=== PATIENT | male | born 1950 | race Caucasian/White ===

== ENCOUNTER 2017-10-05 09:00 | Outpatient (RCR) | payer MEDICARE, OTHER, SELFPAY | END 2017-10-05 23:59 | LOC: DC 09:00 | PROVIDERS: Family Provider Internal Medicine; PCP Internal Medicine; Visit Provider Internal Medicine | DX: E11.21 Type 2 diabetes mellitus with diabetic nephropathy (principal); N18.4 Chronic kidney disease, stage 4 (severe); Z71.3 Dietary counseling and surveillance | CPT/HCPCS: 97802; G0108 ==

== ENCOUNTER → 2017-10-17 08:00 | Outpatient (CLI) | payer MEDICARE, OTHER, SELFPAY ==
[2017-10-17 10:56] LABS: Absolute Lymphocyte Count 0.62 X10^3/ul (0.83-4.51); Absolute Neutrophil Count 4.3 X10^3/uL (2.0-7.7); Basophil# 0.04 X10^3/uL; Basophil% 0.7 % (0-1); Eosinophils% 5.2 % (0-5); Hematocrit 35.6 % (40-54); Hemoglobin 11.5 g/dl (13.0-16.5); Lymphocyte # 0.62 X10^3/ul (4.0); Lymphocyte % 10.7 % (19-41); Mean Corp Hgb Conc 32.3 g/gl (32-36); Mean Corpuscular Hgb 27.9 pg (27.0-32.0); Mean Corpuscular Volume 86.4 fL (80-94); Mean Platelet Vol. 10.4 fl (6.2-12.0); Monocyte# 0.53 X10^3/uL; Monocyte% 9.1 % (0-10); Neutrophil # 4.32 X10^3/uL (2.7-7.7); Neutrophil % 74.1 % (47-70); Platelet Count 247 K/mm3 (150-450); RBC Distribution Width CV 14.1 % (11.6-14.6); RBC Distribution Width SD 43.1 fl (35.1-43.9); Red Blood Count 4.12 M/mm3 (4.6-6.2); White Blood Count 5.8 K/mm3 (4.4-11.0)
[2017-10-17 11:02] LABS: POSITIVE COUNT NO; POSITIVE DIFFERENTIAL NO; POSITIVE MORPHOLOGY NO
[2017-10-17 11:19] LABS: AST(SGOT) 41 U/L (15-37); Alanine Aminotransfer ALT/SGPT 48 U/L (16-61); Albumin, Serum 3.1 g/dL (3.2-5.0); Alkaline Phosphatase 58 U/L (45-117); Anion Gap 7 (5-15); BUN 81 mg/dL (7-18); BUN/Creat Ratio 15.4 RATIO (10-20); Calcium,Total 8.1 mg/dL (8.5-10.1); Chloride 107 mmol/L (98-107); Creatinine, Serum 5.27 mg/dL (0.70-1.30); EST Glomerular Filtration Rate 12 mL/min (>60); Est Glom Filt Rate - Afr Amer 14 mL/min (>60); Globulin 3.1 g/dL (2.2-4.2); Glucose 88 mg/dL (74-106); Potassium 5.1 mmol/L (3.5-5.1); Protein, Total 6.2 g/dL (6.4-8.2); Sodium Level 138 mmol/L (136-145)
== END ==
PROVIDERS: Family Provider Internal Medicine; PCP Internal Medicine; Visit Provider Internal Medicine
DX: I10 Essential (primary) hypertension (principal)
CPT/HCPCS: 36415; 80053; 85025

== ENCOUNTER → 2017-10-18 10:54 | Outpatient (CLI) | payer MEDICARE, OTHER, SELFPAY ==
--- NOTE | 2017-10-18 11:00 | ECHOD_ITS ---
Reason For Study: cad/ashd Procedure This was a 2D Doppler, Color Flow transthoracic echocardiogram. Exam performed in department. Left Ventricle Moderate concentric left ventricular hypertrophy. The estimated ejection fraction is 65 %. Stage 2 diastolic dysfunction. No regional wall motion abnormalities noted. Right Ventricle Normal size and thickness. Normal systolic function. Atria The left atrium is severely enlarged. The right atrium is mildly enlarged. Normal atrial septum. Mitral Valve Mild diffuse mitral valve thickening. Severe mitral annular calcification extending into the posterior leaflet. Trivial mitral valve insufficiency. Tricuspid Valve Normal tricuspid valve. Trivial tricuspid valve insufficiency. Right ventricular systolic pressure estimated to be 39 mmHg. Mild pulmonary hypertension. Aortic Valve Trisinus/trileaflet aortic valve. Mild diffuse aortic valve thickening. Trivial aortic valve insufficiency. Pulmonic Valve Normal pulmonic valve. Trivial pulmonic valve insufficiency. Great Vessels Normal aortic root. Mild atherosclerosis of the aortic arch. Normal inferior vena cava. Inferior vena cava collapse with sniff. Pericardium/Pleural No pericardial effusion. MMode/2D Measurements & Calculations LVIDd: 4.9 cm IVSd: 1.6 cm Ao root diam: 3.7 cm LVIDs: 3.7 cm LVPWd: 1.4 cm LA dimension: 5.4 cm RVDd: 3.5 cm FS: 24.7 % LAV(MOD-bp): 135.1 ml LA A4 area: 32.9 cm2 RA A4 area: 23.6 cm2 LAV(MOD-bp) Indexed: 58.5 ml/m2 LAV(MOD-sp2): 133.0 ml LAV(MOD-sp4): 133.0 ml Time Measurements MV dec time: 0.21 sec Doppler Measurements & Calculations MV E max luis angel: 122.7 cm/sec Lat Peak E' Luis Angel: 9.6 cm/sec Med Peak E' Luis Angel: 3.5 cm/sec MV A max luis angel: 92.2 cm/sec E/E' lat: 12.8 E/E' med: 34.8 MV E/A: 1.3 Ao V2 max: 166.1 cm/sec AI max luis angel: 332.8 cm/sec LV V1 max: 124.1 cm/sec Ao max P.0 mmHg AI max P.3 mmHg LV V1 max P.2 mmHg Ao V2 mean: 98.6 cm/sec AI dec slope: 103.4 cm/sec2 LV V1 mean P.8 mmHg Ao mean P.6 mmHg AI P1/2t: 943.1 msec LV V1 mean: 78.6 cm/sec Ao V2 VTI: 34.1 cm LV V1 VTI: 27.6 cm PA V2 max: 151.5 cm/sec PI end-d luis angel: 147.5 cm/sec TR max luis angel: 285.8 cm/sec TR max P.7 mmHg Interpretation Summary Moderate concentric left ventricular hypertrophy. The estimated ejection fraction is 65 %. Stage 2 diastolic dysfunction. The left atrium is severely enlarged. The right atrium is mildly enlarged. Trivial mitral valve insufficiency. Trivial tricuspid valve insufficiency. Right ventricular systolic pressure estimated to be 39 mmHg. Mild pulmonary hypertension. Trivial aortic valve insufficiency. There is no comparison study available. Ordering Physician: Tulio Garza Referring Physician: Becky Romo Performed By: Nica Miller, ESTRELLA, RVT
== END ==
PROVIDERS: Family Provider Internal Medicine; PCP Internal Medicine; Visit Provider Internal Medicine Cardiovascular Disease
DX: Z01.810 Encounter for preprocedural cardiovascular examination (principal)
CPT/HCPCS: 93306

== ENCOUNTER → 2017-10-24 10:32 | Outpatient (CLI) | payer MEDICARE, OTHER, SELFPAY ==
--- NOTE | 2017-10-24 11:00 | STE_ITS ---
Reason For Study: CAD/ASHD, PRE-OP Stress Results Protocol: Stress Echocardiogram Maximum Predicted HR: 151 bpm Target HR: 128 bpm% Maximum Pr edicted HR: 89 % DurationHeart Rate Stage (mm:ss) (bpm) BPDos e Comment BASELINE 60 146/76 DSE- 10 MCG 3:04 75 140/7610.00 DSE- 20 MCG 3:05 10 0 178/7020.00 DSE- 30 MCG 3:25 11 8 161/7030.00ATROPINE .25 MG GIVEN IVP @ 1125 DSE- 40 MCG 2:04 13 4 161/7640.00ATROPINE .25 MG IVP GIVEN @ 1129 RECOVERY 85 156/79 Stress Duration: 11:38 mm:ss Maximum Stress HR: 134 bpm Baseline Echocardiogram Findings The estimated ejection fraction is 65 %. Stress Echo Wall motion Data Resting WMIntermediate WMStress WM Resting Wall Motion Wall Motion Stress No regional wall motion No regional wall motion abnormalities noted. abnormalities noted. EKG Data Normal intervals are noted. The patient was titrated from 10 mcg to a maximum of 40 mcg of dobutamine during the stress. The maximum heart rate attained was 134 beats per minute. This was 88% of maximum predicted heart rate. At peak infusion, upsloping ST changes only were noted, which did not meet the criteria for ischemia. No clinical angina was noted. Interpretation Summary The estimated ejection fraction is 65 %. Normal adequate dobutamine echocardiogram. Negative for ischemia by EKG and echocardiographic criteria. No anginal symptoms noted. Rare PVC noted. Appropriate blood pressure response to dobutamine. Nonspecific ST T-wave changes during infusion which did not reach criteria for ischemia. Final LVEF is 75%. Test terminated due to attainment of target heart rate. No complications. Ordering Physician: Tulio Garza Referring Physician: Tulio Garza Performed By: Lauren Olivares, CHUYCS, RVT
== END ==
PROVIDERS: Family Provider Internal Medicine; PCP Internal Medicine; Visit Provider Internal Medicine Cardiovascular Disease
DX: Z01.810 Encounter for preprocedural cardiovascular examination (principal); I25.810 Atherosclerosis of coronary artery bypass graft(s) without angina pectoris; E78.5 Hyperlipidemia, unspecified; Z95.1 Presence of aortocoronary bypass graft
CPT/HCPCS: 93017; 93350; J7030; A4216

== ENCOUNTER → 2017-11-15 08:57 | Outpatient (CLI) | payer MEDICARE, OTHER, SELFPAY ==
--- NOTE | 2017-11-15 09:01 | US_ITS ---
STUDY: THYROID ULTRASOUND REASON FOR EXAM: Male, 67 years old. Follow-up nodules TECHNIQUE: Transverse and longitudinal ultrasound evaluation of the thyroid was performed with real-time and static ramírez-scale imaging. COMPARISON: November 24, 2016 and January 10, 2015 FINDINGS: RIGHT LOBE: The right lobe of the thyroid gland measures 5.2 x 2.5 x 2.5 cm. There is a heterogeneous echotexture. There is a hypoechoic nodule in the upper pole measuring 8.0 x 7.3 x 5.2 mm. This previously measured 8.9 x 7.5 x 7.8 mm. There is a hypoechoic mass with ill-defined margins in the lower pole measuring about 28 x 24 x 22 mm. This previously measured up to 29 x 20 x 19 mm. LEFT LOBE: The left lobe of the thyroid gland measures 3.4 x 1.3 x 1.7 cm. There is a heterogeneous echotexture. There are small cystic nodules in the left lobe measuring up to 4.4 mm in size. ISTHMUS: The isthmus measures 3.0 mm. The regional lymph nodes are unremarkable. US/Thyroid IMPRESSION: Stable appearance of the thyroid with heterogeneity and bilateral nodules. The largest in the lower pole of the right lobe is solid but appears stable in size and appearance. Electronically Signed: Margaret Ching MD at 8:36 EDT Tel Direct: [phone], Service support ,
--- NOTE | 2017-11-15 09:48 | CDU_ITS ---
Reason For Study: carotid stenosis Rt. Velocities/BP Lt. Velocities/BP Prox CCA 73.9/14.7 cm/sec. Prox CCA 81.5/19.3 cm/sec. Mid CCA 79.7/14.7 cm/sec. Mid CCA 69.8/15.2 cm/sec. Dist CCA 62.7/12.9 cm/sec. Dist CCA 85.6/17.6 cm/sec. Prox ICA 53.9/14.1 cm/sec. Prox ICA 76.2/15.2 cm/sec. Mid ICA 66.3/18.8 cm/sec. Mid ICA 51.0/14.1 cm/sec. Dist ICA 72.1/27.6 cm/sec. Dist ICA 64.4/20.5 cm/sec. Rt. ICA/CCA = .9. Lt. ICA/CCA = 1.1. Prox ECA 65.7/11.1 cm/sec. Prox ECA 102/9.97 cm/sec. Rt. Vert. 20.2/6.9 cm/sec. Lt. Vert. 54.5/20.5 cm/sec. Right Extracranial There is heterogeneous, smooth atherosclerotic plaque noted in the right common carotid artery. There is heterogeneous, irregular atherosclerotic plaque noted in the right internal carotid artery. There is homogeneous, smooth atherosclerotic plaque noted in the right external carotid artery. Antegrade flow is noted in the right vertebral artery. Left Extracranial There is heterogeneous, irregular atherosclerotic plaque noted in the left common carotid artery. There is heterogeneous, irregular atherosclerotic plaque noted in the left internal carotid artery. There is intimal thickening but no significant atherosclerotic plaque noted in the left external carotid artery. Antegrade flow is noted in the left vertebral artery. Procedure Carotid Duplex [id number]. The exam was diagnostic. Exam performed in department. Interpretation Summary Mild (<50%) stenosis right extracranial internal carotid. Mild (<50%) stenosis left extracranial internal carotid. Flow within the vertebral arteries is antegrade bilaterally. Ordering Physician: Becky Romo Performed By: Gabriel Rothman RVT
== END ==
PROVIDERS: Family Provider Internal Medicine; PCP Internal Medicine; Visit Provider Internal Medicine
DX: I65.23 Occlusion and stenosis of bilateral carotid arteries (principal); E04.1 Nontoxic single thyroid nodule
CPT/HCPCS: 76536; 93880

== ENCOUNTER → 2017-12-08 08:53 | Outpatient (CLI) | payer MEDICARE, OTHER, SELFPAY ==
[2017-12-08 09:58] LABS: Anion Gap 9 (5-15); BUN 95 mg/dL (7-18); BUN/Creat Ratio 16.1 RATIO (10-20); Calcium,Total 7.7 mg/dL (8.5-10.1); Chloride 107 mmol/L (98-107); EST Glomerular Filtration Rate 10 mL/min (>60); Est Glom Filt Rate - Afr Amer 12 mL/min (>60); Glucose 129 mg/dL (74-106); Sodium Level 140 mmol/L (136-145)
[2017-12-09 09:08] LABS: HEPATITIS B SURFACE AG Negative (Negative)
== END ==
PROVIDERS: Family Provider Internal Medicine; PCP Internal Medicine; Visit Provider Internal Medicine Nephrology
DX: N18.5 Chronic kidney disease, stage 5 (principal)
CPT/HCPCS: 36415; 80048; 87340

== ENCOUNTER → 2017-12-27 10:53 | Outpatient (CLI) | payer MEDICARE, OTHER, SELFPAY ==
[2017-12-28 11:14] LABS: HEPATITIS B SURFACE AG Negative (Negative)
== END ==
PROVIDERS: Family Provider Internal Medicine; PCP Internal Medicine; Visit Provider Internal Medicine Nephrology
DX: N18.5 Chronic kidney disease, stage 5 (principal)
CPT/HCPCS: 36415; 87340

== ENCOUNTER 2017-12-29 11:09 | Day surgery (SDC) | payer MEDICARE, OTHER, SELFPAY ==
--- NOTE | 2017-12-29 11:23 | EKG12_ITS ---
Test Reason : PREOP Blood Pressure : / mmHG Vent. Rate : 051 BPM Atrial Rate : 051 BPM P-R Int : 164 ms QRS Dur : 110 ms QT Int : 436 ms P-R-T Axes : 006 -02 104 degrees QTc Int : 401 ms Sinus bradycardia Left ventricular hypertrophy with repolarization abnormality Abnormal ECG When compared with ECG of 27-MAR-2008 05:47, Vent. rate has decreased BY 27 BPM Confirmed by DARA OCHOA ([id number]), make up editor CHADWICK TABARES ([id number]) on 01/03/2018 4:08:38 PM Referred By: Norm Bernard Confirmed By:DARA OCHOA
[2017-12-29 11:47] VITALS: BP 152/74; PULSE 48; RESP 18; TEMP 36.8; O2SAT 99; BMI 35.6
[2017-12-29 12:05] LABS: Bedside Glucose 94 mg/dL (70-110)
--- NOTE | 2017-12-29 12:43 | DCINST_ITS ---
Discharge Diet: Renal Diet Discharge Activity: May not drive while taking narcotic pain medications., May Not Shower Lifting Restrictions: 10 pounds Call your doctor if your incision/area has: Continuous Slow Oozing, Sudden Increased Bleeding, Increased Pain/ Swelling, Increased Redness, Foul Smelling Discharge Call your doctor if you observe: Fever of 101 or Higher Suture Line Care: Avoid Pulling/Pushing, Avoid Pinching/Bending Additional Dressing/Incision Instructions:: Please keep the peritoneal dialysis catheter site clean and dry. Dressing changes will be facilitated by the dialysis center. Allergies/Adverse Reactions: Allergies ibuprofen Allergy (Verified 12/13/17 12:55) swellin and itching vancomycin Allergy (Verified 12/13/17 12:55) rash/ throat swelling adhesive tape Adverse Reaction (Verified 12/13/17 12:55) Rash Medications to take at Discharge amlodipine 10 mg tablet 10 mg PO QDAY 30 Days #30 tab 10/04/17 aspirin 325 mg tablet 325 mg PO QDAY 10/04/17 atorvastatin 40 mg tablet 40 mg PO QHS tab 10/04/17 cholecalciferol (vitamin D3) 50,000 unit capsule 50,000 unit PO QWEEK 84 Days # 12 cap 10/04/17 clonidine HCl 0.3 mg tablet 0.3 mg PO BID 90 Days #180 tab 10/04/17 clopidogrel 75 mg tablet 75 mg PO QDAY 90 Days #90 tab 10/04/17 diphenhydramine 25 mg-acetaminophen 500 mg tablet 1 tab PO QHS PRN 10/04/17 doxazosin 4 mg tablet 4 mg PO QDAY tab 10/04/17 fenofibrate 160 mg tablet 160 mg PO QDAY 90 Days #90 tab 10/04/17 furosemide 40 mg tablet 40 mg PO QDAY 90 Days #90 tab 10/04/17 insulin aspart U-100 100 unit/mL subcutaneous pen 10 unit SC TID ml 10/04/17 insulin glargine (U-100) 100 unit/mL (3 mL) subcutaneous pen 30 unit SC QHS ml 10/04/17 isosorbide mononitrate ER 30 mg tablet,extended release 24 hr 30 mg PO QDAY 90 Days #90 tab 10/04/17 levothyroxine 50 mcg tablet 50 mcg PO QDAY tab 10/04/17 lisinopril 20 mg tablet 20 mg PO BID 90 Days #180 tab 10/04/17 metoprolol succinate ER 200 mg tablet,extended release 24 hr 200 mg PO .QD 90 Days tab 10/04/17 Hydrocodone Bitart/Apap 5-325 [[place] 5MG-325MG] 1 tablet PO Q6H PRN PRN 3 Days # 8 tablet 12/29/17 The following prescriptions were given: Hydrocodone Bitart/Apap 5-325 [[place] 5MG-325MG] 1 tablet PO Q6H PRN PRN 3 Days # 8 tablet PRN Reason: Pain Primary Care Physician: Becky Romo DO [Primary Care Provider] - Please Follow Up With: Norm Bernard MD - [phone] When: Call to make an appointment to be seen in about 10 days.
[2017-12-29] MEDS: Cefazolin 2 GM in 0.9% Normal Saline 100 ML IV (12:57)
--- NOTE | 2017-12-29 13:00 | MISC_PTH ---
PATIENT: BJ RUIZ LOC: [facility] – [place] U#:[id number] AGE/SX: 67/M ROOM: RE12/29/[address]: Dr. Norm Bernard MD : [id number] BED: DIS: 12/29/2017 SPEC #: [id number] RECD: 12/29/17 15:26 STATUS: LEXII REAdriana #: [id number] SID: 12/29/17 13:[address]: Norm Bernard DEPT: SURGICAL PATHOLOGY RECD BY: Panchito Albrecht ENTERED: 12/30/17 08:42 SP TYPE: MIS OT DR: Dr. Becky Romo, DO Tissues: Adipose tissue Procedures: Surgery Specimen Level III HEADER OPERATION: Laparoscopic insertion peritoneal dialysis catheter PRE-OP DIAGNOSIS: Chronic kidney disease stage 4 TISSUE SUBMITTED: Preperitoneal fat MICROSCOPIC DIAGNOSIS Preperitoneal fat: A piece of mature adipose tissue, no pathologic diagnosis. SJ:ailyn 01/02/18 MICROSCOPIC DESCRIPTION Slides are reviewed. GROSS DESCRIPTION Received in fixative is one container labeled with the patient's name and designated preperitoneal fat. The specimen consists of an irregular fragment of boyer-yellow fatty tissue measuring 8 x 6 x 1.8 cm. Serial sections reveal homogenous yellow cut surfaces without areas of cyst formation, necrosis or myxoid change. Medical Reimbursement Specialist sections are submitted in two cassettes. / AM:ailyn 12/30/17 TC:4 CPT: 58707
[2017-12-29] MEDS: Heparin Injection (Vial) 5,000 UNIT/ML VIAL 5000 UNIT (13:45)
[2017-12-29] MEDS: Bupivacaine Mpf 0.5% 30 ML VIAL (14:14)
--- NOTE | 2017-12-29 14:16 | OP.PCM_ITS ---
Problem List (1) Chronic kidney disease, stage IV (severe) Status: Chronic Report of Operation Date of Procedure: 12/29/17 Pre-Operative Diagnosis: Stage IV chronic renal failure Post-Operative Diagnosis: Same Surgery/Procedure Performed:: Laparoscopic peritoneal dialysis catheter placement with laparoscopic omentopexy and a laparoscopic resection of excessive preperitoneal suprapubic fat Description of Surgical Findings:: Timeout and informed consent was obtained. 67-year-old gentleman was taken to the operating room. He was placed supine on the table. He underwent general endotracheal intubation anesthesia. Ancef 2 g are given intravenous preoperatively. The abdomen was sterilely prepped and draped. Ioban draping was utilized as well. A 5 mm Visiport technology was used to gain access to the abdomen to the right mid abdomen. The abdomen was then insufflated CO2 to a pressure of 10 mmHg pressure. An additional 5 mm port was placed under visualization the right lower quadrant. It became apparent that the patient had exuberant fat that drooped down from the infraumbilical suprapubic area. This was so exuberant I thought that it could potentially obstruct the catheters. I then used electrified scissors to dissect this free. Because of the size of that specimen I had to make a small incision at the umbilicus place a 10 mm trocar placed in retrieval bag. I then made measurements inferior and slightly to the left of the umbilicus based upon the length of the double cuff peritoneal dialysis catheter. Made a transverse incision in the abdomen that point about 2 cm dissected down to the fascia made a small incision the anterior rectus sheath I then placed the dilating sheath with varies needle extended that in the retroperitoneal direction for 6 cm then exited into the abdomen pointing toward the midline pelvis. I inserted the dilators after removing the Veress needle. I then advanced the peritoneal dialysis catheter through the sheath and nicely placed that in the peritoneum with up the cuff just immediately in the posterior rectus position. The superficial cuff then was in the subcutaneous area immediately at the incision that I made the patient is obese and has a high waistline and so then I tunneled the catheter superiorly into the left with a high exit site approximately parallel with the umbilicus but had a 30? downward angle. That consume the vast majority the length of the catheter. We then placed the attachment device and then placed a liters saline within the abdomen. The catheters were inspected and noted to be absolutely perfectly position behind the urinary bladder. The patient has significant fat from appendices epiploicae from the colon. Also had a partially filled urinary bladder. We were able to get 300 cc of return. At this point I felt because of the very large peritoneal cavity that it may require more fluid for him to flush and return. I carefully inspected the position of the catheters and to my believe they are absolutely in perfect position lying anterior to the rectum behind the urinary bladder. That wound was closed with interrupted 4-0 Monocryl subdermal stitches. The mastopexy was then performed with the deepest portion of the omentum being midline I made a small 11 blade stab incision used a grainy needle to place a 2- 0 Prolene through the omentum and that site and secured that up to the anterior abdominal wall. Finally I removed the piece of preperitoneal fat that was in the collection bag. I closed the umbilical site using a grainy needle and a 0 Vicryl figure 8 suture. All sites now appear to be hemostatic dry and intact airtight. The remaining Trochars removed under visualization the abdomen was allowed to deflate of the CO2 the attachment extension was placed on the tubing. Then approximately 200 cc of heparinized saline was injected through the tube. The valve was locked. Betadine Was inserted. A silver type dressing was placed at the exit site followed by OpSite dressings. All other incisions were treated with Steri-Strips Telfa OpSite dressings. A generous overlying OpSite was placed protecting the catheter with gauze. Sponge instrument and needle counts were reported the surgeon for correct blood loss was minimal. I believe that this catheter technically is in absolutely perfect position. If there are difficulties with the catheter function it will be secondary to a atonic urinary bladder or bladder outlet obstruction in combination with the patient's obesity. Norm Bernard M.D., F.A.C.S. Type of Anesthesia:: General Anesthesiologist: Blas Perez
[2017-12-29 14:34] VITALS: BP 152/74; BP 161/75; PULSE 53; RESP 16; TEMP 36.3; O2SAT 92
[2017-12-29 14:45] VITALS: BP 152/74; BP 164/72; PULSE 49; RESP 16; O2SAT 95
[2017-12-29 14:45] LABS: Bedside Glucose 80 mg/dL (70-110)
[2017-12-29 15:00] VITALS: BP 152/74; BP 165/70; PULSE 46; RESP 16; O2SAT 96
[2017-12-29 15:15] VITALS: BP 152/74; BP 172/68; PULSE 16; RESP 16; TEMP 36.1; O2SAT 98
[2017-12-29] MEDS: HYDROcodone Bitartrate/Apap 5/325 Tablet PO (15:40)
[2017-12-29 16:35] VITALS: BP 152/74
== END 2017-12-29 16:38 | disposition home or self-care (01) ==
LOC: SDC 11:10 → AC 11:10
PROVIDERS: Family Provider Internal Medicine; PCP Internal Medicine; Visit Provider Surgery
PROC: 0WHG43Z Insertion of Infusion Device into Peritoneal Cavity, Percutaneous Endoscopic Approach (ICD-10-PCS; CPT 49324; principal; 2017-12-29 12:45)
DX: I12.9 Hypertensive chronic kidney disease with stage 1 through stage 4 chronic kidney disease, or unspecified chronic kidney disease (principal); E11.22 Type 2 diabetes mellitus with diabetic chronic kidney disease; N18.4 Chronic kidney disease, stage 4 (severe); Z99.2 Dependence on renal dialysis; E78.5 Hyperlipidemia, unspecified; E03.9 Hypothyroidism, unspecified; E66.9 Obesity, unspecified; Z68.35 Body mass index [BMI] 35.0-35.9, adult; Z79.02 Long term (current) use of antithrombotics/antiplatelets; Z79.82 Long term (current) use of aspirin; Z79.4 Long term (current) use of insulin; Z79.899 Other long term (current) drug therapy; Z86.73 Personal history of transient ischemic attack (TIA), and cerebral infarction without residual deficits; Z95.1 Presence of aortocoronary bypass graft; Z95.5 Presence of coronary angioplasty implant and graft
CPT/HCPCS: 49324; 49326; 82962; 88304; 93005; J7040

== ENCOUNTER → 2018-01-03 10:08 | Outpatient (CLI) | payer MEDICARE, OTHER, SELFPAY ==
[2018-01-03 10:16] LABS: Bacteria 0 SEEN /hpf (None Seen); Mucous, Urine 0 SEEN /hpf (<or=2+); White Blood Cells 0 SEEN /hpf (0-5)
[2018-01-03 11:23] LABS: Anion Gap 12 (5-15); BUN 117 mg/dL (7-18); BUN/Creat Ratio 13.7 RATIO (10-20); Calcium,Total 7.7 mg/dL (8.5-10.1); Chloride 103 mmol/L (98-107); Creatinine, Serum 8.56 mg/dL (0.70-1.30); EST Glomerular Filtration Rate 7 mL/min (>60); Est Glom Filt Rate - Afr Amer 8 mL/min (>60); Glucose 156 mg/dL (74-106); Potassium 4.8 mmol/L (3.5-5.1); Sodium Level 134 mmol/L (136-145)
[2018-01-03 12:48] LABS: Color, Urine Yellow (Yellow); Glucose, Dipstick 100 mg/dl (Normal); Ketone-Dipstick Negative (Negative); Leukocyte Esterase-Dipstick Negative /ul (Negative); Nitrite-Dipstick Negative (Negative); Occult Blood-Urine 10 /ul (Negative); Protein-Dipstick 100 mg/dl (Negative); Specific Gravity, Urine 1.015 (1.002-1.030); Urine Bilirubin Dipstick Negative (Negative); Urine Clarity Clear (Clear); Urine Urobilinogen Normal (Normal)
[2018-01-03 12:58] LABS: Red Blood Cells-Urine 0-5 SEEN /hpf (0-5); Squamous Epithelial Cells - UA 0-5 SEEN /hpf (0-5)
== END ==
PROVIDERS: Surgery; Family Provider Internal Medicine; PCP Internal Medicine; Visit Provider Internal Medicine Nephrology
DX: N18.5 Chronic kidney disease, stage 5 (principal); R39.15 Urgency of urination
CPT/HCPCS: 36415; 80048; 81001

== ENCOUNTER → 2018-01-18 14:18 | Outpatient (CLI) | payer MEDICARE, OTHER, SELFPAY ==
[2018-01-18 14:32] LABS: Absolute Lymphocyte Count 1.21 X10^3/ul (0.83-4.51); Absolute Neutrophil Count 8.4 X10^3/uL (2.0-7.7); Basophil# 0.02 X10^3/uL; Basophil% 0.2 % (0-1); Eosinophil# 0.29 X10^3/uL; Eosinophils% 2.8 % (0-5); Hematocrit 24.9 % (40-54); Lymphocyte # 1.21 X10^3/ul (4.0); Lymphocyte % 11.8 % (19-41); Mean Corp Hgb Conc 32.1 g/gl (32-36); Mean Corpuscular Hgb 27.9 pg (27.0-32.0); Mean Corpuscular Volume 86.8 fL (80-94); Mean Platelet Vol. 9.2 fl (6.2-12.0); Monocyte# 0.21 X10^3/uL; Neutrophil % 81.7 % (47-70); Platelet Count 347 K/mm3 (150-450); RBC Distribution Width CV 14.6 % (11.6-14.6); RBC Distribution Width SD 46.1 fl (35.1-43.9); Red Blood Count 2.87 M/mm3 (4.6-6.2); White Blood Count 10.3 K/mm3 (4.4-11.0)
[2018-01-18 14:35] LABS: POSITIVE COUNT NO; POSITIVE DIFFERENTIAL NO; POSITIVE MORPHOLOGY NO
[2018-01-18 14:39] LABS: International Normalized Ratio 1.7; Partial Thromboplast Time 36.4 Seconds (24.1-36.2)
== END ==
PROVIDERS: Family Provider Internal Medicine; PCP Internal Medicine; Visit Provider Internal Medicine
DX: T14.8XXA Other injury of unspecified body region, initial encounter (principal); X58.XXXA Exposure to other specified factors, initial encounter; Y93.9 Activity, unspecified; Y92.9 Unspecified place or not applicable; Y99.9 Unspecified external cause status
CPT/HCPCS: 85025; 85610; 85730

== ENCOUNTER → 2018-01-27 08:27 | Outpatient (CLI) | payer MEDICARE, OTHER, SELFPAY ==
[2018-01-27] VITALS (7 sets, daily range): BP systolic 107–145; BP diastolic 47–71; PULSE 51–59; RESP 16–18; TEMP 36.2–37.1; O2SAT 96–98; BMI 33.9
== END ==
PROVIDERS: Family Provider Internal Medicine; PCP Internal Medicine; Visit Provider Internal Medicine Nephrology
DX: D64.9 Anemia, unspecified (principal)
CPT/HCPCS: 36430; 86850; 86900; 86920; 86922; J7040; P9016; A4216

== ENCOUNTER → 2018-03-28 16:11 | Outpatient (CLI) | payer MEDICARE, OTHER, SELFPAY ==
--- NOTE | 2018-03-28 16:16 | RAD_ITS ---
STUDY: X-RAY - ABDOMEN/PELVIS REASON FOR EXAM: Male, 67 years old. Dialysis catheter. Constipation. TECHNIQUE: 3 supine views of the abdomen. COMPARISON: None. FINDINGS: There is no bowel obstruction. There is a large amount of stool in the colon, consistent with constipation. There is a peritoneal dialysis catheter noted with its tip in the mid pelvis. The visualized osseous structures are within normal limits. RAD/Abdomen Single View IMPRESSION: No bowel obstruction. Constipation. Peritoneal dialysis catheter tip in the mid pelvis. Electronically Signed: Jeffrey Moise, at 21:00 EDT Tel , Service support ,
== END ==
PROVIDERS: Family Provider Internal Medicine; PCP Internal Medicine; Visit Provider Internal Medicine Nephrology
DX: T85.691A Other mechanical complication of intraperitoneal dialysis catheter, initial encounter (principal)
CPT/HCPCS: 74018

== ENCOUNTER 2018-04-06 14:39 | Emergency (ER) | payer MEDICARE, OTHER, SELFPAY ==
[2018-04-06 14:41] VITALS: BP 172/80; PULSE 104; RESP 18; TEMP 37.2; O2SAT 95; BMI 31.1
[2018-04-06 15:05] VITALS: O2SAT 96
--- NOTE | 2018-04-06 15:09 | ED.VISSUMM ---
- ER Visit Summary Date of Service: 04/06/18 Chief Complaint: Fever History of Present Illness: The patient is a 67 M presents to the emergency department fever. Patient was at dialysis today. He has end-stage renal disease and gets dialysis Tuesday, , and Tuesday. During his treatment, he spiked a fever. States that it only last about 30 minutes. He states he did have some chills. He denies any symptoms. He has had a scant cough, but states is chronic for him. The patient does have a tunneled hemodialysis catheter in his right chest. He has a chronic indwelling Bang but denies any change in urination. He also has a peritoneal dialysis catheter, but states that he gets intermittently obstructed and he cannot use it. States up until today has been in his normal state of health. He has been compliant with his dialysis and all his medications. Physical Examination: Vital signs reviewed General: Well-nourished, well-developed Head: Normocephalic, atraumatic Eyes: Pupils equal and reactive, extraocular muscles intact Neck, supple, no lymphadenopathy Heart: Regular rate and rhythm Respiratory: No distress, clear bilaterally Abdomen: Soft, nontender, nondistended, no peritoneal signs Back: Nontender Extremities: Nontender, no edema, no cords Skin: Normal color no rash Neuro: Alert and oriented, no focal or lateralizing deficits Test Results: [] Emergency Department Course and Treatment:] [The patient was initially afebrile here. His vitals were unremarkable. His lungs were clear. Metabolic workup was pursued. Screening labs are unremarkable and do demonstrate end-stage renal disease. His lactate was minimally elevated at 2.1. The patient did spike a fever here of 102. He was given Tylenol and it resolved. Blood cultures were obtained. His x-ray shows no infiltrates. The patient is requesting discharge. I did discuss plan of care with his investigator fraud, Dr. chase. The patient is covered with IV Ancef and this will be arranged to be continued at dialysis. He is also placed on oral Bactrim to be taken after dialysis. Patient is comfortable this plan of care. I did spend time counseling him on concerning symptoms and reasons to return. He will be discharged home with family. Treatment Plan: [] Disposition: Discharge Impression: 1. Fever This note was generated with [employer] software. It may contain incorrect words, spelling, and punctuation that were not noted in review of the chart prior to signing ED Disposition - Plan for ED Patient: Disposition: Home or Assisted Living Chief Complaint: Fever Instructions: ED Fever Unconf Cause Prescriptions: Smz/Tmp Ds [Bactrim Ds] 1 tab PO QODAY #10 tab Referrals: Joey Naranjo MD [STAFF PHYSICIAN] -
[2018-04-06] MEDS: Acetaminophen 500 MG Tablet 1000 MG PO (15:24)
[2018-04-06 15:38] LABS: Absolute Lymphocyte Count 0.55 X10^3/ul (0.83-4.51); Absolute Neutrophil Count 7.9 X10^3/uL (2.0-7.7); Basophil# 0.01 X10^3/uL; Basophil% 0.1 % (0-1); Eosinophil# 0.08 X10^3/uL; Eosinophils% 0.9 % (0-5); Hemoglobin 10.4 g/dl (13.0-16.5); Lymphocyte # 0.55 X10^3/ul (4.0); Lymphocyte % 5.9 % (19-41); Mean Corp Hgb Conc 31.5 g/gl (32-36); Mean Corpuscular Hgb 29.1 pg (27.0-32.0); Mean Corpuscular Volume 92.2 fL (80-94); Mean Platelet Vol. 9.2 fl (6.2-12.0); Monocyte# 0.74 X10^3/uL; Neutrophil # 7.86 X10^3/uL (2.7-7.7); Neutrophil % 84.8 % (47-70); Platelet Count 301 K/mm3 (150-450); RBC Distribution Width CV 16.1 % (11.6-14.6); Red Blood Count 3.58 M/mm3 (4.6-6.2); White Blood Count 9.3 K/mm3 (4.4-11.0)
[2018-04-06 15:48] LABS: POSITIVE COUNT NO; POSITIVE DIFFERENTIAL YES; POSITIVE MORPHOLOGY NO
[2018-04-06 15:49] LABS: Differential Indicated SCAN CRITERIA MET
[2018-04-06 16:04] LABS: ALB/GLOB Ratio 0.7 RATIO (0.9-2.4); AST(SGOT) 19 U/L (15-37); Alanine Aminotransfer ALT/SGPT 18 U/L (16-61); Albumin, Serum 2.8 g/dL (3.2-5.0); Alkaline Phosphatase 69 U/L (45-117); Anion Gap 11 (5-15); BUN 28 mg/dL (7-18); BUN/Creat Ratio 6.7 RATIO (10-20); Calcium,Total 8.4 mg/dL (8.5-10.1); Chloride 94 mmol/L (98-107); EST Glomerular Filtration Rate 15 mL/min (>60); Est Glom Filt Rate - Afr Amer 18 mL/min (>60); Estimated Creatinine Clearance 17.68 ml/min; Globulin 4.3 g/dL (2.2-4.2); Glucose 134 mg/dL (74-106); Protein, Total 7.1 g/dL (6.4-8.2); Sodium Level 136 mmol/L (136-145)
[2018-04-06 16:12] LABS: Anisocytosis RARE; Macrocytosis RARE; Platelet Estimate ADEQUATE (ADEQ)
[2018-04-06 16:13] LABS: Lactic Acid 2.1 mmol/L (0.4-2.0)
--- NOTE | 2018-04-06 16:30 | RAD_ITS ---
STUDY: X-RAY CHEST REASON FOR EXAM: Male, 67 years old. Cough. TECHNIQUE: PA and lateral views of the chest. COMPARISON: None. FINDINGS: There is a right jugular hemodialysis catheter with its tip at the atriocaval junction. The lungs are clear and expanded. There is no demonstrated pleural abnormality. The heart appears borderline enlarged. Normal mediastinum and guerda. Normal visualized pulmonary arteries. Normal visualized aortic arch and descending thoracic aorta. There are diffuse degenerative changes of the visualized thoracic spine. Normal visualized ribs, clavicles, and shoulders. There is no demonstrated abnormality of the visualized soft tissue structures of the upper abdomen. RAD/Chest PA and Lateral IMPRESSION: 1. Right jugular hemodialysis catheter. 2. No acute cardiopulmonary disease. 3. Borderline cardiomegaly. Electronically Signed: Juan Cormier DO at 17:38 EDT Tel [phone], Service support ,
[2018-04-06 16:44] VITALS: BP 150/78; PULSE 97; RESP 20; TEMP 39; O2SAT 95
[2018-04-06 18:24] VITALS: BP 126/83; PULSE 87; RESP 16; TEMP 37.5; O2SAT 98
[2018-04-06] MEDS: Smz/Tmp Ds Tablet 1 TABLET PO (19:06)
[2018-04-06] MEDS: Cefazolin 2 GM in 0.9% Normal Saline 100 ML IV (19:18)
[2018-04-06 19:29] LABS: Reflex Lactate? Y
--- NOTE | 2018-04-06 19:42 | ED.RN ---
ASKED DR BROWN IF HE WANTED A REPEAT LACTIC ACID AND HE STATES NO.
[2018-04-06 20:13] VITALS: BP 134/68; PULSE 80; RESP 13; O2SAT 95
[2018-04-06 20:20] VITALS: BP 134/68; PULSE 81; RESP 17; O2SAT 95
== END 2018-04-06 20:20 | disposition home or self-care (01) ==
LOC: ED 15:44
PROVIDERS: Emergency Provider Emergency Medicine; PCP Internal Medicine
DX: R50.9 Fever, unspecified (principal); R05 Cough; I12.0 Hypertensive chronic kidney disease with stage 5 chronic kidney disease or end stage renal disease; E11.22 Type 2 diabetes mellitus with diabetic chronic kidney disease; N18.6 End stage renal disease; Z99.2 Dependence on renal dialysis; Z79.02 Long term (current) use of antithrombotics/antiplatelets; Z79.82 Long term (current) use of aspirin; Z79.4 Long term (current) use of insulin; Z79.899 Other long term (current) drug therapy
CPT/HCPCS: 71046; 80053; 83605; 85025; 87040; 96365; 99285; J7040; A4216

== ENCOUNTER → 2018-04-26 08:21 | Outpatient (CLI) | payer MEDICARE, OTHER, SELFPAY | PROVIDERS: Family Provider Internal Medicine; PCP Internal Medicine; Visit Provider Internal Medicine Nephrology | DX: Z01.818 Encounter for other preprocedural examination (principal); N18.6 End stage renal disease | CPT/HCPCS: 93970; 93971; G0365 ==

== ENCOUNTER 2018-06-30 17:48 | Inpatient (IN) | payer MEDICARE, OTHER, SELFPAY ==
[2018-06-30] VITALS (8 sets, daily range): BP systolic 140–186; BP diastolic 71–95; PULSE 82–123; RESP 16–18; TEMP 37.1–37.8; O2SAT 91–98; BMI 31.2; BMI 31.1
--- NOTE | 2018-06-30 18:08 | RAD_ITS ---
STUDY: X-RAY CHEST REASON FOR EXAM: Male, 67 years old. Fever and chills. TECHNIQUE: Frontal and lateral views of the chest. COMPARISON: None. FINDINGS: The lungs are clear and expanded. There is no demonstrated pleural abnormality. There is a dialysis catheter in place terminating within the expected region of the superior vena cava. Normal size heart. Normal mediastinum and guerda. Normal visualized pulmonary arteries. Normal visualized aortic arch and descending thoracic aorta. There are diffuse degenerative changes of the visualized thoracic spine. Normal visualized ribs, clavicles, and shoulders. There is no demonstrated abnormality of the visualized soft tissue structures of the upper abdomen. RAD/Chest PA and Lateral IMPRESSION: No acute cardiopulmonary process. Electronically Signed: Mindy Watkins MD at 18:58 EDT Tel , Service support ,
--- NOTE | 2018-06-30 18:08 | EKG12_ITS ---
Test Reason : FEVER Blood Pressure : / mmHG Vent. Rate : 116 BPM Atrial Rate : 116 BPM P-R Int : 126 ms QRS Dur : 110 ms QT Int : 316 ms P-R-T Axes : -04 000 172 degrees QTc Int : 439 ms Sinus tachycardia Left ventricular hypertrophy with repolarization abnormality Abnormal ECG Confirmed by DARA OCHOA ([id number]), book or script editor CHADWICK TABARES ([id number]) on 07/04/2018 8:36:15 AM Referred By: Pop Hernandez Confirmed By:DARA OCHOA
--- NOTE | 2018-06-30 18:37 | ED.RN ---
PER DR HAYES HOLD ATB FOR ABOUT 30 MINUTES TO SEE IF WE CAN OBTAIN A URINE CX.
[2018-06-30 18:44] LABS: Absolute Lymphocyte Count 0.46 X10^3/ul (0.83-4.51); Absolute Neutrophil Count 8.8 X10^3/uL (2.0-7.7); Eosinophil# 0.06 X10^3/uL; Eosinophils% 0.6 % (0-5); Hematocrit 31.4 % (40-54); Lymphocyte # 0.46 X10^3/ul (4.0); Lymphocyte % 4.6 % (19-41); Mean Corp Hgb Conc 31.8 g/gl (32-36); Mean Corpuscular Hgb 28.7 pg (27.0-32.0); Mean Corpuscular Volume 90.2 fL (80-94); Mean Platelet Vol. 9.5 fl (6.2-12.0); Monocyte# 0.61 X10^3/uL; Monocyte% 6.1 % (0-10); Neutrophil # 8.79 X10^3/uL (2.7-7.7); Neutrophil % 88.5 % (47-70); Platelet Count 171 K/mm3 (150-450); RBC Distribution Width CV 15.2 % (11.6-14.6); RBC Distribution Width SD 49.6 fl (35.1-43.9); Red Blood Count 3.48 M/mm3 (4.6-6.2); White Blood Count 9.9 K/mm3 (4.4-11.0)
[2018-06-30 18:45] LABS: Differential Indicated SCAN CRITERIA MET; POSITIVE COUNT NO; POSITIVE DIFFERENTIAL YES; POSITIVE MORPHOLOGY NO
[2018-06-30 18:50] LABS: International Normalized Ratio 1.2; Prothrombin Time (Protime)PT. 15.5 SECONDS (11.7-14.9)
[2018-06-30 18:51] LABS: Partial Thromboplast Time 35.4 Seconds (24.1-36.2)
[2018-06-30 18:54] LABS: ALB/GLOB Ratio 0.8 RATIO (0.9-2.4); AST(SGOT) 20 U/L (15-37); Alanine Aminotransfer ALT/SGPT 15 U/L (16-61); Albumin, Serum 3.1 g/dL (3.2-5.0); Alkaline Phosphatase 49 U/L (45-117); Anion Gap 12 (5-15); BUN 24 mg/dL (7-18); BUN/Creat Ratio 5.7 RATIO (10-20); Calcium,Total 8.6 mg/dL (8.5-10.1); Chloride 94 mmol/L (98-107); Creatinine, Serum 4.19 mg/dL (0.70-1.30); EST Glomerular Filtration Rate 15 mL/min (>60); Est Glom Filt Rate - Afr Amer 18 mL/min (>60); Estimated Creatinine Clearance 17.72 ml/min; Globulin 3.7 g/dL (2.2-4.2); Glucose 166 mg/dL (74-106); Potassium 3.5 mmol/L (3.5-5.1); Protein, Total 6.8 g/dL (6.4-8.2); Sodium Level 134 mmol/L (136-145)
[2018-06-30 19:02] LABS: Lactic Acid 2.2 mmol/L (0.4-2.0)
[2018-06-30 19:04] LABS: Platelet Estimate ADEQUATE (ADEQ); Red Cell Morphology NORM C+C NORMAL (NORM C&C)
--- NOTE | 2018-06-30 19:04 | ED.RN ---
LAB CALLS WITH CRITICAL RESULT, LACTIC ACID 2.2, DR. HAYES MADE AWARE.
[2018-06-30 19:37] LABS: Mucous, Urine 0 SEEN /hpf (<or=2+); Squamous Epithelial Cells - UA 0 SEEN /hpf (0-5)
[2018-06-30 19:39] LABS: Color, Urine Yellow (Yellow); Glucose, Dipstick 250 mg/dl (Normal); Ketone-Dipstick 50 mg/dl (Negative); Leukocyte Esterase-Dipstick 500 /ul (Negative); Nitrite-Dipstick Negative (Negative); Occult Blood-Urine 250 /ul (Negative); Protein-Dipstick 500 mg/dl (Negative); Urine Bilirubin Dipstick Negative (Negative); Urine Clarity Cloudy (Clear); Urine Urobilinogen Normal (Normal)
[2018-06-30] MEDS: Ceftriaxone 1 GM/50 ML BAG IV (19:39)
[2018-06-30 19:52] LABS: Bacteria 1+ /hpf (None Seen); Red Blood Cells-Urine > 100 SEEN /hpf (0-5); White Blood Cells 50-100 SEEN /hpf (0-5)
[2018-06-30] MEDS: Smz/Tmp Ds Tablet 1 TABLET PO (20:02)
--- NOTE | 2018-06-30 20:38 | ED.DCSUM_ITS ---
- ER Visit Summary Date of Service: 06/30/18 Chief Complaint: Fever 102.1 ?F with shaking chills during dialysis History of Present Illness: The patient is a 67 M who presents from dialysis because of documented temperature 102.1?F with shaking chills. He has a fistula left proximal/distal arm. He reports stitches were removed yesterday and had difficulty. He had a suprapubic catheter placed yesterday as well for neurogenic bladder. He states he was prescribed antibiotics. He was placed on cephalexin 500 mg 4 urologic prophylaxis. He does report cough and runny nose, which is chronic. He is not a smoker. He denies headache. He denies visual, ocular auditory symptoms. He denies abdominal pain, nausea, vomiting or diarrhea. He does complain of aches. He denies rash. He denies headache, weakness, anesthesia, paresthesia or motor weakness. He is on no anticoagulant. He denies hives or angioedema. Physical Examination: Vital signs noted and blood pressure is elevated at 145/95 with a temperature of 100.1. This is after taking Tylenol at dialysis. Heart rate was 123 on the monitor without ectopy. He is not tachypnic nor is he hypoxic. He appears ill but not toxic. Head is atraumatic normocephalic. Pupils are equal round reactive. Extraocular muscles are intact. TMs are pearly white with landmarks noted. Nares patent with no drainage. Posterior pharynx without erythema or exudate. Uvula is midline. There is no dysphonia or dysphasia. Trachea is midline. There is no stridor with auscultation of the neck. Heart is rapid and regular without murmur, gallop or rub. Lungs are clear to auscultation with good air bilaterally. Abdomen is prominent nontender bowel sounds present but diminished. There is no CVA tenderness noted. Suprapubic catheter site without evidence of infection. Lower extremity exam reveals pallor. There is stigmata of peripheral arterial disease. Neuro exam is nonfocal. Test Results: EKG is sinus mechanism with a rate of 116. There is evidence of LVH with repolarization. OH interval, QT interval and axis normal. QRS duration 110 ms. White count is normal with an H&H 10.0 31.4. Basic medical panel reveals an elevated BUN and creatinine 24 and 4.19. INR and PTT are normal. Urine is consistent with infection. Lactate elevated 2.2. Chest x-ray revealed Vas-Cath with normal cardiac silhouette mediastinum and osseous structures. Chronic changes noted lung parenchyma. Emergency Department Course and Treatment: Sepsis workup was undertaken. Concern source may be urologic versus skin doubt respiratory. Because of patient's allergies he received 1 g of Rocephin for urologic coverage as well as skin coverage. Since he has a remote history of MRSA Bactrim was added since he is allergic to vancomycin. Treatment Plan: IV antibiotics and admission Disposition: PCU Impression: 1. Severe sepsis 2. Urinary tract infection 3. Cellulitis left antecubital fossa 4. Sinus tachycardia documented on monitor and EKG 5. End-stage renal disease on hemodialysis 5. Anemia of chronic illness secondary to renal disease This note was generated with [employer] dictation software. It may contain incorrect words, spelling, and punctuation that were not noted in review of the chart prior to signing ED Disposition - Plan for ED Patient: Chief Complaint: Fever Referrals: Becky Romo DO [Primary Care Provider] -
--- NOTE | 2018-06-30 20:41 | PCM.HP.STD ---
Problem List (1) Severe sepsis Status: Acute (2) Cellulitis Status: Acute Qualifiers: Site of cellulitis: extremity Site of cellulitis of extremity: upper extremity Laterality: left Qualified Code(s): L03.114 - Cellulitis of left upper limb (3) UTI (urinary tract infection) due to urinary indwelling catheter Status: Acute Qualifiers: Encounter type: initial encounter (4) ESRD (end stage renal disease) Status: Chronic (5) Type 2 diabetes mellitus with diabetic nephropathy Status: Chronic Qualifiers: Diabetes mellitus residential insulin use: with extermination inspector use Qualified Code(s): E11.21 - Type 2 diabetes mellitus with diabetic nephropathy; Z79.4 - FDC (current) use of insulin (6) Bilateral carotid artery stenosis Status: Chronic (7) Hyperlipidemia Status: Chronic Qualifiers: Hyperlipidemia type: pure hypercholesterolemia Qualified Code(s): E78.00 - Pure hypercholesterolemia, unspecified; E78.0 - Pure hypercholesterolemia (8) CVA (cerebral vascular accident) Status: Chronic Qualifiers: CVA mechanism: unspecified Qualified Code(s): I63.9 - Cerebral infarction, unspecified (9) H/O coronary artery bypass surgery Status: Chronic Comment: CABG x 5 Sequential Radial Artery- PVB and PDA, STOVER-LAD, Free BERNY -Lat Cx and SVG-Diag. At [facility] (10) Atherosclerosis of coronary artery bypass graft without angina pectoris Status: Chronic Qualifiers: [place] vs. transplanted heart: [place] & [place] heart Qualified Code(s): I25.810 - Atherosclerosis of coronary artery bypass graft(s) without angina pectoris (11) Hypertension Status: Chronic Qualifiers: Hypertension type: essential hypertension Qualified Code(s): I10 - Essential (primary) hypertension History of Present Illness Date of Admission: 06/30/18 Chief Complaint: Fever, chills The patient is a 67 y/o M w/ PMHx: ESRD on HD (MWF), History of CVA, HTN, HLD, Obesity, Hypothyroidism, Diabetes mellitus type II w/ neuropathy, Carotid disease, CAD s/p CABG x 5 and PCI distal RCA who presents to the [facility] ED on 06/30/18 with 102 T at HD w/ rigors, recently decreased appetite, nausea, worsened fatigue and weakness over the last 24-48 hours with recent suprapubic catheter placement the day prior at [facility] in addition to onset LUE recent fistula per Dr. Tirado ~ 1 month prior w/ suture removals on the day same w/ then onset redness and edema to the suture line. He notes having taken tylenol at home prior to current presentation. Family notes that he has seemed more fatigued, weak and less well over the last 1-2 weeks but no focal findings or specific complaints otherwise. He notes he does have some suprapubic/lower abdominal cramping. 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 Work up in the ED included T 99.5, heart rate 112, BP 143/72, 94% on room air, CBC with WC 9.9, hemoglobin 10 (baseline Hgb 10-11), platelet 171 with left shift, coags with PT 15.5, INR 1.2, PTT 35.4, CMP w/ sodium 134, chloride 95, BUN/creatinine 24/4.19 (most recent creatinine 04/06/18 4.20), glucose 166, lactic acid 2.2, urinalysis with 500 leukocyte esterase, greater than 100 RBC, 50-100 WBC, 1+ bacteria status post recent suprapubic catheter placement, chest x-ray with no acute cardiopulmonary process. In the ED patient administered Bactrim orally and Rocephin IV. Past Medical History Past Medical History (Chronic Problems): Chronic Problems (Last Reviewed 05/05/18 @ 10:19 by Urmila Leonard) ESRD (end stage renal disease) (Chronic) Chronic kidney disease, stage IV (severe) (Chronic) 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 At [facility] Atherosclerosis of coronary artery bypass graft without angina pectoris (Chronic) Hypertension (Chronic) Medical History: Medical History (Last Reviewed 05/05/18 @ 10:19 by Urmila Leonard) Chronic kidney disease, stage IV (severe) (Chronic) N18.4 Type 2 diabetes mellitus with diabetic nephropathy (Chronic) E11.21 Bilateral carotid artery stenosis (Chronic) I65.23 Hyperlipidemia (Chronic) E78.5 CVA (cerebral vascular accident) (Chronic) I63.9 Atherosclerosis of coronary artery bypass graft without angina pectoris (Chronic) I25.810 Hypertension (Chronic) I10 Hypothyroidism E03.9 Obesity E66.9 Thyroid nodule E04.1 Allergies ibuprofen Allergy (Verified 06/30/18 17:49) swellin and itching povidone-iodine [From Betadine] Allergy (Verified 06/30/18 17:50) Itching soap [From Betadine] Allergy (Verified 06/30/18 17:50) Itching vancomycin Allergy (Verified 06/30/18 17:49) rash/ throat swelling adhesive tape Adverse Reaction (Verified 06/30/18 17:49) Rash Home Medications: Ambulatory Orders Medication Instructions Recorded Aspirin 325 mg PO DAILY@0800 04/06/18 Cholecalciferol (Vitamin D3) 50,000 unit PO QWEEK 04/06/18 [Vitamin D] Clopidogrel Bisulfate [Plavix] 75 mg PO DAILY 04/06/18 Doxazosin Mesylate [Cardura] 4 mg PO DAILY 04/06/18 Fenofibrate Nanocrystallized 160 mg PO DAILY 04/06/18 [Triglide] Furosemide [Lasix] 40 mg PO DAILY 04/06/18 Insulin Aspart [Novolog Flexpen units SC TIDCM 04/06/18 ([facility])] Isosorbide Mononitrate [Imdur] 30 mg PO DAILY 04/06/18 Levothyroxine [Synthroid] 50 mcg PO DAILY 04/06/18 Lisinopril [Zestril] 20 mg PO BID 04/06/18 Metoprolol Succinate 50 mg PO DAILY 04/06/18 atorvastatin 40 mg tablet 40 mg PO .COMPLEX 05/05/18 calcium acetate 667 mg capsule 667 mg PO .COMPLEX 05/05/18 clonidine HCl 0.3 mg tablet 0.3 mg PO .COMPLEX 05/05/18 diphenhydramine 25 2 tab PO QHS PRN tab 05/05/18 mg-acetaminophen 500 mg tablet vitamin B complex-vitamin C-folic 1 tab PO DAILY 05/05/18 acid 0.8 mg tablet Surgical History: Surgical History (Last Reviewed 05/05/18 @ 10:19 by Urmila Leonard) H/O coronary artery bypass surgery (Chronic) Onset Date: 06/11/96 Z95.1 CABG x 5 Sequential Radial Artery- PVB and PDA, STOVER-LAD, Free BERNY -Lat Cx and SVG-Diag. At [facility] history Laparoscopic Peritoneal Dialysis Catheter Onset Date: ~12/29/17 H/O right coronary artery stent placement Onset Date: ~03/30/02 Z95.5 Dista RCA History of appendectomy Z98.890, Z90.49 History of nasal septoplasty Z98.890 History of sternectomy Onset Date: ~07/10/96 Z98.890 sternectomy and midsternal wound debridement with left pectoralis muscle flap for sternal wound coverage on 07/12/96 Surgical History: - - CABG x5 w/ follow-up sternectomy and midsternal wound debridement with left pectoralis muscle flap for sternal wound coverage, PCI x1, left upper extremity fistula, PD catheter placement, PD catheter change, PD catheter removal, suprapubic catheter, bladder surgery, tonsillectomy, appendectomy, septoplasty. Psychiatric History: No pertinent psych hx Lives: Spouse/ Significant Other Smoking Status: Never smoker Tobacco Use: Non-smoker Alcohol: None Drugs: None - *Family History Maternal Family History: Family History (Last Reviewed 05/05/18 @ 10:19 by Urmila Leonard) Father CAD (coronary artery disease) Mother CAD (coronary artery disease) Diabetes History Items: - - Patient notes a maternal and paternal family history of diabetes heart disease and cancer and additionally a history of end-stage renal disease with dialysis usage in his mother. Paternal Family History: Family History (Last Reviewed 05/05/18 @ 10:19 by Urmila Leonard) Father CAD (coronary artery disease) Mother CAD (coronary artery disease) Diabetes History Items: - - Patient notes a maternal and paternal family history of diabetes heart disease and cancer and additionally a history of end-stage renal disease with dialysis usage in his mother. Review of Systems Constitutional: Reports: Anorexia, Chills, Fever, Malaise, Weakness, Fatigue. Denies: Weight Change HEENT: Denies: Head Aches, Sinus Congestion, Sinus Drainage Cardiovascular: Denies: Chest Pain, Palpitations Respiratory: Denies: Cough, Shortness of breath at rest, Sputum production Gastrointestinal: Reports: Abdominal Pain. Denies: Nausea, Vomiting Genitourinary: Denies: Dysuria Musculoskeletal: Denies: Joint Pain, Joint Tenderness Skin: Reports: Skin Changes, Wounds. Denies: Rash Neurological: Denies: Numbness, Tingling, Focal weakness Psychiatric: Denies: Anxiety, Depression, Homicidal Ideations, Suicidal Ideations Hematologic/ Lymphatic: Reports: Anemia, Easy Bruising, Easy Bleeding VTE Information - Inpt Only VTE Present on Admission: No VTE Mechan Device Prophylaxis: SCD's VTE Pharm Prophylaxis ordered?: Yes Patient Problems: Active and Suspected Problems (Last Reviewed 05/05/18 @ 10:19 by Urmila Leonard) Cellulitis (Acute) Severe sepsis (Acute) UTI (urinary tract infection) due to urinary indwelling catheter (Acute) - Physical Exam Vital Signs Temp Pulse Resp BP Pulse Ox 99.5 F H 112 H 18 143/72 H 94 06/30/18 18:55 06/30/18 20:05 06/30/18 20:05 06/30/18 20:05 06/30/18 20:05 Oxygen Flow Rate (L/min) 2 Oxygen Delivery Method Room Air Weight: 224 lb Body Mass Index (BMI) 31.2 Laboratory Tests Past 24 Hrs 06/30/18 06/30/18 06/30/18 18:15 18:15 18:15 WBC 9.9 RBC 3.48 L Hgb 10.0 L Hct 31.4 L MCV 90.2 MCH 28.7 MCHC 31.8 L RDW 15.2 H RDW Differential 49.6 H Plt Count 171 MPV 9.5 Immature Gran % (Auto) 0.200 Neut % (Auto) 88.5 H Lymph % (Auto) 4.6 L [place] % (Auto) 6.1 Eos % (Auto) 0.6 Baso % (Auto) 0.0 Absolute Neuts (auto) 8.8 H Absolute Lymphs (auto) 0.46 L Total Counted Not Reportable Differential Comment Platelet Estimate ADEQUATE RBC Morphology NORM C+C PT 15.5 H INR 1.2 APTT 35.4 Sodium 134 L Potassium 3.5 Chloride 94 L Carbon Dioxide 28.0 Anion Gap 12 BUN 24 H Creatinine 4.19 H Estim Creat Clear Calc 17.72 Est GFR (MDRD) Af Amer 18 L Est GFR (MDRD) Non-Af 15 L BUN/Creatinine Ratio 5.7 L Glucose 166 H Lactic Acid Calcium 8.6 Total Bilirubin 0.70 AST 20 ALT 15 L Alkaline Phosphatase 49 Total Protein 6.8 Albumin 3.1 L Globulin 3.7 Albumin/Globulin Ratio 0.8 L Urine Color Urine Clarity Urine pH Ur Specific [place] Urine Protein Urine Glucose (UA) Urine Ketones Urine Occult Blood Urine Nitrite Urine Bilirubin Urine Urobilinogen Ur Leukocyte Esterase Urine RBC Urine WBC Ur Squamous Epith Cells Urine Bacteria Urine Mucus 06/30/18 06/30/18 18:15 19:25 WBC RBC Hgb Hct MCV MCH MCHC RDW RDW Differential Plt Count MPV Immature Gran % (Auto) Neut % (Auto) Lymph % (Auto) [place] % (Auto) Eos % (Auto) Baso % (Auto) Absolute Neuts (auto) Absolute Lymphs (auto) Total Counted Differential Comment Platelet Estimate RBC Morphology PT INR APTT Sodium Potassium Chloride Carbon Dioxide Anion Gap BUN Creatinine Estim Creat Clear Calc Est GFR (MDRD) Af Amer Est GFR (MDRD) Non-Af BUN/Creatinine Ratio Glucose Lactic Acid 2.2 H Calcium Total Bilirubin AST ALT Alkaline Phosphatase Total Protein Albumin Globulin Albumin/Globulin Ratio Urine Color Yellow Urine Clarity Cloudy Urine pH 8.0 Ur Specific [place] 1.010 Urine Protein 500 H Urine Glucose (UA) 250 H Urine Ketones 50 H Urine Occult Blood 250 H Urine Nitrite Negative Urine Bilirubin Negative Urine Urobilinogen Normal Ur Leukocyte Esterase 500 H Urine RBC > 100 SEEN Urine WBC 50-100 SEEN Ur Squamous Epith Cells 0 SEEN Urine Bacteria 1+ Urine Mucus 0 SEEN Assessment/Plan All Active Problems (Last Reviewed 05/05/18 @ 10:19 by Urmila Leonard) Cellulitis (Acute) Severe sepsis (Acute) UTI (urinary tract infection) due to urinary indwelling catheter (Acute) Encounter for pre-operative cardiovascular clearance (Acute) The patient is a 67 y/o M w/ PMHx: ESRD on HD, History of CVA, HTN, HLD, Obesity, Hypothyroidism, Diabetes mellitus type II w/ neuropathy, Carotid disease, CAD s/p CABG x 5 and PCI distal RCA who presents to the [facility] ED on 06/30/18 with 102 T at HD w/ rigors, recently decreased appetite, nausea, worsened fatigue and weakness over the last 24-48 hours with recent suprapubic catheter placement the day prior at [facility] in addition to onset LUE recent fistula per Dr. Tirado ~ 1 month prior w/ suture removals on the day same w/ then onset redness and edema to the suture line. (1) Acute Severe Sepsis secondary to Acute Complicated UTI s/p Recent Suprapubic catheter placement and LUE Cellulitis, Incision s/p AVF s/p suture removal: Febrile, tachycardic, L shift w/ CBC, LA 2.2. Will admit to PCU per facility protocol given severe sepsis, maintain on IV abx regimen IV linezolid and rocephin given history pending response and UCx, Bld Cx per ED, gently hydrate given ESRD status, elevated LUE, monitor erythema with VS, maintain suprapubic catheter w/ routine care, consider ID consultation if needed. PT, OT, CM for discharge planning. Fall precautions. Will ask AM courtesy update to Dr. Tirado. (2) ESRD on HD: Admission BUN/Cr 24/4.19, most recent creatinine 04/06/18 4.20, HD WMF, following w/ Dr. Naranjo. (3) CAD: s/p CABG x 5 and PCI distal RCA, maintain on asa, holding plavix with recent surgery, statin, BB therapies. (4) Diabetes mellitus type II: Hold oral home regimen, continue home insulin regimen, ADA diet, accu checks w/ ISS. (5) Hypertension: Continue home regimen including clonidine, isosorbide, doxazosin, Lasix, lisinopril, metoprolol, PRN hydralazine. (6) Hyperlipidemia: Continue home statin regimen. (7) Hypothyroidism: Continue home synthroid regimen. (8) Obesity: Weight loss and lifestyle changes encouraged. (9) Hx CVA, Carotid disease: Maintain on asa, holding plavix w/ recent surgery, statin, BP regimen, DM regimen, followed for his carotid disease with no surgical intervention he notes. (10) AOCD: Admission Hgb 10, baseline 10-12, repeat CBC. (11) DVT Prophylaxis: SCDs, heparin. Code Visit Inpatient E&M: 60437 Init Hosp L3
[2018-06-30 21:38] LABS: Magnesium 1.6 mg/dL (1.6-2.6); Phosphorus 2.9 mg/dL (2.5-4.9)
[2018-06-30] MEDS: 0.9% Normal Saline 1,000 ML 75 ML IV (22:17)
[2018-06-30] MEDS: Linezolid 600 MG 600 MG/300 ML BAG 200 MG IV (22:17)
[2018-06-30 22:24] LABS: Reflex Lactate? Y
[2018-06-30] MEDS: Heparin Injection (Vial) 5,000 UNIT/ML VIAL 5000 UNIT SC (22:59)
[2018-06-30] MEDS: cloNIDine HCl 0.1 MG Tablet 0.15 MG PO (23:00)
[2018-06-30] MEDS: Lisinopril 20 MG Tablet PO (23:00)
[2018-06-30] MEDS: Atorvastatin Calcium 20 MG Tablet PO (23:01)
[2018-06-30] MEDS: Acetaminophen 325 MG Tablet 650 MG PO (23:05)
[2018-06-30] MEDS: Insulin Lispro 100 UNIT/ML INSULN.PEN SQ (23:06)
[2018-06-30 23:15] LABS: Bedside Glucose 189 mg/dL (70-110)
[2018-06-30 23:29] LABS: Lactic Acid 1.2 mmol/L (0.4-2.0)
[2018-07-01] VITALS (13 sets, daily range): BP systolic 105–157; BP diastolic 46–68; PULSE 82–110; RESP 16–18; TEMP 37.2–38.2; O2SAT 90–99
[2018-07-01] MEDS: Ondansetron 4 MG/2 ML Vial IV (02:41)
[2018-07-01] MEDS: Levothyroxine 50 MCG Tablet PO (06:20)
[2018-07-01] MEDS: proMETHazine 25 MG/ML Syringe 12.5 MG IV ×2 (06:20→19:51)
[2018-07-01 06:49] LABS: Absolute Lymphocyte Count 0.91 X10^3/ul (0.83-4.51); Absolute Neutrophil Count 10.5 X10^3/uL (2.0-7.7); Basophil# 0.02 X10^3/uL; Basophil% 0.2 % (0-1); Eosinophil# 0.02 X10^3/uL; Eosinophils% 0.2 % (0-5); Hematocrit 29.3 % (40-54); Hemoglobin 9.5 g/dl (13.0-16.5); Lymphocyte # 0.91 X10^3/ul (4.0); Lymphocyte % 7.4 % (19-41); Mean Corp Hgb Conc 32.4 g/gl (32-36); Mean Corpuscular Hgb 29.8 pg (27.0-32.0); Mean Corpuscular Volume 91.8 fL (80-94); Mean Platelet Vol. 10.2 fl (6.2-12.0); Monocyte# 0.84 X10^3/uL; Monocyte% 6.8 % (0-10); Neutrophil # 10.51 X10^3/uL (2.7-7.7); Neutrophil % 85.1 % (47-70); Platelet Count 180 K/mm3 (150-450); RBC Distribution Width CV 14.9 % (11.6-14.6); RBC Distribution Width SD 48.9 fl (35.1-43.9); Red Blood Count 3.19 M/mm3 (4.6-6.2); White Blood Count 12.3 K/mm3 (4.4-11.0)
[2018-07-01 06:50] LABS: POSITIVE COUNT NO; POSITIVE DIFFERENTIAL NO; POSITIVE MORPHOLOGY NO
[2018-07-01 07:06] LABS: Bedside Glucose 169 mg/dL (70-110)
[2018-07-01 07:13] LABS: Anion Gap 12 (5-15); BUN 34 mg/dL (7-18); BUN/Creat Ratio 5.9 RATIO (10-20); Calcium,Total 8.2 mg/dL (8.5-10.1); Chloride 94 mmol/L (98-107); Creatinine, Serum 5.75 mg/dL (0.70-1.30); EST Glomerular Filtration Rate 10 mL/min (>60); Est Glom Filt Rate - Afr Amer 13 mL/min (>60); Estimated Creatinine Clearance 12.91 ml/min; Glucose 162 mg/dL (74-106); Potassium 3.8 mmol/L (3.5-5.1); Sodium Level 135 mmol/L (136-145)
[2018-07-01] MEDS: cloNIDine HCl 0.1 MG Tablet 0.15 MG PO ×2 (10:42→21:14)
[2018-07-01] MEDS: Isosorbide Mononitrate 30 MG Tablet PO (10:42)
[2018-07-01] MEDS: Doxazosin 4 MG Tablet PO (10:42)
[2018-07-01] MEDS: Lisinopril 20 MG Tablet PO ×2 (10:43→21:15)
[2018-07-01] MEDS: Metoprolol(XL)Succ 50 MG Tablet PO (10:43)
[2018-07-01] MEDS: Furosemide 40 MG Tablet PO (10:43)
[2018-07-01] MEDS: Ceftriaxone 1 GM/50 ML BAG IV (10:54)
[2018-07-01] MEDS: Glucerna Shake 120 ML LIQUID PO ×2 (10:54→15:01)
[2018-07-01] MEDS: Linezolid 600 MG 600 MG/300 ML BAG 200 MG IV ×2 (11:38→21:13)
[2018-07-01] MEDS: Calcium Acetate 667 MG Capsule PO ×2 (11:43→16:15)
[2018-07-01] MEDS: Aspirin 325 MG Tablet PO (11:45)
[2018-07-01] MEDS: Insulin Lispro 100 UNIT/ML INSULN.PEN SQ ×3 (11:49→21:23)
[2018-07-01 12:00] LABS: Bedside Glucose 212 mg/dL (70-110)
--- NOTE | 2018-07-01 13:50 | PN_ITS ---
<Kim Little - Last Filed: 07/01/18 14:10> Patient Problems: Active and Suspected Problems (Last Reviewed 05/05/18 @ 10:19 by Urmila Leonard) Cellulitis (Acute) Severe sepsis (Acute) UTI (urinary tract infection) due to urinary indwelling catheter (Acute) Subjective: Patient seen and examined. Denies fever, chills. No acute events overnight. Denies current complaints. - Physical Exam General: Alert, Oriented x3, Cooperative, No apparent distress HEENT: Atraumatic, PERRLA, EOMI, Normocephalic Neck: Supple, No JVD, Negative Carotid Bruits Lungs: Clear to auscultation, Diminished Cardiovascular: Regular rate, Regular Rhythm, Normal S1, Normal S2, No murmurs Abdomen: Bowel Sounds Present, Soft, Non Tender, Non-Distended, Obese Extremities: No clubbing, No cyanosis, No edema, Capillary Refill Less than 3 Seconds Skin: No rashes, No breakdown, - - Redness and warmth surrounding left upper ext remity AV fistula incision area. Musculoskeletal: No Tenderness to Palpation of Joints or Extremities Neurological: Cranial nerves II-XII grossly intact, Neuro grossly intact Psych/Mental Status: Normal Affect, Appropriate Vital Signs Temp Pulse Resp BP Pulse Ox 99.8 F H 110 H 17 145/62 H 94 07/01/18 08:56 07/01/18 11:01 07/01/18 08:56 07/01/18 10:43 07/01/18 08:56 Oxygen Flow Rate (L/min) 2 Oxygen Delivery Method Room Air Weight: 223 lb 5.252 oz Body Mass Index (BMI) 31.1 Intake and Output for Last 24 Hours 06/29/18 06/30/18 07/01/18 23:59 23:59 23:59 Intake Total 1789 / 1789 Output Total 540 / 540 Balance 1249 / 1249 Microbiology Past 72 Hours 06/30/18 19:25 Urine Culture - Preliminary Urine Catheter - Catheter Gram negative rafia Laboratory Tests Past 24 Hrs 06/30/18 06/30/18 06/30/18 18:15 18:15 18:15 WBC 9.9 RBC 3.48 L Hgb 10.0 L Hct 31.4 L MCV 90.2 MCH 28.7 MCHC 31.8 L RDW 15.2 H RDW Differential 49.6 H Plt Count 171 MPV 9.5 Immature Gran % (Auto) 0.200 Neut % (Auto) 88.5 H Lymph % (Auto) 4.6 L [place] % (Auto) 6.1 Eos % (Auto) 0.6 Baso % (Auto) 0.0 Absolute Neuts (auto) 8.8 H Absolute Lymphs (auto) 0.46 L Total Counted Not Reportable Differential Comment Platelet Estimate ADEQUATE RBC Morphology NORM C+C PT 15.5 H INR 1.2 APTT 35.4 Sodium 134 L Potassium 3.5 Chloride 94 L Carbon Dioxide 28.0 Anion Gap 12 BUN 24 H Creatinine 4.19 H Estim Creat Clear Calc 17.72 Est GFR (MDRD) Af Amer 18 L Est GFR (MDRD) Non-Af 15 L BUN/Creatinine Ratio 5.7 L Glucose 166 H Lactic Acid Calcium 8.6 Phosphorus Magnesium Total Bilirubin 0.70 AST 20 ALT 15 L Alkaline Phosphatase 49 Total Protein 6.8 Albumin 3.1 L Globulin 3.7 Albumin/Globulin Ratio 0.8 L Urine Color Urine Clarity Urine pH Ur Specific [place] Urine Protein Urine Glucose (UA) Urine Ketones Urine Occult Blood Urine Nitrite Urine Bilirubin Urine Urobilinogen Ur Leukocyte Esterase Urine RBC Urine WBC Ur Squamous Epith Cells Urine Bacteria Urine Mucus 06/30/18 06/30/18 06/30/18 18:15 18:15 19:25 WBC RBC Hgb Hct MCV MCH MCHC RDW RDW Differential Plt Count MPV Immature Gran % (Auto) Neut % (Auto) Lymph % (Auto) [place] % (Auto) Eos % (Auto) Baso % (Auto) Absolute Neuts (auto) Absolute Lymphs (auto) Total Counted Differential Comment Platelet Estimate RBC Morphology PT INR APTT Sodium Potassium Chloride Carbon Dioxide Anion Gap BUN Creatinine Estim Creat Clear Calc Est GFR (MDRD) Af Amer Est GFR (MDRD) Non-Af BUN/Creatinine Ratio Glucose Lactic Acid 2.2 H Calcium Phosphorus 2.9 Magnesium 1.6 Total Bilirubin AST ALT Alkaline Phosphatase Total Protein Albumin Globulin Albumin/Globulin Ratio Urine Color Yellow Urine Clarity Cloudy Urine pH 8.0 Ur Specific [place] 1.010 Urine Protein 500 H Urine Glucose (UA) 250 H Urine Ketones 50 H Urine Occult Blood 250 H Urine Nitrite Negative Urine Bilirubin Negative Urine Urobilinogen Normal Ur Leukocyte Esterase 500 H Urine RBC > 100 SEEN Urine WBC 50-100 SEEN Ur Squamous Epith Cells 0 SEEN Urine Bacteria 1+ Urine Mucus 0 SEEN 06/30/18 07/01/18 07/01/18 22:46 05:25 05:25 WBC 12.3 H RBC 3.19 L Hgb 9.5 L Hct 29.3 L MCV 91.8 MCH 29.8 MCHC 32.4 RDW 14.9 H RDW Differential 48.9 H Plt Count 180 MPV 10.2 Immature Gran % (Auto) 0.300 Neut % (Auto) 85.1 H Lymph % (Auto) 7.4 L [place] % (Auto) 6.8 Eos % (Auto) 0.2 Baso % (Auto) 0.2 Absolute Neuts (auto) 10.5 H Absolute Lymphs (auto) 0.91 Total Counted Not Reportable Differential Comment Platelet Estimate RBC Morphology PT INR APTT Sodium 135 L Potassium 3.8 Chloride 94 L Carbon Dioxide 29.0 Anion Gap 12 BUN 34 H Creatinine 5.75 H Estim Creat Clear Calc 12.91 Est GFR (MDRD) Af Amer 13 L Est GFR (MDRD) Non-Af 10 L BUN/Creatinine Ratio 5.9 L Glucose 162 H Lactic Acid 1.2 Calcium 8.2 L Phosphorus Magnesium Total Bilirubin AST ALT Alkaline Phosphatase Total Protein Albumin Globulin Albumin/Globulin Ratio Urine Color Urine Clarity Urine pH Ur Specific [place] Urine Protein Urine Glucose (UA) Urine Ketones Urine Occult Blood Urine Nitrite Urine Bilirubin Urine Urobilinogen Ur Leukocyte Esterase Urine RBC Urine WBC Ur Squamous Epith Cells Urine Bacteria Urine Mucus POC Glucose 07/01/18 07/01/18 06/30/18 11:48 06:53 22:59 POC Glucose 212 H 169 H 189 H Medical Necessity - Tobacco Use Smoking Status: Never smoker Tobacco Use: Non-smoker Assessment/Plan All Active Problems (Last Reviewed 05/05/18 @ 10:19 by Urmila Leonard) Cellulitis (Acute) Severe sepsis (Acute) UTI (urinary tract infection) due to urinary indwelling catheter (Acute) Encounter for pre-operative cardiovascular clearance (Acute) 1. Acute Severe Sepsis secondary to acute complicated UTI status post recent suprapubic catheter placement and left upper extremity cellulitis/incision area status post AV fistula placement-blood culture pending. Urine culture showing gram-negative rafia, 1000-10,000 count. Left upper extremity AV fistula incision area with redness and warmth. Feel infection is more likely to be coming from this. Consult ID for further recommendations. Continue IV Rocephin and Zyvox. Follow blood cultures. Nephrology consulted to further assess fistula. 2. End-stage renal disease on hemodialysis-recent AV fistula placement. Follows with Dr. Naranjo. Consult nephrology. Right chest temporary dialysis catheter. Hemodialysis Tuesday, Tuesday, Tuesday. 3. CAD status post CABG x5 and PCI to distal RCA-denies chest pain. Continue aspirin, statin, beta-alexis. Plavix on hold given recent suprapubic catheter placement and hematuria. 4. Type 2 diabetes mellitus-hold home oral regimen. Accu-Cheks before meals at bedtime with sliding scale insulin. 5. Hypertension-stable, continue home clonidine, isosorbide, doxazosin, Lasix, lisinopril, metoprolol regimen. 6. Hyperlipidemia-continue statin. 7. Hypothyroidism-continue home Synthroid regimen. 8. History of CVA/carotid artery disease-maintain on aspirin, statin. Plavix on hold as noted above. 9. Anemia of chronic disease-stable, trend CBC. 10. Obesity-encourage diet lifestyle modifications. Nutrition consult. DVT prophylaxis-heparin subcu This patient was seen by AIDA Zamora under the supervision of Dr. Hernandez. <Pop Hernandez F - Last Filed: 07/01/18 15:47> - Physical Exam Vital Signs Temp Pulse Resp BP Pulse Ox 98.9 F 84 16 105/46 L 99 07/01/18 14:55 07/01/18 14:55 07/01/18 14:55 07/01/18 14:55 07/01/18 14:55 Oxygen Flow Rate (L/min) 2 Oxygen Delivery Method Room Air Weight: 223 lb 5.252 oz Body Mass Index (BMI) 31.1 Intake and Output for Last 24 Hours 06/29/18 06/30/18 07/01/18 23:59 23:59 23:59 Intake Total 1789 / 1789 Output Total 540 / 540 Balance 1249 / 1249 Microbiology Past 72 Hours 06/30/18 19:25 Urine Culture - Preliminary Urine Catheter - Catheter Gram negative rafia Laboratory Tests Past 24 Hrs 06/30/18 06/30/18 06/30/18 18:15 18:15 18:15 WBC 9.9 RBC 3.48 L Hgb 10.0 L Hct 31.4 L MCV 90.2 MCH 28.7 MCHC 31.8 L RDW 15.2 H RDW Differential 49.6 H Plt Count 171 MPV 9.5 Immature Gran % (Auto) 0.200 Neut % (Auto) 88.5 H Lymph % (Auto) 4.6 L [place] % (Auto) 6.1 Eos % (Auto) 0.6 Baso % (Auto) 0.0 Absolute Neuts (auto) 8.8 H Absolute Lymphs (auto) 0.46 L Total Counted Not Reportable Differential Comment Platelet Estimate ADEQUATE RBC Morphology NORM C+C PT 15.5 H INR 1.2 APTT 35.4 Sodium 134 L Potassium 3.5 Chloride 94 L Carbon Dioxide 28.0 Anion Gap 12 BUN 24 H Creatinine 4.19 H Estim Creat Clear Calc 17.72 Est GFR (MDRD) Af Amer 18 L Est GFR (MDRD) Non-Af 15 L BUN/Creatinine Ratio 5.7 L Glucose 166 H Lactic Acid Calcium 8.6 Phosphorus Magnesium Total Bilirubin 0.70 AST 20 ALT 15 L Alkaline Phosphatase 49 Total Protein 6.8 Albumin 3.1 L Globulin 3.7 Albumin/Globulin Ratio 0.8 L Urine Color Urine Clarity Urine pH Ur Specific [place] Urine Protein Urine Glucose (UA) Urine Ketones Urine Occult Blood Urine Nitrite Urine Bilirubin Urine Urobilinogen Ur Leukocyte Esterase Urine RBC Urine WBC Ur Squamous Epith Cells Urine Bacteria Urine Mucus 06/30/18 06/30/18 06/30/18 18:15 18:15 19:25 WBC RBC Hgb Hct MCV MCH MCHC RDW RDW Differential Plt Count MPV Immature Gran % (Auto) Neut % (Auto) Lymph % (Auto) [place] % (Auto) Eos % (Auto) Baso % (Auto) Absolute Neuts (auto) Absolute Lymphs (auto) Total Counted Differential Comment Platelet Estimate RBC Morphology PT INR APTT Sodium Potassium Chloride Carbon Dioxide Anion Gap BUN Creatinine Estim Creat Clear Calc Est GFR (MDRD) Af Amer Est GFR (MDRD) Non-Af BUN/Creatinine Ratio Glucose Lactic Acid 2.2 H Calcium Phosphorus 2.9 Magnesium 1.6 Total Bilirubin AST ALT Alkaline Phosphatase Total Protein Albumin Globulin Albumin/Globulin Ratio Urine Color Yellow Urine Clarity Cloudy Urine pH 8.0 Ur Specific [place] 1.010 Urine Protein 500 H Urine Glucose (UA) 250 H Urine Ketones 50 H Urine Occult Blood 250 H Urine Nitrite Negative Urine Bilirubin Negative Urine Urobilinogen Normal Ur Leukocyte Esterase 500 H Urine RBC > 100 SEEN Urine WBC 50-100 SEEN Ur Squamous Epith Cells 0 SEEN Urine Bacteria 1+ Urine Mucus 0 SEEN 06/30/18 07/01/18 07/01/18 22:46 05:25 05:25 WBC 12.3 H RBC 3.19 L Hgb 9.5 L Hct 29.3 L MCV 91.8 MCH 29.8 MCHC 32.4 RDW 14.9 H RDW Differential 48.9 H Plt Count 180 MPV 10.2 Immature Gran % (Auto) 0.300 Neut % (Auto) 85.1 H Lymph % (Auto) 7.4 L [place] % (Auto) 6.8 Eos % (Auto) 0.2 Baso % (Auto) 0.2 Absolute Neuts (auto) 10.5 H Absolute Lymphs (auto) 0.91 Total Counted Not Reportable Differential Comment Platelet Estimate RBC Morphology PT INR APTT Sodium 135 L Potassium 3.8 Chloride 94 L Carbon Dioxide 29.0 Anion Gap 12 BUN 34 H Creatinine 5.75 H Estim Creat Clear Calc 12.91 Est GFR (MDRD) Af Amer 13 L Est GFR (MDRD) Non-Af 10 L BUN/Creatinine Ratio 5.9 L Glucose 162 H Lactic Acid 1.2 Calcium 8.2 L Phosphorus Magnesium Total Bilirubin AST ALT Alkaline Phosphatase Total Protein Albumin Globulin Albumin/Globulin Ratio Urine Color Urine Clarity Urine pH Ur Specific [place] Urine Protein Urine Glucose (UA) Urine Ketones Urine Occult Blood Urine Nitrite Urine Bilirubin Urine Urobilinogen Ur Leukocyte Esterase Urine RBC Urine WBC Ur Squamous Epith Cells Urine Bacteria Urine Mucus POC Glucose 07/01/18 07/01/18 06/30/18 11:48 06:53 22:59 POC Glucose 212 H 169 H 189 H Code Visit Addendum: Dr. Hernandez I personally examined the patient and reviewed the chart. I agree with the above. 67-year-old male with an extensive past cardiac history with coronary artery disease status post CABG x5 and PCI to the distal RCA as well and has end-stage renal disease on hemodialysis Tuesday who presents to the ER with 102 temperature at hemodialysis with chills and shaking. He recently had a suprapubic catheter because his bladder was not emptying. Urine culture is growing 1-10,000 CFU's of gram-negative rafia. He also has cellulitis at the recent surgical site over his fistula in his left upper extremity. He was started on Zyvox and Rocephin. We will continue these antibiotics and consult ID for further clarification of antibiotic therapy given the recent fistula placement. Also it sounds like he has a new murmur that is fairly significant so will obtain an echo during his stay. Inpatient E&M: [id number] Subs Hosp L2
--- NOTE | 2018-07-01 14:28 | CASEMGMT ---
RN CM Note. Attempted to see pt for RN CM Assessment. unavailable @ this time. Call to [facility]. Pt has outpt dialysis MWF @ 12:55. Will continue to follow and assist with dc planning needs. Mark PROCTORN RN ACM
[2018-07-01] MEDS: 0.9% Normal Saline 1,000 ML 75 ML IV (14:59)
[2018-07-01 16:36] LABS: Bedside Glucose 183 mg/dL (70-110)
--- NOTE | 2018-07-01 18:02 | PCM.CONS.R ---
Problem List (1) ESRD (end stage renal disease) Status: Chronic Consultation - Renal PCP/ Referring MD: Requesting physician: [] Primary care physician: Becky Romo DO - History of Present Illness History of Present Illness: The patient is a 67 year old M past medical history of end-stage renal disease . On Tuesday . Presented with a fever of 102 during hemodialysis session yesterday with rigors . Patient has been complaining of nausea and decreased appetite for the last 24-48 hours . Left arm AV fistula was placed a month ago . The AV fistula stitches were removed last week on Tuesday after that the incision site started to be red and painful . UA is positive for occult blood 250 leukocyte esterase more than 500 RBCs more than 100 and white cell count between 50-100 . Patient was admitted for sepsis . Renal team was consulted for hemodialysis management . Review of systems : 12 systems review is negative this evening for generalized weakness [] - Allergies Allergies: Allergies ibuprofen Allergy (Verified 06/30/18 17:49) swellin and itching povidone-iodine [From Betadine] Allergy (Verified 06/30/18 17:50) Itching soap [From Betadine] Allergy (Verified 06/30/18 17:50) Itching vancomycin Allergy (Verified 06/30/18 17:49) rash/ throat swelling adhesive tape Adverse Reaction (Verified 06/30/18 17:49) Rash - Current Medications Current Medications: Current Medications Acetaminophen (Tylenol) 650 mg PO Q6H PRN PRN PRN Reason: Mild Pain (scale 0-3)/T>100.7 Last Admin: 06/30/18 23:05 Dose: 650 mg Al Hydroxide/Mg Hydroxide (Mylanta Ii) 30 ml PO Q6H PRN PRN PRN Reason: Gastric burning Aspirin (Aspirin) 325 mg PO DAILY@0800 [facility] Last Admin: 07/01/18 11:45 Dose: 325 mg Atorvastatin Calcium (Lipitor) 20 mg PO Q48H [facility] Last Admin: 06/30/18 23:01 Dose: 20 mg Calcium Acetate (Phoslo Gel Cap) 667 mg PO TIDCM [facility] Last Admin: 07/01/18 16:15 Dose: 667 mg Clonidine (Catapres) 0.15 mg PO BID [facility] Last Admin: 07/01/18 10:42 Dose: 0.15 mg Dextrose (D50w Syringe) 0 gm IV X1 PRN; Protocol PRN Reason: Hypoglycemia Doxazosin Mesylate (Cardura) 4 mg PO DAILY [facility] Last Admin: 07/01/18 10:42 Dose: 4 mg Ergocalciferol (Vitamin D) 50,000 unit PO QWEEK [facility] Furosemide (Lasix) 40 mg PO DAILY [facility] Last Admin: 07/01/18 10:43 Dose: 40 mg Glucagon () 1 mg IM .X1 PRN PRN Reason: Hypoglycemia Sodium Chloride () 1,000 mls @ 75 mls/hr IV .[id number] [facility] Last Admin: 07/01/18 14:59 Dose: 75 mls/hr Ceftriaxone Sodium (Rocephin) 1 gm in 50 mls @ 100 mls/hr IV Q24 [facility] Last Admin: 07/01/18 10:54 Dose: 100 mls/hr Linezolid (Zyvox 600mg) 600 mg in 300 mls @ 200 mls/hr IV Q12 [facility] Last Admin: 07/01/18 11:38 Dose: 200 mls/hr Insulin Human Lispro (Humalog Kwikpen (Bkc)) 0 unit SQ ACHS [facility]; Protocol Last Admin: 07/01/18 16:15 Dose: 1 units Isosorbide Mononitrate (Imdur) 30 mg PO DAILY [facility] Last Admin: 07/01/18 10:42 Dose: 30 mg Levothyroxine Sodium (Synthroid) 50 mcg PO DAILY@0600 [facility] Last Admin: 07/01/18 06:20 Dose: 50 mcg Lisinopril (Zestril) 20 mg PO BID [facility] Last Admin: 07/01/18 10:43 Dose: 20 mg Magnesium Hydroxide (Milk Of Magnesia) 30 ml PO DAILY PRN PRN Reason: Constipation Metoprolol Succinate (Toprol Xl (Beta Lucila)) 50 mg PO DAILY [facility] Last Admin: 07/01/18 10:43 Dose: 50 mg Morphine Sulfate () 2 - 4 mg IV Q3H PRN PRN PRN Reason: Severe Pain (pain scale 6-10) Morphine Sulfate () 1 - 2 mg IV Q4H PRN PRN PRN Reason: Moderate Pain (pain scale 4-5) Nutritional Formula (Lactose Free) (Glucerna Shake) 120 ml PO 4X/DAY STEFANY Last Admin: 07/01/18 15:01 Dose: 120 ml Ondansetron HCl (Zofran) 4 mg IV Q8H PRN PRN PRN Reason: NAUSEA Last Admin: 07/01/18 02:41 Dose: 4 mg Oxycodone HCl (Oxyir) 5 mg PO Q4H PRN PRN PRN Reason: Moderate Pain (pain scale 4-5) Promethazine HCl (Phenergan) 12.5 mg IV Q6H PRN PRN PRN Reason: NAUSEA/VOMITING Last Admin: 07/01/18 06:20 Dose: 12.5 mg - Past Medical History Past Medical History (Chronic Problems): Chronic Problems (Last Reviewed 05/05/18 @ 10:19 by Urmila Leonard) ESRD (end stage renal disease) (Chronic) Chronic kidney disease, stage IV (severe) (Chronic) 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 At [facility] Atherosclerosis of coronary artery bypass graft without angina pectoris (Chronic) Hypertension (Chronic) - Past Surgical History Surgical History: - - CABG x5 w/ follow-up sternectomy and midsternal wound debridement with left pectoralis muscle flap for sternal wound coverage, PCI x1, left upper extremity fistula, PD catheter placement, PD catheter change, PD catheter removal, suprapubic catheter, bladder surgery, tonsillectomy, appendectomy, septoplasty. - Social History Smoking Status: Never smoker Alcohol: None Drugs: None - Family History Maternal Family History: Family History (Last Reviewed 05/05/18 @ 10:19 by Urmila Leonard) Father CAD (coronary artery disease) Mother CAD (coronary artery disease) Diabetes History Items: - - Patient notes a maternal and paternal family history of diabetes heart disease and cancer and additionally a history of end-stage renal disease with dialysis usage in his mother. Paternal Family History: Family History (Last Reviewed 05/05/18 @ 10:19 by Urmila Leonard) Father CAD (coronary artery disease) Mother CAD (coronary artery disease) Diabetes History Items: - - Patient notes a maternal and paternal family history of diabetes heart disease and cancer and additionally a history of end-stage renal disease with dialysis usage in his mother. Patient Problems: Active and Suspected Problems (Last Reviewed 05/05/18 @ 10:19 by Urmila Leonard) Cellulitis (Acute) Severe sepsis (Acute) UTI (urinary tract infection) due to urinary indwelling catheter (Acute) - Physical Exam General: Alert, Oriented x3 HEENT: Atraumatic Oral: Moist Mucosa Neck: Supple, No JVD Lungs: Clear to auscultation Cardiovascular: Regular rate Abdomen: Bowel Sounds Present, Soft, Non Tender Extremities: No clubbing, No cyanosis, No edema Skin: No rashes Musculoskeletal: No Tenderness to Palpation of Joints or Extremities Lymphatic: No Cervical, Supraclavicular, or Inguinal Adenopathy Neurological: Cranial nerves II-XII grossly intact, Neuro grossly intact Psych/Mental Status: Normal Affect Vital Signs Temp Pulse Resp BP Pulse Ox 98.9 F 86 16 105/46 L 99 07/01/18 14:55 07/01/18 17:37 07/01/18 14:55 07/01/18 14:55 07/01/18 14:55 Oxygen Flow Rate (L/min) 2 Oxygen Delivery Method Room Air Weight: 101.3 kg Body Mass Index (BMI) 31.1 Intake and Output for Last 24 Hours 06/29/18 06/30/18 07/01/18 23:59 23:59 23:59 Intake Total 1789 / 1789 Output Total 540 / 540 Balance 1249 / 1249 Microbiology Past 72 Hours 06/30/18 19:25 Urine Culture - Preliminary Urine Catheter - Catheter Gram negative rafia Laboratory Tests Past 24 Hrs 06/30/18 06/30/18 06/30/18 18:15 18:15 18:15 WBC 9.9 RBC 3.48 L Hgb 10.0 L Hct 31.4 L MCV 90.2 MCH 28.7 MCHC 31.8 L RDW 15.2 H RDW Differential 49.6 H Plt Count 171 MPV 9.5 Immature Gran % (Auto) 0.200 Neut % (Auto) 88.5 H Lymph % (Auto) 4.6 L Cooper % (Auto) 6.1 Eos % (Auto) 0.6 Baso % (Auto) 0.0 Absolute Neuts (auto) 8.8 H Absolute Lymphs (auto) 0.46 L Total Counted Not Reportable Differential Comment Platelet Estimate ADEQUATE RBC Morphology NORM C+C PT 15.5 H INR 1.2 APTT 35.4 Sodium 134 L Potassium 3.5 Chloride 94 L Carbon Dioxide 28.0 Anion Gap 12 BUN 24 H Creatinine 4.19 H Estim Creat Clear Calc 17.72 Est GFR (MDRD) Af Amer 18 L Est GFR (MDRD) Non-Af 15 L BUN/Creatinine Ratio 5.7 L Glucose 166 H Lactic Acid Calcium 8.6 Phosphorus Magnesium Total Bilirubin 0.70 AST 20 ALT 15 L Alkaline Phosphatase 49 Total Protein 6.8 Albumin 3.1 L Globulin 3.7 Albumin/Globulin Ratio 0.8 L Urine Color Urine Clarity Urine pH Ur Specific [place] Urine Protein Urine Glucose (UA) Urine Ketones Urine Occult Blood Urine Nitrite Urine Bilirubin Urine Urobilinogen Ur Leukocyte Esterase Urine RBC Urine WBC Ur Squamous Epith Cells Urine Bacteria Urine Mucus 06/30/18 06/30/18 06/30/18 18:15 18:15 19:25 WBC RBC Hgb Hct MCV MCH MCHC RDW RDW Differential Plt Count MPV Immature Gran % (Auto) Neut % (Auto) Lymph % (Auto) Cooper % (Auto) Eos % (Auto) Baso % (Auto) Absolute Neuts (auto) Absolute Lymphs (auto) Total Counted Differential Comment Platelet Estimate RBC Morphology PT INR APTT Sodium Potassium Chloride Carbon Dioxide Anion Gap BUN Creatinine Estim Creat Clear Calc Est GFR (MDRD) Af Amer Est GFR (MDRD) Non-Af BUN/Creatinine Ratio Glucose Lactic Acid 2.2 H Calcium Phosphorus 2.9 Magnesium 1.6 Total Bilirubin AST ALT Alkaline Phosphatase Total Protein Albumin Globulin Albumin/Globulin Ratio Urine Color Yellow Urine Clarity Cloudy Urine pH 8.0 Ur Specific [place] 1.010 Urine Protein 500 H Urine Glucose (UA) 250 H Urine Ketones 50 H Urine Occult Blood 250 H Urine Nitrite Negative Urine Bilirubin Negative Urine Urobilinogen Normal Ur Leukocyte Esterase 500 H Urine RBC > 100 SEEN Urine WBC 50-100 SEEN Ur Squamous Epith Cells 0 SEEN Urine Bacteria 1+ Urine Mucus 0 SEEN 06/30/18 07/01/18 07/01/18 22:46 05:25 05:25 WBC 12.3 H RBC 3.19 L Hgb 9.5 L Hct 29.3 L MCV 91.8 MCH 29.8 MCHC 32.4 RDW 14.9 H RDW Differential 48.9 H Plt Count 180 MPV 10.2 Immature Gran % (Auto) 0.300 Neut % (Auto) 85.1 H Lymph % (Auto) 7.4 L Cooper % (Auto) 6.8 Eos % (Auto) 0.2 Baso % (Auto) 0.2 Absolute Neuts (auto) 10.5 H Absolute Lymphs (auto) 0.91 Total Counted Not Reportable Differential Comment Platelet Estimate RBC Morphology PT INR APTT Sodium 135 L Potassium 3.8 Chloride 94 L Carbon Dioxide 29.0 Anion Gap 12 BUN 34 H Creatinine 5.75 H Estim Creat Clear Calc 12.91 Est GFR (MDRD) Af Amer 13 L Est GFR (MDRD) Non-Af 10 L BUN/Creatinine Ratio 5.9 L Glucose 162 H Lactic Acid 1.2 Calcium 8.2 L Phosphorus Magnesium Total Bilirubin AST ALT Alkaline Phosphatase Total Protein Albumin Globulin Albumin/Globulin Ratio Urine Color Urine Clarity Urine pH Ur Specific [place] Urine Protein Urine Glucose (UA) Urine Ketones Urine Occult Blood Urine Nitrite Urine Bilirubin Urine Urobilinogen Ur Leukocyte Esterase Urine RBC Urine WBC Ur Squamous Epith Cells Urine Bacteria Urine Mucus POC Glucose 07/01/18 07/01/18 07/01/18 16:13 11:48 06:53 POC Glucose 183 H 212 H 169 H 06/30/18 22:59 POC Glucose 189 H Assessment/Plan All Active Problems (Last Reviewed 05/05/18 @ 10:19 by Urmila Leonard) Cellulitis (Acute) Severe sepsis (Acute) UTI (urinary tract infection) due to urinary indwelling catheter (Acute) Encounter for pre-operative cardiovascular clearance (Acute) 1-end-stage renal disease patient on Tuesday hemodialysis schedule, patient goes to [facility]. Last hemodialysis session was yesterday. No need to do hemodialysis session today. I will arrange for hemodialysis session on July 03. Will avoid using the infected AV fistula. We will continue using right IJ tunnel catheter. 2-sepsis due to left upper arm AV fistula infection/UTI. Urine culture blood culture are pending. Antibiotics as per the ID. 3-BMD. Continue calcium acetate. 4-hypertension. Blood pressure is well controlled. Continue the same dose of lisinopril, isosorbide mononitrate and metoprolol. Continue ultrafiltration with hemodialysis. Thank you for the consult. Renal team will continue to follow
--- NOTE | 2018-07-01 18:08 | CON.PCM_ITS ---
Problem List (1) ESRD (end stage renal disease) Status: Chronic Consultation - Renal PCP/ Referring MD: Requesting physician: [] Primary care physician: Becky Romo DO - History of Present Illness History of Present Illness: The patient is a 67 year old M past medical history of end-stage renal disease . On Tuesday . Presented with a fever of 102 during hemodialysis session yesterday with rigors . Patient has been complaining of nausea and decreased appetite for the last 24-48 hours . Left arm AV fistula was placed a month ago . The AV fistula stitches were removed last week on Tuesday after that the incision site started to be red and painful . UA is positive for occult blood 250 leukocyte esterase more than 500 RBCs more than 100 and white cell count between 50-100 . Patient was admitted for sepsis . Renal team was consulted for hemodialysis management . Review of systems : 12 systems review is negative this evening for generalized weakness [] - Allergies Allergies: Allergies ibuprofen Allergy (Verified 06/30/18 17:49) swellin and itching povidone-iodine [From Betadine] Allergy (Verified 06/30/18 17:50) Itching soap [From Betadine] Allergy (Verified 06/30/18 17:50) Itching vancomycin Allergy (Verified 06/30/18 17:49) rash/ throat swelling adhesive tape Adverse Reaction (Verified 06/30/18 17:49) Rash - Current Medications Current Medications: Current Medications Acetaminophen (Tylenol) 650 mg PO Q6H PRN PRN PRN Reason: Mild Pain (scale 0-3)/T>100.7 Last Admin: 06/30/18 23:05 Dose: 650 mg Al Hydroxide/Mg Hydroxide (Mylanta Ii) 30 ml PO Q6H PRN PRN PRN Reason: Gastric burning Aspirin (Aspirin) 325 mg PO DAILY@0800 [facility] Last Admin: 07/01/18 11:45 Dose: 325 mg Atorvastatin Calcium (Lipitor) 20 mg PO Q48H [facility] Last Admin: 06/30/18 23:01 Dose: 20 mg Calcium Acetate (Phoslo Gel Cap) 667 mg PO TIDCM [facility] Last Admin: 07/01/18 16:15 Dose: 667 mg Clonidine (Catapres) 0.15 mg PO BID [facility] Last Admin: 07/01/18 10:42 Dose: 0.15 mg Dextrose (D50w Syringe) 0 gm IV X1 PRN; Protocol PRN Reason: Hypoglycemia Doxazosin Mesylate (Cardura) 4 mg PO DAILY [facility] Last Admin: 07/01/18 10:42 Dose: 4 mg Ergocalciferol (Vitamin D) 50,000 unit PO QWEEK [facility] Furosemide (Lasix) 40 mg PO DAILY [facility] Last Admin: 07/01/18 10:43 Dose: 40 mg Glucagon () 1 mg IM .X1 PRN PRN Reason: Hypoglycemia Sodium Chloride () 1,000 mls @ 75 mls/hr IV .[id number] [facility] Last Admin: 07/01/18 14:59 Dose: 75 mls/hr Ceftriaxone Sodium (Rocephin) 1 gm in 50 mls @ 100 mls/hr IV Q24 [facility] Last Admin: 07/01/18 10:54 Dose: 100 mls/hr Linezolid (Zyvox 600mg) 600 mg in 300 mls @ 200 mls/hr IV Q12 [facility] Last Admin: 07/01/18 11:38 Dose: 200 mls/hr Insulin Human Lispro (Humalog Kwikpen (Bkc)) 0 unit SQ ACHS [facility]; Protocol Last Admin: 07/01/18 16:15 Dose: 1 units Isosorbide Mononitrate (Imdur) 30 mg PO DAILY [facility] Last Admin: 07/01/18 10:42 Dose: 30 mg Levothyroxine Sodium (Synthroid) 50 mcg PO DAILY@0600 [facility] Last Admin: 07/01/18 06:20 Dose: 50 mcg Lisinopril (Zestril) 20 mg PO BID [facility] Last Admin: 07/01/18 10:43 Dose: 20 mg Magnesium Hydroxide (Milk Of Magnesia) 30 ml PO DAILY PRN PRN Reason: Constipation Metoprolol Succinate (Toprol Xl (Beta Lucila)) 50 mg PO DAILY [facility] Last Admin: 07/01/18 10:43 Dose: 50 mg Morphine Sulfate () 2 - 4 mg IV Q3H PRN PRN PRN Reason: Severe Pain (pain scale 6-10) Morphine Sulfate () 1 - 2 mg IV Q4H PRN PRN PRN Reason: Moderate Pain (pain scale 4-5) Nutritional Formula (Lactose Free) (Glucerna Shake) 120 ml PO 4X/DAY [facility] Last Admin: 07/01/18 15:01 Dose: 120 ml Ondansetron HCl (Zofran) 4 mg IV Q8H PRN PRN PRN Reason: NAUSEA Last Admin: 07/01/18 02:41 Dose: 4 mg Oxycodone HCl (Oxyir) 5 mg PO Q4H PRN PRN PRN Reason: Moderate Pain (pain scale 4-5) Promethazine HCl (Phenergan) 12.5 mg IV Q6H PRN PRN PRN Reason: NAUSEA/VOMITING Last Admin: 07/01/18 06:20 Dose: 12.5 mg - Past Medical History Past Medical History (Chronic Problems): Chronic Problems (Last Reviewed 05/05/18 @ 10:19 by Urmila Leonard) ESRD (end stage renal disease) (Chronic) Chronic kidney disease, stage IV (severe) (Chronic) 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 - Social History Smoking Status: Never smoker Alcohol: None Drugs: None - Family History Maternal Family History: Family History (Last Reviewed 05/05/18 @ 10:19 by Urmila Leonard) Father CAD (coronary artery disease) Mother CAD (coronary artery disease) Diabetes History Items: - - Patient notes a maternal and paternal family history of diabetes heart disease and cancer and additionally a history of end-stage renal disease with dialysis usage in his mother. Paternal Family History: Family History (Last Reviewed 05/05/18 @ 10:19 by Urmila Leonard) Father CAD (coronary artery disease) Mother CAD (coronary artery disease) Diabetes History Items: - - Patient notes a maternal and paternal family history of diabetes heart disease and cancer and additionally a history of end-stage renal disease with dialysis usage in his mother. Patient Problems: Active and Suspected Problems (Last Reviewed 05/05/18 @ 10:19 by Urmila Leonard) Cellulitis (Acute) Severe sepsis (Acute) UTI (urinary tract infection) due to urinary indwelling catheter (Acute) - Physical Exam General: Alert, Oriented x3 HEENT: Atraumatic Oral: Moist Mucosa Neck: Supple, No JVD Lungs: Clear to auscultation Cardiovascular: Regular rate Abdomen: Bowel Sounds Present, Soft, Non Tender Extremities: No clubbing, No cyanosis, No edema Skin: No rashes Musculoskeletal: No Tenderness to Palpation of Joints or Extremities Lymphatic: No Cervical, Supraclavicular, or Inguinal Adenopathy Neurological: Cranial nerves II-XII grossly intact, Neuro grossly intact Psych/Mental Status: Normal Affect Vital Signs Temp Pulse Resp BP Pulse Ox 98.9 F 86 16 105/46 L 99 07/01/18 14:55 07/01/18 17:37 07/01/18 14:55 07/01/18 14:55 07/01/18 14:55 Oxygen Flow Rate (L/min) 2 Oxygen Delivery Method Room Air Weight: 101.3 kg Body Mass Index (BMI) 31.1 Intake and Output for Last 24 Hours 06/29/18 06/30/18 07/01/18 23:59 23:59 23:59 Intake Total 1789 / 1789 Output Total 540 / 540 Balance 1249 / 1249 Microbiology Past 72 Hours 06/30/18 19:25 Urine Culture - Preliminary Urine Catheter - Catheter Gram negative rafia Laboratory Tests Past 24 Hrs 06/30/18 06/30/18 06/30/18 18:15 18:15 18:15 WBC 9.9 RBC 3.48 L Hgb 10.0 L Hct 31.4 L MCV 90.2 MCH 28.7 MCHC 31.8 L RDW 15.2 H RDW Differential 49.6 H Plt Count 171 MPV 9.5 Immature Gran % (Auto) 0.200 Neut % (Auto) 88.5 H Lymph % (Auto) 4.6 L [place] % (Auto) 6.1 Eos % (Auto) 0.6 Baso % (Auto) 0.0 Absolute Neuts (auto) 8.8 H Absolute Lymphs (auto) 0.46 L Total Counted Not Reportable Differential Comment Platelet Estimate ADEQUATE RBC Morphology NORM C+C PT 15.5 H INR 1.2 APTT 35.4 Sodium 134 L Potassium 3.5 Chloride 94 L Carbon Dioxide 28.0 Anion Gap 12 BUN 24 H Creatinine 4.19 H Estim Creat Clear Calc 17.72 Est GFR (MDRD) Af Amer 18 L Est GFR (MDRD) Non-Af 15 L BUN/Creatinine Ratio 5.7 L Glucose 166 H Lactic Acid Calcium 8.6 Phosphorus Magnesium Total Bilirubin 0.70 AST 20 ALT 15 L Alkaline Phosphatase 49 Total Protein 6.8 Albumin 3.1 L Globulin 3.7 Albumin/Globulin Ratio 0.8 L Urine Color Urine Clarity Urine pH Ur Specific [place] Urine Protein Urine Glucose (UA) Urine Ketones Urine Occult Blood Urine Nitrite Urine Bilirubin Urine Urobilinogen Ur Leukocyte Esterase Urine RBC Urine WBC Ur Squamous Epith Cells Urine Bacteria Urine Mucus 06/30/18 06/30/18 06/30/18 18:15 18:15 19:25 WBC RBC Hgb Hct MCV MCH MCHC RDW RDW Differential Plt Count MPV Immature Gran % (Auto) Neut % (Auto) Lymph % (Auto) [place] % (Auto) Eos % (Auto) Baso % (Auto) Absolute Neuts (auto) Absolute Lymphs (auto) Total Counted Differential Comment Platelet Estimate RBC Morphology PT INR APTT Sodium Potassium Chloride Carbon Dioxide Anion Gap BUN Creatinine Estim Creat Clear Calc Est GFR (MDRD) Af Amer Est GFR (MDRD) Non-Af BUN/Creatinine Ratio Glucose Lactic Acid 2.2 H Calcium Phosphorus 2.9 Magnesium 1.6 Total Bilirubin AST ALT Alkaline Phosphatase Total Protein Albumin Globulin Albumin/Globulin Ratio Urine Color Yellow Urine Clarity Cloudy Urine pH 8.0 Ur Specific [place] 1.010 Urine Protein 500 H Urine Glucose (UA) 250 H Urine Ketones 50 H Urine Occult Blood 250 H Urine Nitrite Negative Urine Bilirubin Negative Urine Urobilinogen Normal Ur Leukocyte Esterase 500 H Urine RBC > 100 SEEN Urine WBC 50-100 SEEN Ur Squamous Epith Cells 0 SEEN Urine Bacteria 1+ Urine Mucus 0 SEEN 06/30/18 07/01/18 07/01/18 22:46 05:25 05:25 WBC 12.3 H RBC 3.19 L Hgb 9.5 L Hct 29.3 L MCV 91.8 MCH 29.8 MCHC 32.4 RDW 14.9 H RDW Differential 48.9 H Plt Count 180 MPV 10.2 Immature Gran % (Auto) 0.300 Neut % (Auto) 85.1 H Lymph % (Auto) 7.4 L [place] % (Auto) 6.8 Eos % (Auto) 0.2 Baso % (Auto) 0.2 Absolute Neuts (auto) 10.5 H Absolute Lymphs (auto) 0.91 Total Counted Not Reportable Differential Comment Platelet Estimate RBC Morphology PT INR APTT Sodium 135 L Potassium 3.8 Chloride 94 L Carbon Dioxide 29.0 Anion Gap 12 BUN 34 H Creatinine 5.75 H Estim Creat Clear Calc 12.91 Est GFR (MDRD) Af Amer 13 L Est GFR (MDRD) Non-Af 10 L BUN/Creatinine Ratio 5.9 L Glucose 162 H Lactic Acid 1.2 Calcium 8.2 L Phosphorus Magnesium Total Bilirubin AST ALT Alkaline Phosphatase Total Protein Albumin Globulin Albumin/Globulin Ratio Urine Color Urine Clarity Urine pH Ur Specific [place] Urine Protein Urine Glucose (UA) Urine Ketones Urine Occult Blood Urine Nitrite Urine Bilirubin Urine Urobilinogen Ur Leukocyte Esterase Urine RBC Urine WBC Ur Squamous Epith Cells Urine Bacteria Urine Mucus POC Glucose 07/01/18 07/01/18 07/01/18 16:13 11:48 06:53 POC Glucose 183 H 212 H 169 H 06/30/18 22:59 POC Glucose 189 H Assessment/Plan All Active Problems (Last Reviewed 05/05/18 @ 10:19 by Urmila Leonard) Cellulitis (Acute) Severe sepsis (Acute) UTI (urinary tract infection) due to urinary indwelling catheter (Acute) Encounter for pre-operative cardiovascular clearance (Acute) 1-end-stage renal disease patient on Tuesday hemodialysis schedule, patient goes to [facility]. Last hemodialysis session was yesterday. No need to do hemodialysis session today. I will arrange for hemodialysis session on July 03. Will avoid using the infected AV fistula. We will continue using right IJ tunnel catheter. 2-sepsis due to left upper arm AV fistula infection/UTI. Urine culture blood culture are pending. Antibiotics as per the ID. 3-BMD. Continue calcium acetate. 4-hypertension. Blood pressure is well controlled. Continue the same dose of lisinopril, isosorbide mononitrate and metoprolol. Continue ultrafiltration with hemodialysis. Thank you for the consult. Renal team will continue to follow
[2018-07-01] MEDS: Acetaminophen 325 MG Tablet 650 MG PO (21:19)
[2018-07-01 23:10] LABS: Bedside Glucose 176 mg/dL (70-110)
[2018-07-01 23:18] LABS: M R Staph aureus DNA By PCR Negative (Negative); Probe Check PASS; Specimen Processing Control PASS
[2018-07-02] VITALS (13 sets, daily range): BP systolic 116–148; BP diastolic 45–68; PULSE 74–93; RESP 16–18; TEMP 36.8–37.1; O2SAT 92–97
[2018-07-02] MEDS: 0.9% Normal Saline 1,000 ML 75 ML IV ×2 (04:30→20:30)
[2018-07-02 06:04] LABS: Hematocrit 25.7 % (40-54); Hemoglobin 8.4 g/dl (13.0-16.5); Mean Corp Hgb Conc 32.7 g/gl (32-36); Mean Corpuscular Volume 91.8 fL (80-94); Mean Platelet Vol. 10.1 fl (6.2-12.0); Platelet Count 169 K/mm3 (150-450); RBC Distribution Width CV 14.8 % (11.6-14.6); RBC Distribution Width SD 48.4 fl (35.1-43.9); White Blood Count 13.2 K/mm3 (4.4-11.0)
[2018-07-02 06:11] LABS: Scan Indicated on CBC? Y/N NO
[2018-07-02] MEDS: Levothyroxine 50 MCG Tablet PO (06:15)
[2018-07-02 06:22] LABS: Anion Gap 15 (5-15); BUN 48 mg/dL (7-18); BUN/Creat Ratio 6.2 RATIO (10-20); Calcium,Total 7.6 mg/dL (8.5-10.1); Chloride 93 mmol/L (98-107); EST Glomerular Filtration Rate 8 mL/min (>60); Est Glom Filt Rate - Afr Amer 9 mL/min (>60); Estimated Creatinine Clearance 9.64 ml/min; Glucose 143 mg/dL (74-106); Potassium 4.1 mmol/L (3.5-5.1); Sodium Level 133 mmol/L (136-145)
[2018-07-02 07:10] LABS: Bedside Glucose 133 mg/dL (70-110)
[2018-07-02] MEDS: Doxazosin 4 MG Tablet PO (08:38)
[2018-07-02] MEDS: Aspirin 325 MG Tablet PO (08:38)
[2018-07-02] MEDS: Calcium Acetate 667 MG Capsule PO ×3 (08:38→17:17)
[2018-07-02] MEDS: cloNIDine HCl 0.1 MG Tablet 0.15 MG PO ×2 (08:38→22:43)
[2018-07-02] MEDS: Lisinopril 20 MG Tablet PO ×2 (08:39→22:44)
[2018-07-02] MEDS: Isosorbide Mononitrate 30 MG Tablet PO (08:39)
[2018-07-02] MEDS: Metoprolol(XL)Succ 50 MG Tablet PO (08:39)
[2018-07-02] MEDS: Ceftriaxone 1 GM/50 ML BAG IV (11:38)
[2018-07-02] MEDS: Furosemide 40 MG Tablet PO (11:41)
[2018-07-02 11:56] LABS: Bedside Glucose 176 mg/dL (70-110)
--- NOTE | 2018-07-02 12:31 | PN_ITS ---
<Kim Little - Last Filed: 07/02/18 12:37> Patient Problems: Active and Suspected Problems (Last Reviewed 05/05/18 @ 10:19 by Urmila Leonard) Cellulitis (Acute) Severe sepsis (Acute) UTI (urinary tract infection) due to urinary indwelling catheter (Acute) Subjective: Patient seen and examined. No acute events overnight. Denies fever, chills. - Physical Exam General: Alert, Oriented x3, Cooperative, No apparent distress HEENT: Atraumatic, PERRLA, EOMI, Normocephalic Neck: Supple, No JVD, Negative Carotid Bruits Lungs: Clear to auscultation, Normal air movement Cardiovascular: Regular rate, Regular Rhythm, Normal S1, Normal S2, Murmur Abdomen: Bowel Sounds Present, Soft, Non Tender, Non-Distended, Obese Extremities: No clubbing, No cyanosis, No edema, Capillary Refill Less than 3 Seconds Skin: No rashes, No breakdown, - - Redness and warmth surrounding left upper extremity AV fistula incision area. No drainage noted. Musculoskeletal: No Tenderness to Palpation of Joints or Extremities Neurological: Cranial nerves II-XII grossly intact, Neuro grossly intact Psych/Mental Status: Normal Affect, Appropriate Vital Signs Temp Pulse Resp BP Pulse Ox 98.8 F 93 17 124/45 H 94 07/02/18 08:22 07/02/18 08:39 07/02/18 08:22 07/02/18 08:39 07/02/18 08:22 Oxygen Flow Rate (L/min) 2 Oxygen Delivery Method Room Air Weight: 223 lb 5.252 oz Body Mass Index (BMI) 31.1 Intake and Output for Last 24 Hours 06/30/18 07/01/18 07/02/18 23:59 23:59 23:59 Intake Total 2686 / 2686 2104 / 2104 Output Total 790 / 790 550 / 550 Balance 1896 / 1896 1554 / 1554 Microbiology Past 72 Hours 06/30/18 19:25 Urine Culture - Final Urine Catheter - Catheter Serratia marcescens Laboratory Tests Past 24 Hrs 07/01/18 07/02/18 07/02/18 21:34 05:30 05:30 WBC 13.2 H RBC 2.80 L Hgb 8.4 L Hct 25.7 L MCV 91.8 MCH 30.0 MCHC 32.7 RDW 14.8 H RDW Differential 48.4 H Plt Count 169 MPV 10.1 Sodium 133 L Potassium 4.1 Chloride 93 L Carbon Dioxide 25.0 Anion Gap 15 BUN 48 H Creatinine 7.70 H* Estim Creat Clear Calc 9.64 Est GFR (MDRD) Af Amer 9 L Est GFR (MDRD) Non-Af 8 L BUN/Creatinine Ratio 6.2 L Glucose 143 H Calcium 7.6 L MRSA (PCR) Negative POC Glucose 07/02/18 07/02/18 07/01/18 11:34 06:51 21:22 POC Glucose 176 H 133 H 176 H 07/01/18 16:13 POC Glucose 183 H Medical Necessity - Tobacco Use Smoking Status: Never smoker Tobacco Use: Non-smoker Assessment/Plan All Active Problems (Last Reviewed 05/05/18 @ 10:19 by Urmila Leonard) Cellulitis (Acute) Severe sepsis (Acute) UTI (urinary tract infection) due to urinary indwelling catheter (Acute) Encounter for pre-operative cardiovascular clearance (Acute) 1. Acute Severe Sepsis secondary to acute complicated Serratia marcescens UTI status post recent suprapubic catheter placement and left upper extremity cellulitis/incision area status post AV fistula placement-blood culture show no growth thus far. Left upper extremity AV fistula incision area with redness and warmth. Feel infection is more likely to be coming from AVF given low colony count in urine. Consult ID for further recommendations. Continue IV Rocephin and Zyvox. Follow blood cultures. Nephrology consulted to further assess fistula. 2. End-stage renal disease on hemodialysis-recent AV fistula placement. Follows with Dr. Naranjo. Consult nephrology. Right chest temporary dialysis catheter. Hemodialysis Tuesday, Tuesday, Tuesday. 3. CAD status post CABG x5 and PCI to distal RCA-denies chest pain. Continue aspirin, statin, beta-alexis. Plavix on hold given recent suprapubic catheter placement and hematuria. 4. Type 2 diabetes mellitus-hold home oral regimen. Accu-Cheks before meals at bedtime with sliding scale insulin. 5. Hypertension-stable, continue home clonidine, isosorbide, doxazosin, Lasix, lisinopril, metoprolol regimen. 6. Hyperlipidemia-continue statin. 7. Hypothyroidism-continue home Synthroid regimen. 8. History of CVA/carotid artery disease-maintain on aspirin, statin. Plavix on hold as noted above. 9. Anemia of chronic disease-stable, trend CBC. 10. Obesity-encourage diet lifestyle modifications. Nutrition consult. DVT prophylaxis-heparin subcu This patient was seen by Kim Little NP-C under the supervision of Dr. Hernandez. <Pop Hernandez F - Last Filed: 07/02/18 15:56> - Physical Exam Vital Signs Temp Pulse Resp BP Pulse Ox 98.4 F 77 16 116/55 L 97 07/02/18 14:22 07/02/18 14:22 07/02/18 14:22 07/02/18 14:22 07/02/18 14:22 Oxygen Flow Rate (L/min) 2 Oxygen Delivery Method Room Air Weight: 223 lb 5.252 oz Body Mass Index (BMI) 31.1 Intake and Output for Last 24 Hours 06/30/18 07/01/18 07/02/18 23:59 23:59 23:59 Intake Total 2686 / 2686 2104 / 2104 Output Total 790 / 790 550 / 550 Balance 1896 / 1896 1554 / 1554 Microbiology Past 72 Hours 06/30/18 19:25 Urine Culture - Final Urine Catheter - Catheter Serratia marcescens Laboratory Tests Past 24 Hrs 07/01/18 07/02/18 07/02/18 21:34 05:30 05:30 WBC 13.2 H RBC 2.80 L Hgb 8.4 L Hct 25.7 L MCV 91.8 MCH 30.0 MCHC 32.7 RDW 14.8 H RDW Differential 48.4 H Plt Count 169 MPV 10.1 Sodium 133 L Potassium 4.1 Chloride 93 L Carbon Dioxide 25.0 Anion Gap 15 BUN 48 H Creatinine 7.70 H* Estim Creat Clear Calc 9.64 Est GFR (MDRD) Af Amer 9 L Est GFR (MDRD) Non-Af 8 L BUN/Creatinine Ratio 6.2 L Glucose 143 H Calcium 7.6 L MRSA (PCR) Negative POC Glucose 07/02/18 07/02/18 07/01/18 11:34 06:51 21:22 POC Glucose 176 H 133 H 176 H 07/01/18 16:13 POC Glucose 183 H Code Visit Addendum: Dr. Hernandez I personally examined the patient and reviewed the chart. I agree with the above. 67-year-old male with an extensive past cardiac history with coronary artery disease status post CABG x5 and a PCI to the distal RCA as well as end- stage renal disease on hemodialysis Tuesday, Tuesday, Tuesday, who presented to the ER with 102 temperature at hemodialysis with chills and Reiger's. He recently had a suprapubic catheter inserted because his bladder was not emptying. Urine cultures demonstrating Serratia marcescens, that is resistant t o Augmentin and Ancef and Macrobid. He also has a left upper extremity cellulitis over his recently constructed fistula. We will continue with Rocephin, Zyvox pending ID consult. Also has an echo pending for what appears to be a new murmur. 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 Inpatient E&M: 10750 Subs Hosp L2
[2018-07-02] MEDS: Linezolid 600 MG 600 MG/300 ML BAG 200 MG IV ×2 (12:46→22:41)
[2018-07-02] MEDS: Acetaminophen 325 MG Tablet 650 MG PO ×2 (17:17→23:20)
[2018-07-02 17:36] LABS: Bedside Glucose 142 mg/dL (70-110)
[2018-07-02] MEDS: Atorvastatin Calcium 20 MG Tablet PO (22:44)
[2018-07-02 23:11] LABS: Bedside Glucose 132 mg/dL (70-110)
[2018-07-03] VITALS (15 sets, daily range): BP systolic 107–156; BP diastolic 52–73; PULSE 76–142; RESP 16–20; TEMP 36.8–37.7; O2SAT 94–98
[2018-07-03] MEDS: BENZOCAINE/MENTHOL 1 LOZENGE 2 LOZENGE MUCOUS MEM (00:33)
[2018-07-03] MEDS: Levothyroxine 50 MCG Tablet PO (05:00)
[2018-07-03 05:57] LABS: Hematocrit 23.3 % (40-54); Hemoglobin 7.5 g/dl (13.0-16.5); Mean Corp Hgb Conc 32.2 g/gl (32-36); Mean Corpuscular Hgb 29.4 pg (27.0-32.0); Mean Corpuscular Volume 91.4 fL (80-94); Mean Platelet Vol. 9.8 fl (6.2-12.0); Platelet Count 180 K/mm3 (150-450); RBC Distribution Width CV 14.7 % (11.6-14.6); RBC Distribution Width SD 47.5 fl (35.1-43.9); Red Blood Count 2.55 M/mm3 (4.6-6.2); White Blood Count 11.3 K/mm3 (4.4-11.0)
[2018-07-03 06:18] LABS: Anion Gap 16 (5-15); BUN 62 mg/dL (7-18); BUN/Creat Ratio 6.9 RATIO (10-20); Calcium,Total 7.6 mg/dL (8.5-10.1); Chloride 94 mmol/L (98-107); EST Glomerular Filtration Rate 6 mL/min (>60); Est Glom Filt Rate - Afr Amer 8 mL/min (>60); Estimated Creatinine Clearance 8.25 ml/min; Glucose 139 mg/dL (74-106); Potassium 3.9 mmol/L (3.5-5.1); Sodium Level 132 mmol/L (136-145)
[2018-07-03 06:35] LABS: Scan Indicated on CBC? Y/N NO
[2018-07-03 07:10] LABS: Bedside Glucose 136 mg/dL (70-110)
--- NOTE | 2018-07-03 08:53 | ECHOD_ITS ---
[id number] ECHO^ECHOD^Echo Complete [id number] TAG_START Cardiovascular Services Echocardiogram [address] [place], [place] [id number] Ordering Physician: AIDA Zamora TAG_ENDED TAG_START Name: BJ RUIZ Study Date: 07/04/2018 10:07 AM BP: 143/72 mmHg Patient Location: [place] [address]^1 BSA: 2.2 m2 : 1950 Gender: Male Height: 71 in Age: 67 yrs Weight: 224 lb History: ESRD, DMII, HLD, HTN, HX CVA, CAD, CABG X 5, PCI, Sternectomy TAG_ENDED Reason For Study: MURMUR Procedure This was a 2D Doppler, Color Flow transthoracic echocardiogram. The exam was of adequate technical quality. Exam performed portable in patient room. Left Ventricle Normal LV size. Moderate concentric left ventricular hypertrophy. Left ventricular systolic function is normal. The estimated ejection fraction is 65 %. The global longitudinal strain = -18 % (normal). No regional wall motion abnormalities noted. TAG_START LAX SAX 4C 2C I X - Cannot 2 - Interpret 1 - Normal Hypokinetic 3 - Akinetic 4 - Dyskinetic 5 - Aneurysmal TAG_ENDED Right Ventricle Normal RV size. Normal systolic function. Atria The left atrium is mildly enlarged. Normal right atrium. No doppler evidence for ASD. Mitral Valve There is moderate mitral annular calcification. Extension of the mitral annular calcification onto the posterior mitral valve leaflet. Mild (1+) mitral valve insufficiency. Tricuspid Valve Normal tricuspid valve. Mild tricuspid valve insufficiency. Right ventricular systolic pressure estimated to be 47 mmHg. Aortic Valve Trisinus/trileaflet aortic valve. Mild focal aortic valve thickening. Trivial aortic valve insufficiency. Pulmonic Valve Normal pulmonic valve. Trivial pulmonic valve insufficiency. Great Vessels Calcified aortic root. The ascending aorta is mildly dilated. Pericardium/Pleural No pericardial effusion. MMode/2D Measurements & Calculations LVIDd: 4.5 cm IVSd: 1.5 cm Ao root diam: 4.2 cm LVIDs: 3.2 cm LVPWd: 1.5 cm RVDd: 4.3 cm FS: 28.8 % LAV(MOD-bp): 119.7 ml LVAd ap4: 43.5 cm2 SV(MOD-sp4): 88.8 ml LAV(MOD-bp) Indexed: 54.1 ml/m2 EDV(MOD-sp4): 161.6 ml LAV(MOD-sp2): 90.1 ml EDV(sp4-el): 169.6 ml LAV(MOD-sp4): 128.2 ml LVAs ap4: 26.5 cm2 ESV(MOD-sp4): 72.7 ml ESV(sp4-el): 74.8 ml EF(MOD-sp4): 55.0 % EF(sp4-el): 55.9 % SV(sp4-el): 94.7 ml LA A4 area: 33.6 cm2 LA dimension(2D): 5.3 cm RA A4 area: 25.1 cm2 Time Measurements MV dec time: 0.22 sec Doppler Measurements & Calculations MV E max luis angel: 137.7 cm/sec Lat Peak E' Luis Angel: 11.8 cm/sec Med Peak E' Luis Angel: 5.4 cm/sec MV A max luis angel: 83.1 cm/sec E/E' lat: 11.7 E/E' med: 25.7 MV E/A: 1.7 Ao V2 max: 168.5 cm/sec AI max luis angel: 341.9 cm/sec LV V1 max: 146.9 cm/sec Ao max P.4 mmHg AI max P.8 mmHg LV V1 max P.6 mmHg AI dec slope: 302.0 cm/sec2 AI P1/2t: 331.6 msec PA V2 max: 168.0 cm/sec TR max luis angel: 329.8 cm/sec TR max P.5 mmHg Interpretation Summary Left ventricular systolic function is normal. The estimated ejection fraction is 65 %. The global longitudinal strain = -18 % (normal). Moderate concentric left ventricular hypertrophy. The left atrium is mildly enlarged. There is moderate mitral annular calcification. Extension of the mitral annular calcification onto the posterior mitral valve leaflet. Mild (1+) mitral valve insufficiency. Mild tricuspid valve insufficiency. Mild focal aortic valve thickening. Trivial aortic valve insufficiency. Trivial pulmonic valve insufficiency. The ascending aorta is mildly dilated. Calcified aortic root. Right ventricular systolic pressure estimated to be 47 mmHg. Transmitral diastolic flow velocities suggest diastolic dysfunction (pseudonormal pattern). TAG_START TAG_ENDED Ordering Physician: LUCY ZamoraC Referring Physician: ROMELIA HEBERT Performed By: Liliya Kaur, ESTRELLA, RVT
--- NOTE | 2018-07-03 10:29 | CASEMGMT ---
RN CM Assessment. Intro role of CM to patient in room. Pt presented to ER with fatigue, weakness, nausea over past 24-48 hours with recent suprapubic cath placement @ [facility] and recent fistula placement per Dr. Tirado 1 month ago- now with redness and edema to sutu-re line. Presents with sepsis. PCP: Dr. Becky Romo [facility]: [facility] Prescription coverage: yes DME: Has cane, walker but states does not use. Independent in ADL's. Living arrangements: lives with who is able to assist. Split level home. [facility]NOK: [employer] Transportation: pt drives, but assists with transportation if he is unable. Dialysis: [facility]- MWF @ 12:55 Home Health: none DC PLAN: Return home with who is able to assist. Resume dialysis @ [facility].
[2018-07-03 11:20] LABS: Bedside Glucose 118 mg/dL (70-110)
--- NOTE | 2018-07-03 13:18 | DIALYSIS ---
dialysis completed x 4 hrs. Access via right chest HD cath. UF 2000ml. Dr. Valente here. blood cultures will be obtained from Hd cath. See HD flowsheet on chart.
--- NOTE | 2018-07-03 13:27 | PCM.PN.REN ---
Patient Problems: Active and Suspected Problems (Last Reviewed 05/05/18 @ 10:19 by Urmila Leonard) Cellulitis (Acute) Severe sepsis (Acute) UTI (urinary tract infection) due to urinary indwelling catheter (Acute) Subjective: Follow-up on end-stage renal disease -Patient seen on hemodialysis today -Denies fevers but still feel weak -Appetite is okay - Physical Exam Vital Signs Temp Pulse Resp BP Pulse Ox 98.2 F 101 H 20 H 143/73 H 96 07/03/18 13:14 07/03/18 13:14 07/03/18 13:14 07/03/18 13:14 07/03/18 09:19 Oxygen Flow Rate (L/min) 2 Oxygen Delivery Method Room Air Weight: 101.3 kg Body Mass Index (BMI) 31.1 Intake and Output for Last 24 Hours 07/01/18 07/02/18 07/03/18 23:59 23:59 23:59 Intake Total 2686 / 2686 2804 / 2804 1022 / 1022 Output Total 790 / 790 625 / 625 2525 / 2525 Balance 1896 / 1896 2179 / 2179 -1503 / -1503 Microbiology Past 72 Hours 06/30/18 19:25 Urine Culture - Final Urine Catheter - Catheter Serratia marcescens Laboratory Tests Past 24 Hrs 07/03/18 07/03/18 07/03/18 05:24 05:24 05:24 WBC 11.3 H RBC 2.55 L Hgb 7.5 L Hct 23.3 L MCV 91.4 MCH 29.4 MCHC 32.2 RDW 14.7 H RDW Differential 47.5 H Plt Count 180 MPV 9.8 Sodium 132 L Potassium 3.9 Chloride 94 L Carbon Dioxide 22.0 Anion Gap 16 H BUN 62 H Creatinine 9.00 H* Estim Creat Clear Calc 8.25 Est GFR (MDRD) Af Amer 8 L Est GFR (MDRD) Non-Af 6 L BUN/Creatinine Ratio 6.9 L Glucose 139 H Calcium 7.6 L Hep Bs Antigen Pending POC Glucose 07/03/18 07/03/18 07/02/18 11:17 07:05 22:38 POC Glucose 118 H 136 H 132 H 07/02/18 17:11 POC Glucose 142 H Physical examination Pleasant elderly gentleman alert responsive no acute distress Positive for right tunneled dialysis catheter nontender no drainage Positive for left AV fistula positive for thrill and bruit mild erythema superficially Irregular Breath sounds equal bilaterally Suprapubic catheter present No peripheral edema Medical Necessity - Tobacco Use Smoking Status: Never smoker Tobacco Use: Non-smoker Assessment/Plan All Active Problems (Last Reviewed 05/05/18 @ 10:19 by Urmila Leonard) Cellulitis (Acute) Severe sepsis (Acute) UTI (urinary tract infection) due to urinary indwelling catheter (Acute) Encounter for pre-operative cardiovascular clearance (Acute) Assessment and plan #1. end-stage renal disease on hemodialysis Tuesday -Seen on hemodialysis today, UF 2 L, blood flow 400 via right tunneled dialysis catheter #2. anemia of chronic disease -hgb is below goal -MANISH, iron with HD #3. Severe sepsis -abx per ID and primary team -check cultures from [facility] Discussed with primary team. Please call [phone] with any concerns.
[2018-07-03] MEDS: Ceftriaxone 1 GM/50 ML BAG IV (13:39)
[2018-07-03] MEDS: Acetaminophen 325 MG Tablet 650 MG PO (13:45)
[2018-07-03] MEDS: Ondansetron 4 MG/2 ML Vial IV (13:55)
--- NOTE | 2018-07-03 14:01 | PCM.PROGNOTE ---
<Kim Little - Last Filed: 07/03/18 14:13> Patient Problems: Active and Suspected Problems (Last Reviewed 05/05/18 @ 10:19 by Urmila Leonard) Cellulitis (Acute) Severe sepsis (Acute) UTI (urinary tract infection) due to urinary indwelling catheter (Acute) Subjective: Patient seen and examined. Undergoing dialysis. Denies fever, chills. Feeling well. - Physical Exam General: Alert, Oriented x3, Cooperative, No apparent distress HEENT: Atraumatic, PERRLA, EOMI, Normocephalic Neck: Supple, No JVD, Negative Carotid Bruits Lungs: Clear to auscultation, Normal air movement Cardiovascular: Regular rate, Regular Rhythm, Normal S1, Normal S2, Murmur Abdomen: Bowel Sounds Present, Soft, Non Tender, Non-Distended, Obese Extremities: No clubbing, No cyanosis, No edema, Capillary Refill Less than 3 Seconds Skin: No rashes, No breakdown Musculoskeletal: No Tenderness to Palpation of Joints or Extremities Neurological: Cranial nerves II-XII grossly intact, Neuro grossly intact Psych/Mental Status: Normal Affect, Appropriate Vital Signs Temp Pulse Resp BP Pulse Ox 98.2 F 101 H 20 H 143/73 H 96 07/03/18 13:14 07/03/18 13:14 07/03/18 13:14 07/03/18 13:14 07/03/18 09:19 Oxygen Flow Rate (L/min) 2 Oxygen Delivery Method Room Air Weight: 223 lb 5.252 oz Body Mass Index (BMI) 31.1 Intake and Output for Last 24 Hours 07/01/18 07/02/18 07/03/18 23:59 23:59 23:59 Intake Total 2686 / 2686 2804 / 2804 1022 / 1022 Output Total 790 / 790 625 / 625 2525 / 2525 Balance 1896 / 1896 2179 / 2179 -1503 / -1503 Microbiology Past 72 Hours 06/30/18 19:25 Urine Culture - Final Urine Catheter - Catheter Serratia marcescens Laboratory Tests Past 24 Hrs 07/03/18 07/03/18 07/03/18 05:24 05:24 05:24 WBC 11.3 H RBC 2.55 L Hgb 7.5 L Hct 23.3 L MCV 91.4 MCH 29.4 MCHC 32.2 RDW 14.7 H RDW Differential 47.5 H Plt Count 180 MPV 9.8 Sodium 132 L Potassium 3.9 Chloride 94 L Carbon Dioxide 22.0 Anion Gap 16 H BUN 62 H Creatinine 9.00 H* Estim Creat Clear Calc 8.25 Est GFR (MDRD) Af Amer 8 L Est GFR (MDRD) Non-Af 6 L BUN/Creatinine Ratio 6.9 L Glucose 139 H Calcium 7.6 L Hep Bs Antigen Pending POC Glucose 07/03/18 07/03/18 07/02/18 11:17 07:05 22:38 POC Glucose 118 H 136 H 132 H 07/02/18 17:11 POC Glucose 142 H Medical Necessity - Tobacco Use Smoking Status: Never smoker Tobacco Use: Non-smoker Assessment/Plan All Active Problems (Last Reviewed 05/05/18 @ 10:19 by Urmila Leonard) Cellulitis (Acute) Severe sepsis (Acute) UTI (urinary tract infection) due to urinary indwelling catheter (Acute) Encounter for pre-operative cardiovascular clearance (Acute) 1. Acute Severe Sepsis secondary to acute complicated Serratia marcescens UTI status post recent suprapubic catheter placement and left upper extremity cellulitis/incision area status post AV fistula placement-blood culture show no growth thus far. Left upper extremity AV fistula incision area with redness and warmth. Feel infection is more likely to be coming from AVF given low colony count in urine. Consult ID for further recommendations. Continue IV Rocephin and Zyvox. Follow blood cultures. Nephrology consulted to further assess fistula. LUE ultrasound ordered, pending. 2. End-stage renal disease on hemodialysis-recent AV fistula placement. Follows with Dr. Naranjo. Consult nephrology. Right chest temporary dialysis catheter. Hemodialysis Tuesday, Tuesday, Tuesday. 3. CAD status post CABG x5 and PCI to distal RCA-denies chest pain. Continue aspirin, statin, beta-alexis. Plavix on hold given recent suprapubic catheter placement and hematuria. 4. Type 2 diabetes mellitus-hold home oral regimen. Accu-Cheks before meals at bedtime with sliding scale insulin. 5. Hypertension-stable, continue home clonidine, isosorbide, doxazosin, Lasix, lisinopril, metoprolol regimen. 6. Hyperlipidemia-continue statin. 7. Hypothyroidism-continue home Synthroid regimen. 8. History of CVA/carotid artery disease-maintain on aspirin, statin. Plavix on hold as noted above. 9. Anemia of chronic disease-stable, trend CBC. 10. Obesity-encourage diet lifestyle modifications. Nutrition consult. DVT prophylaxis-heparin subcu This patient was seen by AIDA Zamora under the supervision of Dr. Mclain. <Jonathan Mclain E - Last Filed: 07/03/18 14:31> - Physical Exam Vital Signs Temp Pulse Resp BP Pulse Ox 99.9 F H 104 H 18 156/60 H 98 07/03/18 14:18 07/03/18 14:18 07/03/18 14:18 07/03/18 14:18 07/03/18 14:18 Oxygen Flow Rate (L/min) 2 Oxygen Delivery Method Room Air Weight: 223 lb 5.252 oz Body Mass Index (BMI) 31.1 Intake and Output for Last 24 Hours 07/01/18 07/02/18 07/03/18 23:59 23:59 23:59 Intake Total 2686 / 2686 2804 / 2804 1963 / 1963 Output Total 790 / 790 625 / 625 4725 / 4725 Balance 1896 / 1896 2179 / 2179 -2761 / -2761 Microbiology Past 72 Hours 06/30/18 19:25 Urine Culture - Final Urine Catheter - Catheter Serratia marcescens Laboratory Tests Past 24 Hrs 07/03/18 07/03/18 07/03/18 05:24 05:24 05:24 WBC 11.3 H RBC 2.55 L Hgb 7.5 L Hct 23.3 L MCV 91.4 MCH 29.4 MCHC 32.2 RDW 14.7 H RDW Differential 47.5 H Plt Count 180 MPV 9.8 Sodium 132 L Potassium 3.9 Chloride 94 L Carbon Dioxide 22.0 Anion Gap 16 H BUN 62 H Creatinine 9.00 H* Estim Creat Clear Calc 8.25 Est GFR (MDRD) Af Amer 8 L Est GFR (MDRD) Non-Af 6 L BUN/Creatinine Ratio 6.9 L Glucose 139 H Calcium 7.6 L Hep Bs Antigen Pending POC Glucose 07/03/18 07/03/18 07/02/18 11:17 07:05 22:38 POC Glucose 118 H 136 H 132 H 07/02/18 17:11 POC Glucose 142 H Assessment/Plan Hospitalist note: I am seeing this patient in conjunction with Kim Little. I independently seen and examined the patient. Progress note above and laboratory data and I agree with the above treatment plan. Today, patient has no significant complaints. He denies fever chills. Swelling and erythema of the left upper extremity fistula much better. His vital signs are stable. - Physical Exam General: Alert, Oriented x3, Cooperative, No apparent distress. HEENT: Atraumatic, PERRLA, EOMI. Neck: Supple, No JVD, Negative Carotid Bruits, Trachea Midline, Thyroid Normal. Lungs: Clear to auscultation, Normal air movement, No rhonchi, No wheeze, No rales. Cardiovascular: Regular rate, Regular Rhythm, Normal S1, Normal S2, PMI Normal. Abdomen: Bowel Sounds Present, Soft, Non Tender, Non-Distended, No Hepato-splenomegaly. Extremities: No clubbing, No cyanosis, No edema Skin: No rashes, No breakdown Neurological: Neuro grossly intact Vital Signs are stable. Assessment and plan: #1 acute severe sepsis: Multifactorial secondary to left lower extremity cellulitis around the AV fistula as well as acute complicated Serratia marcescens acute cystitis status post recent suprapubic catheter placement. He is on IV Rocephin as well as Zyvox. Blood cultures pending. Urine culture reviewed. Vital signs are stable, afebrile. Infectious disease consulted, awaiting their recommendations. Left upper extremity ultrasound ordered, pending. #2 end-stage renal disease: On hemodialysis. At this time, he is getting hemodialysis through the temporary dialysis catheter. He had an AV fistula performed 1 month ago, not used yet. Nephrology on the case. #3 other chronic medical problems: Stable, continue current medications as above. This note was generated with [employer] dictation software. It may contain incorrect words, spelling, and punctuation that were not noted in checking the note before signing. Code Visit Inpatient E&M: 35965 Subs Hosp L2
[2018-07-03] MEDS: Doxazosin 4 MG Tablet PO (14:05)
[2018-07-03] MEDS: Lisinopril 20 MG Tablet PO ×2 (14:05→22:24)
[2018-07-03] MEDS: Calcium Acetate 667 MG Capsule PO ×2 (14:05→17:37)
[2018-07-03] MEDS: cloNIDine HCl 0.1 MG Tablet 0.15 MG PO ×2 (14:06→22:24)
[2018-07-03] MEDS: Aspirin 325 MG Tablet PO (14:06)
[2018-07-03] MEDS: Metoprolol(XL)Succ 50 MG Tablet PO (14:07)
[2018-07-03] MEDS: Isosorbide Mononitrate 30 MG Tablet PO (14:07)
--- NOTE | 2018-07-03 14:09 | VDUE_ITS ---
[id number] VL^VDUL^Venous Duplex US- Unilateral [id number] TAG_START [facility] Venous Doppler [address] [place] [address] Ordering Physician: AIDA Zamora TAG_ENDED TAG_START Name: BJ RUIZ Study Date: 07/03/2018 03:37 PM Patient Location: [facility] : 1950 Gender: Male Age: 67 yrs TAG_ENDED Reason For Study: Infected AVF LUE - R/O abscess/mycotic aneurysm Left Arm Cephalic v compressible in forearm Basilic v compressible Mass noted at level of prox graft measuring 1.2 x 2.3 x 2.9 cm. Non-vascular Brachial veins compressible. Interpretation Summary Patent and compressible left cephalic and basilic veins Patent left upper extremity AV fistula 1.2 2.3 2.9cm structure noted adjacent to the proximal graft suspicous for a hematoma/extravasation- -clinical correlation would be appropriate. TAG_START TAG_ENDED Ordering Physician: AIDA Zamora Referring Physician: Pop Hernandez Performed By: Radha Mccabe RVT ???
[2018-07-03] MEDS: Furosemide 40 MG Tablet PO (14:13)
[2018-07-03] MEDS: Linezolid 600 MG 600 MG/300 ML BAG 200 MG IV ×2 (14:41→22:24)
[2018-07-03] MEDS: 0.9% Normal Saline 1,000 ML 15 ML IV (14:41)
--- NOTE | 2018-07-03 14:56 | CON.PCM_ITS ---
Problem List (1) Cellulitis Status: Acute Qualifiers: Site of cellulitis: extremity Site of cellulitis of extremity: upper extremity Laterality: left Qualified Code(s): L03.114 - Cellulitis of left upper limb Reason for Consult: sepsis Consulted by: Dr. Mclain History of Present Illness: The patient is a 67 year old M with ESRD, had LUE fistula placed about a month ago. Sutures removed on 06/28, on 06/30 was at HD, developed fever, shakes, and redness/pain/swelling at surg site. No drainage. No other focal symptoms. Cam e to ED, given bactrim x1, admitted on linezolid and ceftriaxone, feeling better. Redness improved. No issues with R chest permacath. Full ROS performed and neg except as noted above. Reports remote h/o mrsa infection. 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 At [facility] Atherosclerosis of coronary artery bypass graft without angina pectoris (Chronic) Hypertension (Chronic) Allergies/Adverse Reactions: Allergies ibuprofen Allergy (Verified 06/30/18 17:49) swellin and itching povidone-iodine [From Betadine] Allergy (Verified 06/30/18 17:50) Itching soap [From Betadine] Allergy (Verified 06/30/18 17:50) Itching vancomycin Allergy (Verified 06/30/18 17:49) rash/ throat swelling adhesive tape Adverse Reaction (Verified 06/30/18 17:49) Rash Home Medications: Ambulatory Orders Medication Instructions Recorded Aspirin 325 mg PO DAILY@0800 04/06/18 Cholecalciferol (Vitamin D3) 50,000 unit PO QWEEK 04/06/18 [Vitamin D] Clopidogrel Bisulfate [Plavix] 75 mg PO DAILY 04/06/18 Doxazosin Mesylate [Cardura] 4 mg PO DAILY 04/06/18 Fenofibrate Nanocrystallized 160 mg PO DAILY 04/06/18 [Triglide] Furosemide [Lasix] 40 mg PO DAILY 04/06/18 Insulin Aspart [Novolog Flexpen 0 units SC TIDCM 04/06/18 ([facility])] Isosorbide Mononitrate [Imdur] 30 mg PO DAILY 04/06/18 Levothyroxine [Synthroid] 50 mcg PO DAILY 04/06/18 Lisinopril [Zestril] 20 mg PO BID 04/06/18 Metoprolol Succinate 50 mg PO DAILY 04/06/18 atorvastatin 40 mg tablet 20 mg PO .COMPLEX 05/05/18 calcium acetate 667 mg capsule 667 mg PO .COMPLEX 05/05/18 clonidine HCl 0.3 mg tablet 0.3 mg PO .COMPLEX 05/05/18 diphenhydramine 25 2 tab PO QHS PRN tab 05/05/18 mg-acetaminophen 500 mg tablet vitamin B complex-vitamin C-folic 1 tab PO DAILY 05/05/18 acid 0.8 mg tablet - Social History SMOKING STATUS:: Never smoker Vital Signs Temp Pulse Resp BP Pulse Ox 99.9 F H 100 18 156/60 H 98 07/03/18 14:18 07/03/18 14:24 07/03/18 14:18 07/03/18 14:18 07/03/18 14:18 Oxygen Flow Rate (L/min) 2 Oxygen Delivery Method Room Air Weight: 101.3 kg Body Mass Index (BMI) 31.1 Microbiology Past 72 Hours 06/30/18 19:25 Urine Culture - Final Urine Catheter - Catheter Serratia marcescens Laboratory Tests Past 24 Hrs 07/03/18 07/03/18 07/03/18 05:24 05:24 05:24 WBC 11.3 H RBC 2.55 L Hgb 7.5 L Hct 23.3 L MCV 91.4 MCH 29.4 MCHC 32.2 RDW 14.7 H RDW Differential 47.5 H Plt Count 180 MPV 9.8 Sodium 132 L Potassium 3.9 Chloride 94 L Carbon Dioxide 22.0 Anion Gap 16 H BUN 62 H Creatinine 9.00 H* Estim Creat Clear Calc 8.25 Est GFR (MDRD) Af Amer 8 L Est GFR (MDRD) Non-Af 6 L BUN/Creatinine Ratio 6.9 L Glucose 139 H Calcium 7.6 L Hep Bs Antigen Pending - Other Studies Radiology: [] reviewed Other Studies: [] Route of nutrition/ use of supplements: [] Nutritional Intake: [] IV Site: [] Bang Catheter: [] - Physical Exam General: Alert, Oriented x3, Cooperative, No apparent distress HEENT: Atraumatic, PERRLA, EOMI Neck: Supple, No Nodes Lungs: Clear to auscultation, Normal air movement Cardiovascular: Regular rate, Regular Rhythm Abdomen: Soft, Non Tender, Non-Distended Extremities: Edema Skin: Rash Present - over L antecub fistula site, (+) thrill IV Site: Central Line, without redness Musculoskeletal: No Tenderness to Palpation of Joints or Extremities Neurological: Cranial nerves II-XII grossly intact - Assessment/Plan Antibiotics: [] Assessment/Plan: [] Active and Suspected Problems (Last Reviewed 05/05/18 @ 10:19 by Urmila Leonard) Cellulitis (Acute) Severe sepsis (Acute) UTI (urinary tract infection) due to urinary indwelling catheter (Acute) Severe sepsis (fever, leukocytosis, tachycardia, lactic acidosis) due to infection at LUE fistula site - ucx with only 1-10k serratia. Arm improving on linezolid/ceftriaxone. Check doppler of fistula to look for abscess or mycotic aneurysm. Will follow, thank you, d/w primary team.
[2018-07-03] MEDS: Insulin Lispro 100 UNIT/ML INSULN.PEN SQ (16:29)
[2018-07-03 16:31] LABS: Bedside Glucose 190 mg/dL (70-110)
--- NOTE | 2018-07-03 21:00 | EKG12_ITS ---
Test Reason : CHANGE IN RHYTHM Blood Pressure : / mmHG Vent. Rate : 111 BPM Atrial Rate : 150 BPM P-R Int : 000 ms QRS Dur : 120 ms QT Int : 338 ms P-R-T Axes : 000 011 188 degrees QTc Int : 459 ms Atrial fibrillation with rapid ventricular response with premature ventricular or aberrantly conducte d complexes Left ventricular hypertrophy with QRS widening ST & T wave abnormality, consider inferolateral ischemia Abnormal ECG Confirmed by CHUY ARREAGA, FAHAD ([id number]), deputy editor in chief CHADWICK TABARES ([id number]) on 07/06/2018 3:57:38 PM Referred By: Pop Hernandez Confirmed By:FAHAD VERA MD
[2018-07-03 22:46] LABS: Bedside Glucose 146 mg/dL (70-110)
[2018-07-04] VITALS (18 sets, daily range): BP systolic 94–135; BP diastolic 53–67; PULSE 78–119; RESP 15–23; TEMP 36.7–37.4; O2SAT 92–95
[2018-07-04] MEDS: dilTIAZem 25 MG/5 ML Vial 5 MG IV BOLUS (01:25)
--- NOTE | 2018-07-04 04:08 | EKG12_ITS ---
Test Reason : NSR CONVERT F/M AFIB Blood Pressure : / mmHG Vent. Rate : 096 BPM Atrial Rate : 096 BPM P-R Int : 138 ms QRS Dur : 116 ms QT Int : 338 ms P-R-T Axes : 005 013 140 degrees QTc Int : 427 ms Normal sinus rhythm Left ventricular hypertrophy with QRS widening and repolarization abnormality Abnormal ECG Confirmed by CHUY ARREAGA, FAHAD ([id number]), city editor CHADWICK TABARES ([id number]) on 07/06/2018 3:57:01 PM Referred By: Pop Hernandez Confirmed By:FAHAD VERA MD
[2018-07-04] MEDS: Levothyroxine 50 MCG Tablet PO (06:30)
[2018-07-04 06:46] LABS: Hematocrit 24.1 % (40-54); Hemoglobin 7.6 g/dl (13.0-16.5); Mean Corp Hgb Conc 31.5 g/gl (32-36); Mean Corpuscular Hgb 29.1 pg (27.0-32.0); Mean Corpuscular Volume 92.3 fL (80-94); Mean Platelet Vol. 9.6 fl (6.2-12.0); Platelet Count 208 K/mm3 (150-450); RBC Distribution Width CV 14.6 % (11.6-14.6); RBC Distribution Width SD 47.1 fl (35.1-43.9); Red Blood Count 2.61 M/mm3 (4.6-6.2); White Blood Count 8.5 K/mm3 (4.4-11.0)
[2018-07-04 06:49] LABS: Scan Indicated on CBC? Y/N NO
[2018-07-04 07:09] LABS: Anion Gap 12 (5-15); BUN 37 mg/dL (7-18); BUN/Creat Ratio 6.5 RATIO (10-20); Calcium,Total 7.6 mg/dL (8.5-10.1); Chloride 93 mmol/L (98-107); Creatinine, Serum 5.72 mg/dL (0.70-1.30); EST Glomerular Filtration Rate 11 mL/min (>60); Est Glom Filt Rate - Afr Amer 13 mL/min (>60); Estimated Creatinine Clearance 12.98 ml/min; Glucose 150 mg/dL (74-106); Potassium 3.9 mmol/L (3.5-5.1); Sodium Level 133 mmol/L (136-145)
[2018-07-04 07:41] LABS: Bedside Glucose 149 mg/dL (70-110)
[2018-07-04] MEDS: cloNIDine HCl 0.1 MG Tablet 0.15 MG PO ×2 (09:44→22:41)
[2018-07-04] MEDS: Calcium Acetate 667 MG Capsule PO ×3 (09:44→17:04)
[2018-07-04] MEDS: Aspirin 325 MG Tablet PO (09:44)
[2018-07-04] MEDS: Lisinopril 20 MG Tablet PO ×2 (09:45→22:43)
[2018-07-04] MEDS: Doxazosin 4 MG Tablet PO (09:45)
[2018-07-04] MEDS: Furosemide 40 MG Tablet PO (09:46)
[2018-07-04] MEDS: Metoprolol(XL)Succ 50 MG Tablet PO (09:46)
[2018-07-04] MEDS: Isosorbide Mononitrate 30 MG Tablet PO (09:47)
--- NOTE | 2018-07-04 09:54 | PCM.PN.REN ---
Patient Problems: Active and Suspected Problems (Last Reviewed 05/05/18 @ 10:19 by Urmila Leonard) Cellulitis (Acute) Severe sepsis (Acute) UTI (urinary tract infection) due to urinary indwelling catheter (Acute) Subjective: Pt denied any nausea/vomiting. No SOB. No CP - Physical Exam General: Oriented x3 HEENT: Atraumatic Oral: Moist Mucosa Neck: Supple, No JVD Lungs: Clear to auscultation, Normal air movement, No rhonchi, No wheeze Cardiovascular: Regular rate, Regular Rhythm, Normal S1, Normal S2 Abdomen: Bowel Sounds Present, Non Tender, Non-Distended Extremities: No clubbing, No cyanosis, No edema Skin: No rashes Musculoskeletal: No Tenderness to Palpation of Joints or Extremities Lymphatic: No Cervical, Supraclavicular, or Inguinal Adenopathy Neurological: Cranial nerves II-XII grossly intact, Neuro grossly intact Vital Signs Temp Pulse Resp BP Pulse Ox 98.1 F 91 16 121/60 H 92 07/04/18 09:41 07/04/18 09:46 07/04/18 09:41 07/04/18 09:46 07/04/18 09:41 Oxygen Flow Rate (L/min) 2 Oxygen Delivery Method Room Air Weight: 105.7 kg Body Mass Index (BMI) 31.1 Intake and Output for Last 24 Hours 07/02/18 07/03/18 07/04/18 23:59 23:59 23:59 Intake Total 2804 / 2804 2917 / 2917 246.2 / 246.2 Output Total 625 / 625 4825 / 4825 Balance 2179 / 2179 -1908 / -1908 246.2 / 246.2 Microbiology Past 72 Hours 06/30/18 19:25 Urine Culture - Final Urine Catheter - Catheter Serratia marcescens Laboratory Tests Past 24 Hrs 07/03/18 07/04/18 07/04/18 05:24 05:44 05:44 WBC 8.5 RBC 2.61 L Hgb 7.6 L Hct 24.1 L MCV 92.3 MCH 29.1 MCHC 31.5 L RDW 14.6 RDW Differential 47.1 H Plt Count 208 MPV 9.6 Sodium 133 L Potassium 3.9 Chloride 93 L Carbon Dioxide 28.0 Anion Gap 12 BUN 37 H Creatinine 5.72 H Estim Creat Clear Calc 12.98 Est GFR (MDRD) Af Amer 13 L Est GFR (MDRD) Non-Af 11 L BUN/Creatinine Ratio 6.5 L Glucose 150 H Calcium 7.6 L Hep Bs Antigen Pending POC Glucose 07/04/18 07/03/18 07/03/18 06:56 22:22 16:25 POC Glucose 149 H 146 H 190 H 07/03/18 11:17 POC Glucose 118 H Medical Necessity - Tobacco Use Smoking Status: Never smoker Tobacco Use: Non-smoker Assessment/Plan All Active Problems (Last Reviewed 05/05/18 @ 10:19 by Urmila Leonard) Cellulitis (Acute) Severe sepsis (Acute) UTI (urinary tract infection) due to urinary indwelling catheter (Acute) Encounter for pre-operative cardiovascular clearance (Acute) 1-End-Stage Renal Disease patient on Tuesday hemodialysis schedule, patient goes to [facility]. Last hemodialysis session was yesterday 102/9. No need to do hemodialysis session today. I will arrange for hemodialysis session on July 05 Will avoid using the infected AV fistula. We will continue using right IJ tunnel catheter. 2-sepsis due to left upper arm AV fistula infection/UTI. Antibiotics as per the ID. 3-BMD. Continue calcium acetate. 4-hypertension. Blood pressure is well controlled. Continue the same dose of lisinopril, isosorbide mononitrate and metoprolol. Continue ultrafiltration with hemodialysis. Renal team will continue to follow. Please call with questions TAIWO MENDIETA MD [phone]
[2018-07-04] MEDS: Ceftriaxone 1 GM/50 ML BAG IV (09:57)
--- NOTE | 2018-07-04 09:58 | PCM.PN.ID ---
Patient Problems: Active and Suspected Problems (Last Reviewed 05/05/18 @ 10:19 by Urmila Leonard) Cellulitis (Acute) Severe sepsis (Acute) UTI (urinary tract infection) due to urinary indwelling catheter (Acute) Subjective: Feeling better, no fever, arm less sore. - Physical Exam General: Alert, Cooperative, No apparent distress Lungs: Clear to auscultation, Normal air movement Cardiovascular: Regular rate, Regular Rhythm Abdomen: Soft, Non Tender, Non-Distended Skin: Incision - L antecub redness improved, no drainage Vital Signs Temp Pulse Resp BP Pulse Ox 98.1 F 91 16 121/60 H 92 07/04/18 09:41 07/04/18 09:46 07/04/18 09:41 07/04/18 09:46 07/04/18 09:41 Oxygen Flow Rate (L/min) 2 Oxygen Delivery Method Room Air Weight: 105.7 kg Body Mass Index (BMI) 31.1 Intake and Output for Last 24 Hours 07/02/18 07/03/18 07/04/18 23:59 23:59 23:59 Intake Total 2804 / 2804 2917 / 2917 246.2 / 246.2 Output Total 625 / 625 4825 / 4825 Balance 2179 / 2179 -1908 / -1908 246.2 / 246.2 Microbiology Past 72 Hours 06/30/18 19:25 Urine Culture - Final Urine Catheter - Catheter Serratia marcescens Laboratory Tests Past 24 Hrs 07/03/18 07/04/18 07/04/18 05:24 05:44 05:44 WBC 8.5 RBC 2.61 L Hgb 7.6 L Hct 24.1 L MCV 92.3 MCH 29.1 MCHC 31.5 L RDW 14.6 RDW Differential 47.1 H Plt Count 208 MPV 9.6 Sodium 133 L Potassium 3.9 Chloride 93 L Carbon Dioxide 28.0 Anion Gap 12 BUN 37 H Creatinine 5.72 H Estim Creat Clear Calc 12.98 Est GFR (MDRD) Af Amer 13 L Est GFR (MDRD) Non-Af 11 L BUN/Creatinine Ratio 6.5 L Glucose 150 H Calcium 7.6 L Hep Bs Antigen Pending POC Glucose 07/04/18 07/03/18 07/03/18 06:56 22:22 16:25 POC Glucose 149 H 146 H 190 H 07/03/18 11:17 POC Glucose 118 H Medical Necessity - Tobacco Use Smoking Status: Never smoker Tobacco Use: Non-smoker Route of nutrition/ use of supplements: [] Nutritional Intake: [] IV Site: [] Bang Catheter: [] - Assessment/Plan Antibiotics: [] Assessment/Plan: [] Active and Suspected Problems (Last Reviewed 05/05/18 @ 10:19 by Urmila Leonard) Cellulitis (Acute) Severe sepsis (Acute) UTI (urinary tract infection) due to urinary indwelling catheter (Acute) Severe sepsis (fever, leukocytosis, tachycardia, lactic acidosis) due to infection at LUE fistula site - Arm improving on linezolid/ceftriaxone. U/s showed [id number] collection, recommend Dr. Tirado evaluate for possible I&D. Tentative plan would be for discharge on 10 more days of linezolid 600mg bid if no surgery planned. bacteruria - minimal growth doubt true infection. Will follow, d/w primary team.
[2018-07-04 10:58] LABS: HEPATITIS B SURFACE AG Negative (Negative)
[2018-07-04] MEDS: Linezolid 600 MG 600 MG/300 ML BAG 200 MG IV ×2 (11:24→22:46)
[2018-07-04] MEDS: Insulin Lispro 100 UNIT/ML INSULN.PEN SQ (11:38)
[2018-07-04 12:00] LABS: Bedside Glucose 178 mg/dL (70-110)
--- NOTE | 2018-07-04 13:47 | PN_ITS ---
<Kim Little - Last Filed: 07/04/18 13:49> Patient Problems: Active and Suspected Problems (Last Reviewed 05/05/18 @ 10:19 by Urmila Leonard) Cellulitis (Acute) Severe sepsis (Acute) UTI (urinary tract infection) due to urinary indwelling catheter (Acute) Subjective: Patient seen and examined. Feeling well. Reports nausea following dialysis yesterday. Denies fever, chills. - Physical Exam General: Alert, Oriented x3, Cooperative, No apparent distress HEENT: Atraumatic, PERRLA, EOMI, Normocephalic Neck: Supple, No JVD, Negative Carotid Bruits Lungs: Clear to auscultation, Normal air movement Cardiovascular: Regular rate, Regular Rhythm, Normal S1, Normal S2, Murmur Abdomen: Bowel Sounds Present, Non Tender, Non-Distended, Obese Extremities: No clubbing, No cyanosis, No edema Skin: No rashes, No breakdown, - - Left upper extremity redness, warmth near fistula sutures improving. Musculoskeletal: No Tenderness to Palpation of Joints or Extremities Neurological: Cranial nerves II-XII grossly intact, Neuro grossly intact Psych/Mental Status: Normal Affect, Appropriate Vital Signs Temp Pulse Resp BP Pulse Ox 98.1 F 84 16 121/60 H 92 07/04/18 09:41 07/04/18 11:27 07/04/18 09:41 07/04/18 09:46 07/04/18 09:41 Oxygen Flow Rate (L/min) 2 Oxygen Delivery Method Room Air Weight: 233 lb 0.458 oz Body Mass Index (BMI) 31.1 Intake and Output for Last 24 Hours 07/02/18 07/03/18 07/04/18 23:59 23:59 23:59 Intake Total 2804 / 2804 2917 / 2917 366.2 / 366.2 Output Total 625 / 625 4825 / 4825 / Balance 2179 / 2179 -1908 / -1908 346.2 / 346.2 Microbiology Past 72 Hours 06/30/18 19:25 Urine Culture - Final Urine Catheter - Catheter Serratia marcescens Laboratory Tests Past 24 Hrs 07/03/18 07/04/18 07/04/18 05:24 05:44 05:44 WBC 8.5 RBC 2.61 L Hgb 7.6 L Hct 24.1 L MCV 92.3 MCH 29.1 MCHC 31.5 L RDW 14.6 RDW Differential 47.1 H Plt Count 208 MPV 9.6 Sodium 133 L Potassium 3.9 Chloride 93 L Carbon Dioxide 28.0 Anion Gap 12 BUN 37 H Creatinine 5.72 H Estim Creat Clear Calc 12.98 Est GFR (MDRD) Af Amer 13 L Est GFR (MDRD) Non-Af 11 L BUN/Creatinine Ratio 6.5 L Glucose 150 H Calcium 7.6 L Hep Bs Antigen Negative POC Glucose 07/04/18 07/04/18 07/03/18 11:34 06:56 22:22 POC Glucose 178 H 149 H 146 H 07/03/18 16:25 POC Glucose 190 H Medical Necessity - Tobacco Use Smoking Status: Never smoker Tobacco Use: Non-smoker Assessment/Plan All Active Problems (Last Reviewed 05/05/18 @ 10:19 by Urmila Leonard) Cellulitis (Acute) Severe sepsis (Acute) UTI (urinary tract infection) due to urinary indwelling catheter (Acute) Encounter for pre-operative cardiovascular clearance (Acute) 1. Acute Severe Sepsis secondary to left upper extremity cellulitis/incision area status post AV fistula placement-blood culture show no growth thus far. Left upper extremity AV fistula incision area with redness and warmth. Acute Serratia marcescens UTI initially suspected. Patient is status post recent suprapubic catheter placement. However, ruled out given low colony count in culture. Infectious disease following. Continue IV Rocephin and Zyvox. Venous Doppler left upper extremity showed patent left upper extremity AV fistula. 1.2 x 2.3 x 2.9 cm structure adjacent to the proximal graft suspicious for hematoma or abscess. Dr. Tirado consulted for possible I&D. ID recommending linezolid 600 mg twice daily for 10 days at discharge. 2. End-stage renal disease on hemodialysis-recent AV fistula placement. Follows with Dr. Naranjo. Consult nephrology. Right chest temporary dialysis catheter. Hemodialysis Tuesday, Tuesday, Tuesday. 3. CAD status post CABG x5 and PCI to distal RCA-denies chest pain. Continue aspirin, statin, beta-alexis. Plavix on hold given recent suprapubic catheter placement and hematuria. 4. New onset atrial fibrillation-occurred overnight. Quickly resolved with IV Cardizem. Has remained sinus rhythm. Patient denies history of atrial fibrillation. Monitor telemetry. Echocardiogram pending. 5. Type 2 diabetes mellitus-hold home oral regimen. Accu-Cheks before meals at bedtime with sliding scale insulin. 6. Hypertension-stable, continue home clonidine, isosorbide, doxazosin, Lasix, lisinopril, metoprolol regimen. 7. Hyperlipidemia-continue statin. 8. Hypothyroidism-continue home Synthroid regimen. 9. History of CVA/carotid artery disease-maintain on aspirin, statin. Plavix on hold as noted above. 10. Anemia of chronic disease-stable, trend CBC. 11. Obesity-encourage diet lifestyle modifications. Nutrition consult. DVT prophylaxis-heparin subcu This patient was seen by AIDA Zamora under the supervision of Dr. Mclain. <Jonathan Mclain E - Last Filed: 07/04/18 14:26> - Physical Exam Vital Signs Temp Pulse Resp BP Pulse Ox 98.1 F 84 16 121/60 H 92 07/04/18 09:41 07/04/18 11:27 07/04/18 09:41 07/04/18 09:46 07/04/18 09:41 Oxygen Flow Rate (L/min) 2 Oxygen Delivery Method Room Air Weight: 233 lb 0.458 oz Body Mass Index (BMI) 31.1 Intake and Output for Last 24 Hours 07/02/18 07/03/18 07/04/18 23:59 23:59 23:59 Intake Total 2804 / 2804 2917 / 2917 366.2 / 366.2 Output Total 625 / 625 4825 / 4825 20 / 20 Balance 2179 / 2179 -1908 / -1908 346.2 / 346.2 Microbiology Past 72 Hours 06/30/18 19:25 Urine Culture - Final Urine Catheter - Catheter Serratia marcescens Laboratory Tests Past 24 Hrs 07/03/18 07/04/18 07/04/18 05:24 05:44 05:44 WBC 8.5 RBC 2.61 L Hgb 7.6 L Hct 24.1 L MCV 92.3 MCH 29.1 MCHC 31.5 L RDW 14.6 RDW Differential 47.1 H Plt Count 208 MPV 9.6 Sodium 133 L Potassium 3.9 Chloride 93 L Carbon Dioxide 28.0 Anion Gap 12 BUN 37 H Creatinine 5.72 H Estim Creat Clear Calc 12.98 Est GFR (MDRD) Af Amer 13 L Est GFR (MDRD) Non-Af 11 L BUN/Creatinine Ratio 6.5 L Glucose 150 H Calcium 7.6 L Hep Bs Antigen Negative POC Glucose 07/04/18 07/04/18 07/03/18 11:34 06:56 22:22 POC Glucose 178 H 149 H 146 H 07/03/18 16:25 POC Glucose 190 H Assessment/Plan Hospitalist note: I am seeing this patient in conjunction with Kim Little. I independently seen and examined the patient. Progress note above and laboratory data and I agree with the above treatment plan. Today, patient has no significant complaints. He denies fever chills. His vital signs are stable. - Physical Exam General: Alert, Oriented x3, Cooperative, No apparent distress. HEENT: Atraumatic, PERRLA, EOMI. Neck: Supple, No JVD, Negative Carotid Bruits, Trachea Midline, Thyroid Normal. Lungs: Clear to auscultation, Normal air movement, No rhonchi, No wheeze, No rales. Cardiovascular: Regular rate, Regular Rhythm, Normal S1, Normal S2, PMI Normal. Abdomen: Bowel Sounds Present, Soft, Non Tender, Non-Distended, No Hepato- splenomegaly. Extremities: No clubbing, No cyanosis, No edema Skin: No rashes, No breakdown Neurological: Neuro grossly intact Vital Signs are stable. Assessment and plan: #1 acute severe sepsis: Multifactorial secondary to left lower extremity cellulitis around the AV fistula as well as acute complicated Serratia marcescens acute cystitis status post recent suprapubic catheter placement. Remained on IV Rocephin as well as Zyvox. Blood cultures pending. Urine culture reviewed. Vital signs are stable, afebrile. Infectious disease recommended venous Doppler of the left upper extremity which revealed 1.2 x 2.3 x 2.9 structure adjacent to the proximal graft suspicious for hematoma versus abscess. Vascular surgeon consulted and Dr. Tirado will see the patient tomorrow in consultation. Plan to continue same treatment. #2 end-stage renal disease: On hemodialysis. At this time, he is getting hemodialysis through the temporary dialysis catheter. He had an AV fistula performed 1 month ago, not used yet. Nephrology on the case. #3 other chronic medical problems: Stable, continue current medications as above. This note was generated with [employer] software. It may contain incorrect words, spelling, and punctuation that were not noted in checking the note before signing. Code Visit Inpatient E&M: 38848 Subs Hosp L2
[2018-07-04 15:39] LABS: Magnesium 1.9 mg/dL (1.6-2.6)
[2018-07-04 16:31] LABS: Bedside Glucose 141 mg/dL (70-110)
[2018-07-04] MEDS: Atorvastatin Calcium 20 MG Tablet PO (22:43)
[2018-07-04 23:51] LABS: Bedside Glucose 127 mg/dL (70-110)
[2018-07-05] VITALS (9 sets, daily range): BP systolic 116–159; BP diastolic 62–72; PULSE 79–95; RESP 18; TEMP 36.6–37.3; O2SAT 92–96
[2018-07-05 05:52] LABS: Anion Gap 13 (5-15); BUN 55 mg/dL (7-18); BUN/Creat Ratio 7.7 RATIO (10-20); Calcium,Total 7.7 mg/dL (8.5-10.1); Chloride 93 mmol/L (98-107); Creatinine, Serum 7.18 mg/dL (0.70-1.30); EST Glomerular Filtration Rate 8 mL/min (>60); Est Glom Filt Rate - Afr Amer 10 mL/min (>60); Estimated Creatinine Clearance 10.34 ml/min; Glucose 122 mg/dL (74-106); Sodium Level 134 mmol/L (136-145)
[2018-07-05 05:53] LABS: Hematocrit 23.4 % (40-54); Hemoglobin 7.4 g/dl (13.0-16.5); Mean Corp Hgb Conc 31.6 g/gl (32-36); Mean Corpuscular Volume 91.8 fL (80-94); Mean Platelet Vol. 9.1 fl (6.2-12.0); Platelet Count 198 K/mm3 (150-450); RBC Distribution Width CV 15.3 % (11.6-14.6); RBC Distribution Width SD 51.9 fl (35.1-43.9); Red Blood Count 2.55 M/mm3 (4.6-6.2); White Blood Count 9.5 K/mm3 (4.4-11.0)
[2018-07-05] MEDS: Levothyroxine 50 MCG Tablet PO (05:55)
[2018-07-05 06:09] LABS: Scan Indicated on CBC? Y/N NO
[2018-07-05 07:00] LABS: Bedside Glucose 121 mg/dL (70-110)
[2018-07-05] MEDS: Aspirin 325 MG Tablet PO (07:53)
[2018-07-05] MEDS: Calcium Acetate 667 MG Capsule PO ×2 (07:53→14:45)
--- NOTE | 2018-07-05 10:10 | PCM.PN.REN ---
Patient Problems: Active and Suspected Problems (Last Reviewed 05/05/18 @ 10:19 by Urmila Leonard) Cellulitis (Acute) Severe sepsis (Acute) UTI (urinary tract infection) due to urinary indwelling catheter (Acute) Subjective: Pt was seen during HD session today Pt is tolerating the session well No nausea No vomiting. no SOB - Physical Exam General: Alert, Oriented x3 HEENT: Atraumatic Oral: Moist Mucosa Neck: Supple, No JVD Lungs: Clear to auscultation, Normal air movement, No rhonchi Cardiovascular: Regular rate, Regular Rhythm, Normal S1, Normal S2 Abdomen: Bowel Sounds Present, Soft, Non Tender, Non-Distended Extremities: No clubbing, No cyanosis, No edema Skin: No rashes Musculoskeletal: No Tenderness to Palpation of Joints or Extremities Lymphatic: No Cervical, Supraclavicular, or Inguinal Adenopathy Neurological: Cranial nerves II-XII grossly intact, Neuro grossly intact Psych/Mental Status: Normal Affect Vital Signs Temp Pulse Resp BP Pulse Ox 99.1 F 92 18 134/66 H 96 07/05/18 09:05 07/05/18 09:05 07/05/18 09:05 07/05/18 09:05 07/05/18 09:05 Oxygen Flow Rate (L/min) 2 Oxygen Delivery Method Room Air Weight: 103.6 kg Body Mass Index (BMI) 31.1 Intake and Output for Last 24 Hours 07/03/18 07/04/18 07/05/18 23:59 23:59 23:59 Intake Total 2917 / 2917 1305.2 / 1305.2 73.3 / 73.3 Output Total 4825 / 4825 525 / 525 200 / 200 Balance -1908 / -1908 780.2 / 780.2 -126.7 / -126.7 Microbiology Past 72 Hours 06/30/18 19:25 Urine Culture - Final Urine Catheter - Catheter Serratia marcescens Laboratory Tests Past 24 Hrs 07/03/18 07/04/18 07/05/18 05:24 15:21 05:14 WBC 9.5 RBC 2.55 L Hgb 7.4 L Hct 23.4 L MCV 91.8 MCH 29.0 MCHC 31.6 L RDW 15.3 H RDW Differential 51.9 H Plt Count 198 MPV 9.1 Sodium Potassium Chloride Carbon Dioxide Anion Gap BUN Creatinine Estim Creat Clear Calc Est GFR (MDRD) Af Amer Est GFR (MDRD) Non-Af BUN/Creatinine Ratio Glucose Calcium Magnesium 1.9 Hep Bs Antigen Negative 07/05/18 05:14 WBC RBC Hgb Hct MCV MCH MCHC RDW RDW Differential Plt Count MPV Sodium 134 L Potassium 4.0 Chloride 93 L Carbon Dioxide 28.0 Anion Gap 13 BUN 55 H Creatinine 7.18 H Estim Creat Clear Calc 10.34 Est GFR (MDRD) Af Amer 10 L Est GFR (MDRD) Non-Af 8 L BUN/Creatinine Ratio 7.7 L Glucose 122 H Calcium 7.7 L Magnesium Hep Bs Antigen POC Glucose 07/05/18 07/04/18 07/04/18 06:53 22:40 16:25 POC Glucose 121 H 127 H 141 H 07/04/18 11:34 POC Glucose 178 H Medical Necessity - Tobacco Use Smoking Status: Never smoker Tobacco Use: Non-smoker Assessment/Plan All Active Problems (Last Reviewed 05/05/18 @ 10:19 by Urmila Leonard) Cellulitis (Acute) Severe sepsis (Acute) UTI (urinary tract infection) due to urinary indwelling catheter (Acute) Encounter for pre-operative cardiovascular clearance (Acute) 1-End-Stage Renal Disease patient on Tuesday hemodialysis schedule, patient goes to [facility]. HD session today: BQ 400 DQ 600 UF 2 L Will avoid using the infected AV fistula. We will continue using right IJ tunnel catheter. 2-sepsis due to left upper arm AV fistula infection. Better Antibiotics as per the ID. pt is to follow Dr. Tirado for further recommendation 3-BMD. Continue calcium acetate.Continue active VD with HD session 4-hypertension. Blood pressure is well controlled. Continue the same dose of lisinopril, isosorbide mononitrate and metoprolol. Continue ultrafiltration with hemodialysis. 5- Anemia: Will give the patient one dose of Epogen 10,000 U today Renal team will continue to follow. Please call with questions TAIWO MENDIETA MD [phone]
--- NOTE | 2018-07-05 11:25 | CON.PCM_ITS ---
Reason for Consult Date of Consultation: 07/05/18 Reason for Consultation: New suprapubic catheter recent infection History of Present Illness: The patient is a 67 year old male who had a suprapubic catheter placed by an outside urologist last week comes into the hospital for possible sepsis and infection he had some blood in the urine the nurses have been flushing the suprapubic catheter the urine is now more clear and draining better, currently is on dialysis. 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) E11.21 Bilateral carotid artery stenosis (Chronic) I65.23 Hyperlipidemia (Chronic) E78.5 CVA (cerebral vascular accident) (Chronic) I63.9 Atherosclerosis of coronary artery bypass graft without angina pectoris (Chronic) I25.810 Hypertension (Chronic) I10 Hypothyroidism E03.9 Obesity E66.9 Thyroid nodule E04.1 Allergies ibuprofen Allergy (Verified 06/30/18 17:49) swellin and itching povidone-iodine [From Betadine] Allergy (Verified 06/30/18 17:50) Itching soap [From Betadine] Allergy (Verified 06/30/18 17:50) Itching vancomycin Allergy (Verified 06/30/18 17:49) rash/ throat swelling adhesive tape Adverse Reaction (Verified 06/30/18 17:49) Rash Home Medications: Ambulatory Orders Medication Instructions Recorded Aspirin 325 mg PO DAILY@0800 04/06/18 Cholecalciferol (Vitamin D3) 50,000 unit PO QWEEK 04/06/18 [Vitamin D] Clopidogrel Bisulfate [Plavix] 75 mg PO DAILY 04/06/18 Doxazosin Mesylate [Cardura] 4 mg PO DAILY 04/06/18 Fenofibrate Nanocrystallized 160 mg PO DAILY 04/06/18 [Triglide] Furosemide [Lasix] 40 mg PO DAILY 04/06/18 Insulin Aspart [Novolog Flexpen 0 units SC TIDCM 04/06/18 ([facility])] Isosorbide Mononitrate [Imdur] 30 mg PO DAILY 04/06/18 Levothyroxine [Synthroid] 50 mcg PO DAILY 04/06/18 Lisinopril [Zestril] 20 mg PO BID 04/06/18 Metoprolol Succinate 50 mg PO DAILY 04/06/18 atorvastatin 40 mg tablet 20 mg PO .COMPLEX 05/05/18 calcium acetate 667 mg capsule 667 mg PO .COMPLEX 05/05/18 clonidine HCl 0.3 mg tablet 0.3 mg PO .COMPLEX 05/05/18 diphenhydramine 25 2 tab PO QHS PRN tab 05/05/18 mg-acetaminophen 500 mg tablet vitamin B complex-vitamin C-folic 1 tab PO DAILY 05/05/18 acid 0.8 mg tablet Surgical History: Surgical History (Last Reviewed 05/05/18 @ 10:19 by Urmila Leonard) H/O coronary artery bypass surgery (Chronic) Onset Date: 06/11/96 Z95.1 CABG x 5 Sequential Radial Artery- PVB and PDA, STOVER-LAD, Free BERNY -Lat Cx and SVG-Diag. At [facility] history Laparoscopic Peritoneal Dialysis Catheter Onset Date: ~12/29/17 H/O right coronary artery stent placement Onset Date: ~03/30/02 Z95.5 Dista RCA History of appendectomy Z98.890, Z90.49 History of nasal septoplasty Z98.890 History of sternectomy Onset Date: ~07/10/96 Z98.890 sternectomy and midsternal wound debridement with left pectoralis muscle flap for sternal wound coverage on 07/12/96 Surgical History: - - CABG x5 w/ follow-up sternectomy and midsternal wound debridement with left pectoralis muscle flap for sternal wound coverage, PCI x1, left upper extremity fistula, PD catheter placement, PD catheter change, PD catheter removal, suprapubic catheter, bladder surgery, tonsillectomy, appendectomy, septoplasty. Lives: Spouse/ Significant Other Smoking Status: Never smoker Tobacco Use: Non-smoker Alcohol: None Drugs: None - *Family History Maternal Family History: Family History (Last Reviewed 05/05/18 @ 10:19 by Urmila Leonard) Father CAD (coronary artery disease) Mother CAD (coronary artery disease) Diabetes History Items: - - Patient notes a maternal and paternal family history of diabetes heart disease and cancer and additionally a history of end-stage renal disease with dialysis usage in his mother. Paternal Family History: Family History (Last Reviewed 05/05/18 @ 10:19 by Urmila Leonard) Father CAD (coronary artery disease) Mother CAD (coronary artery disease) Diabetes History Items: - - Patient notes a maternal and paternal family history of diabetes heart disease and cancer and additionally a history of end-stage renal disease with dialysis usage in his mother. Review of Systems Constitutional: Denies: Chills, Fever, Weight Change HEENT: Denies: Head Aches, Sinus Congestion, Sinus Drainage Cardiovascular: Denies: Chest Pain, Palpitations Respiratory: Denies: Cough, Shortness of breath at rest, Sputum production Gastrointestinal: Denies: Abdominal Pain, Nausea, Vomiting Genitourinary: Denies: Dysuria Musculoskeletal: Denies: Joint Pain, Joint Tenderness Skin: Denies: Rash, Wounds Neurological: Denies: Numbness, Tingling, Focal weakness Psychiatric: Denies: Anxiety, Depression, Homicidal Ideations, Suicidal Ideations Hematologic/ Lymphatic: Denies: Easy Bruising, Easy Bleeding Physical Exam - Physical Exam Vital Signs Temp 99.1 F 07/05/18 09:05 Pulse 92 07/05/18 09:05 Resp 18 07/05/18 09:05 BP 134/66 H 07/05/18 09:05 Pulse Ox 96 07/05/18 09:05 Intake & Output 07/03/18 07/04/18 07/05/18 23:59 23:59 23:59 Intake Total 2917 / 2917 1305.2 / 1305.2 73.3 / 73.3 Output Total 4825 / 4825 525 / 525 200 / 200 Balance -1908 / -1908 780.2 / 780.2 -126.7 / -126.7 Weight: 105.7 kg 103.6 kg Intake: Oral 800 / 800 120 / 120 IV fluid/meds 2116 / 2116 1125.2 / 1125.2 73.3 / 73.3 Other 60 / 60 Output: Urine 825 / 825 525 / 525 200 / 200 Dialysate 4000 / 4000 General: Alert, Oriented x3 HEENT: Atraumatic Oral: Moist Mucosa Neck: Supple Cardiovascular: Regular rate Abdomen: Soft, Obese, - - SP tube in place and stitched in place Skin: No rashes Neurological: Cranial nerves II-XII grossly intact Psych/Mental Status: Normal Affect, Appropriate Microbiology Past 72 Hours 06/30/18 19:25 Urine Culture - Final Urine Catheter - Catheter Serratia marcescens Laboratory Tests Past 24 Hrs 07/04/18 07/05/18 07/05/18 15:21 05:14 05:14 WBC 9.5 RBC 2.55 L Hgb 7.4 L Hct 23.4 L MCV 91.8 MCH 29.0 MCHC 31.6 L RDW 15.3 H RDW Differential 51.9 H Plt Count 198 MPV 9.1 Sodium 134 L Potassium 4.0 Chloride 93 L Carbon Dioxide 28.0 Anion Gap 13 BUN 55 H Creatinine 7.18 H Estim Creat Clear Calc 10.34 Est GFR (MDRD) Af Amer 10 L Est GFR (MDRD) Non-Af 8 L BUN/Creatinine Ratio 7.7 L Glucose 122 H Calcium 7.7 L Magnesium 1.9 Assessment/Plan All Active Problems (Last Reviewed 05/05/18 @ 10:19 by Urmila Leonard) Cellulitis (Acute) Severe sepsis (Acute) UTI (urinary tract infection) due to urinary indwelling catheter (Acute) Encounter for pre-operative cardiovascular clearance (Acute) 65-year-old male presents to the hospital with an infection, is a new suprapubic catheter in place. Recommend that we flushed the catheter with sterile saline that should be fine but do not change a catheter or manipulated. Call with questions.
--- NOTE | 2018-07-05 11:42 | DCINST_ITS ---
- Discharge Diagnoses Current Active Problems: Current Active and Chronic Problems (Last Reviewed 05/05/18 @ 10:19 by Urmila Leonard) Cellulitis (Acute) Severe sepsis (Acute) UTI (urinary tract infection) due to urinary indwelling catheter (Acute) ESRD (end stage renal disease) (Chronic) You will use the following diet at home:: Calorie/Carbohydrate Controlled (specify 1200, 1400, etc), Cardiac, Renal (restricted protein/sodium) Discharge Activity: Return to Normal Activity Call your doctor if you observe: Fever of 101 or Higher, Shortness of breath, Dizziness, Fainting spells, Chest pain, Increased palpitations (irregular heartbeat) Additional Instructions: Resume plavix at discharge. Allergies/Adverse Reactions: Allergies ibuprofen Allergy (Verified 06/30/18 17:49) swellin and itching povidone-iodine [From Betadine] Allergy (Verified 06/30/18 17:50) Itching soap [From Betadine] Allergy (Verified 06/30/18 17:50) Itching vancomycin Allergy (Verified 06/30/18 17:49) rash/ throat swelling adhesive tape Adverse Reaction (Verified 06/30/18 17:49) Rash Medications to take at Discharge Aspirin 325 mg PO DAILY@0800 04/06/18 Cholecalciferol (Vitamin D3) [Vitamin D3] 50,000 unit PO QWEEK 04/06/18 Clopidogrel Bisulfate [Plavix] 75 mg PO DAILY 04/06/18 Doxazosin Mesylate [Cardura] 4 mg PO DAILY 04/06/18 Fenofibrate Nanocrystallized [Triglide] 160 mg PO DAILY 04/06/18 Furosemide [Lasix] 40 mg PO DAILY 04/06/18 Insulin Aspart [Novolog Flexpen] 0 units SC TIDCM 04/06/18 Isosorbide Mononitrate [Imdur] 30 mg PO DAILY 04/06/18 Levothyroxine [Synthroid] 50 mcg PO DAILY 04/06/18 Lisinopril [Zestril] 20 mg PO BID 04/06/18 Metoprolol Succinate 50 mg PO DAILY 04/06/18 atorvastatin 40 mg tablet 20 mg PO .COMPLEX 05/05/18 calcium acetate 667 mg capsule 667 mg PO .COMPLEX 05/05/18 clonidine HCl 0.3 mg tablet 0.3 mg PO .COMPLEX 05/05/18 diphenhydramine 25 mg-acetaminophen 500 mg tablet 2 tab PO QHS PRN tab 05/05/18 vitamin B complex-vitamin C-folic acid 0.8 mg tablet 1 tab PO DAILY 05/05/18 Linezolid [Zyvox] 600 mg PO Q12H #20 tablet 07/05/18 The following prescriptions were given: Linezolid [Zyvox] 600 mg PO Q12H #20 tablet Primary Care Physician: Becky Romo DO [Primary Care Provider] - Please follow up with your Primary Care Physician in: 1 Week Test Results: Test results from this visit will be discussed in further detail at your follow- up appointment, if applicable. Please Follow Up With: Joey Naranjo MD When: As scheduled Please Follow Up With: Milton Tirado MD When: 1 Month Please Follow Up With: Tulio Garza MD When: As scheduled Proposed Discharge Date: 07/05/18
--- NOTE | 2018-07-05 11:42 | PCM.CONS.GEN ---
Problem List (1) ESRD (end stage renal disease) Status: Chronic Reason for Consult Date of Consultation: 07/05/18 Reason for Consultation: Concern for infection along dialysis access History of Present Illness: The patient is a 67 year old gentleman that is well known to me. He had a left brachiocephalic AV fistula created 1 month ago. We saw him in the office a week ago and removed his sutures. He has great flow throughout the fistula. He does have a little seroma at the area of the anastomosis. Reviewed his ultrasound from yesterday that confirms this seroma. Which is normal. In this area is not infected. He also last week had a catheter placed and was not feeling well overall yesterday which brought him in. Currently being dialyzed through his permacath. Vascular surgery was consulted to evaluate his fistula. 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) E11.21 Bilateral carotid artery stenosis (Chronic) I65.23 Hyperlipidemia (Chronic) E78.5 CVA (cerebral vascular accident) (Chronic) I63.9 Atherosclerosis of coronary artery bypass graft without angina pectoris (Chronic) I25.810 Hypertension (Chronic) I10 Hypothyroidism E03.9 Obesity E66.9 Thyroid nodule E04.1 Allergies ibuprofen Allergy (Verified 06/30/18 17:49) swellin and itching povidone-iodine [From Betadine] Allergy (Verified 06/30/18 17:50) Itching soap [From Betadine] Allergy (Verified 06/30/18 17:50) Itching vancomycin Allergy (Verified 06/30/18 17:49) rash/ throat swelling adhesive tape Adverse Reaction (Verified 06/30/18 17:49) Rash Home Medications: Ambulatory Orders Medication Instructions Recorded Aspirin 325 mg PO DAILY@0800 04/06/18 Cholecalciferol (Vitamin D3) 50,000 unit PO QWEEK 04/06/18 [Vitamin D] Clopidogrel Bisulfate [Plavix] 75 mg PO DAILY 04/06/18 Doxazosin Mesylate [Cardura] 4 mg PO DAILY 04/06/18 Fenofibrate Nanocrystallized 160 mg PO DAILY 04/06/18 [Triglide] Furosemide [Lasix] 40 mg PO DAILY 04/06/18 Insulin Aspart [Novolog Flexpen 0 units SC TIDCM 04/06/18 ([facility])] Isosorbide Mononitrate [Imdur] 30 mg PO DAILY 04/06/18 Levothyroxine [Synthroid] 50 mcg PO DAILY 04/06/18 Lisinopril [Zestril] 20 mg PO BID 04/06/18 Metoprolol Succinate 50 mg PO DAILY 04/06/18 atorvastatin 40 mg tablet 20 mg PO .COMPLEX 05/05/18 calcium acetate 667 mg capsule 667 mg PO .COMPLEX 05/05/18 clonidine HCl 0.3 mg tablet 0.3 mg PO .COMPLEX 05/05/18 diphenhydramine 25 2 tab PO QHS PRN tab 05/05/18 mg-acetaminophen 500 mg tablet vitamin B complex-vitamin C-folic 1 tab PO DAILY 05/05/18 acid 0.8 mg tablet Linezolid [Zyvox] 600 mg PO Q12H #20 tablet 07/05/18 Surgical History: Surgical History (Last Reviewed 07/05/18 @ 11:48 by Milton Tirado MD) H/O coronary artery bypass surgery (Chronic) Onset Date: 06/11/96 Z95.1 CABG x 5 Sequential Radial Artery- PVB and PDA, STOVER-LAD, Free BERNY -Lat Cx and SVG-Diag. At [facility] history Laparoscopic Peritoneal Dialysis Catheter Onset Date: ~12/29/17 H/O right coronary artery stent placement Onset Date: ~03/30/02 Z95.5 Dista RCA History of appendectomy Z98.890, Z90.49 History of nasal septoplasty Z98.890 History of sternectomy Onset Date: ~07/10/96 Z98.890 sternectomy and midsternal wound debridement with left pectoralis muscle flap for sternal wound coverage on 07/12/96 Surgical History: - - CABG x5 w/ follow-up sternectomy and midsternal wound debridement with left pectoralis muscle flap for sternal wound coverage, PCI x1, left upper extremity fistula, PD catheter placement, PD catheter change, PD catheter removal, suprapubic catheter, bladder surgery, tonsillectomy, appendectomy, septoplasty. Lives: Spouse/ Significant Other Smoking Status: Never smoker Tobacco Use: Non-smoker Alcohol: None Drugs: None - *Family History Maternal Family History: Family History (Last Reviewed 07/05/18 @ 11:48 by Milton Tirado MD) Father CAD (coronary artery disease) Mother CAD (coronary artery disease) Diabetes History Items: - - Patient notes a maternal and paternal family history of diabetes heart disease and cancer and additionally a history of end-stage renal disease with dialysis usage in his mother. Paternal Family History: Family History (Last Reviewed 07/05/18 @ 11:48 by Milton Tirado MD) Father CAD (coronary artery disease) Mother CAD (coronary artery disease) Diabetes History Items: - - Patient notes a maternal and paternal family history of diabetes heart disease and cancer and additionally a history of end-stage renal disease with dialysis usage in his mother. Review of Systems Constitutional: Reports: - - No fevers chills or sweats now he is overall feeling better. HEENT: Denies: Head Aches, Sinus Congestion, Sinus Drainage Cardiovascular: Denies: Chest Pain, Palpitations Respiratory: Denies: Cough, Shortness of breath at rest, Sputum production Gastrointestinal: Denies: Abdominal Pain, Nausea, Vomiting Genitourinary: Reports: Dysuria, - - Patient has the Bang catheter in. His urine is clearing as well. Musculoskeletal: Denies: Joint Pain, Joint Tenderness Skin: Denies: Rash, Wounds Neurological: Denies: Numbness, Tingling, Focal weakness Patient Problems: Active and Suspected Problems (Last Reviewed 07/05/18 @ 11:48 by Milton Tirado MD) Cellulitis (Acute) Severe sepsis (Acute) UTI (urinary tract infection) due to urinary indwelling catheter (Acute) - Physical Exam General: Alert, Oriented x3 HEENT: Atraumatic, PERRLA Neck: Supple, - - Right IJ permacath in place and being used Lungs: Clear to auscultation, Normal air movement Cardiovascular: Regular rate, No murmurs Extremities: No edema, Capillary Refill Less than 3 Seconds, - - He has a great thrill in his left brachiocephalic AV fistula. No erythema. No warmth. Mild seroma noted but no infection. Vital Signs Temp Pulse Resp BP Pulse Ox 99.1 F 92 18 134/66 H 96 07/05/18 09:05 07/05/18 09:05 07/05/18 09:05 07/05/18 09:05 07/05/18 09:05 Oxygen Flow Rate (L/min) 2 Oxygen Delivery Method Room Air Weight: 228 lb 6.382 oz Body Mass Index (BMI) 31.1 Intake and Output for Last 24 Hours 07/03/18 07/04/18 07/05/18 23:59 23:59 23:59 Intake Total 2917 / 2917 1305.2 / 1305.2 73.3 / 73.3 Output Total 4825 / 4825 525 / 525 200 / 200 Balance -1908 / -1908 780.2 / 780.2 -126.7 / -126.7 Microbiology Past 72 Hours 06/30/18 19:25 Urine Culture - Final Urine Catheter - Catheter Serratia marcescens Laboratory Tests Past 24 Hrs 07/04/18 07/05/18 07/05/18 15:21 05:14 05:14 WBC 9.5 RBC 2.55 L Hgb 7.4 L Hct 23.4 L MCV 91.8 MCH 29.0 MCHC 31.6 L RDW 15.3 H RDW Differential 51.9 H Plt Count 198 MPV 9.1 Sodium 134 L Potassium 4.0 Chloride 93 L Carbon Dioxide 28.0 Anion Gap 13 BUN 55 H Creatinine 7.18 H Estim Creat Clear Calc 10.34 Est GFR (MDRD) Af Amer 10 L Est GFR (MDRD) Non-Af 8 L BUN/Creatinine Ratio 7.7 L Glucose 122 H Calcium 7.7 L Magnesium 1.9 POC Glucose 1007/04/18 07/04/18 06:53 22:40 16:25 POC Glucose 121 H 127 H 141 H 07/04/18 11:34 POC Glucose 178 H Assessment/Plan All Active Problems (Last Reviewed 07/05/18 @ 11:48 by Milton Tirado MD) Cellulitis (Acute) Severe sepsis (Acute) UTI (urinary tract infection) due to urinary indwelling catheter (Acute) Encounter for pre-operative cardiovascular clearance (Acute) This is a 67-year-old gentleman with left brachiocephalic AV fistula. 1. Dialysis access. His permacath is working well. His brachiocephalic AV fistula has a seroma, is not infected. We will follow him back in the office in 1 month.
--- NOTE | 2018-07-05 11:56 | PCM.DC.SUM ---
<Kim Little - Last Filed: 07/05/18 12:18> Discharge Date and Diagnosis Date of Admission: 06/30/18 Date of Discharge: 07/05/18 - Primary Discharge Diagnosis Active and Suspected Problems (Last Reviewed 07/05/18 @ 11:48 by Milton Tirado MD) 1. Acute severe sepsis secondary to left upper extremity cellulitis at LUE fistula site 2. New onset atrial fibrillation-brief episode, has not reoccurred. 3. End-stage renal disease on hemodialysis 4. Recent suprapubic catheter placement with Serratia marcescens positive urine culture, low colony count-UTI ruled out. 5. CAD status post CABG and PCI to distal RCA-follows with Dr. Garza. Continue Plavix at discharge. 6. Type 2 diabetes on 7. Hypertension 8. Hyperlipidemia 9. Hypothyroidism 10. History of CVA/carotid artery disease 11. Anemia of chronic disease 12. 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 At [facility] Atherosclerosis of coronary artery bypass graft without angina pectoris (Chronic) Hypertension (Chronic) Hospital Course and Treatment Imaging Results: Diagnostic Data Chest X-Ray 06/30/18 18:08 IMPRESSION: No acute cardiopulmonary process. Electronically Signed: Mindy Watkins MD at 18:58 EDT Tel , Service support , Dr. Naranjo- Nephrology Dr. Tirado- Vascular Dr. Stephenson- Urology Dr. Sebastian- ID Operations: None Procedures: 2-D Echocardiogram, Dialysis Summary of Care Provided: The patient is a 67 year old M admitted 06/30/2018 due to fever, chills. 1. Acute Severe Sepsis secondary to left upper extremity cellulitis at AV fistula site, recent placement-blood culture show no growth thus far. Left upper extremity AV fistula incision area with redness and warmth on admission, improved with antibiotics. Acute Serratia marcescens UTI initially suspected. Patient is status post recent suprapubic catheter placement. However, ruled out given low colony count in culture. Infectious disease consulted during admission. Received IV Rocephin and Zyvox. Venous Doppler left upper extremity showed patent left upper extremity AV fistula. 1.2 x 2.3 x 2.9 cm structure adjacent to the proximal graft suspicious for hematoma or abscess. Dr. Tirado consulted, patient will follow up as outpatient for repeat LUE ultrasound in one month. ID recommending linezolid 600 mg twice daily for 10 days at discharge. Follow up with Dr. Stephenson in 1-[address] Stephenson saw during admission for hematuria related to recent suprapubic catheter placement. Catheter flushed with saline. No further current concerns. Follow-up with primary care physician in 1 week. 2. End-stage renal disease on hemodialysis-recent AV fistula placement. Follows with Dr. Naranjo. Consult nephrology. Right chest temporary dialysis catheter. Hemodialysis Tuesday, Tuesday, Tuesday. Continue outpatient follow-up. 3. CAD status post CABG x5 and PCI to distal RCA-denies chest pain. Continue aspirin, statin, beta-alexis. Okay to resume Plavix 07/04/2018. 4. New onset atrial fibrillation-occurred overnight. Quickly resolved with IV Cardizem. Has remained sinus rhythm. Patient denies history of atrial fibrillation. Echocardiogram showed an EF of 65%, mild mitral valve insufficiency, mild tricuspid valve insufficiency, RVSP estimated to be 47 mmHg. Patient follows with Dr. Garza as outpatient. Continue aspirin, Plavix, metoprolol. If patient were to have recurrence of atrial fibrillation, may need to discuss further anticoagulation. Continue outpatient follow-up with Dr. Garza. 5. Type 2 diabetes mellitus-continue home regimen. 6. Hypertension-stable, continue home clonidine, isosorbide, doxazosin, Lasix, lisinopril, metoprolol regimen. 7. Hyperlipidemia-continue statin. 8. Hypothyroidism-continue home Synthroid regimen. 9. History of CVA/carotid artery disease-maintain on aspirin, statin, Plavix. 10. Anemia of chronic disease-stable, trend CBC. 11. Obesity-encourage diet lifestyle modifications. General: Alert, Oriented x3, Cooperative, No apparent distress HEENT: Atraumatic, PERRLA, EOMI, Normocephalic Neck: Supple, No JVD, Negative Carotid Bruits Lungs: Clear to auscultation, Normal air movement Cardiovascular: Regular rate, Regular Rhythm, Normal S1, Normal S2, Murmur Abdomen: Bowel Sounds Present, Non Tender, Non-Distended, Obese Extremities: No clubbing, No cyanosis, No edema Skin: No rashes, No breakdown, Left upper extremity redness, warmth near fistula site, improved. Musculoskeletal: No Tenderness to Palpation of Joints or Extremities Neurological: Cranial nerves II-XII grossly intact, Neuro grossly intact Psych/Mental Status: Normal Affect, Appropriate Patient seen exam prior to discharge. Physical assessment as noted above. Patient stable for discharge home with follow-up her conditions as noted above. This patient was seen by AIDA Zamora under the supervision of Dr. Mclain. - Physical Exam Vital Signs Temp Pulse Resp BP Pulse Ox 99.1 F 92 18 134/66 H 96 07/05/18 09:05 07/05/18 09:05 07/05/18 09:05 07/05/18 09:05 07/05/18 09:05 Oxygen Flow Rate (L/min) 2 Oxygen Delivery Method Room Air Weight: 228 lb 6.382 oz Body Mass Index (BMI) 31.1 Intake and Output for Last 24 Hours 07/03/18 07/04/18 07/05/18 23:59 23:59 23:59 Intake Total 2917 / 2917 1305.2 / 1305.2 73.3 / 73.3 Output Total 4825 / 4825 525 / 525 200 / 200 Balance -1908 / -1908 780.2 / 780.2 -126.7 / -126.7 Microbiology Past 72 Hours 06/30/18 19:25 Urine Culture - Final Urine Catheter - Catheter Serratia marcescens Laboratory Tests Past 24 Hrs 07/04/18 07/05/18 07/05/18 15:21 05:14 05:14 WBC 9.5 RBC 2.55 L Hgb 7.4 L Hct 23.4 L MCV 91.8 MCH 29.0 MCHC 31.6 L RDW 15.3 H RDW Differential 51.9 H Plt Count 198 MPV 9.1 Sodium 134 L Potassium 4.0 Chloride 93 L Carbon Dioxide 28.0 Anion Gap 13 BUN 55 H Creatinine 7.18 H Estim Creat Clear Calc 10.34 Est GFR (MDRD) Af Amer 10 L Est GFR (MDRD) Non-Af 8 L BUN/Creatinine Ratio 7.7 L Glucose 122 H Calcium 7.7 L Magnesium 1.9 POC Glucose 07/05/18 07/04/18 07/04/18 06:53 22:40 16:25 POC Glucose 121 H 127 H 141 H 07/04/18 11:34 POC Glucose 178 H Discharge Diet: Low fat/ Low Cholesterol, Carb Control Diet Discharge Activity: Return to Normal Activity Call your doctor if you observe: Fever of 101 or Higher, Shortness of breath, Dizziness, Fainting spells, Chest pain, Increased palpitations (irregular heartbeat) Home Medications: Medications to take at Discharge Aspirin 325 mg PO DAILY@0800 04/06/18 Cholecalciferol (Vitamin D3) [Vitamin D3] 50,000 unit PO QWEEK 04/06/18 Clopidogrel Bisulfate [Plavix] 75 mg PO DAILY 04/06/18 Doxazosin Mesylate [Cardura] 4 mg PO DAILY 04/06/18 Fenofibrate Nanocrystallized [Triglide] 160 mg PO DAILY 04/06/18 Furosemide [Lasix] 40 mg PO DAILY 04/06/18 Insulin Aspart [Novolog Flexpen] 0 units SC TIDCM 04/06/18 Isosorbide Mononitrate [Imdur] 30 mg PO DAILY 04/06/18 Levothyroxine [Synthroid] 50 mcg PO DAILY 04/06/18 Lisinopril [Zestril] 20 mg PO BID 04/06/18 Metoprolol Succinate 50 mg PO DAILY 04/06/18 atorvastatin 40 mg tablet 20 mg PO .COMPLEX 05/05/18 calcium acetate 667 mg capsule 667 mg PO .COMPLEX 05/05/18 clonidine HCl 0.3 mg tablet 0.3 mg PO .COMPLEX 05/05/18 diphenhydramine 25 mg-acetaminophen 500 mg tablet 2 tab PO QHS PRN tab 05/05/18 vitamin B complex-vitamin C-folic acid 0.8 mg tablet 1 tab PO DAILY 05/05/18 Linezolid [Zyvox] 600 mg PO Q12H #20 tablet 07/05/18 Following Prescrptions Were Given to Patient: Linezolid [Zyvox] 600 mg PO Q12H #20 tablet Primary Care Physician: Becky Romo DO [Primary Care Provider] - Please follow up with your Primary Care Physician in: 1 Week Please Follow Up With: Joey Naranjo MD When: As scheduled Please Follow Up With: Milton Tirado MD When: 1 Month Please Follow Up With: Tulio Garza MD When: As scheduled Please Follow Up With: Venkat Stephenson MD When: 1-2 Weeks Disposition: Home Minutes spent on discharge:: 35 Patient Condition:: Stable Medical Necessity - Tobacco Use Smoking Status: Never smoker Tobacco Use: Non-smoker Meaningful Use Info Meaningful Use Diagnoses (Choose all that apply): None applicable <[email or web address] - Last Filed: 07/05/18 13:19> Discharge Date and Diagnosis - Secondary Discharge Diagnosis Chronic Problems (Last Reviewed 07/05/18 @ 11:48 by Milton Tirado MD) ESRD (end stage renal disease) (Chronic) Chronic kidney disease, stage IV (severe) (Chronic) 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 At [facility] Atherosclerosis of coronary artery bypass graft without angina pectoris (Chronic) Hypertension (Chronic) Hospital Course and Treatment Summary of Care Provided: Hospitalist note: Discharge summary above reviewed and I agree with above discharge plan. Patient was admitted for fever and chills as well as redness around the left upper extremity fistula that was placed 1 month ago and he was found to have acute severe sepsis secondary to left upper extremity/cubital fossa/AV fistula cellulitis as well as complicated Serratia marcescens acute cystitis with recent history of suprapubic catheter placement. Patient was treated with IV Rocephin and Zyvox. His urine culture revealed Serratia marcescens. Blood culture showed no growth in 48 hours. With IV antibiotic therapy, local erythema and swelling of the left middle fossa and around the AV fistula significantly improved. Venous Doppler of the left upper extremity revealed patent left upper extremity AV fistula, 1.2 x 2.3 x 2.9 cm structure adjacent to the proximal graft suspicious for hematoma versus abscess. Vascular surgery consulted and Dr. Tirado who did the AV fistula surgery recommended that this is likely noninfected seroma and no indication for incision or drainage. During this hospital stay, patient had an episode of new onset atrial fibrillation which resolved quickly after patient was started on IV Cardizem. Since then, he remained in sinus rhythm and his heart rate has been under control. His EKG revealed ejection fraction 65%, other findings reviewed. Patient was continued on metoprolol for rate control. Since this new onset A. fib was only for very short time and because of recent AV fistula and recent subacute catheter, patient was not a candidate to start him on anticoagulation at this time. Patient has been following up with Dr. Garza and we recommended that he follows up with him as outpatient and patient may need to be started on anticoagulation in the near future. Patient discharged home in a stable medical condition, discharged on Zyvox for 10 days of treatment, plan to follow-up with vascular surgeon as outpatient in 1 month, follow-up with nephrology for dialysis, follow-up with PCP in 1 week and follow-up with cardiology which was scheduled. - Physical Exam General: Alert, Oriented x3, Cooperative, No apparent distress. HEENT: Atraumatic, PERRLA, EOMI. Neck: Supple, No JVD, Negative Carotid Bruits, Trachea Midline, Thyroid Normal. Lungs: Clear to auscultation, Normal air movement, No rhonchi, No wheeze, No rales. Cardiovascular: Regular rate, Regular Rhythm, Normal S1, Normal S2, PMI Normal. Abdomen: Bowel Sounds Present, Soft, Non Tender, Non-Distended, No Hepato-splenomegaly. Extremities: No clubbing, No cyanosis, No edema Skin: No rashes, No breakdown Neurological: Neuro grossly intact Vital Signs are stable. This note was generated with [employer] software. It may contain incorrect words, spelling, and punctuation that were not noted in checking the note before signing. - Physical Exam Vital Signs Temp Pulse Resp BP Pulse Ox 99.1 F 86 18 134/66 H 96 07/05/18 09:05 07/05/18 11:05 07/05/18 09:05 07/05/18 09:05 07/05/18 09:05 Oxygen Flow Rate (L/min) 2 Oxygen Delivery Method Room Air Weight: 228 lb 6.382 oz Body Mass Index (BMI) 31.1 Intake and Output for Last 24 Hours 07/03/18 07/04/18 07/05/18 23:59 23:59 23:59 Intake Total 2917 / 2917 1305.2 / 1305.2 313.3 / 313.3 Output Total 4825 / 4825 525 / 525 350 / 350 Balance -1908 / -1908 780.2 / 780.2 -36.7 / -36.7 Microbiology Past 72 Hours 06/30/18 19:25 Urine Culture - Final Urine Catheter - Catheter Serratia marcescens Laboratory Tests Past 24 Hrs 07/04/18 07/05/18 07/05/18 15:21 05:14 05:14 WBC 9.5 RBC 2.55 L Hgb 7.4 L Hct 23.4 L MCV 91.8 MCH 29.0 MCHC 31.6 L RDW 15.3 H RDW Differential 51.9 H Plt Count 198 MPV 9.1 Sodium 134 L Potassium 4.0 Chloride 93 L Carbon Dioxide 28.0 Anion Gap 13 BUN 55 H Creatinine 7.18 H Estim Creat Clear Calc 10.34 Est GFR (MDRD) Af Amer 10 L Est GFR (MDRD) Non-Af 8 L BUN/Creatinine Ratio 7.7 L Glucose 122 H Calcium 7.7 L Magnesium 1.9 POC Glucose 07/05/18 07/05/18 07/04/18 12:08 06:53 22:40 POC Glucose 110 121 H 127 H 07/04/18 16:25 POC Glucose 141 H Meaningful Use Info Meaningful Use Diagnoses (Choose all that apply): None applicable Code Visit Inpatient E&M: 53111 Disch Hosp
[2018-07-05] MEDS: Calcitriol 0.25 MCG Capsule PO (11:58)
[2018-07-05 12:16] LABS: Bedside Glucose 110 mg/dL (70-110)
[2018-07-05] MEDS: Heparin 10,000 UNITS/10 ML Vial IV (14:37)
[2018-07-05] MEDS: cloNIDine HCl 0.1 MG Tablet 0.15 MG PO (14:45)
[2018-07-05] MEDS: Isosorbide Mononitrate 30 MG Tablet PO (14:45)
[2018-07-05] MEDS: Furosemide 40 MG Tablet PO (14:45)
[2018-07-05] MEDS: Doxazosin 4 MG Tablet PO (14:45)
[2018-07-05] MEDS: Metoprolol(XL)Succ 50 MG Tablet PO (14:46)
[2018-07-05] MEDS: Lisinopril 20 MG Tablet PO (14:46)
--- NOTE | 2018-07-05 15:46 | DIALYSIS ---
HD x 4 hours complete. Tolerated tx well. UF of 1800ml. Used right chest wall catheter. Catheter closed with heparin per fill volume. Meds given as ordered. Report as given to STEPHEN Neal.
--- NOTE | 2018-07-05 16:09 | PCM.PN.ID ---
Subjective: Feeling better, arm less red, no fever. - Physical Exam General: Alert, Cooperative, No apparent distress Lungs: Clear to auscultation, Normal air movement Cardiovascular: Regular rate, Regular Rhythm Abdomen: Soft, Non Tender, Non-Distended Skin: Incision - healing Vital Signs Temp Pulse Resp BP Pulse Ox 98 F 92 18 159/72 H 92 07/05/18 14:42 07/05/18 14:46 07/05/18 14:42 07/05/18 14:42 07/05/18 14:42 Oxygen Flow Rate (L/min) 2 Oxygen Delivery Method Room Air Weight: 103.6 kg Body Mass Index (BMI) 31.1 Intake and Output for Last 24 Hours 07/03/18 07/04/18 07/05/18 23:59 23:59 23:59 Intake Total 2917 / 2917 1305.2 / 1305.2 313.3 / 313.3 Output Total 4825 / 4825 525 / 525 350 / 350 Balance -1908 / -1908 780.2 / 780.2 -36.7 / -36.7 Laboratory Tests Past 24 Hrs 07/05/18 07/05/18 05:14 05:14 WBC 9.5 RBC 2.55 L Hgb 7.4 L Hct 23.4 L MCV 91.8 MCH 29.0 MCHC 31.6 L RDW 15.3 H RDW Differential 51.9 H Plt Count 198 MPV 9.1 Sodium 134 L Potassium 4.0 Chloride 93 L Carbon Dioxide 28.0 Anion Gap 13 BUN 55 H Creatinine 7.18 H Estim Creat Clear Calc 10.34 Est GFR (MDRD) Af Amer 10 L Est GFR (MDRD) Non-Af 8 L BUN/Creatinine Ratio 7.7 L Glucose 122 H Calcium 7.7 L POC Glucose 07/05/18 07/05/18 07/04/18 12:08 06:53 22:40 POC Glucose 110 121 H 127 H 07/04/18 16:25 POC Glucose 141 H Medical Necessity - Tobacco Use Smoking Status: Never smoker Tobacco Use: Non-smoker Route of nutrition/ use of supplements: [] Nutritional Intake: [] IV Site: [] Bang Catheter: [] - Assessment/Plan Antibiotics: [] Assessment/Plan: [] Active and Suspected Problems (Last Reviewed 05/05/18 @ 10:19 by Urmila Leonard) Cellulitis (Acute) Severe sepsis (Acute) UTI (urinary tract infection) due to urinary indwelling catheter (Acute) Severe sepsis (fever, leukocytosis, tachycardia, lactic acidosis) due to infection at LUE fistula site - Arm improving on linezolid/ceftriaxone. Ok for discharge on 10 more days of linezolid 600mg bid. bacteruria - minimal growth doubt true infection. Will follow
--- NOTE | 2018-07-07 14:26 | CASEMGMT ---
STEPHEN PATINO Discharge Phone Call. DC DATE: 07/05/18 DC Disposition: Call details: Intro role of CM to patient's via phone. Pt is at dialysis and not available. states pt developed a rash, and she called physician who changed antibiotic for him. F/u is scheduled. No questions re: dc instructions or prescriptions. did state she appreciated the great care pt received and she noticed how all the staff did hand washing/broadcast maintenance technician going in and out of room. STEPHEN PATINO thanked her for using [facility]. Mark PROCTORN RN ACM
== END 2018-07-05 16:19 | disposition home or self-care (01) | DRG 862 ==
LOC: ED 18:44 → PCU 21:18
PROVIDERS: Family Medicine; Internal Medicine Nephrology; Nurse Practitioner Family; Admitting Provider Family Medicine; Emergency Provider Emergency Medicine; Family Provider Internal Medicine; PCP Internal Medicine; Referring Provider Family Medicine; Visit Provider Hospitalist
DX: T81.40XA Infection following a procedure, unspecified, initial encounter (principal); A41.9 Sepsis, unspecified organism; N18.6 End stage renal disease; R65.20 Severe sepsis without septic shock; L03.114 Cellulitis of left upper limb; I12.0 Hypertensive chronic kidney disease with stage 5 chronic kidney disease or end stage renal disease; T82.7XXA Infection and inflammatory reaction due to other cardiac and vascular devices, implants and grafts, initial encounter; T81.44XA Sepsis following a procedure, initial encounter; I25.10 Atherosclerotic heart disease of native coronary artery without angina pectoris; E78.5 Hyperlipidemia, unspecified; E03.9 Hypothyroidism, unspecified; I48.91 Unspecified atrial fibrillation; E11.22 Type 2 diabetes mellitus with diabetic chronic kidney disease; Z99.2 Dependence on renal dialysis; Y83.2 Surgical operation with anastomosis, bypass or graft as the cause of abnormal reaction of the patient, or of later complication, without mention of misadventure at the time of the procedure; D63.8 Anemia in other chronic diseases classified elsewhere; E66.9 Obesity, unspecified; Z68.31 Body mass index [BMI] 31.0-31.9, adult; Z95.1 Presence of aortocoronary bypass graft; Z79.4 Long term (current) use of insulin; E11.40 Type 2 diabetes mellitus with diabetic neuropathy, unspecified; Z86.73 Personal history of transient ischemic attack (TIA), and cerebral infarction without residual deficits
CPT/HCPCS: 36415; 71046; 80048; 80053; 81001; 82962; 83605; 83735; 84100; 85025; 85027; 85610; 85730; 87040; 87077; 87086; 87088; 87186; 87340; 87641; 90937; 93005; 93306; 93971; 97162; 97166; 97530; 97803; 99283; J0885; J2020; J7030; J7040; A4216; G0257; J2405

== ENCOUNTER → 2018-11-03 10:34 | Outpatient (CLI) | payer MEDICARE, OTHER, SELFPAY ==
[2018-06-30 21:27] VITALS: BMI 31.1
== END ==
PROVIDERS: Family Provider Internal Medicine; PCP Internal Medicine; Referring Provider Internal Medicine Nephrology; Visit Provider Internal Medicine Nephrology
DX: N39.0 Urinary tract infection, site not specified (principal)
CPT/HCPCS: 87077; 87086; 87088; 87186

== ENCOUNTER → 2019-02-13 09:00 | Outpatient (CLI) | payer MEDICARE, OTHER, SELFPAY ==
[2018-11-03 11:02] VITALS: BMI 32.6
--- NOTE | 2019-02-13 09:05 | US_ITS ---
STUDY: THYROID ULTRASOUND REASON FOR EXAM: Male, 68 years old. Nodule follow-up TECHNIQUE: Ultrasound evaluation of the thyroid was performed with real-time and static ramírez-scale imaging. COMPARISON: Multiple prior comparison studies most recently from 11/15/2017. FINDINGS: RIGHT LOBE: The right lobe of the thyroid gland measures 4.4 x 2.4 x 2.5 cm. There is a heterogeneous echotexture. Nodules in the right thyroid lobe are stable with the largest solid nodule measuring 26 x 18 x 23 mm (previously measured 28 x 24 x 22 mm). LEFT LOBE: The left lobe of the thyroid gland measures 3.2 x 1.4 x 1.4 cm. There is a heterogeneous echotexture. Small hypoechoic nodules of the left thyroid lobe are stable measuring up to 4 mm ISTHMUS: The isthmus measures . The regional lymph nodes are normal. US/Thyroid IMPRESSION: Mild decreased size of dominant right thyroid lobe dominant nodule. No new or enlarging thyroid nodules. Electronically Signed: Sb Amador MD at 9:42 EDT , Service support ,
--- NOTE | 2019-02-13 10:07 | CDU_ITS ---
Reason For Study: Carotid artery stenosis Rt. Velocities/BP Lt. Velocities/BP Prox CCA 103.4/8.2 cm/sec. Prox CCA 92.5/16.3 cm/sec. Mid CCA 81.2/13.4 cm/sec. Mid CCA 91.3/18.8 cm/sec. Dist CCA 79.9/16 cm/sec. Dist CCA 93.7/20 cm/sec. Prox ICA 44.7/9.9 cm/sec. Prox ICA 113.8/18.8 cm/sec. Mid ICA 52.6/16 cm/sec. Mid ICA 75.4/20.6 cm/sec. Dist ICA 71.8/20.3 cm/sec. Dist ICA 56.3/18.3 cm/sec. Rt. ICA/CCA = 0.9. Lt. ICA/CCA = 1.2. Prox ECA 115.6/4.2 cm/sec. Prox ECA 72/6.6 cm/sec. Rt. Vert. 24.1/8.8 cm/sec. Lt. Vert. 56.4/22.3 cm/sec. Right Extracranial There is heterogeneous, smooth atherosclerotic plaque noted in the right common carotid artery. There is heterogeneous, irregular atherosclerotic plaque noted in the right internal carotid artery. There is homogeneous, smooth atherosclerotic plaque noted in the right external carotid artery. Antegrade flow is noted in the right vertebral artery. Left Extracranial There is heterogeneous, irregular atherosclerotic plaque noted in the left common carotid artery. There is heterogeneous, irregular atherosclerotic plaque noted in the left internal carotid artery. There is intimal thickening but no significant atherosclerotic plaque noted in the left external carotid artery. Antegrade flow is noted in the left vertebral artery. Procedure Carotid Duplex [id number]. Exam performed in department. Interpretation Summary Mild (<50%) stenosis right extracranial internal carotid. Mild (<50%) stenosis left extracranial internal carotid. Flow within the vertebral arteries is antegrade bilaterally. Ordering Physician: Becky Romo Referring Physician: Becky Romo Performed By: Blanca Lepe RVT
== END ==
PROVIDERS: Family Provider Internal Medicine; PCP Internal Medicine; Referring Provider Internal Medicine; Visit Provider Internal Medicine
DX: I65.23 Occlusion and stenosis of bilateral carotid arteries (principal); E04.1 Nontoxic single thyroid nodule
CPT/HCPCS: 76536; 93880

== ENCOUNTER 2019-02-26 08:25 | Emergency (ER) | payer MEDICARE, OTHER, SELFPAY ==
[2018-11-03 11:02] VITALS: BMI 32.6
[2019-02-26 08:26] VITALS: BP 154/115; PULSE 72; RESP 17; TEMP 36.4; O2SAT 97; BMI 32.1
[2019-02-26 08:35] VITALS: BP 160/81; PULSE 84; RESP 18; O2SAT 99
--- NOTE | 2019-02-26 09:16 | RAD_ITS ---
STUDY: X-RAY CHEST REASON FOR EXAM: Male, 68 years old. Palpitations TECHNIQUE: Single AP portable view of the chest. COMPARISON: 06/30/2018 FINDINGS: The lungs are clear and expanded. There is no demonstrated pleural abnormality. Normal size heart. Normal mediastinum and guerda. Normal visualized pulmonary arteries. Normal visualized aortic arch and descending thoracic aorta. Normal visualized thoracic spine. Normal visualized ribs, clavicles, and shoulders. There is no demonstrated abnormality of the visualized soft tissue structures of the upper abdomen. RAD/Chest 1 View (Portable) IMPRESSION: Normal x-ray examination of the chest. Electronically Signed: Nicolás Saldaña DO at 10:52 EDT Tel , Service support ,
--- NOTE | 2019-02-26 09:16 | EKG12_ITS ---
Test Reason : PALPS Blood Pressure : / mmHG Vent. Rate : 071 BPM Atrial Rate : 071 BPM P-R Int : 158 ms QRS Dur : 120 ms QT Int : 396 ms P-R-T Axes : 003 003 094 degrees QTc Int : 430 ms Sinus rhythm with frequent Premature ventricular complexes Abnormal ECG Confirmed by CHUY ARREAGA, FAHAD ([id number]), film editor LAKESHA BREWER ([id number]) on 02/28/2019 7:42:15 AM Referred By: ABIMBOLA Confirmed By:FAHAD VERA MD
--- NOTE | 2019-02-26 09:18 | ED.VISSUMM ---
- ER Visit Summary Date of Service: 02/26/19 Chief Complaint: Palpitations History of Present Illness: The patient is a 68 M who noted an irregular heartbeat earlier this morning. He denies chest pain or shortness of breath. He denies dizziness. He states his last stress test was approximately a year ago and normal. He has had 2 cardiac stents and had a 5 way bypass surgery. Physical Examination: Blood pressure is 160/81, otherwise vitals normal. Heart rate is 84. Patient lying in bed no acute distress. Head and neck examination normal. Heart is slightly irregular. He does have a slight murmur noted. Lung sounds are clear. Abdomen is soft nontender. Test Results: EKG is sinus at 71 with PVCs. No acute ST change. Portable chest x-ray per my review shows cardiomegaly and chronic changes with no acute findings. CBC was normal white count hemoglobin 10.0. Chemistry studies reveal glucose of 407 with a sodium of 132. BUN is 71 and creatinine is 9.12. Patient is due for dialysis this afternoon. Magnesium is normal. Troponin is 0.064. Emergency Department Course and Treatment: Repeat evaluation patient is resting comfortably. He continues to have no dizziness, chest pain, or shortness of breath. I spoke with his fabrication lead, Dr. Garza. Patient will be placed on an event monitor for 30 days. I spoke with Tonia and cardiovascular services and patient be discharged from here to go directly to their area to have this placed. Treatment Plan: [] Disposition: Discharge Impression: Palpitations This note was generated with [employer] dictation software. It may contain incorrect words, spelling, and punctuation that were not noted in review of the chart prior to signing ED Disposition - Plan for ED Patient: Disposition: Home or Assisted Living Instructions: Palpitations Referrals: Tulio Garza MD [STAFF PHYSICIAN] - 1-2 Weeks
[2019-02-26 09:51] LABS: Absolute Lymphocyte Count 1.25 X10^3/ul (0.83-4.51); Basophil# 0.02 X10^3/uL; Basophil% 0.3 % (0-1); Eosinophil# 0.21 X10^3/uL; Eosinophils% 3.1 % (0-5); Hematocrit 29.7 % (40-54); Lymphocyte # 1.25 X10^3/ul (4.0); Lymphocyte % 18.6 % (19-41); Mean Corp Hgb Conc 33.7 g/gl (32-36); Mean Corpuscular Hgb 30.4 pg (27.0-32.0); Mean Corpuscular Volume 90.3 fL (80-94); Mean Platelet Vol. 9.7 fl (6.2-12.0); Monocyte# 0.24 X10^3/uL; Monocyte% 3.6 % (0-10); Neutrophil # 4.99 X10^3/uL (2.7-7.7); Neutrophil % 74.1 % (47-70); POSITIVE COUNT NO; POSITIVE DIFFERENTIAL NO; POSITIVE MORPHOLOGY NO; Platelet Count 172 K/mm3 (150-450); RBC Distribution Width CV 12.9 % (11.6-14.6); RBC Distribution Width SD 42.4 fl (35.1-43.9); Red Blood Count 3.29 M/mm3 (4.6-6.2); White Blood Count 6.7 K/mm3 (4.4-11.0)
[2019-02-26] MEDS: 0.9% Normal Saline 1,000 ML 150 ML IV (10:08)
[2019-02-26 10:12] VITALS: BP 149/73; PULSE 67; RESP 17; O2SAT 96
[2019-02-26 10:13] LABS: Anion Gap 10 (5-15); BUN 71 mg/dL (7-18); BUN/Creat Ratio 7.8 RATIO (10-20); Calcium,Total 8.5 mg/dL (8.5-10.1); Chloride 95 mmol/L (98-107); Creatinine, Serum 9.12 mg/dL (0.70-1.30); EST Glomerular Filtration Rate 6 mL/min (>60); Est Glom Filt Rate - Afr Amer 7 mL/min (>60); Estimated Creatinine Clearance 8.03 ml/min; Glucose 407 mg/dL (74-106); Magnesium 2.4 mg/dL (1.6-2.6); Potassium 4.7 mmol/L (3.5-5.1); Sodium Level 132 mmol/L (136-145)
[2019-02-26 11:31] VITALS: BP 167/77; PULSE 66; RESP 14; TEMP 35; O2SAT 95
== END 2019-02-26 11:32 | disposition home or self-care (01) ==
PROVIDERS: Emergency Provider Emergency Medicine; Family Provider Internal Medicine; PCP Internal Medicine
DX: R00.2 Palpitations (principal); I12.0 Hypertensive chronic kidney disease with stage 5 chronic kidney disease or end stage renal disease; N18.6 End stage renal disease; Z99.2 Dependence on renal dialysis; I25.10 Atherosclerotic heart disease of native coronary artery without angina pectoris; I48.0 Paroxysmal atrial fibrillation; I49.3 Ventricular premature depolarization; Z79.02 Long term (current) use of antithrombotics/antiplatelets; Z79.82 Long term (current) use of aspirin; Z79.4 Long term (current) use of insulin; Z79.899 Other long term (current) drug therapy; Z95.5 Presence of coronary angioplasty implant and graft; Z95.1 Presence of aortocoronary bypass graft
CPT/HCPCS: 71045; 80048; 83735; 84484; 85025; 93005; 99285; A4216

== ENCOUNTER → 2019-04-17 07:45 | Outpatient (CLI) | payer MEDICARE, OTHER, SELFPAY ==
--- NOTE | 2019-04-17 07:48 | AVDS_ITS ---
Reason For Study: complication due to renal dialysis LEFT Inflow Artery 97.9/12.3 cm/s. Inflow Artery volume flow 164.0 ml/min Prox Anast 480/201.9 cm/s. Prox Anast volume flow 2653 ml/min. Prox Graft 278.6/134.7 cm/s. Prox Graft volume flow 3950 ml/min. Mid Graft 62.2/31.4 cm/s. Mid Graft volume flow 1601 ml/min. Distal Graft 80.9/43.5 cm/s. Distal Graft volume flow 1949 ml/min [place] 138.1/77.8 cm/s Outflow volume flow 2065 ml/min. Outflow vein at shoulder 79.6/43.1 cm/s. Outflow vein at shoulder volume flow 1244 ml/min. Interpretation Summary 1. No stenosis in AVG with good flow noted. Ordering Physician: Milton Tirado Performed By: Gabriel Rothman RVT
== END ==
PROVIDERS: Family Provider Internal Medicine; PCP Internal Medicine; Referring Provider Surgery Vascular Surgery; Visit Provider Surgery Vascular Surgery
DX: T82.858A Stenosis of other vascular prosthetic devices, implants and grafts, initial encounter (principal); N18.6 End stage renal disease
CPT/HCPCS: 93990

== ENCOUNTER → 2019-06-22 10:21 | Outpatient (CLI) | payer MEDICARE, OTHER, SELFPAY ==
[2019-05-25 11:35] VITALS: BMI 31.8
[2019-06-22 11:20] LABS: Hemoglobin A1c 9.7 % (4.2-6.3)
[2019-06-22 11:22] LABS: AST(SGOT) 12 U/L (15-37); Alanine Aminotransfer ALT/SGPT 18 U/L (16-61); Albumin, Serum 3.3 g/dL (3.2-5.0); Alkaline Phosphatase 79 U/L (45-117); Anion Gap 9 (5-15); BUN 50 mg/dL (7-18); BUN/Creat Ratio 6.9 RATIO (10-20); Calcium,Total 8.1 mg/dL (8.5-10.1); Chloride 96 mmol/L (98-107); Cholesterol 122 mg/dL (200); EST Glomerular Filtration Rate 8 mL/min (>60); Est Glom Filt Rate - Afr Amer 10 mL/min (>60); Globulin 3.3 g/dL (2.2-4.2); Glucose 266 mg/dL (74-106); High Density Lipoprotein 37 mg/dL; Potassium 4.4 mmol/L (3.5-5.1); Protein, Total 6.6 g/dL (6.4-8.2); Sodium Level 135 mmol/L (136-145); Triglycerides 132 mg/dL; Very Low Density Lipoprotein 26 mg/dL (5-40)
== END ==
PROVIDERS: Family Provider Internal Medicine; PCP Internal Medicine; Referring Provider Internal Medicine; Visit Provider Internal Medicine
DX: E11.21 Type 2 diabetes mellitus with diabetic nephropathy (principal); I11.9 Hypertensive heart disease without heart failure; E78.2 Mixed hyperlipidemia
CPT/HCPCS: 36415; 80053; 80061; 83036

== ENCOUNTER → 2019-08-23 12:26 | Outpatient (CLI) | payer MEDICARE, OTHER, SELFPAY ==
[2019-05-25 11:35] VITALS: BMI 31.8
--- NOTE | 2019-08-23 12:30 | CT_ITS ---
INDICATION: Mass behind right ear EXAMINATION: CT IAC TEMPORAL BONES - CT IACs W/O Contrast Injection TECHNIQUE:Routine noncontrast CT protocol was performed of the internal auditory canals and temporal bones. 2-D reformats were performed by the technologist. A radiation dose optimization technique was used for this scan. IV Contrast dosage and agent: None. COMPARISON: None. FINDINGS: RIGHT SIDE: No fracture. SUPERFICIAL SOFT TISSUES: Unremarkable. MASTOID AIR CELLS: Well aerated, unremarkable. EXTERNAL AUDITORY CANALS: Clear. MIDDLE EAR CAVITIES: Well aerated. Ossicles and scutum intact. INTERNAL AUDITORY CANALS: Unremarkable bilateral internal auditory canals. No osseous erosion or widening of the canal. INNER EAR: Unremarkable cochlea, vestibule and semicircular canals. LEFT SIDE: No fracture. SUPERFICIAL SOFT TISSUES: Unremarkable. MASTOID AIR CELLS: Well aerated, unremarkable. EXTERNAL AUDITORY CANALS: Clear. MIDDLE EAR CAVITIES: Well aerated. Ossicles and scutum intact. INTERNAL AUDITORY CANALS: Unremarkable bilateral internal auditory canals. No osseous erosion or widening of the canal. INNER EAR: Unremarkable cochlea, vestibule and semicircular canals. VISUALIZED BRAIN AND POSTERIOR FOSSA: Cerebello-pontine angles are unremarkable. CT/Orb Sella Post Fossa Ear w/o IMPRESSION: Negative CT of the internal auditory canals and temporal bones. Electronically Signed: Luis Motley MD at 23:39 EST , Service support ,
--- NOTE | 2019-08-23 12:55 | ECHOD_ITS ---
Reason For Study: DESC AO DILATION Procedure This was a 2D Doppler, Color Flow transthoracic echocardiogram. Myocardial strain analysis was performed in this exam to aid in the assessment of cardiac function. Exam performed in department. Left Ventricle Normal size and thickness. The estimated ejection fraction is 65 %. Stage 1 diastolic dysfunction. The global longitudinal strain = -14.4% (abnormal). No regional wall motion abnormalities noted. Right Ventricle Mildly dilated right ventricle. Normal systolic function. Atria The left atrium is moderately enlarged. The right atrium is mildly enlarged. Normal atrial septum. Mitral Valve The mitral valve is structurally normal. No prolapse or stenosis seen. Trivial mitral valve insufficiency. Tricuspid Valve Normal tricuspid valve. Trivial tricuspid valve insufficiency. Right ventricular systolic pressure estimated to be 37 mmHg. Aortic Valve Trisinus/trileaflet aortic valve. Mild diffuse aortic valve thickening. Trivial aortic valve insufficiency. Pulmonic Valve Normal pulmonic valve. Trivial pulmonic valve insufficiency. Great Vessels Normal aortic root. Normal arch. Normal inferior vena cava. Inferior vena cava collapse with sniff. Pericardium/Pleural No pericardial effusion. MMode/2D Measurements & Calculations LVIDd: 5.0 cm IVSd: 1.2 cm Ao root diam: 4.2 cm LVIDs: 3.2 cm LVPWd: 1.2 cm RVDd: 3.9 cm FS: 35.4 % LAV(MOD-bp): 90.9 ml LA A4 area: 25.1 cm2 LA dimension(2D): 5.3 cm LAV(MOD-bp) Indexed: 41.5 ml/m2 LAV(MOD-sp2): 101.6 ml LAV(MOD-sp4): 77.1 ml RA A4 area: 23.6 cm2 Time Measurements MV dec time: 0.32 sec Doppler Measurements & Calculations MV E max luis angel: 104.1 cm/sec Lat Peak E' Luis Angel: 7.0 cm/sec Med Peak E' Luis Angel: 3.1 cm/sec MV A max luis angel: 119.4 cm/sec E/E' lat: 14.8 E/E' med: 33.6 MV E/A: 0.87 Ao V2 max: 173.1 cm/sec AI max luis angel: 413.1 cm/sec LV V1 max: 115.5 cm/sec Ao max P.0 mmHg AI max P.3 mmHg LV V1 max P.3 mmHg AI dec slope: 258.7 cm/sec2 AI P1/2t: 467.8 msec TR max luis angel: 283.2 cm/sec TR max P.1 mmHg Interpretation Summary The estimated ejection fraction is 65 %. Stage 1 diastolic dysfunction. The left atrium is moderately enlarged. The right atrium is mildly enlarged. Trivial tricuspid valve insufficiency. Right ventricular systolic pressure estimated to be 37 mmHg. Trivial aortic valve insufficiency. Compared to echo report dated 09/03/2018, LV function and RVSP has remained the same, but GLS worsened from -18% (WNL) to -14.4 (Abnormal). Ordering Physician: Becky Romo Referring Physician: Becky Romo Performed By: Liliya Kaur, ESTRELLA, RVT
== END ==
PROVIDERS: Family Provider Internal Medicine; PCP Internal Medicine; Referring Provider Internal Medicine; Visit Provider Internal Medicine
DX: R94.31 Abnormal electrocardiogram [ECG] [EKG] (principal); I77.810 Thoracic aortic ectasia; M89.8X8 Other specified disorders of bone, other site
CPT/HCPCS: 70480; 93306

== ENCOUNTER 2019-12-24 19:32 | Observation (INO) | payer MEDICARE, OTHER, SELFPAY ==
[2019-12-21 09:25] VITALS: BMI 30.1
[2019-12-24] VITALS (9 sets, daily range): BP systolic 138–175; BP diastolic 67–84; PULSE 66–88; RESP 14–19; TEMP 36.4–36.6; O2SAT 96–99; BMI 30.9; BMI 30.1
--- NOTE | 2019-12-24 19:46 | EKG12_ITS ---
Test Reason : CP Blood Pressure : / mmHG Vent. Rate : 075 BPM Atrial Rate : 075 BPM P-R Int : 168 ms QRS Dur : 118 ms QT Int : 398 ms P-R-T Axes : 015 015 137 degrees QTc Int : 444 ms Sinus rhythm with occasional Premature ventricular complexes Left ventricular hypertrophy with QRS widening Abnormal ECG Confirmed by CHUY ARREAGA, FAHAD ([id number]), film editor supervisor CHADWICK TABARES ([id number]) on 12/26/2019 9:43:12 AM Referred By: SURY Confirmed By:FAHAD VERA MD
--- NOTE | 2019-12-24 19:57 | RAD_ITS ---
STUDY: X-RAY CHEST REASON FOR EXAM: Male, 69 years old. Chest pain for several weeks. History of CABG was 5 stents. TECHNIQUE: Single AP portable view of the chest. COMPARISON: February 26, 2019. FINDINGS: The lungs are hypoexpanded. There is no focal mass or infiltrate. There is no demonstrated pleural abnormality. There is borderline cardiomegaly. Normal mediastinum and guerda. Normal visualized pulmonary arteries. There is atherosclerotic calcification of the aortic arch with tortuosity. The thoracic spine is obscured by the mediastinum. Normal visualized ribs, clavicles, and shoulders. There is no demonstrated abnormality of the visualized soft tissue structures of the upper abdomen. RAD/Chest 1 View (Portable) IMPRESSION: No acute cardiopulmonary disease or major interval change. Electronically Signed: Juan Cormier DO at 20:21 EDT Tel [phone], Service support ,
[2019-12-24 19:58] LABS: Absolute Lymphocyte Count 1.34 X10^3/uL (0.83-4.51); Absolute Neutrophil Count 4.5 X10^3/uL (2.0-7.7); Basophil# 0.03 X10^3/uL; Basophil% 0.5 % (0-1); Eosinophil# 0.09 X10^3/uL; Eosinophils% 1.4 % (0-5); Hematocrit 33.7 % (40-54); Hemoglobin 11.1 g/dL (13.0-16.5); Lymphocyte # 1.34 X10^3/ul (4.0); Lymphocyte % 21.3 % (19-41); Mean Corp Hgb Conc 32.9 g/dL (32-36); Mean Corpuscular Hgb 30.4 pg (27.0-32.0); Mean Corpuscular Volume 92.3 fL (80-94); Mean Platelet Vol. 9.7 fl (6.2-12.0); Monocyte# 0.34 X10^3/uL; Monocyte% 5.4 % (0-10); NRBC Flagged by Analyzer 0 % (0-5); Neutrophil # 4.45 X10^3/uL (2.7-7.7); Neutrophil % 70.6 % (47-70); Platelet Count 241 K/mm3 (150-450); RBC Distribution Width CV 12.9 % (11.6-14.6); RBC Distribution Width SD 43.6 fl (35.1-43.9); Red Blood Count 3.65 M/mm3 (4.6-6.2); White Blood Count 6.3 K/mm3 (4.4-11.0)
[2019-12-24 20:05] LABS: International Normalized Ratio 1.2; Partial Thromboplast Time 28.2 Seconds (24.1-36.2); Prothrombin Time (Protime)PT. 14.9 SECONDS (11.7-14.9)
[2019-12-24 20:12] LABS: Anion Gap 6 (5-15); BUN 33 mg/dL (7-18); BUN/Creat Ratio 6.3 RATIO (10-20); Calcium,Total 7.6 mg/dL (8.5-10.1); Chloride 96 mmol/L (98-107); Creatinine, Serum 5.25 mg/dL (0.70-1.30); EST Glomerular Filtration Rate 12 mL/min (>60); Est Glom Filt Rate - Afr Amer 14 mL/min (>60); Estimated Creatinine Clearance 14.17 ml/min; Glucose 345 mg/dL (74-106); Potassium 3.9 mmol/L (3.5-5.1); Sodium Level 137 mmol/L (136-145)
--- NOTE | 2019-12-24 21:08 | ED.VIS.CHEST ---
History of Present Illness Chief Complaint: Chest Pain Informant: Patient Onset: Today Activity at onset: Rest Timing: Continuous Quality: Tightness Location: Substernal Current Severity: Mild Maximum Severity: Moderate Worsened By: Nothing Relieved By: Nothing Associated Symptoms: Negative for: Nausea, Vomiting, Diaphoresis, Dyspnea, Cough, Fever, Lightheadedness, Acid Reflux, Palpitations Narrative: Patient is a 69-year-old male with history of end-stage renal disease on hemodialysis as well as coronary artery disease status post CABG presenting with chest pain. Patient states he developed chest pain about 1 hour prior to arrival. He states it is less severe than it was. He states it is a tightness in the middle of his chest. Denies any radiation. Patient states he had some chest discomfort the past few days but that it was heartburn. This is different today. He is on Plavix and full dose aspirin daily. He had both today. He denies any swelling in his legs. He denies any nausea, vomiting, diaphoresis or shortness of breath. Patient's data migration consultant is Dr. Garza. His low stress test was 2 years ago. Patient is on hemodialysis and had a full session today. He denies any other complaints at this time. Past Medical History - Allergies and Home Meds Allergies/Adverse Reactions: Allergies ibuprofen Allergy (Verified 12/24/19 19:43) swellin and itching povidone-iodine [From Betadine] Allergy (Verified 12/24/19 19:43) Itching soap [From Betadine] Allergy (Verified 12/24/19 19:43) Itching vancomycin Allergy (Verified 12/24/19 19:43) rash/ throat swelling adhesive tape Adverse Reaction (Verified 12/24/19 19:43) Rash Primary Care Physician: Becky Romo DO [Primary Care Provider] - Past Medical History: - - Proximal atrial fibrillation, coronary artery disease, end-stage renal disease, diabetes mellitus type 2, hyperlipidemia, hypertension Surgical History: - - CABG x5 w/ follow-up sternectomy and midsternal wound debridement with left pectoralis muscle flap for sternal wound coverage, PCI x1, left upper extremity fistula, PD catheter placement, PD catheter change, PD catheter removal, suprapubic catheter, bladder surgery, tonsillectomy, appendectomy, septoplasty. Smoking Status: Never smoker - Family History Maternal Family History: Family History (Last Reviewed 05/23/19 @ 09:45 by Urmila Leonard) Father CAD (coronary artery disease) Mother CAD (coronary artery disease) Diabetes Family History: Reports: - - Patient notes a maternal and paternal family history of diabetes heart disease and cancer and additionally a history of end-stage renal disease with dialysis usage in his mother. Paternal Family History: Family History (Last Reviewed 05/23/19 @ 09:45 by Urmila Leonard) Father CAD (coronary artery disease) Mother CAD (coronary artery disease) Diabetes Family History: Reports: - - Patient notes a maternal and paternal family history of diabetes heart disease and cancer and additionally a history of end-stage renal disease with dialysis usage in his mother. Review of Systems General: Denies: Chills, Fever, Sweats Eyes: Denies: Visual changes - bilaterally, Diplopia ENT: Denies: Rhinorrhea, Sore throat Cardiovascular: Reports: Chest pain. Denies: Palpitations Respiratory: Denies: Dyspnea, Cough, Dyspnea on exertion Gastrointestinal: Denies: Abdominal pain, Nausea, Vomiting, Diarrhea, Melena, Hematochezia Genitourinary: Denies: Dysuria, Hematuria, Frequency Musculoskeletal: Denies: Back pain, Extremity Pain Skin: Denies: Rash, Wounds Neurological: Denies: Headache, Weakness, Numbness Physical Exam Vital Signs/Narrative: Vital Signs Temp Pulse Resp BP Pulse Ox 12/24/19 21:00 67 19 H 138/67 H 98 12/24/19 20:51 68 15 141/73 H 96 12/24/19 19:32 97.9 F 79 15 175/76 H 99 Inital Vital Signs reviewed: Yes General: Well nourished, Well developed, No Acute Distress Head: Normocephalic, Atraumatic Eyes: Perrl, EOMI ENT: Moist mucous membranes, No rhinorrhea Neck: Supple, Nontender Cardiovascular: Regular rate, Regular rhythm, No murmurs Respiratory: No distress, CTA bilaterally, Chest nontender Abdomen: Soft, Nontender, Nondistended, Normal bowel sounds : - - Suprapubic catheter in place Back: Nontender, Normal Inspection Extremities: Nontender, No edema, - - AV fistula in the left upper extremity with palpable thrill Skin: Normal color, No rash Neurological: Alert, Oriented x3, Cranial nerves II-XII grossly intact, Normal Strength, Normal Sensation Psychological: Normal affect, Normal Mood Diagnostic/Tx/Re-eval Chest X-Ray - ED: 2 View, Read by ED Physician, Read by Radiologist, No Acute Disease Clinical Impression(s) from Imaging Studies Chest X-Ray 12/24/19 19:57 IMPRESSION: No acute cardiopulmonary disease or major interval change. Electronically Signed: Juan Cormier DO at 20:21 EDT Tel [phone], Service support , Laboratory Data 12/24/19 12/24/19 12/24/19 19:40 19:40 19:40 WBC 6.3 RBC 3.65 L Hgb 11.1 L Hct 33.7 L MCV 92.3 MCH 30.4 MCHC 32.9 RDW Std Deviation 43.6 RDW Coeff of Will 12.9 Plt Count 241 MPV 9.7 Immature Gran % (Auto) 0.800 Neut % (Auto) 70.6 H Lymph % (Auto) 21.3 [place] % (Auto) 5.4 Eos % (Auto) 1.4 Baso % (Auto) 0.5 Absolute Neuts (auto) 4.5 Absolute Lymphs (auto) 1.34 Nucleated RBC % 0 PT 14.9 INR 1.2 APTT 28.2 Sodium 137 Potassium 3.9 Chloride 96 L Carbon Dioxide 35.0 H Anion Gap 6 BUN 33 H Creatinine 5.25 H Estim Creat Clear Calc 14.17 Est GFR (MDRD) Af Amer 14 L Est GFR (MDRD) Non-Af 12 L BUN/Creatinine Ratio 6.3 L Glucose 345 H Calcium 7.6 L Troponin I 0.036 B-Natriuretic Peptide 12/24/19 19:40 WBC RBC Hgb Hct MCV MCH MCHC RDW Std Deviation RDW Coeff of Will Plt Count MPV Immature Gran % (Auto) Neut % (Auto) Lymph % (Auto) [place] % (Auto) Eos % (Auto) Baso % (Auto) Absolute Neuts (auto) Absolute Lymphs (auto) Nucleated RBC % PT INR APTT Sodium Potassium Chloride Carbon Dioxide Anion Gap BUN Creatinine Estim Creat Clear Calc Est GFR (MDRD) Af Amer Est GFR (MDRD) Non-Af BUN/Creatinine Ratio Glucose Calcium Troponin I B-Natriuretic Peptide 936.0 H - Rhythm Strip Rhythm Strip: Sinus Rhythm Rate: 75 Ectopy: PVC(s) - EKG Initial EKG Interpretation: Sinus Rhythm, - - Normal sinus rhythm at a rate of 75 with normal intervals Normal axis PVCs Nonspecific T wave changes in 1, aVL, V2 and V3 No significant change compared to prior EKG on 02/26/2019 PAMELA Risk: Age >/= 65, H/O CAD, ASA within 7 days, Severe Angina </=24 hours Score: 4 - Medical Decision Making Patient is evaluated for chest pain. Patient is multiple cardiac risk factors. He does not have any dynamic EKG changes but he does not have a normal EKG either. Patient is a stress test was 2 years ago. His data migration consultant is actually just recommended a routine repeat stress test. Given his chest pain today patient be admitted for further trending of his cardiac markers as well as a stress test. Case discussed with admitting physician, Dr. Roberts who is agreeable. Patient did take aspirin full dose today which is why he was not given any in the emergency room. His proBNP is elevated but this is likely falsely elevated secondary to his end-stage renal disease. ED Disposition - Plan for ED Patient: Disposition: Acute Care [facility] Diagnosis: Chest pain Referrals: Becky Romo DO [Primary Care Provider] -
--- NOTE | 2019-12-24 21:30 | HP.PCM_ITS ---
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 Qualifiers: Diabetes mellitus exterminator helper termite insulin use: with senior living use Qualified Code(s): E11.21 - Type 2 diabetes mellitus with diabetic nephropathy; Z79.4 - snf (current) use of insulin (6) Bilateral carotid artery stenosis Status: Chronic (7) Hyperlipidemia Status: Chronic Qualifiers: Hyperlipidemia type: pure hypercholesterolemia Qualified Code(s): E78.00 - Pure hypercholesterolemia, unspecified; E78.0 - Pure hypercholesterolemia (8) H/O coronary artery bypass surgery Status: Chronic Comment: CABG x 5 Sequential Radial Artery- PVB and PDA, STOVER- LAD, Free BERNY -Lat Cx and SVG-Diag. At [facility] (9) Atherosclerosis of coronary artery bypass graft without angina pectoris Status: Chronic Qualifiers: [place] vs. transplanted heart: [place] heart Qualified Code(s): I25.810 - Atherosclerosis of coronary artery bypass graft(s) without angina pectoris (10) Hypertension Status: Chronic Qualifiers: Hypertension type: essential hypertension Qualified Code(s): I10 - Essential (primary) hypertension History of Present Illness Date of Admission: 12/24/19 Chief Complaint: chest pain The patient is a 69 year old male patient with significant past medical history of coronary artery disease status post CABG 25 years ago 5 vessels. The patient presents today after dialysis when he states he began having chest pain approximately 2 hours after that was complete the pain was nonradiating it was substernal however the patient does not have a sternum due to severe infection suffered after his heart surgery. Currently the pain is resolved in the emergency room. Laboratory findings are CBC unremarkable, INR 1.2, sodium 137, potassium 3.9, chloride 96, bicarb 30, BUN 33, creatinine 5.2, calcium 7.6, troponin 0 0.036. The patient was planning on having a stress test as an outpatient regardless and he will be admitted to have one done now. Past Medical History Past Medical History (Chronic Problems): Chronic Problems (Last Reviewed 05/23/19 @ 09:45 by Urmila A Aisha) Paroxysmal atrial fibrillation (Chronic) History of heart artery stent (Chronic) Status post bare-metal stent to RCA x2 in March 2002; ESRD (end stage renal disease) (Chronic) Chronic kidney disease, stage IV (severe) (Chronic) 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 At [facility] Atherosclerosis of coronary artery bypass graft without angina pectoris (Chronic) Hypertension (Chronic) Medical History: Medical History (Last Reviewed 05/23/19 @ 09:45 by Urmila Leonard) Chronic kidney disease, stage IV (severe) (Chronic) N18.4 Type 2 diabetes mellitus with diabetic nephropathy (Chronic) E11.21 Bilateral carotid artery stenosis (Chronic) I65.23 Hyperlipidemia (Chronic) E78.5 CVA (cerebral vascular accident) (Chronic) I63.9 Atherosclerosis of coronary artery bypass graft without angina pectoris (Chronic) I25.810 Hypertension (Chronic) I10 Hypothyroidism E03.9 Obesity E66.9 Thyroid nodule E04.1 Allergies ibuprofen Allergy (Verified 12/24/19 19:43) swellin and itching povidone-iodine [From Betadine] Allergy (Verified 12/24/19 19:43) Itching soap [From Betadine] Allergy (Verified 12/24/19 19:43) Itching vancomycin Allergy (Verified 12/24/19 19:43) rash/ throat swelling adhesive tape Adverse Reaction (Verified 12/24/19 19:43) Rash Home Medications: Ambulatory Orders Medication Instructions Recorded Aspirin 325 mg PO DAILY@0800 04/06/18 Cholecalciferol (Vitamin D3) 50,000 unit PO QWEEK 04/06/18 [Vitamin D3] Clopidogrel Bisulfate [Plavix] 75 mg PO DAILY 04/06/18 Doxazosin Mesylate [Cardura] 4 mg PO DAILY 04/06/18 Fenofibrate Nanocrystallized 160 mg PO DAILY 04/06/18 [Triglide] Furosemide [Lasix] 40 mg PO DAILY 04/06/18 Insulin Aspart [Novolog Flexpen] 0 units SC TIDCM 04/06/18 Isosorbide Mononitrate [Imdur] 30 mg PO DAILY 04/06/18 Levothyroxine [Synthroid] 50 mcg PO DAILY 04/06/18 atorvastatin 40 mg tablet 40 mg PO DAILY 05/05/18 calcium acetate(phosphat bind) 667 667 mg PO TID 05/05/18 mg capsule diphenhydramine 25 2 tab PO QHS PRN tab 05/05/18 mg-acetaminophen 500 mg tablet clonidine HCl 0.3 mg tablet 0.15 mg PO BID tab 11/03/18 metoprolol succinate 50 mg 50 mg PO BID #60 tab 03/30/19 tablet,extended release 24 hr lisinopril 20 mg tablet 20 mg PO DAILY tab 12/21/19 Surgical History: Surgical History (Last Reviewed 05/23/19 @ 09:45 by Urmila Leonard) H/O coronary artery bypass surgery (Chronic) Onset Date: 06/11/96 Z95.1 CABG x 5 Sequential Radial Artery- PVB and PDA, STOVER-LAD, Free BERNY -Lat Cx and SVG-Diag. At [facility] history Laparoscopic Peritoneal Dialysis Catheter Onset Date: ~12/29/17 H/O right coronary artery stent placement Onset Date: ~03/30/02 Z95.5 Dista RCA History of appendectomy Z98.890, Z90.49 History of nasal septoplasty Z98.890 History of sternectomy Onset Date: ~07/10/96 Z98.890 sternectomy and midsternal wound debridement with left pectoralis muscle flap for sternal wound coverage on 07/12/96 Surgical History: - - CABG x5 w/ follow-up sternectomy and midsternal wound debridement with left pectoralis muscle flap for sternal wound coverage, PCI x1, left upper extremity fistula, PD catheter placement, PD catheter change, PD catheter removal, suprapubic catheter, bladder surgery, tonsillectomy, appendectomy, septoplasty. Psychiatric History: No pertinent psych hx Smoking Status: Never smoker Tobacco Use: Non-smoker - *Family History Maternal Family History: Family History (Last Reviewed 05/23/19 @ 09:45 by Urmila Leonard) Father CAD (coronary artery disease) Mother CAD (coronary artery disease) Diabetes History Items: - - Patient notes a maternal and paternal family history of diabetes heart disease and cancer and additionally a history of end-stage renal disease with dialysis usage in his mother. Paternal Family History: Family History (Last Reviewed 05/23/19 @ 09:45 by Urmila Leonard) Father CAD (coronary artery disease) Mother CAD (coronary artery disease) Diabetes History Items: - - Patient notes a maternal and paternal family history of diabetes heart disease and cancer and additionally a history of end-stage renal disease with dialysis usage in his mother. Review of Systems Constitutional: Denies: Chills, Fever, Weight Change HEENT: Denies: Head Aches, Sinus Congestion, Sinus Drainage Cardiovascular: Reports: Chest Pain. Denies: Palpitations Respiratory: Denies: Cough, Shortness of breath at rest, Sputum production Gastrointestinal: Denies: Abdominal Pain, Nausea, Vomiting Genitourinary: Denies: Dysuria Musculoskeletal: Denies: Joint Pain, Joint Tenderness Skin: Denies: Rash, Wounds Neurological: Denies: Numbness, Tingling, Focal weakness Psychiatric: Denies: Anxiety, Depression, Homicidal Ideations, Suicidal Ideations Hematologic/ Lymphatic: Denies: Easy Bruising, Easy Bleeding VTE Information - Inpt Only VTE Present on Admission: No VTE Mechan Device Prophylaxis: SCD's VTE Pharm Prophylaxis ordered?: No Patient Problems: Active and Suspected Problems (Last Reviewed 05/23/19 @ 09:45 by Urmila Leonard) Chest pain (Acute) - Physical Exam Vitals/I&O's: Vital Signs Temp Pulse Resp BP Pulse Ox 97.5 F L 66 14 153/84 H 99 12/24/19 21:24 12/24/19 21:24 12/24/19 21:24 12/24/19 21:24 12/24/19 21:24 Oxygen Delivery Method Room Air Weight: 227 lb 15.327 oz Body Mass Index (BMI) 30.9 General: Alert, Oriented x3, Cooperative HEENT: Atraumatic, Normocephalic Neck: Supple Lungs: Clear to auscultation, Normal air movement Cardiovascular: Regular rate, Normal S1, Normal S2, No murmurs Abdomen: Bowel Sounds Present, Soft, Non Tender, Obese Extremities: No edema Skin: No rashes Musculoskeletal: No Tenderness to Palpation of Joints or Extremities Neurological: Neuro grossly intact Psych/Mental Status: Normal Affect, Appropriate Laboratory Results 12/24/19 19:40: WBC 6.3, RBC 3.65 L, Hgb 11.1 L, Hct 33.7 L, MCV 92.3, MCH 30.4, MCHC 32.9, RDW Std Deviation 43.6, RDW Coeff of Will 12.9, Plt Count 241, MPV 9.7, Immature Gran % (Auto) 0.800, Neut % (Auto) 70.6 H, Lymph % (Auto) 21.3, [place] % (Auto) 5.4, Eos % (Auto) 1.4, Baso % (Auto) 0.5, Absolute Neuts (auto) 4.5, Absolute Lymphs (auto) 1.34, Nucleated RBC % 0 12/24/19 19:40: PT 14.9, INR 1.2, APTT 28.2 12/24/19 19:40: Sodium 137, Potassium 3.9, Chloride 96 L, Carbon Dioxide 35.0 H, Anion Gap 6, BUN 33 H, Creatinine 5.25 H, Estim Creat Clear Calc 14.17, Est GFR (MDRD) Af Amer 14 L, Est GFR (MDRD) Non-Af 12 L, BUN/Creatinine Ratio 6.3 L, Glucose 345 H, Calcium 7.6 L, Troponin I 0.036 12/24/19 19:40: B-Natriuretic Peptide 936.0 H Assessment/Plan All Active Problems (Last Reviewed 05/23/19 @ 09:45 by Urmila Leonard) Chest pain (Acute) Cellulitis (Acute) Severe sepsis (Acute) UTI (urinary tract infection) due to urinary indwelling catheter (Acute) Encounter for pre-operative cardiovascular clearance (Acute) Chronic Problems (Last Reviewed 05/23/19 @ 09:45 by Urmila Leonard) Paroxysmal atrial fibrillation (Chronic) History of heart artery stent (Chronic) Status post bare-metal stent to RCA x2 in March 2002; ESRD (end stage renal disease) (Chronic) Chronic kidney disease, stage IV (severe) (Chronic) 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 At [facility] Atherosclerosis of coronary artery bypass graft without angina pectoris (Chronic) Hypertension (Chronic) 1. Chest pain rule out PR?admit patient to progressive care unit, morphine, oxygen, nitroglycerin, aspirin per protocol, nuclear adenosine stress test in the a.m., consult Dr. Garza his density control puncher. 2. End-stage renal disease, dialysis dependent?patient just had dialysis 3. Diabetes continue routine management 4. Hyperlipidemia?continue statin 5. Hypertension?continue home medications 6. DVT prophylaxis?SCDs OBSV E&M: 54444 Initial observation care L2
[2019-12-24] MEDS: Metoprolol(XL)Succ 50 MG Tablet PO (22:58)
[2019-12-24] MEDS: cloNIDine HCl 0.1 MG Tablet 0.15 MG PO (22:58)
[2019-12-24] MEDS: Insulin Lispro 100 UNIT/ML INSULN.PEN SC (22:59)
[2019-12-24 23:06] LABS: Bedside Glucose 214 mg/dL (70-110)
[2019-12-25] VITALS (15 sets, daily range): BP systolic 113–152; BP diastolic 58–72; PULSE 54–70; RESP 16–18; TEMP 36.2–36.8; O2SAT 95–98
--- NOTE | 2019-12-25 00:04 | EKG12_ITS ---
Test Reason : MORNING EKG Blood Pressure : / mmHG Vent. Rate : 055 BPM Atrial Rate : 055 BPM P-R Int : 160 ms QRS Dur : 114 ms QT Int : 416 ms P-R-T Axes : 006 020 092 degrees QTc Int : 397 ms Sinus bradycardia with Premature supraventricular complexes Nonspecific ST and T wave abnormality Abnormal ECG When compared with ECG of 24-DEC-2019 23:07, MANUAL COMPARISON REQUIRED, DATA IS UNCONFIRMED Confirmed by CHUY ARREAGA, FAHAD ([id number]), purchasing expeditor CHADWICK TABARES ([id number]) on 12/26/2019 9:49:57 AM Referred By: LES Confirmed By:FAHAD VERA MD
[2019-12-25 05:26] LABS: Absolute Lymphocyte Count 1.45 X10^3/uL (0.83-4.51); Absolute Neutrophil Count 4.5 X10^3/uL (2.0-7.7); Basophil# 0.03 X10^3/uL; Basophil% 0.4 % (0-1); Eosinophil# 0.15 X10^3/uL; Eosinophils% 2.2 % (0-5); Hematocrit 30.9 % (40-54); Hemoglobin 10.1 g/dL (13.0-16.5); Lymphocyte # 1.45 X10^3/ul (4.0); Lymphocyte % 21.7 % (19-41); Mean Corp Hgb Conc 32.7 g/dL (32-36); Mean Corpuscular Volume 91.7 fL (80-94); Mean Platelet Vol. 9.9 fl (6.2-12.0); Monocyte# 0.53 X10^3/uL; Monocyte% 7.9 % (0-10); NRBC Flagged by Analyzer 0 % (0-5); Neutrophil % 67.4 % (47-70); Platelet Count 214 K/mm3 (150-450); RBC Distribution Width CV 12.9 % (11.6-14.6); RBC Distribution Width SD 42.6 fl (35.1-43.9); Red Blood Count 3.37 M/mm3 (4.6-6.2); White Blood Count 6.7 K/mm3 (4.4-11.0)
--- NOTE | 2019-12-25 05:29 | EKG12_ITS ---
Test Reason : CP ADMISSION Blood Pressure : / mmHG Vent. Rate : 063 BPM Atrial Rate : 063 BPM P-R Int : 128 ms QRS Dur : 128 ms QT Int : 426 ms P-R-T Axes : 021 019 094 degrees QTc Int : 435 ms Sinus rhythm with Premature supraventricular complexes and with occasional Premature ventricular comp lexes Abnormal ECG Confirmed by CHUY ARREAGA, FAHAD ([id number]), web editor CHADWICK TABARES ([id number]) on 12/26/2019 9:52:33 AM Referred By: LES Confirmed By:FAHAD VERA MD
[2019-12-25 05:36] LABS: Anion Gap 7 (5-15); BUN 40 mg/dL (7-18); BUN/Creat Ratio 6.4 RATIO (10-20); Calcium,Total 7.6 mg/dL (8.5-10.1); Chloride 97 mmol/L (98-107); Creatinine, Serum 6.21 mg/dL (0.70-1.30); EST Glomerular Filtration Rate 10 mL/min (>60); Est Glom Filt Rate - Afr Amer 12 mL/min (>60); Estimated Creatinine Clearance 11.98 ml/min; Glucose 198 mg/dL (74-106); Potassium 4.2 mmol/L (3.5-5.1); Sodium Level 138 mmol/L (136-145)
[2019-12-25] MEDS: Aspirin 325 MG Tablet PO (06:45)
[2019-12-25] MEDS: Doxazosin 4 MG Tablet PO (06:45)
[2019-12-25] MEDS: Clopidogrel Bisulfate 75 MG Tablet PO (06:45)
[2019-12-25] MEDS: Lisinopril 20 MG Tablet PO (06:45)
[2019-12-25] MEDS: cloNIDine HCl 0.1 MG Tablet 0.15 MG PO (06:45)
[2019-12-25] MEDS: Levothyroxine 50 MCG Tablet PO (06:45)
[2019-12-25 07:10] LABS: Bedside Glucose 196 mg/dL (70-110)
[2019-12-25] MEDS: Metoprolol(XL)Succ 50 MG Tablet PO (08:40)
[2019-12-25] MEDS: Isosorbide Mononitrate 30 MG Tablet PO (08:40)
[2019-12-25] MEDS: Furosemide 40 MG Tablet PO (08:41)
--- NOTE | 2019-12-25 09:37 | PCM.PN.HOSP ---
Patient Problems: Active and Suspected Problems (Last Reviewed 05/23/19 @ 09:45 by Urmila Leonard) Chest pain (Acute) Subjective: Patient seen and examined. He was admitted with a complaint of chest pain. Cardiology is on board. Patient had no complaints this morning. Chest pain has not recurred since admission. He denies any lightheadedness or dizziness, palpitations, nausea vomiting or diarrhea. Review of system is negative. Vitals/I&O's: Vital Signs Temp Pulse Resp BP Pulse Ox 98.2 F 70 18 152/67 H 96 12/25/19 04:00 12/25/19 08:40 12/25/19 04:00 12/25/19 04:00 12/25/19 07:50 Oxygen Delivery Method Room Air Weight: 222 lb 0.088 oz Body Mass Index (BMI) 30.1 Intake and Output for Last 24 Hours 12/23/19 12/24/19 12/25/19 23:59 23:59 23:59 Intake Total 240 / 240 120 / 120 Output Total 400 / 400 800 / 800 Balance -160 / -160 -680 / -680 General: Alert, Oriented x3, Cooperative, No apparent distress HEENT: Atraumatic, PERRLA, EOMI, Normocephalic Oral: Moist Mucosa Neck: Supple, No JVD, Negative Carotid Bruits Lungs: Clear to auscultation, Normal air movement, No rhonchi, No wheeze, No rales Cardiovascular: Regular rate, Regular Rhythm, Normal S1, Normal S2, No murmurs Abdomen: Bowel Sounds Present, Soft, Non Tender, Non-Distended, No Hepato-splenomegaly Extremities: No clubbing, No cyanosis, No edema, Capillary Refill Less than 3 Seconds Skin: No rashes, No breakdown Musculoskeletal: No Tenderness to Palpation of Joints or Extremities, - - AV fistula in LUE with palpable thrill Lymphatic: No Cervical, Supraclavicular, or Inguinal Adenopathy Neurological: Cranial nerves II-XII grossly intact, Neuro grossly intact, Motor Exam 5/5 strength throughout Psych/Mental Status: Normal Affect, Appropriate, Alert and oriented to time, place, person, mood and affect Laboratory Results 12/24/19 19:40: WBC 6.3, RBC 3.65 L, Hgb 11.1 L, Hct 33.7 L, MCV 92.3, MCH 30.4, MCHC 32.9, RDW Std Deviation 43.6, RDW Coeff of Will 12.9, Plt Count 241, MPV 9.7, Immature Gran % (Auto) 0.800, Neut % (Auto) 70.6 H, Lymph % (Auto) 21.3, [place] % (Auto) 5.4, Eos % (Auto) 1.4, Baso % (Auto) 0.5, Absolute Neuts (auto) 4.5, Absolute Lymphs (auto) 1.34, Nucleated RBC % 0 12/24/19 19:40: PT 14.9, INR 1.2, APTT 28.2 12/24/19 19:40: Sodium 137, Potassium 3.9, Chloride 96 L, Carbon Dioxide 35.0 H, Anion Gap 6, BUN 33 H, Creatinine 5.25 H, Estim Creat Clear Calc 14.17, Est GFR (MDRD) Af Amer 14 L, Est GFR (MDRD) Non-Af 12 L, BUN/Creatinine Ratio 6.3 L, Glucose 345 H, Calcium 7.6 L, Troponin I 0.036 12/24/19 19:40: B-Natriuretic Peptide 936.0 H 12/24/19 22:55: POC Glucose 214 H 12/24/19 23:12: Troponin I 0.076 H 12/25/19 01:40: Troponin I 0.154 H 12/25/19 05:04: WBC 6.7, RBC 3.37 L, Hgb 10.1 L, Hct 30.9 L, MCV 91.7, MCH 30.0, MCHC 32.7, RDW Std Deviation 42.6, RDW Coeff of Will 12.9, Plt Count 214, MPV 9.9, Immature Gran % (Auto) 0.400, Neut % (Auto) 67.4, Lymph % (Auto) 21.7, [place] % (Auto) 7.9, Eos % (Auto) 2.2, Baso % (Auto) 0.4, Absolute Neuts (auto) 4.5, Absolute Lymphs (auto) 1.45, Nucleated RBC % 0 12/25/19 05:04: Sodium 138, Potassium 4.2, Chloride 97 L, Carbon Dioxide 34.0 H, Anion Gap 7, BUN 40 H, Creatinine 6.21 H, Estim Creat Clear Calc 11.98, Est GFR (MDRD) Af Amer 12 L, Est GFR (MDRD) Non-Af 10 L, BUN/Creatinine Ratio 6.4 L, Glucose 198 H, Calcium 7.6 L 12/25/19 06:48: POC Glucose 196 H Diagnostic Data Chest X-Ray 12/24/19 19:57 IMPRESSION: No acute cardiopulmonary disease or major interval change. Electronically Signed: Juan Cormier DO at 20:21 EDT Tel [phone], Service support , Current Medications Acetaminophen (Tylenol) 1,000 mg PO QHS PRN PRN Aspirin (Aspirin) 325 mg PO DAILY@0800 [facility] Last Admin: 12/25/19 06:45 Dose: 325 mg Documented by: Atorvastatin Calcium (Lipitor) 40 mg PO DAILY@2200 [facility] Calcium Acetate (Phoslo Gel Cap) 667 mg PO TIDCM [facility] Last Admin: 12/25/19 08:40 Dose: Not Given Documented by: Clonidine (Catapres) 0.15 mg PO BID [facility] Last Admin: 12/25/19 06:45 Dose: 0.15 mg Documented by: Clopidogrel Bisulfate (Plavix) 75 mg PO DAILY [facility] Last Admin: 12/25/19 06:45 Dose: 75 mg Documented by: Dextrose (D50w Syringe) 0 gm IV X1 PRN; Protocol PRN Reason: Hypoglycemia Diphenhydramine HCl (Benadryl) 50 mg PO QHS PRN PRN Doxazosin Mesylate (Cardura) 4 mg PO DAILY [facility] Last Admin: 12/25/19 06:45 Dose: 4 mg Documented by: Ergocalciferol (Vitamin D) 50,000 unit PO QWEEK [facility] Furosemide (Lasix) 40 mg PO DAILY [facility] Last Admin: 12/25/19 08:41 Dose: 40 mg Documented by: Glucagon () 1 mg IM .X1 PRN PRN Reason: Hypoglycemia Insulin Human Lispro (Humalog Kwikpen (Bkc)) 0 unit SC ACHS [facility]; Protocol Last Admin: 12/25/19 06:46 Dose: Not Given Documented by: Isosorbide Mononitrate (Imdur) 30 mg PO DAILY [facility] Last Admin: 12/25/19 08:40 Dose: 30 mg Documented by: Levothyroxine Sodium (Synthroid) 50 mcg PO DAILY@0600 [facility] Last Admin: 12/25/19 06:45 Dose: 50 mcg Documented by: Lisinopril (Zestril) 20 mg PO DAILY [facility] Last Admin: 12/25/19 06:45 Dose: 20 mg Documented by: Metoprolol Succinate (Toprol Xl (Beta Lucila)) 50 mg PO BID [facility] Last Admin: 12/25/19 08:40 Dose: 50 mg Documented by: Morphine Sulfate () 2 mg IV Q3H PRN PRN PRN Reason: Pain Score 6-10/10 Nitroglycerin (Nitrostat) 0.4 mg SUBLINGUAL Q5M PRN PRN Reason: CARDIAC/CHEST PAIN Sodium Chloride () 10 - 40 ml IV UD PRN PRN Reason: SALINE FLUSH STROKE Vital Signs/Narrative: Vital Signs Pulse Pulse Ox 12/25/19 08:40 70 12/25/19 07:50 96 Medical Necessity - Tobacco Use Smoking Status: Never smoker Tobacco Use: Non-smoker Assessment/Plan All Active Problems (Last Reviewed 05/23/19 @ 09:45 by Urmila Leonard) Chest pain (Acute) Cellulitis (Acute) Severe sepsis (Acute) UTI (urinary tract infection) due to urinary indwelling catheter (Acute) Encounter for pre-operative cardiovascular clearance (Acute) 1. Chest pain to r/o ACS chest pain hasnt recurred since admission troponin trended up slightly, 0.036->0.076->0.154 cardiology on board- for cardiac cath today continue SL nitroglycerin, and PO aspirin 81mg daily 2. ESRD: on hemodialysis MWF. 3. TYpe 2 diabetes mellitus On insulin sliding scale. Accu-Cheks AC at bedtime. 4. Hyperlipidemia: on statin 5. Hypertension: on lisinopril and metoprolol 6. HYpothyroidism: on synthroid 7. CAD s/p stents and CABG x 5: on aspirin, plavix, statin and imdur as well as metoprolol DVT prophylaxis: heparin Inpatient E&M: 19720 [facility] Hosp L2
--- NOTE | 2019-12-25 09:51 | CON.PCM_ITS ---
Problem List (1) NSTEMI (non-ST elevated myocardial infarction) Status: Acute (2) CAD (coronary artery disease) Status: Chronic (3) S/P PTCA (percutaneous transluminal coronary angioplasty) Status: Chronic (4) H/O coronary artery bypass surgery Status: Chronic Comment: CABG x 5 Sequential Radial Artery- PVB and PDA, STOVER- LAD, Free BERNY -Lat Cx and SVG-Diag. 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 Qualifiers: Diabetes mellitus shelter insulin use: with shelter use Qualified Code(s): E11.21 - Type 2 diabetes mellitus with diabetic nephropathy; Z79.4 - halfway (current) use of insulin (9) ESRD (end stage renal disease) Status: Chronic Reason for Consult Date of Consultation: 12/25/19 History of Present Illness: The patient is a 69 year old white male with a past cardiovascular history in which is included CAD, PCI, CABG, sternal wound infection leading to a left pectoral flap closure, paroxysmal atrial relation, hyperlipidemia, hypertension, diabetes mellitus, end-stage renal disease on chronic hemodialysis, who presents for concerns of symptoms of stable angina pectoris and non-ST segment elevation MT. The patient noted that he had been doing well until recently. Recently he has been having intermittent episodes of chest discomfort/tightness/pressure. He states yesterday evening while resting this became more prominent. It subsequently led to the patient being brought to the hospital for further evaluation and care. He did not necessarily describe ongoing issues of worsening shortness of breath/dyspnea, nausea, emesis, diaphoresis, dyspnea, near-syncope or syncope. He was subsequently evaluated in the emergency department and then placed in the PCU for further evaluation and care. He states that he has been resting comfortably. He has been undergoing cardiac enzyme profile which is demonstrated abnormal cardiac enzymes compatible with an acute non-ST segment elevation MT. He had ECG changes that demonstrated sinus rhythm with PVCs with nonspecific ST and T wave changes. The patient has undergone extensive noninvasive and invasive evaluation and care in the past. In brief it appears his original diagnosis led to CABG in 1995 at which time he received a STOVER to the LAD, a free BERNY to the lateral circumflex, a radial artery to the posterior ventricular branch and posterior descending branches of the RCA (sequential graft), and an SVG to the diagonal branch. According to medical records in 2001 he underwent a subsequent diagnostic cardiac catheterization which at that time demonstrated the LAD to be occluded, the LCx to be occluded, the RCA to have 90% stenosis, the STOVER to the LAD patent, the BERNY to the LCx to be patent, and occluded PDA bypass graft, and a patent SVG to the diagonal branch. He then underwent PTCA/bare-metal stenting to the RCA system. This included a 3.5 x 8 mm Bx Velocity stent. [] Past Medical History Allergies/Adverse Reactions: Allergies ibuprofen Allergy (Verified 12/24/19 19:43) swellin and itching povidone-iodine [From Betadine] Allergy (Verified 12/24/19 19:43) Itching soap [From Betadine] Allergy (Verified 12/24/19 19:43) Itching vancomycin Allergy (Verified 12/24/19 19:43) rash/ throat swelling adhesive tape Adverse Reaction (Verified 12/24/19 19:43) Rash Home Medications: Ambulatory Orders Medication Instructions Recorded Aspirin 325 mg PO DAILY@0800 04/06/18 Cholecalciferol (Vitamin D3) 50,000 unit PO QWEEK 04/06/18 [Vitamin D3] Clopidogrel Bisulfate [Plavix] 75 mg PO DAILY 04/06/18 Doxazosin Mesylate [Cardura] 4 mg PO DAILY 04/06/18 Fenofibrate Nanocrystallized 160 mg PO DAILY 04/06/18 [Triglide] Furosemide [Lasix] 40 mg PO DAILY 04/06/18 Insulin Aspart [Novolog Flexpen] 0 units SC TIDCM 04/06/18 Isosorbide Mononitrate [Imdur] 30 mg PO DAILY 04/06/18 Levothyroxine [Synthroid] 50 mcg PO DAILY 04/06/18 atorvastatin 40 mg tablet 40 mg PO DAILY 05/05/18 calcium acetate(phosphat bind) 667 667 mg PO TID 05/05/18 mg capsule diphenhydramine 25 2 tab PO QHS PRN tab 05/05/18 mg-acetaminophen 500 mg tablet clonidine HCl 0.3 mg tablet 0.15 mg PO BID tab 11/03/18 metoprolol succinate 50 mg 50 mg PO BID #60 tab 03/30/19 tablet,extended release 24 hr lisinopril 20 mg tablet 20 mg PO DAILY tab 12/21/19 Past Medical History (Chronic Problems): Chronic Problems (Last Reviewed 05/23/19 @ 09:45 by Urmila Leonard) CAD (coronary artery disease) (Chronic) S/P PTCA (percutaneous transluminal coronary angioplasty) (Chronic) Paroxysmal atrial fibrillation (Chronic) History of heart artery stent (Chronic) Status post bare-metal stent to RCA x2 in March 2002; ESRD (end stage renal disease) (Chronic) Chronic kidney disease, stage IV (severe) (Chronic) 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 At [facility] Atherosclerosis of coronary artery bypass graft without angina pectoris (Chronic) Hypertension (Chronic) Surgical History: - - CABG x5 w/ follow-up sternectomy and midsternal wound debridement with left pectoralis muscle flap for sternal wound coverage, PCI x1, left upper extremity fistula, PD catheter placement, PD catheter change, PD catheter removal, suprapubic catheter, bladder surgery, tonsillectomy, appendectomy, septoplasty. Psychiatric History: No pertinent psych hx - *Family History Maternal Family History: Family History (Last Reviewed 05/23/19 @ 09:45 by Urmila Leonard) Father CAD (coronary artery disease) Mother CAD (coronary artery disease) Diabetes History Items: - - Patient notes a maternal and paternal family history of diabetes heart disease and cancer and additionally a history of end-stage renal disease with dialysis usage in his mother. Paternal Family History: Family History (Last Reviewed 05/23/19 @ 09:45 by Urmila Leonard) Father CAD (coronary artery disease) Mother CAD (coronary artery disease) Diabetes History Items: - - Patient notes a maternal and paternal family history of diabetes heart disease and cancer and additionally a history of end-stage renal disease with dialysis usage in his mother. Smoking Status: Never smoker Tobacco Use: Non-smoker Review of Systems - Review of Systems General: Denies: Fever, Night Sweats, Fatigue Cardiovascular: Reports: Chest Discomfort, Chest Discomfort at Rest. Denies: Shortness of Breath, Orthopnea, PND, Peripheral Edema, Palpitations, Lightheadedness, Dizziness, Near Syncope, Syncope Respiratory: Denies: Cough, Sputum Production, Hemoptysis Gastrointestinal: Denies: Hematemesis, Hematochezia, Melena Genitourinary: Denies: Dysuria, Hematuria Skin: Denies: Rash Subjectve: This is a pleasant 69-year-old white male who appears to be resting comfortably at the moment in no acute distress. Objective: Vital Signs Temp Pulse Resp BP Pulse Ox 98.2 F 70 18 152/67 H 96 12/25/19 04:00 12/25/19 08:40 12/25/19 04:00 12/25/19 04:00 12/25/19 07:50 Oxygen Delivery Method Room Air Weight: 222 lb 0.088 oz Body Mass Index (BMI) 30.1 Intake and Output for Last 24 Hours 12/23/19 12/24/19 12/25/19 23:59 23:59 23:59 Intake Total 240 / 240 120 / 120 Output Total 400 / 400 800 / 800 Balance -160 / -160 -680 / -680 General: Awake, Alert, Oriented x 3, Cooperative, No Acute Distress HEENT: Atraumatic, Normocephalic, EOMI, Sclera Non Icteric Oral: Moist Mucosa Neck: Supple, Good ROM, No JVD Lungs: Clear to auscultation Cardiovascular: Regular Rhythm, Normal S1, Normal S2 Vascular: No Carotid Bruits, - - Left arm: AV fistula: Positive thrill: Positive bruit Abdomen: Bowel Sounds Present, Soft, Non Tender Extremities: No edema Neurological: No Focal Motor or Sensory Deficit Psych/Mental Status: Appropriate 12/24/19 19:40: WBC 6.3, RBC 3.65 L, Hgb 11.1 L, Hct 33.7 L, MCV 92.3, MCH 30.4, MCHC 32.9, Plt Count 241, MPV 9.7, Immature Gran % (Auto) 0.800, Neut % (Auto) 70.6 H, Lymph % (Auto) 21.3, [place] % (Auto) 5.4, Eos % (Auto) 1.4, Baso % (Auto) 0.5, Absolute Neuts (auto) 4.5, Nucleated RBC % 0 12/24/19 19:40: PT 14.9, INR 1.2, APTT 28.2 12/24/19 19:40: Sodium 137, Potassium 3.9, Chloride 96 L, Carbon Dioxide 35.0 H, Anion Gap 6, BUN 33 H, Creatinine 5.25 H, Est GFR (MDRD) Af Amer 14 L, Est GFR (MDRD) Non-Af 12 L, BUN/Creatinine Ratio 6.3 L, Glucose 345 H, Calcium 7.6 L, Troponin I 0.036 12/24/19 19:40: B-Natriuretic Peptide 936.0 H 12/24/19 23:12: Troponin I 0.076 H 12/25/19 01:40: Troponin I 0.154 H 12/25/19 05:04: WBC 6.7, RBC 3.37 L, Hgb 10.1 L, Hct 30.9 L, MCV 91.7, MCH 30.0, MCHC 32.7, Plt Count 214, MPV 9.9, Immature Gran % (Auto) 0.400, Neut % (Auto) 67.4, Lymph % (Auto) 21.7, [place] % (Auto) 7.9, Eos % (Auto) 2.2, Baso % (Auto) 0.4, Absolute Neuts (auto) 4.5, Nucleated RBC % 0 12/25/19 05:04: Sodium 138, Potassium 4.2, Chloride 97 L, Carbon Dioxide 34.0 H, Anion Gap 7, BUN 40 H, Creatinine 6.21 H, Est GFR (MDRD) Af Amer 12 L, Est GFR (MDRD) Non-Af 10 L, BUN/Creatinine Ratio 6.4 L, Glucose 198 H, Calcium 7.6 L Rhythm: Sinus rhythm EKG: As noted above ECHO: -?19 Interpretation Summary The estimated ejection fraction is 65 %. Stage 1 diastolic dysfunction. The left atrium is moderately enlarged. The right atrium is mildly enlarged. Trivial tricuspid valve insufficiency. Right ventricular systolic pressure estimated to be 37 mmHg. Trivial aortic valve insufficiency. Compared to echo report dated 09/03/2018, LV function and RVSP has remained the same, but GLS worsened from -18% (WNL) to -14.4 (Abnormal). Stress Test: 08-23-18 Stress echocardiogram Interpretation Summary The estimated ejection fraction is 65 %. Normal adequate dobutamine echocardiogram. Negative for ischemia by EKG and echocardiographic criteria. No anginal symptoms noted. Rare PVC noted. Appropriate blood pressure response to dobutamine. Nonspecific ST T-wave changes during infusion which did not reach criteria for ischemia. Final LVEF is 75%. Test terminated due to attainment of target heart rate. No complications. Cardiac Cath: As noted above PCI: As noted above CT Surgery: As noted above CXR: Preliminary evaluation: Post open heart surgery changes: No acute cardiopulmonary abnormality: Please see official report Assessment/Plan 1. Non-ST segment elevation MT The patient presents with a clinical scenario and objective findings compatible with an acute non-ST segment elevation MT. He appears to be symptomatically improved at the moment. He has been undergoing evaluation with cardiac enzymes and ECGs. His previous cardiovascular history has been reviewed. Based upon his clinical scenario objective findings it was felt reasonable the patient be considered for further evaluation with diagnostic cardiac catheterization. The procedure and risks were discussed with him. He was agreeable to this approach. 2. CAD status post PCI status post CABG The patient has an extensive history of underlying CAD as well as graft vessel disease. At the present time he presents with findings compatible with an acute non-ST segment elevation MT. At the moment he will continue medical management as deemed appropriate and be considered for further evaluation with diagnostic cardiac catheterization. 3. Paroxysmal atrial fibrillation The patient reports a history of paroxysmal atrial fibrillation. At the moment he remains in sinus rhythm. His rate and rhythm will be followed. His medications can be adjusted as needed. 4. Hyperlipidemia The patient will continue risk factor evaluation and care. 5. Hypertension The patient's blood pressure will be followed. He will continue medical therapy and follow-up as deemed appropriate. 6. Diabetes mellitus He will continue evaluation care per internal medicine. 7. End-stage renal disease on chronic hemodialysis The patient will continue evaluation care per nephrology. Comment: The patient's case was discussed and reviewed with the patient and Dr. Sharpe. This note was generated using a voice recognition system and there may be incorrect words, spelling or punctuation that were not noted when reviewing the office note prior to saving. Essential Procedure Criteria Procedure Essential: Yes Criteria Note: On 11/20/2019 the [place] Department of Health ([facility]) Public Order signed by [facility] Director Heather Farnsworth M.D., regarding the Management of Non- Essential Surgeries and Procedures for the purpose of preserving Personal Protective Equipment (PPE) and critical hospital capacity and resources within [place] went into effect as of 11/21/2019 at 5:00PM. According to the [facility] Public Order: This action will remain in full force and effect until the State of Emergency declared by the Governor no longer exists or the Director of the [facility] rescinds or modifies this Order.. This [facility] order stated all non-essential or elective surgeries and procedures that utilize PPE should be delayed unless there is undue risk to the current or future health of a patient. After reviewing the aforementioned [facility] Public Order and the patients clinical case, I have determined that the scheduled procedure meets the criteria to go forward. Risk to Patient if Procedure Delayed: Threat of permanent dysfunction of an extremity or organ system - Acute non-ST segment elevation MT
--- NOTE | 2019-12-25 10:37 | CL.D_ITS ---
Patient Name: BJ RUIZ Study Date: 12/25/2019 Performing: Tulio Garza MD Ht: 72.04 inches 183 cm : 1950 Wt: 222.67 lbs 101 kg Age: 69 Gender: male BSA: 2.23 PROCEDURE(S) PERFORMED [id number]/LV/CABG CLINICAL PROFILE AND INDICATIONS Patient presents with NSTEMI for urgent cardiac cath Indications: ACS > 24 hrs, New Onset Angina <= 2 months, Stable Known CAD, LV Dysfunction Heart Failure: NYHA Class: 1, Newly Diagnosed: No, Heart Failure Type: Systolic Stress/Imaging Stress/Image Study Performed: No Angina Classification Anginal Classification w/in 2 Weeks: CCS IV CAD Presentations: Unstable angina. Non-STEMI. Symptom onset Date/Time: 12/24/2019 Time Not Availa ble Comorbidities/Risk Factors: Hypertension Dyslipidemia Prior CHF Prior PCI Prior CABG Currently On Dialysis CONCLUSIONS Triple vessel CAD of the LAD, LCX, RCA LVEF: by LV gram 55 % Depressed Left Ventricular systolic function - Mild Elevated Left Ventricular End Diastolic Pressure moderate to severe calcification in proximal, mid and distal RCA, as well as 75% lesion in mid PL bra nch of RCA. This makes PCI somewhat high risk and problematic without rotoblator options. RECOMMENDATIONS Staged percutaneous intervention vs Medical Therapy ASA Indefinitely Management as per referring [employer] Manual sheath removal. If pt has recurrent anginal chest pain despite maximal medical therapy, he will need referred to [facility] for rotoblator of RCA. Increase Imdur to 30mg po bid. F/u with Dr Garza. d/w Dr Sharpe. DESCRIPTION OF PROCEDURE The patient arrived to the procedure lab. The risks and benefits of the procedure as well as a full d escription of our services here and current unavailability of surgical backup were fully explained to the patient and/or their significant other prior to the catheterization. The Timeout was completed, verifying the correct patient and procedure. The patient's procedural site was prepped and draped in the usual fashion. Local anesthetic was given subcutaneously to right groin region with Lidocaine 2%. Using a modified Seldinger technique, arterial access was obtained via the right femoral artery, a 4 Fr sheath was inserted Left Coronary Artery selective angiography was performed in multiple views us ing a 4 Fr. JL5 catheter. Right Coronary Artery selective angiography was then performed in multiple views using a 4 Fr. 3DRC catheter. Saphenous Vein graft to the DIAG selective angiography was perfor med in multiple views using a 4 Fr. 3DRC catheter. Free Right internal mammary artery graft to the Circumflex selective angiography was performed in multiple views using a 4 Fr. 3DRC cath eter. Radial graft to the PVB and RPDA artery (occluded graft) selective angiography was performed in single view using a 4 Fr. 3DRC catheter. Left internal mammary artery graft to the LAD selective ang iography was performed in multiple views using a 4 Fr. 3DRC catheter. Left internal mammary artery gr aft to the LAD selective angiography was performed in multiple views using a 4 Fr. IM catheter. Left Ventriculography was performed in BERG projection using a 4 Fr. Pigtail catheter. LV to AO pullback pr essures were then recorded.The arterial sheath was pulled and manual compression applied until hemost asis is achieved. CORONARY ANGIOGRAPHY DOMINANCE: Right Dominant LEFT HEART ASSESSMENT Left Ventricular Ejection Fraction: by LV Gram 50 % Anterior Hypokinesis - Mild Depressed Left Ventricular systolic function LVEDP: 14 mmHg Elevated Left Ventricular End Diastolic Pressure LEFT MAIN: Moderate calcification LEFT ANTERIOR DESCENDING ARTERY: PROX LAD: is occluded CIRCUMFLEX ARTERY: is occluded RIGHT CORONARY ARTERY: Moderate calcification PROX RCA: 75 % Stenosis MID RCA: 85 % Stenosis, Moderate calcification DISTAL RCA: 75 % Stenosis, Moderate calcification, Previously placed stent is patent RT PLV: 75 % Stenosis RT PDA: Proximal - Mild luminal irregularities less than 30% GRAFTS: STOVER graft to the LAD is patent Radial graft to the RCA is totally occluded BERNY graft to the Acute Marginal is patent Saphenous Vein graft to the 1st Diagonal is patent COLLATERAL FLOW: Collateral flow from Left to Right Collateral flow from Left to Left COMPLICATIONS No Complications PROCEDURE MEDICATIONS Oxygen: 2 L/min via nasal cannula SUMMARY OF HEMODYNAMIC DATA Time AIR REST ECG 09:49:05 AO 129/52 (79) SA 09:59:43 LV 142/-15, 9 10:13:14 LV 139/-12, 15 10:13:21 LV 143/-18, 11 10:13:39 LVp 144/-3, 14 10:14:05 AOp 146/48 (78) 10:14:10 Signed By Tulio Garza MD On 12/25/2019 10:36:31 AM Tulio Garza MD
[2019-12-25 12:10] LABS: Bedside Glucose 153 mg/dL (70-110)
--- NOTE | 2019-12-25 15:26 | ED.RN ---
pt up walking in room. Drsg to right groin D/I
--- NOTE | 2019-12-25 15:54 | DCINST_ITS ---
- Discharge Diagnoses Current Active Problems: Current Active and Chronic Problems (Last Updated 12/25/19 @ 12:24 by Urmila Leonard) History of left heart catheterization (Chronic 12/25/19) Triple vessel CAD of the LAD, LCX, RCA. LVEF: by LV gram 55 %. Depressed Left Ventricular systolic function - Mild. Elevated Left Ventricular End Diastolic Pressure. moderate to severe calcification in proximal, mid and distal RCA, as well as 75% lesion in mid PL branch of RCA. This makes PCI somewhat high risk and problematic without rotoblator options. Medical therapy unless symptoms persist per [facility] @ [facility] 12/25/2019 Chest pain (Acute) NSTEMI (non-ST elevated myocardial infarction) (Acute) CAD (coronary artery disease) (Chronic) S/P PTCA (percutaneous transluminal coronary angioplasty) (Chronic) You will use the following diet at home:: Cardiac Your food should be the consistency of: Regular Your liquids should be the consistency of: Regular/Thin Discharge Activity: Return to Normal Activity Weight Bearing Status: Weight bearing as tolerated Call your doctor if you observe: Fever of 101 or Higher, Shortness of breath, Fainting spells, Swelling in the ankles, Chest pain, Increased palpitations (irregular heartbeat) Instructions: Angina, Recognizing a Heart Attack or Angina Allergies/Adverse Reactions: Allergies ibuprofen Allergy (Verified 12/24/19 19:43) swellin and itching povidone-iodine [From Betadine] Allergy (Verified 12/24/19 19:43) Itching soap [From Betadine] Allergy (Verified 12/24/19 19:43) Itching vancomycin Allergy (Verified 12/24/19 19:43) rash/ throat swelling adhesive tape Adverse Reaction (Verified 12/24/19 19:43) Rash Medications to take at Discharge Aspirin 325 mg PO DAILY@0800 04/06/18 Cholecalciferol (Vitamin D3) [Vitamin D3] 50,000 unit PO QWEEK 04/06/18 Clopidogrel Bisulfate [Plavix] 75 mg PO DAILY 04/06/18 Doxazosin Mesylate [Cardura] 4 mg PO DAILY 04/06/18 Fenofibrate Nanocrystallized [Triglide] 160 mg PO DAILY 04/06/18 Furosemide [Lasix] 40 mg PO DAILY 04/06/18 Insulin Aspart [Novolog Flexpen] 0 units SC TIDCM 04/06/18 Levothyroxine [Synthroid] 50 mcg PO DAILY 04/06/18 atorvastatin 40 mg tablet 40 mg PO DAILY 05/05/18 calcium acetate(phosphat bind) 667 mg capsule 667 mg PO TID 05/05/18 diphenhydramine 25 mg-acetaminophen 500 mg tablet 2 tab PO QHS PRN tab 05/05/18 clonidine HCl 0.3 mg tablet 0.15 mg PO BID tab 11/03/18 metoprolol succinate 50 mg tablet,extended release 24 hr 50 mg PO BID #60 tab 03/30/19 lisinopril 20 mg tablet 20 mg PO DAILY tab 12/21/19 Isosorbide Mononitrate [Imdur] 30 mg PO BID #60 tab 12/25/19 The following prescriptions were given: Isosorbide Mononitrate [Imdur] 30 mg PO BID #60 tab Transmission Status: Pending to [id number] Primary Care Physician: Becky Romo DO [Primary Care Provider] - Please follow up with your Primary Care Physician in: 1-2 weeks Test Results: Test results from this visit will be discussed in further detail at your follow- up appointment, if applicable. Please Follow Up With: Tulio Garza MD When: 1-2 weeks Proposed Discharge Date: 12/25/19
--- NOTE | 2019-12-25 15:57 | DS.PCM_ITS ---
Discharge Date and Diagnosis - Problem List Patient Problems: Active and Suspected Problems (Last Reviewed 05/23/19 @ 09:45 by Urmila Leonard) Chest pain (Acute) NSTEMI (non-ST elevated myocardial infarction) (Acute) Date of Admission: 12/24/19 Date of Discharge: 12/25/19 - Primary Discharge Diagnosis Active and Suspected Problems (Last Reviewed 05/23/19 @ 09:45 by Urmila Leonard) Chest pain (Acute) NSTEMI (non-ST elevated myocardial infarction) (Acute) - Secondary Discharge Diagnosis Chronic Problems (Last Reviewed 05/23/19 @ 09:45 by Urmila Leonard) History of left heart catheterization (Chronic 12/25/19) Triple vessel CAD of the LAD, LCX, RCA. LVEF: by LV gram 55 %. Depressed Left Ventricular systolic function - Mild. Elevated Left Ventricular End Diastolic Pressure. moderate to severe calcification in proximal, mid and distal RCA, as well as 75% lesion in mid PL branch of RCA. This makes PCI somewhat high risk and problematic without rotoblator options. 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 At [facility] Atherosclerosis of coronary artery bypass graft without angina pectoris (Chronic) Hypertension (Chronic) Hospital Course and Treatment Imaging Results: Diagnostic Data Chest X-Ray 12/24/19 19:57 IMPRESSION: No acute cardiopulmonary disease or major interval change. Electronically Signed: Juan Cormier DO at 20:21 EDT Tel [phone], Service support , cardiology- Dr Ocampo/Dr Garza Operations: None Procedures: Cardiac catheterization Summary of Care Provided: The patient is a 69 year old M with an extensive past medical history as outlined was admitted through the ED on 12/24/2019 with a complaint of chest pain which started 2 hours prior to admission. Pain was resolved by 2 tablets of aspirin and had resolved by the time he came to the ED. Initial troponin was 0.036. He had been scheduled to have a stress test on outpatient basis so he was admitted to be managed for chest pain rule out ACS. Troponins trended up from 0.036-0.076 and 0.154. Cardiology was consulted in light of his history of CAD s/p CABG and had stents. He had a cardiac cath on 12/25/2019 findings of which were severe three-vessel disease with patent grafts except for now occluded radial graft to the RCA and moderate to severe calcium in the [place] RCA. Per cardiology, patient will probably need a Rotablator and plan was for no PCI now unless patient failed medical therapy down the line. Patient been stable after cardiac cath. Per cardiology, Imdur was suggested to twice daily dosing. He remained stable and was discharged home on 12/25/2019. He is to continue his aspirin and statin as well as metoprolol and Plavix. He is to follow-up with his primary care doctor and cardiology within 1 to 2 weeks. Patient seen and examined prior to discharge. He felt well and had no complaints. Review of systems otherwise negative. Labs and vitals reviewed. Home medication reviewed and reconciled. o/e: Vital Signs Temp Pulse Resp BP Pulse Ox 97.8 F 64 16 150/64 H 97 12/25/19 14:50 12/25/19 15:23 12/25/19 14:50 12/25/19 14:50 12/25/19 14:50 [] General: Alert, Oriented x3, Cooperative, No apparent distress HEENT: Atraumatic, PERRLA, EOMI, Normocephalic Oral: Moist Mucosa Neck: Supple, No JVD, Negative Carotid Bruits Lungs: Clear to auscultation, Normal air movement, No rhonchi, No wheeze, No rales Cardiovascular: Regular rate, Regular Rhythm, Normal S1, Normal S2, No murmurs Abdomen: Bowel Sounds Present, Soft, Non Tender, Non-Distended, No Hepato- splenomegaly Extremities: No clubbing, No cyanosis, No edema, Capillary Refill Less than 3 Seconds Skin: No rashes, No breakdown, clean dressing at cath site in right groin Musculoskeletal: No Tenderness to Palpation of Joints or Extremities, - - AV fistula in LUE with palpable thrill Lymphatic: No Cervical, Supraclavicular, or Inguinal Adenopathy Neurological: Cranial nerves II-XII grossly intact, Neuro grossly intact, Motor Exam 5/5 strength throughout Psych/Mental Status: Normal Affect, Appropriate, Alert and oriented to time, place, person, mood and affect Plan is as above. Patient Problems: Active and Suspected Problems (Last Reviewed 05/23/19 @ 09:45 by Urmila Leonard) Chest pain (Acute) NSTEMI (non-ST elevated myocardial infarction) (Acute) - Physical Exam Vitals/I&O's: Vital Signs Temp Pulse Resp BP Pulse Ox 97.8 F 64 16 150/64 H 97 12/25/19 14:50 12/25/19 15:23 12/25/19 14:50 12/25/19 14:50 12/25/19 14:50 Oxygen Delivery Method Room Air Weight: 222 lb 0.088 oz Body Mass Index (BMI) 30.1 Intake and Output for Last 24 Hours 12/23/19 12/24/19 12/25/19 23:59 23:59 23:59 Intake Total 240 / 240 220 / 220 Output Total 400 / 400 1100 / 1100 Balance -160 / -160 -880 / -880 Laboratory Results 12/24/19 19:40: WBC 6.3, RBC 3.65 L, Hgb 11.1 L, Hct 33.7 L, MCV 92.3, MCH 30.4, MCHC 32.9, RDW Std Deviation 43.6, RDW Coeff of Will 12.9, Plt Count 241, MPV 9.7, Immature Gran % (Auto) 0.800, Neut % (Auto) 70.6 H, Lymph % (Auto) 21.3, Davis % (Auto) 5.4, Eos % (Auto) 1.4, Baso % (Auto) 0.5, Absolute Neuts (auto) 4.5, Absolute Lymphs (auto) 1.34, Nucleated RBC % 0 12/24/19 19:40: PT 14.9, INR 1.2, APTT 28.2 12/24/19 19:40: Sodium 137, Potassium 3.9, Chloride 96 L, Carbon Dioxide 35.0 H, Anion Gap 6, BUN 33 H, Creatinine 5.25 H, Estim Creat Clear Calc 14.17, Est GFR (MDRD) Af Amer 14 L, Est GFR (MDRD) Non-Af 12 L, BUN/Creatinine Ratio 6.3 L, Glucose 345 H, Calcium 7.6 L, Troponin I 0.036 12/24/19 19:40: B-Natriuretic Peptide 936.0 H 12/24/19 22:55: POC Glucose 214 H 12/24/19 23:12: Troponin I 0.076 H 12/25/19 01:40: Troponin I 0.154 H 12/25/19 05:04: WBC 6.7, RBC 3.37 L, Hgb 10.1 L, Hct 30.9 L, MCV 91.7, MCH 30.0, MCHC 32.7, RDW Std Deviation 42.6, RDW Coeff of Will 12.9, Plt Count 214, MPV 9.9, Immature Gran % (Auto) 0.400, Neut % (Auto) 67.4, Lymph % (Auto) 21.7, Davis % (Auto) 7.9, Eos % (Auto) 2.2, Baso % (Auto) 0.4, Absolute Neuts (auto) 4.5, Absolute Lymphs (auto) 1.45, Nucleated RBC % 0 12/25/19 05:04: Sodium 138, Potassium 4.2, Chloride 97 L, Carbon Dioxide 34.0 H, Anion Gap 7, BUN 40 H, Creatinine 6.21 H, Estim Creat Clear Calc 11.98, Est GFR (MDRD) Af Amer 12 L, Est GFR (MDRD) Non-Af 10 L, BUN/Creatinine Ratio 6.4 L, Glucose 198 H, Calcium 7.6 L 12/25/19 06:48: POC Glucose 196 H 12/25/19 12:00: POC Glucose 153 H Current Medications Acetaminophen (Tylenol) 1,000 mg PO QHS PRN PRN Aspirin (Aspirin) 325 mg PO DAILY@0800 [facility] Last Admin: 12/25/19 06:45 Dose: 325 mg Documented by: Atorvastatin Calcium (Lipitor) 40 mg PO DAILY@2200 [facility] Calcium Acetate (Phoslo Gel Cap) 667 mg PO TIDCM [facility] Last Admin: 12/25/19 12:01 Dose: Not Given Documented by: Clonidine (Catapres) 0.15 mg PO BID [facility] Last Admin: 12/25/19 06:45 Dose: 0.15 mg Documented by: Clopidogrel Bisulfate (Plavix) 75 mg PO DAILY [facility] Last Admin: 12/25/19 06:45 Dose: 75 mg Documented by: Dextrose (D50w Syringe) 0 gm IV X1 PRN; Protocol PRN Reason: Hypoglycemia Diphenhydramine HCl (Benadryl) 50 mg PO QHS PRN PRN Doxazosin Mesylate (Cardura) 4 mg PO DAILY [facility] Last Admin: 12/25/19 06:45 Dose: 4 mg Documented by: Ergocalciferol (Vitamin D) 50,000 unit PO QWEEK [facility] Last Admin: 12/25/19 12:02 Dose: 50,000 unit Documented by: Furosemide (Lasix) 40 mg PO DAILY [facility] Last Admin: 12/25/19 08:41 Dose: 40 mg Documented by: Glucagon () 1 mg IM .X1 PRN PRN Reason: Hypoglycemia Heparin Sodium (Beef Lung) (Heparin 500 Unit/5 Ml (100/Ml)) 500 unit IV UD PRN PRN Reason: HEPARIN FLUSH Sodium Chloride () 1,000 mls @ 0 mls/hr IV .Q0M [facility] Insulin Human Lispro (Humalog Kwikpen (Bkc)) 0 unit SC ACHS [facility]; Protocol Last Admin: 12/25/19 12:01 Dose: Not Given Documented by: Isosorbide Mononitrate (Imdur) 30 mg PO BID [facility] Labetalol HCl (Trandate) 5 mg IV X1 PRN PRN Reason: SBP > 160 prior to sheath pull Stop: 12/27/19 10:20 Levothyroxine Sodium (Synthroid) 50 mcg PO DAILY@0600 [facility] Last Admin: 12/25/19 06:45 Dose: 50 mcg Documented by: Lisinopril (Zestril) 20 mg PO DAILY [facility] Last Admin: 12/25/19 06:45 Dose: 20 mg Documented by: Metoprolol Succinate (Toprol Xl (Beta Lucila)) 50 mg PO BID [facility] Last Admin: 12/25/19 08:40 Dose: 50 mg Documented by: Morphine Sulfate () 2 mg IV Q3H PRN PRN PRN Reason: Pain Score 6-10/10 Nitroglycerin (Nitrostat) 0.4 mg SUBLINGUAL Q5M PRN PRN Reason: CARDIAC/CHEST PAIN Sodium Chloride () 10 - 40 ml IV UD PRN PRN Reason: SALINE FLUSH Discharge Diet: Low fat/ Low Cholesterol Discharge Activity: Return to Normal Activity Weight Bearing Status: Weight bearing as tolerated Call your doctor if you observe: Fever of 101 or Higher, Shortness of breath, Fainting spells, Swelling in the ankles, Chest pain, Increased palpitations (irregular heartbeat) Home Medications: Medications to take at Discharge Aspirin 325 mg PO DAILY@0800 04/06/18 Cholecalciferol (Vitamin D3) [Vitamin D3] 50,000 unit PO QWEEK 04/06/18 Clopidogrel Bisulfate [Plavix] 75 mg PO DAILY 04/06/18 Doxazosin Mesylate [Cardura] 4 mg PO DAILY 04/06/18 Fenofibrate Nanocrystallized [Triglide] 160 mg PO DAILY 04/06/18 Furosemide [Lasix] 40 mg PO DAILY 04/06/18 Insulin Aspart [Novolog Flexpen] 0 units SC TIDCM 04/06/18 Levothyroxine [Synthroid] 50 mcg PO DAILY 04/06/18 atorvastatin 40 mg tablet 40 mg PO DAILY 05/05/18 calcium acetate(phosphat bind) 667 mg capsule 667 mg PO TID 05/05/18 diphenhydramine 25 mg-acetaminophen 500 mg tablet 2 tab PO QHS PRN tab 05/05/18 clonidine HCl 0.3 mg tablet 0.15 mg PO BID tab 11/03/18 metoprolol succinate 50 mg tablet,extended release 24 hr 50 mg PO BID #60 tab 03/30/19 lisinopril 20 mg tablet 20 mg PO DAILY tab 12/21/19 Isosorbide Mononitrate [Imdur] 30 mg PO BID #60 tab 12/25/19 Following Prescrptions Were Given to Patient: Isosorbide Mononitrate [Imdur] 30 mg PO BID #60 tab Transmission Status: Received by [id number] Primary Care Physician: Becky Romo DO [Primary Care Provider] - Please follow up with your Primary Care Physician in: 1-2 weeks Please Follow Up With: Tulio Garza MD When: 1-2 weeks Patient Instructions: Recognizing a Heart Attack or Angina, Angina Disposition: Home Minutes spent on discharge:: 45 Patient Condition:: Stable Medical Necessity - Tobacco Use Smoking Status: Never smoker Tobacco Use: Non-smoker Meaningful Use Info Meaningful Use Diagnoses (Choose all that apply): AMI - AMI/Post PCI/Angioplasty Aspirin given w/in 24hrs of arrival?: Yes ASA at discharge?: Yes Antiplatelet Therapy at Discharge:: Yes Statins at discharge?: Yes Luis/ARB at discharge?: Yes Beta Lucila at discharge?: Yes Done w/ Acute DC measure.: Yes Documented LVEF (%): 55 Inpatient E&M: 81820 Disch Hosp
== END 2019-12-25 15:55 | disposition home or self-care (01) ==
LOC: ED 21:18 → PCU 21:36
PROVIDERS: Admitting Provider Family Medicine; Emergency Provider Emergency Medicine; PCP Internal Medicine; Visit Provider Student in an Organized Health Care Education/Training Program
DX: I21.4 Non-ST elevation (NSTEMI) myocardial infarction (principal); N18.6 End stage renal disease; E11.22 Type 2 diabetes mellitus with diabetic chronic kidney disease; I25.10 Atherosclerotic heart disease of native coronary artery without angina pectoris; I13.2 Hypertensive heart and chronic kidney disease with heart failure and with stage 5 chronic kidney disease, or end stage renal disease; I50.20 Unspecified systolic (congestive) heart failure; E78.5 Hyperlipidemia, unspecified; I48.0 Paroxysmal atrial fibrillation; E03.9 Hypothyroidism, unspecified; E66.9 Obesity, unspecified; Z95.1 Presence of aortocoronary bypass graft; Z79.899 Other long term (current) drug therapy; Z79.82 Long term (current) use of aspirin; Z79.02 Long term (current) use of antithrombotics/antiplatelets; Z99.2 Dependence on renal dialysis; Z68.30 Body mass index [BMI] 30.0-30.9, adult; R94.31 Abnormal electrocardiogram [ECG] [EKG]
CPT/HCPCS: 36415; 71045; 80048; 82962; 83880; 84484; 85025; 85610; 85730; 93005; 93459; 99218; 99285; 99406; J7040; A4216; C1769; C1894; G0378; Q9967

== ENCOUNTER → 2020-05-08 08:47 | Outpatient (CLI) | payer MEDICARE, OTHER, SELFPAY ==
[2019-12-24 22:06] VITALS: BMI 30.1
--- NOTE | 2020-05-08 08:50 | AVDS_ITS ---
Reason For Study: Complication due to renal dialysis device LEFT Inflow Artery 241.4/112.1 cm/s. Inflow Artery volume flow 1454 ml/min Prox Anast 626/283.7 cm/s. Prox Anast volume flow 2989 ml/min. Prox Graft 121.4/53.3 cm/s. Prox Graft volume flow 1523 ml/min. Mid Graft 56/25.8 cm/s. Mid Graft volume flow 1516 ml/min. Distal Graft 48.5/30.5 cm/s. Distal Graft volume flow 1350 ml/min [place] 182/97.9 cm/s Outflow volume flow 2240 ml/min. Outflow vein at shoulder 77.3/46.2 cm/s. Outflow vein at shoulder volume flow 1244 ml/min. Interpretation Summary Widely patent AVF with diameters 5.9, 11, 9.2, 18, 11, 19, 9mm. Flow 1454 ml/min. Ordering Physician: Milton Tirado Referring Physician: Becky Romo D.O. Performed By: Blanca Lepe RVT
== END ==
PROVIDERS: PCP Internal Medicine; Referring Provider Surgery Vascular Surgery; Visit Provider Surgery Vascular Surgery
DX: T82.858A Stenosis of other vascular prosthetic devices, implants and grafts, initial encounter (principal); N18.6 End stage renal disease
CPT/HCPCS: 93990

== ENCOUNTER → 2020-11-11 12:00 | Outpatient (CLI) | payer MEDICARE, OTHER, SELFPAY ==
[2020-06-26 11:37] VITALS: BMI 29.9
--- NOTE | 2020-11-11 12:02 | US_ITS ---
HISTORY: Thyroid nodule. Technique: 60 to images through the thyroid gland. The most recent imaging of the thyroid gland is from March 23, 2019. Findings: The thyroid isthmus is homogeneous and normal. The right lobe of the paracolic gland is heterogeneous and lobular in contour. The right lobe of the thyroid gland measures 45 x 24 x 23 mm. The nodule is present within the right lobe of the thyroid gland. This nodule measures 24 x 22 x 16 mm. The nodule is solid almost completely solid. The nodule is hypoechoic. It is taller than wide. It has lobular margins. It is with punctate echogenic foci of calcifications. This is a TI-RADS level 5 . Highly suspicious This nodule is smaller than on the previous study. Also within the right lobe of the thyroid gland there is another nodule. Is solid or almost completely solid. It is hyperechoic or isoechoic. Is taller than wide. It has smooth margins. Has no associated calcifications. It is vascular. It measures 10 x 9 x 6 mm. It is larger than the most recent study. This is a TI-RADs score of 4, moderately suspicious. The left lobe of the thyroid gland measures 33 x 15 x 16 mm. The left lobe of the thyroid gland is heterogeneous. Within the left lobe of the thyroid gland, inferiorly and posteriorly, there is a complex cystic structure that is likely benign. It is larger than the previous study. It has a septation on today's study that was not present previously. It measures 7 x 5 x 6 mm. Another cyst is present within the left lobe of the thyroid gland. It measures 5 x 3 x 4 mm. It is also larger than on the previous study. Comparison is made to thyroid ultrasound from March 31, 2012. The lobular heterogeneous contour to the right lobe of the thyroid gland is similar to that time. The largest nodule within the right lobe of the thyroid gland on today's study is smaller than on the 2011 study. The second lesion within the left lobe of the thyroid gland was not identified at that time. The lesions within the left lobe of the thyroid gland were not identified at that time. Additional comparison is made to January 17, 2015. The large lesion within the right lobe of the thyroid gland was demonstrated at that time. It was larger at that time. Second lesion within the right lobe of thyroid gland was present at that time. Numerous smaller at that time. A solid lesion within the left lobe of the thyroid gland on the 2014 study is not identified on today's exam. A dorsal cyst on the previous study from 2015 may be the same cystic septated lesion that is present on today's study but is larger. US/Thyroid IMPRESSION: The most suspicious lesion, within the right lobe of the thyroid gland is smaller than on many of the previous studies, dating back to 2012. Persistence of this lesion, regardless of its appearance, with diminishing size, is unlikely to be malignancy. Cystic lesion within the left lobe are gland is larger with a septation. This film likely a benign cyst. Second lesion within the right lobe of the thyroid gland with TI-Rads score of 4. This lesion continues to grow. Continued growth for many years could be benign or malignant. Follow-up versus FNA could be considered. at 0648 Reported and signed by: Dileep Vargas MD Electronically Signed: Dileep Vargas MD at 6:47 EST Tel , Service support ,
--- NOTE | 2020-11-11 12:32 | CDU_ITS ---
Reason For Study: carotid stenosis Rt. Velocities/BP Lt. Velocities/BP Prox CCA 87.8/14.7 cm/sec. Prox CCA 72.8/15.7 cm/sec. Mid CCA 94.3/17.3 cm/sec. Mid CCA 82.7/15.7 cm/sec. Dist CCA 76.0/17.3 cm/sec. Dist CCA 71.7/17.9 cm/sec. Prox ICA 69.5/16.0 cm/sec. Prox ICA 101.1/17.6 cm/sec. Mid ICA 66.9/14.7 cm/sec. Mid ICA 74.1/20.0 cm/sec. Dist ICA 79.9/22.6 cm/sec. Dist ICA 110.9/34.8 cm/sec. Rt. ICA/CCA = .8. Lt. ICA/CCA = 1.3. Prox ECA 61.7/5.6 cm/sec. Prox ECA 81.7/8.0 cm/sec. Rt. Vert. 22.0/6.9 cm/sec. Lt. Vert. 59.3/18.8 cm/sec. Right Extracranial There is heterogeneous, irregular atherosclerotic plaque noted in the right common carotid artery. There is heterogeneous, irregular atherosclerotic plaque noted in the right internal carotid artery. There is heterogeneous, irregular atherosclerotic plaque noted in the right external carotid artery. Antegrade flow is noted in the right vertebral artery. Left Extracranial There is intimal thickening but no significant atherosclerotic plaque noted in the left common carotid artery. There is heterogeneous, irregular atherosclerotic plaque noted in the left internal carotid artery. There is heterogeneous, irregular atherosclerotic plaque noted in the left external carotid artery. Antegrade flow is noted in the left vertebral artery. Procedure Carotid Duplex 33174. This is a Carotid Duplex examination using B-mode, color flow and specral Doppler. The exam was diagnostic. Exam performed in department. Interpretation Summary Mild (<50%) stenosis right extracranial internal carotid. Mild (<50%) stenosis left extracranial internal carotid. Flow within the vertebral arteries is antegrade bilaterally. Ordering Physician: Becky Romo Performed By: Gabriel Rothman RVT
== END ==
PROVIDERS: PCP Internal Medicine; Referring Provider Internal Medicine; Visit Provider Internal Medicine
DX: I65.23 Occlusion and stenosis of bilateral carotid arteries (principal); E04.1 Nontoxic single thyroid nodule
CPT/HCPCS: 76536; 93880

== ENCOUNTER → 2021-01-14 08:50 | Outpatient (CLI) | payer MEDICARE, OTHER, SELFPAY ==
[2021-01-06 14:55] VITALS: BMI 29.7
== END ==
PROVIDERS: PCP Internal Medicine; Referring Provider Internal Medicine Cardiovascular Disease; Visit Provider Internal Medicine Cardiovascular Disease
DX: I48.0 Paroxysmal atrial fibrillation (principal)
CPT/HCPCS: 93225; 93226

== ENCOUNTER → 2021-02-18 07:45 | Outpatient (CLI) | payer MEDICARE, OTHER, SELFPAY ==
[2021-01-06 14:55] VITALS: BMI 29.7
[2021-02-17 08:37] VITALS: BMI 29.5
--- NOTE | 2021-02-18 07:49 | AVDS_ITS ---
Reason For Study: Complication due to Renal Dialysis Device LEFT Inflow Artery 257/116 cm/s. Inflow Artery volume flow 1456 ml/min Prox Anast 517/235 cm/s. Prox Anast volume flow 4506 ml/min. Prox Graft 78/40 cm/s. Prox Graft volume flow 1448 ml/min. Mid Graft 40/22 cm/s. Mid Graft volume flow 1575 ml/min. Distal Graft 48/25 cm/s. Distal Graft volume flow 1224 ml/min [place] 107/54 cm/s Outflow volume flow 2182 ml/min. VL/AV Fistula/Dialysis Graft Scan Interpretation Summary Patent AVG with flow 1456cc/min. Ordering Physician: Milton Tirado Referring Physician: Becky Romo Performed By: Lauren Olivares, ESTRELLA, RVT
== END ==
PROVIDERS: PCP Internal Medicine; Referring Provider Surgery Vascular Surgery; Visit Provider Surgery Vascular Surgery
DX: T82.858A Stenosis of other vascular prosthetic devices, implants and grafts, initial encounter (principal); N18.6 End stage renal disease
CPT/HCPCS: 93990

== ENCOUNTER → 2021-06-01 10:09 | Outpatient (CLI) | payer MEDICARE, OTHER, SELFPAY ==
[2021-06-01 11:23] LABS: Absolute Lymphocyte Count 1.88 X10^3/uL (0.83-4.51); Absolute Neutrophil Count 4.3 X10^3/uL (2.0-7.7); Basophil# 0.04 X10^3/uL; Basophil% 0.6 % (0-1); Eosinophil# 0.16 X10^3/uL; Eosinophils% 2.3 % (0-5); Hematocrit 32.7 % (40-54); Hemoglobin 10.4 g/dL (13.0-16.5); Lymphocyte # 1.88 X10^3/ul (0.83-4.51); Lymphocyte % 27.5 % (19-41); Mean Corp Hgb Conc 31.8 g/dL (32-36); Mean Corpuscular Hgb 31.2 pg (27.0-32.0); Mean Corpuscular Volume 98.2 fL (80-94); Mean Platelet Vol. 10.1 fl (6.2-12.0); Monocyte# 0.42 X10^3/uL; Monocyte% 6.1 % (0-10); NRBC Flagged by Analyzer 0 % (0-5); Neutrophil # 4.31 X10^3/uL (2.7-7.7); Neutrophil % 63.2 % (47-70); Platelet Count 172 K/mm3 (150-450); RBC Distribution Width CV 13.6 % (11.6-14.6); RBC Distribution Width SD 48.9 fl (35.1-43.9); Red Blood Count 3.33 M/mm3 (4.6-6.2); White Blood Count 6.8 K/mm3 (4.4-11.0)
[2021-06-01 11:55] LABS: Hemoglobin A1c 7.6 % (3.8-5.6)
[2021-06-01 12:55] LABS: ALB/GLOB Ratio 0.9 RATIO (0.9-2.4); AST(SGOT) 25 U/L (15-37); Alanine Aminotransfer ALT/SGPT 24 U/L (16-61); Albumin, Serum 3.2 g/dL (3.2-5.0); Alkaline Phosphatase 67 U/L (45-117); Anion Gap 12 (5-15); BUN 64 mg/dL (7-18); BUN/Creat Ratio 6.8 RATIO (10-20); Calcium,Total 8.3 mg/dL (8.5-10.1); Chloride 92 mmol/L (98-107); Cholesterol 105 mg/dL (200); Creatinine, Serum 9.37 mg/dL (0.70-1.30); EST Glomerular Filtration Rate 6 mL/min (>60); Est Glom Filt Rate - Afr Amer 7 mL/min (>60); Globulin 3.6 g/dL (2.2-4.2); Glucose 162 mg/dL (74-106); High Density Lipoprotein 43 mg/dL; Potassium 5.4 mmol/L (3.5-5.1); Protein, Total 6.8 g/dL (6.4-8.2); Sodium Level 135 mmol/L (136-145); Triglycerides 124 mg/dL; Very Low Density Lipoprotein 25 mg/dL (5-40)
== END ==
PROVIDERS: PCP Internal Medicine; Referring Provider Internal Medicine; Visit Provider Internal Medicine
DX: E11.21 Type 2 diabetes mellitus with diabetic nephropathy (principal); E78.2 Mixed hyperlipidemia
CPT/HCPCS: 36415; 80053; 80061; 83036; 85025

== ENCOUNTER 2021-12-15 07:47 | Outpatient (CLI) | payer MEDICARE, OTHER, SELFPAY ==
--- NOTE | 2021-12-15 07:51 | AVDS_ITS ---
Reason For Study: complications due to renal device LEFT Inflow Artery 38.0 cm/s. Inflow Artery volume flow 95.0 ml/min Prox Anast 501.6/258 cm/s. Prox Anast volume flow 2654 ml/min. Prox Graft 157.0/69.8 cm/s. Prox Graft volume flow 2470 ml/min. Mid Graft 41.3/17.5cm/s. Mid Graft volume flow 1792 ml/min. Distal Graft 113.3/78.1 cm/s. Distal Graft volume flow 2633 ml/min [place] 120.7/53.4 cm/s Outflow volume flow 1069 ml/min. VL/AV Fistula/Dialysis Graft Scan Interpretation Summary Patent left upper extremity AV fistula. Fistula measuring 5.4, 7, 14, 26, 22, 1 1 mm throughout. Ordering Physician: Milton Tirado Performed By: Gabriel Rothman RVT
== END 2021-12-15 23:59 | disposition home or self-care (01) ==
LOC: CVS 07:48
PROVIDERS: PCP Internal Medicine; Referring Provider Surgery Vascular Surgery; Visit Provider Surgery Vascular Surgery
DX: N18.6 End stage renal disease (principal); T82.858A Stenosis of other vascular prosthetic devices, implants and grafts, initial encounter
CPT/HCPCS: 93990

== ENCOUNTER 2022-11-19 11:23 | Inpatient (IN) | payer MEDICARE, OTHER, SELFPAY ==
[2022-11-19] VITALS (9 sets, daily range): BP systolic 86–114; BP diastolic 63–78; PULSE 66–83; RESP 16–23; TEMP 36.1–36.6; O2SAT 93–100; BMI 27.8; BMI 28.5
--- NOTE | 2022-11-19 11:44 | EX.ED.DYSGE1 ---
HPI <REGGIE Kendrick - Last Filed: 11/19/22 20:05> History of Present Illness Chief Complaint: Syncope Narrative Narrative: Presenting today due to an episode of syncope that occurred this morning. This was witnessed by patient's daughter who states that patient began to feel a little funny as he was walking down the steps to get ready to go to dialysis. His daughter then was able to lower him to the ground to sit and then once he passed out she lowered his head back onto the step and called 911. Patient denies any chest pain or shortness of breath before this event and just had that he felt fuzzy while walking down the steps. Patient states that he feels completely normal now and denies any chest pain, shortness of breath, abdominal pain, nausea, and vomiting. He states that over the past week he has felt a little bit weak and has had a slight cough but is otherwise felt normal. Patient did not hit his head during this event and there was no seizure-like activity. PMH includes end-stage renal disease on hemodialysis, CAD status post CABG, atrial fibrillation, diabetes mellitus, hx of stroke. PFSH <REGGIE Kendrick - Last Filed: 11/19/22 20:05> PFSH Medical History Atherosclerosis of coronary artery bypass graft without angina pectoris Atherosclerotic heart disease of [place] coronary artery without angina pectoris Bilateral carotid artery stenosis CAD (coronary artery disease) Chronic kidney disease, stage IV (severe) CVA (cerebral vascular accident) Essential hypertension Hypothyroidism Longstanding persistent atrial fibrillation NSTEMI (non-ST elevated myocardial infarction) Obesity Pure hypercholesterolemia Thyroid nodule Type 2 diabetes mellitus with diabetic nephropathy UTI (urinary tract infection) due to urinary indwelling catheter Home Medications cholecalciferol (vitamin D3) 1,250 mcg (50,000 unit) capsule 50,000 unit PO QWEEK vitamin 04/06/18 [History Last Taken Unknown] clopidogrel 75 mg tablet 75 mg PO DAILY blood thinner 04/06/18 [History Last Taken Unknown] fenofibrate nanocrystallized 160 mg tablet 160 mg PO DAILY k 04/06/18 [History Last Taken Unknown] furosemide 40 mg tablet 40 mg PO DAILY k 04/06/18 [History Last Taken Unknown] levothyroxine 50 mcg tablet 50 mcg PO DAILY thyroid 08/02/18 [History Last Taken Unknown] calcium acetate(phosphat bind) 667 mg capsule 667 mg PO TID k 05/05/18 [History Last Taken Unknown] diphenhydramine 25 mg-acetaminophen 500 mg tablet (Tylenol PM Extra Strength) 2 tab PO QHS PRN Pain 05/05/18 [History Last Taken Unknown] aspirin 325 mg tablet 325 mg PO DAILY 02/04/21 [History Last Taken Unknown] atorvastatin 40 mg tablet 20 mg PO Q OTHER DAY cholesterol 07/21/21 [History Last Taken Unknown] isosorbide mononitrate 30 mg tablet,extended release 24 hr 30 mg PO BID #180 tabs 10/12/22 [Rx Last Taken Unknown] Lactobacillus acidophilus 10 billion cell capsule (Probiotic) 10,000 mmu cells PO DAILY 11/19/22 [History Last Taken Unknown] metoprolol succinate 50 mg tablet,extended release 24 hr 50 mg PO DAILY 11/19/22 [History Last Taken Unknown] Allergy/AdvReac Type Severity Reaction Status Date / Time ibuprofen Allergy swellin Verified 11/19/22 11:35 and itching povidone-iodine Allergy Itching Verified 11/19/22 11:35 [From Betadine] soap [From Betadine] Allergy Itching Verified 11/19/22 11:35 vancomycin Allergy rash/ Verified 11/19/22 11:35 throat swelling adhesive tape AdvReac Rash Verified 11/19/22 11:35 Family History Father CAD (coronary artery disease) CAD, Coronary Stents Mother CAD (coronary artery disease) CAD, CABG Diabetes Surgical History H/O coronary artery bypass surgery (06/11/96) history Laparoscopic Peritoneal Dialysis Catheter (~12/29/17) History of appendectomy History of heart artery stent (~03/2002) History of left heart catheterization (12/25/19) History of nasal septoplasty History of sternectomy (~07/10/96) Presence of coronary angioplasty implant and graft (~03/2002) Social History Smoking Status: Never smoker alcohol intake: never substance use type: does not use caffeine: Yes (3 cups daily) ROS <REGGIE Kendrick - Last Filed: 11/19/22 20:05> ROS ED Constitutional Constitutional ED: Denies chills, fever(s) or sweats Eyes Eyes: Denies blurry vision or diplopia Cardiovascular Cardiovascular: Denies chest pain or palpitations Respiratory/Chest Respiratory/Chest: Reports cough; Denies dyspnea, tachypnea or wheezing Gastrointestinal Gastrointestinal: Denies abdominal pain, diarrhea, nausea or vomiting Genitourinary Genitourinary ED: Denies dysuria, hematuria or urinary urgency Musculoskeletal Musculoskeletal: Denies arthralgias, back pain, myalgias or neck pain Integumentary Denies abscess, Abrasions or rash Neurologic Neurologic: Denies confusion, dizziness or paresthesias Psychiatric Psychiatric: Denies anxiety, depression or suicidal ideation EXAM <REGGIE Kendrick - Last Filed: 11/19/22 20:05> Physical Exam Const Vital Signs: 11/19/22 11:32 11/19/22 12:17 11/19/22 12:55 Temperature 97.0 F L Temperature Source Temporal Pulse Rate 72 83 Pulse Rate [Lying] 66 Pulse Rate [Sitting (for 1 minute prior to obtaining)] 71 Pulse Rate [Standing (for 1 minute prior to obtaining)] 80 Respiratory Rate 18 16 Respiratory Effort Respiratory Pattern Blood Pressure 86/65 L 95/73 Blood Pressure [Lying] 88/63 L Blood Pressure [Sitting (for 1 minute prior to obtaining)] 96/66 Blood Pressure [Standing (for 1 minute prior to obtaining)] 105/78 Blood Pressure Mean 72 80 Blood Pressure Mean [Lying] 71 Blood Pressure Mean [Sitting (for 1 minute prior to obtaining)] 76 Blood Pressure Mean [Standing (for 1 minute prior to obtaining)] 87 Pulse Ox 97 100 Oxygen Delivery Method Room Air Room Air 11/19/22 12:55 11/19/22 14:34 11/19/22 17:27 Temperature 98 F Temperature Source Temporal Pulse Rate 70 81 Pulse Rate [Lying] Pulse Rate [Sitting (for 1 minute prior to obtaining)] Pulse Rate [Standing (for 1 minute prior to obtaining)] Respiratory Rate 23 H 20 H Respiratory Effort Normal Non-Labored Respiratory Pattern Normal Blood Pressure 95/64 107/77 Blood Pressure [Lying] Blood Pressure [Sitting (for 1 minute prior to obtaining)] Blood Pressure [Standing (for 1 minute prior to obtaining)] Blood Pressure Mean 74 87 Blood Pressure Mean [Lying] Blood Pressure Mean [Sitting (for 1 minute prior to obtaining)] Blood Pressure Mean [Standing (for 1 minute prior to obtaining)] Pulse Ox 93 100 Oxygen Delivery Method Room Air Positive well nourished, well developed and no apparent distress General Appearance ED: well developed HEENT Reports normocephalic and head/scalp atraumatic Mouth ED: Yes moist mucous membranes normal Eyes PERRL and EOMs intact bilaterally Neck full ROM and supple Chest Wall inspection of chest normal Resp normal respiratory effort and clear to auscultation bilaterally Cardio regular rate and regular rhythm GI soft to palpation, non-tender, non-distended and no masses Back/Spine normal ROM and normal to inspection Extremity normal to inspection and full ROM Neuro oriented x3, CN's II-XII intact bilaterally, moves all extremities, no focal motor deficits and no sensory deficits noted Sensorium / Orientation: awake and alert Psych mental status grossly normal and thought process normal Skin no rashes or lesions noted and no wounds <Dr. Sam Bynum, DO - Last Filed: 11/19/22 17:21> Physical Exam Const Vital Signs: 11/19/22 11:32 11/19/22 12:17 11/19/22 12:55 Temperature 97.0 F L Temperature Source Temporal Pulse Rate 72 83 Pulse Rate [Lying] 66 Pulse Rate [Sitting (for 1 minute prior to obtaining)] 71 Pulse Rate [Standing (for 1 minute prior to obtaining)] 80 Respiratory Rate 18 16 Respiratory Effort Respiratory Pattern Blood Pressure 86/65 L 95/73 Blood Pressure [Lying] 88/63 L Blood Pressure [Sitting (for 1 minute prior to obtaining)] 96/66 Blood Pressure [Standing (for 1 minute prior to obtaining)] 105/78 Blood Pressure Mean 72 80 Blood Pressure Mean [Lying] 71 Blood Pressure Mean [Sitting (for 1 minute prior to obtaining)] 76 Blood Pressure Mean [Standing (for 1 minute prior to obtaining)] 87 Pulse Ox 97 100 Oxygen Delivery Method Room Air Room Air 11/19/22 12:55 11/19/22 14:34 11/19/22 17:27 Temperature 98 F Temperature Source Temporal Pulse Rate 70 81 Pulse Rate [Lying] Pulse Rate [Sitting (for 1 minute prior to obtaining)] Pulse Rate [Standing (for 1 minute prior to obtaining)] Respiratory Rate 23 H 20 H Respiratory Effort Normal Non-Labored Respiratory Pattern Normal Blood Pressure 95/64 107/77 Blood Pressure [Lying] Blood Pressure [Sitting (for 1 minute prior to obtaining)] Blood Pressure [Standing (for 1 minute prior to obtaining)] Blood Pressure Mean 74 87 Blood Pressure Mean [Lying] Blood Pressure Mean [Sitting (for 1 minute prior to obtaining)] Blood Pressure Mean [Standing (for 1 minute prior to obtaining)] Pulse Ox 93 100 Oxygen Delivery Method Room Air [facility] <REGGIE Kendrick - Last Filed: 11/19/22 20:05> [facility] Narrative Medical decision making narrative: Patient presenting today for an episode of syncope that occurred this morning. Patient was on his way to dialysis as he gets 3 times a week and did miss his session today. Patient had no symptoms before hand other than just feeling a little bit of fuzziness. Patient states he feels completely normal now and has never had syncope before. He is reporting a little bit of pelvic pain as he just had his catheter changed, we will check a urine to rule out UTI. Labs obtained to rule out anemia, electrolyte abnormality, ACS. Orthostatics will be obtained. Patient states that he underwent a CABG in 1995.? At that time he received a CABG ?5?He has also had a stent placed on 2 different occasions after stress tests. He has not had a stress test in about 3 years. Patient syncope could be due to hypovolemia as patient was 86/65 here in the ED. Serial troponins came back elevated, no EKG changes. Discussed patient with hospitalist as I feel he would benefit from admission for stress test and further evaluation. Hospitalist agrees, patient is agreeable with plan. He will be admitted to the hospital in stable condition. Lab Data Attestation: I reviewed the patient's lab results. Labs: Laboratory Results - last 24 hr 11/19/22 11/19/22 11/19/22 11:55 11:55 14:15 WBC 13.1 H RBC 4.03 L Hgb 12.7 L Hct 38.6 L MCV 95.8 H MCH 31.5 MCHC 32.9 RDW Std Deviation 52.3 H RDW Coeff of Will 14.8 H Plt Count 175 MPV 10.1 Immature Gran % (Auto) 1.200 H Neut % (Auto) 83.7 H Lymph % (Auto) 8.5 L Cole % (Auto) 5.3 Eos % (Auto) 1.0 Baso % (Auto) 0.3 Absolute Neuts (auto) 11.0 H Absolute Lymphs (auto) 1.11 Nucleated RBC % 0 Sodium 135 L Potassium 3.6 Chloride 91 L Carbon Dioxide 35.0 H Anion Gap 9 BUN 37 H Creatinine 5.58 H Estim Creat Clear Calc 12.75 Est GFR (MDRD) Af Amer 13 L Est GFR (MDRD) Non-Af 11 L BUN/Creatinine Ratio 6.6 L Glucose 238 H Calcium 11.2 H Troponin I High Sens 149 H* 164 H* Radiography Chest X-Ray - ED: Read by ED Physician and Read by Radiologist Diagnostic Testing: Clinical Impression(s) from Imaging Studies Chest X-Ray 11/19/22 12:30 IMPRESSION: No acute pulmonary process Electronically Signed: Jeremy Paris MD at 12:44 EDT Reading Location ID and State: [address] [place] [address] , Service support , EKG Initial EKG: Comments: 79 bpm, atrial fibrillation, no ST elevation, reviewed and interpreted by attending ED physician Follow-up EKG: Comments: 83 bpm, atrial fibrillation, no ST elevation, reviewed and interpreted by attending ED physician. <Dr. Sam Bynum, DO - Last Filed: 11/19/22 17:21> [facility] Lab Data Labs: Laboratory Results - last 24 hr 11/19/22 11/19/22 11/19/22 11:55 11:55 14:15 WBC 13.1 H RBC 4.03 L Hgb 12.7 L Hct 38.6 L MCV 95.8 H MCH 31.5 MCHC 32.9 RDW Std Deviation 52.3 H RDW Coeff of Will 14.8 H Plt Count 175 MPV 10.1 Immature Gran % (Auto) 1.200 H Neut % (Auto) 83.7 H Lymph % (Auto) 8.5 L Cole % (Auto) 5.3 Eos % (Auto) 1.0 Baso % (Auto) 0.3 Absolute Neuts (auto) 11.0 H Absolute Lymphs (auto) 1.11 Nucleated RBC % 0 Sodium 135 L Potassium 3.6 Chloride 91 L Carbon Dioxide 35.0 H Anion Gap 9 BUN 37 H Creatinine 5.58 H Estim Creat Clear Calc 12.75 Est GFR (MDRD) Af Amer 13 L Est GFR (MDRD) Non-Af 11 L BUN/Creatinine Ratio 6.6 L Glucose 238 H Calcium 11.2 H Troponin I High Sens 149 H* 164 H* Radiography Diagnostic Testing: Clinical Impression(s) from Imaging Studies Chest X-Ray 11/19/22 12:30 IMPRESSION: No acute pulmonary process Electronically Signed: Jeremy Paris MD at 12:44 EDT , Treatment and Re-Evaluation :: I have personally performed a face to face assessment of the patient and have reviewed the RUSS Note. I performed a substantive portion of the visit including all aspects of the following. My arredondo findings include: History: Patient presents with a syncopal episode that occurred today. Patient states he was getting ready to go to his dialysis appointment when he felt lightheaded. Patient states he passed out. Patient is unsure how long he was out for. Patient states he gets dialysis every Tuesday and Tuesday. Patient states he had no complications with his dialysis 2 days ago. Patient denies any chest pain or palpitations. Patient denies any fevers or chills. Patient denies any shortness of breath. Exam: Vital signs are stable. Patient is afebrile. Patient is in no acute distress. Oral mucosa is pink and moist. Neck is supple. Trachea is midline. There is no JVD. Heart was irregularly irregular. There is a grade 2/6 systolic murmur at the left upper sternal border. Lungs are clear and equal bilaterally. Abdomen is soft. Bowel sounds are normal. There is no tenderness. Cranial nerves II through XII are intact. There are no focal motor or sensory deficits noted. Medical Decision Making: Differential diagnosis includes cardiac dysrhythmia, cardiac ischemia, congestive heart failure, electrolyte abnormality, and infection. EKG will be obtained to assess for cardiac dysrhythmia and cardiac ischemia. CBC will be obtained to assess for leukocytosis and anemia. Basic metabolic profile will be obtained to assess for electrolyte abnormality and renal function. High-sensitivity troponin will be obtained to assess for cardiac ischemia. 2-hour repeat high-sensitivity troponin will be obtained to assess for ongoing cardiac ischemia. Chest x-ray will be obtained to assess for pneumonia and congestive heart failure. EKG was obtained. On my interpretation it shows atrial fibrillation with a rate of 79. There are nonspecific ST-T wave changes noted. CBC was reviewed there is a mild leukocytosis of 13.1. There is a mild anemia with a hemoglobin of 12.7 and hematocrit 38.6. Basic metabolic profile was reviewed. BUN was 37 and creatinine was 5.58. These results are consistent with prior results. Sodium was 135 and chloride was 91. CO2 was only slightly elevated at 35. Initial high-sensitivity troponin was reviewed and was slightly elevated at 149. 2-hour repeat high-sensitivity troponin was reviewed and was slightly increased at 164. Repeat EKG was obtained. On my independent interpretation, it shows atrial fibrillation with a rate of 83. There are nonspecific ST-T wave changes noted. This was unchanged compared to previous EKG. Because of this, I recommended admission to the hospital. Patient is agreeable with this. Case was discussed with the hospitalist. She will admit the patient to her service. Patient understood and was agreeable with the plan. All questions were answered. Discharge Plan Dx/Rx/DC Orders Clinical Impression: Chronic kidney disease, stage IV (severe), History of heart artery stent, Longstanding persistent atrial fibrillation, Syncope Disposition Disposition: Acute Care Hospital [facility] Discharge Date/Time: 11/19/22 19:11
[2022-11-19 12:06] LABS: Absolute Lymphocyte Count 1.11 X10^3/uL (0.83-4.51); Basophil# 0.04 X10^3/uL; Basophil% 0.3 % (0-1); Eosinophil# 0.13 X10^3/uL; Hematocrit 38.6 % (40-54); Hemoglobin 12.7 g/dL (13.0-16.5); Lymphocyte # 1.11 X10^3/ul (0.83-4.51); Lymphocyte % 8.5 % (19-41); Mean Corp Hgb Conc 32.9 g/dL (32-36); Mean Corpuscular Hgb 31.5 pg (27.0-32.0); Mean Corpuscular Volume 95.8 fL (80-94); Mean Platelet Vol. 10.1 fl (6.2-12.0); Monocyte% 5.3 % (0-10); NRBC Flagged by Analyzer 0 % (0-5); Neutrophil # 10.97 X10^3/uL (2.7-7.7); Neutrophil % 83.7 % (47-70); Platelet Count 175 K/mm3 (150-450); RBC Distribution Width CV 14.8 % (11.6-14.6); RBC Distribution Width SD 52.3 fl (35.1-43.9); Red Blood Count 4.03 M/mm3 (4.6-6.2); White Blood Count 13.1 K/mm3 (4.4-11.0)
[2022-11-19 12:25] LABS: Anion Gap 9 (5-15); BUN 37 mg/dL (7-18); BUN/Creat Ratio 6.6 RATIO (10-20); Calcium,Total 11.2 mg/dL (8.5-10.1); Chloride 91 mmol/L (98-107); Creatinine, Serum 5.58 mg/dL (0.70-1.30); EST Glomerular Filtration Rate 11 mL/min (>60); Est Glom Filt Rate - Afr Amer 13 mL/min (>60); Estimated Creatinine Clearance 12.75 ml/min; Glucose 238 mg/dL (74-106); Potassium 3.6 mmol/L (3.5-5.1); Sodium Level 135 mmol/L (136-145); Troponin-I HS 149 pg/mL (3.0-78.0)
--- NOTE | 2022-11-19 12:30 | RAD_ITS ---
STUDY: X-RAY CHEST REASON FOR EXAM: Male, 72 years old. Cough TECHNIQUE: Single AP portable view of the chest. COMPARISON: 12/24/2019 FINDINGS: EKG leads overlie the chest The lungs are clear and expanded. There is no demonstrated pleural abnormality. Normal size heart. Normal mediastinum and guerda. Normal visualized pulmonary arteries. There is atherosclerotic calcification of the aortic arch with tortuosity. There are diffuse degenerative changes of the visualized thoracic spine. Normal visualized ribs, clavicles, and shoulders. There is no demonstrated abnormality of the visualized soft tissue structures of the upper abdomen. RAD/Chest 1 View (Portable) IMPRESSION: No acute pulmonary process Electronically Signed: Jeremy Paris MD at 12:44 EDT ,
--- NOTE | 2022-11-19 12:51 | ED.RN ---
pt notes he does not make urine. he has a suprapubic cath that was changed yesterday and he does not have any urine since then. doctors made aware.
[2022-11-19 14:57] LABS: Troponin-I HS 164 pg/mL (3.0-78.0)
--- NOTE | 2022-11-19 14:57 | EKG12_ITS ---
Test Reason : CP Blood Pressure : / mmHG Vent. Rate : 083 BPM Atrial Rate : 000 BPM P-R Int : 000 ms QRS Dur : 140 ms QT Int : 390 ms P-R-T Axes : 000 -36 155 degrees QTc Int : 458 ms Atrial fibrillation Left axis deviation Non-specific intra-ventricular conduction block Cannot rule out Anterior infarct , age undetermined T wave abnormality, consider lateral ischemia Abnormal ECG Confirmed by MARA ARREAGA, VINICIUS ([id number]), editor managing director EMMANUEL IRENE ([id number]) on 11/22/2022 12:21:14 P M Referred By: CLARA/BRIAN Confirmed By:CARLI TERRY MD
--- NOTE | 2022-11-19 18:12 | PCM.HP.STD ---
HPI - General General Date of Admission: 11/19/22 Date of Service: 11/19/22 Chief Complaint: syncope HPI Narrative Bola Strong is a 72-year-old male with history of atrial fibrillation, type 2 diabetes mellitus, CVA, end-stage renal disease on hemodialysis, CAD status post CABG who presented to [facility] 11/19 after syncopal episode. Episode occurred this morning was witnessed by his daughter who said that he began to feel funny as he was walking down the steps getting ready to go to dialysis and he also felt fuzzy but did not have any shortness of breath or chest pain. He felt back to normal in the ED but was found to have blood pressure of 86/65, heart rate 72, 97% on room air. White blood cell count 13.1 with a hemoglobin of 12.7, sodium 135 with a bicarb of 35, BUN 37, creatinine 5.58, glucose 238, calcium 11.2. Additionally had troponin of 149 with subsequent 164. Hospitalist consulted for admission. Patient seen at bedside with family members present. Reportedly patient has had increasing weakness over the past couple months and initially had a cold with cough but no shortness of breath. Has also been taken off of most of his blood pressure medications due to low blood pressure. He otherwise had no acute health problems but this afternoon was walking down the stairs and felt weird and called out to family member nearby. He reports he was lightheaded and dizzy, family member got to him as he was trying to sit down due to lightheadedness and he slumped over. Family reports that he was breathing though had been breathing different and they do not know if he had a pulse but reports that he was out for 10 minutes and then when he woke up was only slightly groggy and not particularly dizzy. Discussed with his prolonged down time possible transfer to an outside facility but pt requested admission/to stay here. He denies chest pain, no changes in his breathing, did have cough that has been improving. Overall has had some general weakness, suboptimal p.o. intake due to intermittent upset stomach and he reports alternating constipation and diarrhea. He does have suprapubic catheter and reports it was changed yesterday so he has been having some pain and spasms around that which typically happens after it is changed. He reports he has a neurogenic bladder as he was supposed to initially do peritoneal dialysis previously but his bladder was affected and no longer worked after the surgery. [facility] Medical History Atherosclerosis of coronary artery bypass graft without angina pectoris Atherosclerotic heart disease of [place] coronary artery without angina pectoris Bilateral carotid artery stenosis CAD (coronary artery disease) Chronic kidney disease, stage IV (severe) CVA (cerebral vascular accident) Essential hypertension Hypothyroidism Longstanding persistent atrial fibrillation NSTEMI (non-ST elevated myocardial infarction) Obesity Pure hypercholesterolemia Thyroid nodule Type 2 diabetes mellitus with diabetic nephropathy UTI (urinary tract infection) due to urinary indwelling catheter Home Medications cholecalciferol (vitamin D3) 1,250 mcg (50,000 unit) capsule 50,000 unit PO QWEEK vitamin 04/06/18 [History Last Taken Unknown] clopidogrel 75 mg tablet 75 mg PO DAILY blood thinner 04/06/18 [History Last Taken Unknown] fenofibrate nanocrystallized 160 mg tablet 160 mg PO DAILY k 04/06/18 [History Last Taken Unknown] furosemide 40 mg tablet 40 mg PO DAILY k 04/06/18 [History Last Taken Unknown] levothyroxine 50 mcg tablet 50 mcg PO DAILY thyroid 04/06/18 [History Last Taken Unknown] calcium acetate(phosphat bind) 667 mg capsule 667 mg PO TID k 05/05/18 [History Last Taken Unknown] diphenhydramine 25 mg-acetaminophen 500 mg tablet (Tylenol PM Extra Strength) 2 tab PO QHS PRN Pain 05/05/18 [History Last Taken Unknown] aspirin 325 mg tablet 325 mg PO DAILY 02/04/21 [History Last Taken Unknown] atorvastatin 40 mg tablet 20 mg PO Q OTHER DAY cholesterol 07/21/21 [History Last Taken Unknown] isosorbide mononitrate 30 mg tablet,extended release 24 hr 30 mg PO BID #180 tabs 10/12/22 [Rx Last Taken Unknown] Lactobacillus acidophilus 10 billion cell capsule (Probiotic) 10,000 mmu cells PO DAILY 11/19/22 [History Last Taken Unknown] metoprolol succinate 50 mg tablet,extended release 24 hr 50 mg PO DAILY 11/19/22 [History Last Taken Unknown] Allergy/AdvReac Type Severity Reaction Status Date / Time ibuprofen Allergy swellin Verified 11/19/22 11:35 and itching povidone-iodine Allergy Itching Verified 11/19/22 11:35 [From Betadine] soap [From Betadine] Allergy Itching Verified 11/19/22 11:35 vancomycin Allergy rash/ Verified 11/19/22 11:35 throat swelling adhesive tape AdvReac Rash Verified 11/19/22 11:35 Family History Father CAD (coronary artery disease) CAD, Coronary Stents Mother CAD (coronary artery disease) CAD, CABG Diabetes Surgical History H/O coronary artery bypass surgery (06/11/96) history Laparoscopic Peritoneal Dialysis Catheter (~12/29/17) History of appendectomy History of heart artery stent (~03/2002) History of left heart catheterization (12/25/19) History of nasal septoplasty History of sternectomy (~07/10/96) Presence of coronary angioplasty implant and graft (~03/2002) Social History Smoking Status: Never smoker alcohol intake: never substance use type: does not use caffeine: Yes (3 cups daily) ROS ROS Narrative General: Denies fever/chills HENT: Denies headache, denies stuffy nose, denies sore throat EYES: Chronic changes in vision and cataract Resp: Had productive cough that is been improving, no shortness of breath/breathing changes Cardiac: Denies chest pain GI: Occasionally have some GI upset with some nausea, poor p.o. intake noted, will alternate also between diarrhea and constipation : Has suprapubic catheter is not presently making urine Extremity: Denies swelling MSK: Generalized weakness Neuro: Denies any numbness/tingling Heme: Denies any bleeding or bruising Skin: Has some black spots on bottom of the left foot from 20 briefly stop taking his phosphate binder, additionally has some scratches from cat on top of that foot Psychiatric: No complaints voiced Vital Signs Vital Signs Vital Signs: 11/19/22 11:32 11/19/22 12:17 11/19/22 12:55 Temperature 97.0 F L Temperature Source Temporal Pulse Rate 72 83 Pulse Rate [Lying] 66 Pulse Rate [Sitting (for 1 minute prior to obtaining)] 71 Pulse Rate [Standing (for 1 minute prior to obtaining)] 80 Respiratory Rate 18 16 Respiratory Effort Respiratory Pattern Blood Pressure 86/65 L 95/73 Blood Pressure [Lying] 88/63 L Blood Pressure [Sitting (for 1 minute prior to obtaining)] 96/66 Blood Pressure [Standing (for 1 minute prior to obtaining)] 105/78 Blood Pressure Mean 72 80 Blood Pressure Mean [Lying] 71 Blood Pressure Mean [Sitting (for 1 minute prior to obtaining)] 76 Blood Pressure Mean [Standing (for 1 minute prior to obtaining)] 87 Pulse Ox 97 100 Oxygen Delivery Method Room Air Room Air 11/19/22 12:55 11/19/22 14:34 11/19/22 17:27 Temperature 98 F Temperature Source Temporal Pulse Rate 70 81 Pulse Rate [Lying] Pulse Rate [Sitting (for 1 minute prior to obtaining)] Pulse Rate [Standing (for 1 minute prior to obtaining)] Respiratory Rate 23 H 20 H Respiratory Effort Normal Non-Labored Respiratory Pattern Normal Blood Pressure 95/64 107/77 Blood Pressure [Lying] Blood Pressure [Sitting (for 1 minute prior to obtaining)] Blood Pressure [Standing (for 1 minute prior to obtaining)] Blood Pressure Mean 74 87 Blood Pressure Mean [Lying] Blood Pressure Mean [Sitting (for 1 minute prior to obtaining)] Blood Pressure Mean [Standing (for 1 minute prior to obtaining)] Pulse Ox 93 100 Oxygen Delivery Method Room Air Weight Weight: 93 kg Body Mass Index (BMI) 27.8 Physical Exam Narrative General: Alert, oriented, no apparent distress HEENT: Atraumatic, normocephalic Eyes: Anicteric, normal conjunctiva, extraocular movements grossly intact Neck: Supple Respiratory: Clear to auscultation bilaterally, normal respiratory effort Cardiovascular: Irregularly irregular GI: Soft, nontender, nondistended Extremities: No edema Musculoskeletal: Moving all extremities Neuro: No overt focal neurological deficits Skin: Has several left foot lesions, 2 on sole of feet and 1 on top with cat scratches also noted, no purulence or drainage Psych: Cooperative Results Lab / Micro Data Result Diagrams: 11/19/22 11:55 11/19/22 11:55 Labs: Laboratory Results - last 24 hr 11/19/22 11:55: WBC 13.1 H, RBC 4.03 L, Hgb 12.7 L, Hct 38.6 L, MCV 95.8 H, MCH 31.5, MCHC 32.9, RDW Std Deviation 52.3 H, RDW Coeff of Will 14.8 H, Plt Count 175, MPV 10.1, Immature Gran % (Auto) 1.200 H, Neut % (Auto) 83.7 H, Lymph % (Auto) 8.5 L, [place] % (Auto) 5.3, Eos % (Auto) 1.0, Baso % (Auto) 0.3, Absolute Neuts (auto) 11.0 H, Absolute Lymphs (auto) 1.11, Nucleated RBC % 0 11/19/22 11:55: Sodium 135 L, Potassium 3.6, Chloride 91 L, Carbon Dioxide 35.0 H, Anion Gap 9, BUN 37 H, Creatinine 5.58 H, Estim Creat Clear Calc 12.75, Est GFR (MDRD) Af Amer 13 L, Est GFR (MDRD) Non-Af 11 L, BUN/Creatinine Ratio 6.6 L, Glucose 238 H, Calcium 11.2 H, Troponin I High Sens 149 H* 11/19/22 14:15: Troponin I High Sens 164 H* Radiology Impression Chest X-Ray 11/19/22 12:30 IMPRESSION: No acute pulmonary process Electronically Signed: Jeremy Paris MD at 12:44 EDT Reading Location ID and State: [facility] / [place] , Service support , Assessment & Plan Assessment/Plan (1) NSTEMI (non-ST elevated myocardial infarction): (2) H/O coronary artery bypass surgery: (3) Syncope: PLAN: Plan #Syncope -Given low blood pressure when patient presented with symptoms of lightheadedness when standing query if hypotension may have caused presentation though cannot rule out arrhythmia. Would suspect that if there was an arrhythmia and he completely stopped perfusing his brain for 10 minutes that he would not be alert and oriented and feeling well however -Orthostats in the ED documented increased in blood pressure when he was standing though given history will repeat -Admit to telemetry -We will obtain echocardiogram -Troponin elevated but suspect type II -Given past history and current presentation however will consult cardiology -Additionally with his loss of consciousness given the duration and patient being neurologically intact we will obtain EEG as well as carotid duplex -Do not think that he had PE, low likelihood so we will not get D-dimer as given medical comorbidities with suspected would be elevated but if any further changes or although suspicion is ruled out can consider CTA but no hypoxia or shortness of breath and he is not tachycardic or tachypneic and no unilateral leg swelling #NSTEMI -Suspect type II -Trend troponin -EKG with A-fib and otherwise very nonspecific with no overt ST changes -Given above in addition to NSTEMI and his history we will consult cardiology -Given no present or previous chest pain do not feel he needs a heparin drip at this time unless significant increase in troponin or further chest pain especially as he is already on aspirin and Plavix and reports history of easy/significant bleeding on blood thinner though if needed can start and monitor -Continue aspirin, statin, Plavix, holding beta-alexis due to blood pressure but continue when able -Ordered #Type 2 diabetes mellitus -Glucose checks and sliding scale insulin #Neurogenic bladder, iatrogenic with suprapubic catheter -Supportive care #hx hypothyroidism -cont synthroid -chest tsh #Atrial fibrillation -Presently in A-fib -Given BP will hold metoprolol -Pt reports he doesn't take Coumadin or DOAC due to bleeding especially with his bladder #Coronary artery disease status post CABG x5 and PCI's --Continue aspirin, statin, Plavix, holding beta-alexis due to blood pressure but continue when able #Remote history of CVA -No focal complaints --Continue aspirin, statin, Plavix, holding beta-alexis due to blood pressure but continue when able #End-stage renal disease on HD -On HD Tuesday, Tuesday, Tuesday with left upper arm fistula -Missed dialysis today however does not appear overloaded -Nephrology consult -Hold Lasix given BP and patient is not making urine -Continue phosphate binder #DVT ppx: Heparin subcu Jackie Butcher MD Time spent in the patient's overall evaluation,decision-making process, review of diagnostic data, adjustment of management, discussion with other providers, nursing nursing and ancillary staff involved in patient's care documentation, 60 minutes Charges/Coding Visit Charges Inpatient E&M: 47300 Init Hosp L2
--- NOTE | 2022-11-19 18:23 | ECHOD_ITS ---
Version 2 Reason For Study: Syncope Procedure This was a 2D Doppler, Color Flow transthoracic echocardiogram. Patient scanned supine due to weakness. Exam performed portable in patient room. Left Ventricle Normal LV size. The estimated ejection fraction is 60 %. Unable to assess diastolic dysfunction. Dyskinetic septum. Right Ventricle Normal RV size. Normal systolic function. Atria The left atrium is moderately enlarged. The right atrium is mildly enlarged. No doppler evidence for ASD. Mitral Valve There is no mitral valve stenosis. Mild (1+) mitral valve insufficiency. Tricuspid Valve There is no tricuspid stenosis. Moderate (2+) tricuspid valve insufficiency. Pulmonary artery systolic pressure is 40 mmHg. Aortic Valve Aortic sclerosis, no stenosis. There is no aortic stenosis. No aortic valve insufficiency. Pulmonic Valve There is no pulmonic valvular stenosis. No pulmonic valve insufficiency. Great Vessels Normal aortic root. Pericardium/Pleural No pericardial effusion. MMode/2D Measurements & Calculations LVIDd: 5.3 cm IVSd: 1.5 cm Ao root diam: 3.8 cm LVIDs: 4.2 cm LVPWd: 1.5 cm RVDd: 4.6 cm FS: 20.1 % LAV(MOD-bp): 78.2 ml LVAd ap4: 44.7 cm2 LVAd ap2: 45.3 cm2 LAV(MOD-bp) Indexed: 36.3 ml/m2 LVLd ap4: 9.1 cm LVLd ap2: 9.2 cm LAV(MOD-sp2): 76.7 ml EDV(MOD-sp4): 184.9 ml EDV(MOD-sp2): 186.3 ml LAV(MOD-sp4): 80.0 ml EDV(sp4-el): 187.1 ml EDV(sp2-el): 188.4 ml LVAs ap4: 32.9 cm2 LVAs ap2: 26.8 cm2 LVLs ap4: 8.6 cm LVLs ap2: 8.1 cm ESV(MOD-sp4): 102.9 ml ESV(MOD-sp2): 75.5 ml ESV(sp4-el): 106.8 ml ESV(sp2-el): 75.1 ml EF(MOD-sp4): 44.4 % EF(MOD-sp2): 59.5 % EF(sp4-el): 42.9 % SV(MOD-sp4): 82.1 ml SV(MOD-sp2): 110.8 ml SV(sp4-el): 80.2 ml LA dimension(2D): 5.8 cm LA A4 area: 24.6 cm2 RA A4 area: 20.9 cm2 Doppler Measurements & Calculations MV E max luis angel: 112.9 cm/sec Lat Peak E' Luis Angel: 11.6 cm/sec Med Peak E' Luis Angel: 3.8 cm/sec E/E' lat: 9.8 E/E' med: 29.7 Ao V2 max: 170.8 cm/sec LV V1 max: 121.3 cm/sec PA V2 max: 105.3 cm/sec Ao max P.7 mmHg LV V1 max P.9 mmHg Ao V2 mean: 114.5 cm/sec LV V1 mean P.2 mmHg Ao mean P.2 mmHg LV V1 mean: 82.5 cm/sec Ao V2 VTI: 30.8 cm LV V1 VTI: 20.6 cm AV (velocity ratio): 0.67 TR max luis angel: 277.0 cm/sec TR max P.7 mmHg ECHO/Echo Complete Interpretation Summary The estimated ejection fraction is 60 %. Unable to assess diastolic dysfunction. The left atrium is moderately enlarged. The right atrium is mildly enlarged. Mild (1+) mitral valve insufficiency. Moderate (2+) tricuspid valve insufficiency. Ordering Physician: Jackie Butcher Referring Physician: Becky Romo D.O. Performed By: Kamala Malagon, ESTRELLA
--- NOTE | 2022-11-19 19:28 | CDU_ITS ---
Reason For Study: Syncope Rt. Velocities/BP Lt. Velocities/BP Prox CCA 51.3/12.6 cm/sec. Prox CCA 60.7/14.4 cm/sec. Mid CCA 56/13.5 cm/sec. Mid CCA 57.9/11.6 cm/sec. Dist CCA 36.2/9.7 cm/sec. Dist CCA 39.4/14.4 cm/sec. Prox ICA 39/15.4 cm/sec. Prox ICA 36.5/6.6 cm/sec. Mid ICA 40.9/11.6 cm/sec. Mid ICA 48.6/15.9 cm/sec. Dist ICA 48.5/16.3 cm/sec. Dist ICA 43.6/16.6 cm/sec. Rt. ICA/CCA = 0.95. Lt. ICA/CCA = 0.84. Prox ECA 40/4.1 cm/sec. Prox ECA 43.6/7.3 cm/sec. Rt. Vert. 25.1/7.3 cm/sec. Lt. Vert. 43.6/15.9 cm/sec. Right Extracranial There is heterogeneous, irregular atherosclerotic plaque noted in the right common carotid artery. There is heterogeneous, irregular atherosclerotic plaque noted in the right internal carotid artery. The atherosclerotic plaque causes acoustic shadowing. There is heterogeneous, irregular atherosclerotic plaque noted in the right external carotid artery. Antegrade flow is noted in the right vertebral artery. Left Extracranial There is homogeneous, smooth atherosclerotic plaque noted in the left common carotid artery. There is heterogeneous, irregular atherosclerotic plaque noted in the left internal carotid artery. The atherosclerotic plaque causes acoustic shadowing. There is heterogeneous, irregular atherosclerotic plaque noted in the left external carotid artery. Antegrade flow is noted in the left vertebral artery. Procedure Carotid Duplex 39933. This is a Carotid Duplex examination using B-mode, color flow and specral Doppler. Exam performed in department. VL/Carotid Duplex Ultrasound Interpretation Summary Mild (<50%) stenosis right extracranial internal carotid. Mild (<50%) stenosis left extracranial internal carotid. Patent and antegrade vertebrals bilaterally. Ordering Physician: Jackie Butcher Referring Physician: Becky Romo D.O. Performed By: Blanca Lepe RVT
--- NOTE | 2022-11-19 19:40 | EKG12_ITS ---
Test Reason : CP ADMIT Blood Pressure : / mmHG Vent. Rate : 079 BPM Atrial Rate : 000 BPM P-R Int : 000 ms QRS Dur : 154 ms QT Int : 424 ms P-R-T Axes : 000 043 202 degrees QTc Int : 486 ms Atrial fibrillation Left bundle branch block Abnormal ECG No previous ECGs available Confirmed by SARITHA ARREAGA, LATOYA ([id number]), digital editor EMMANUEL IRENE ([id number]) on 11/23/2022 8:49:58 AM Referred By: DR STRINGER Confirmed By:LATOYA MELARA MD
[2022-11-19] MEDS: Clopidogrel Bisulfate 75 MG Tablet PO (21:02)
[2022-11-19] MEDS: Heparin Injection (Vial) 5,000 UNIT/ML VIAL 5000 UNIT SC (21:02)
[2022-11-19 21:14] LABS: Magnesium 2.5 mg/dL (1.6-2.6); Troponin-I HS 166 pg/mL (3.0-78.0)
[2022-11-19 21:34] LABS: BNP,B-Type NATRIURETIC PEPTIDE > 5000.0 pg/mL (0-100)
--- NOTE | 2022-11-19 21:52 | EKG12_ITS ---
Test Reason : SYNCOPE Blood Pressure : / mmHG Vent. Rate : 079 BPM Atrial Rate : 000 BPM P-R Int : 000 ms QRS Dur : 160 ms QT Int : 402 ms P-R-T Axes : 000 001 180 degrees QTc Int : 460 ms Atrial fibrillation with premature ventricular or aberrantly conducted complexes Non-specific intra-ventricular conduction block Abnormal ECG Confirmed by MARA ARREAGA, VINICIUS ([id number]), news editor EMMANUEL IRENE ([id number]) on 11/22/2022 12:30:11 P M Referred By: CLARA/BRIAN Confirmed By:CARLI TERRY MD
[2022-11-20] MEDS: MELATONIN 3 MG TABLET PO ×2 (01:31→21:58)
[2022-11-20] MEDS: Acetaminophen 325 MG Tablet 650 MG PO ×2 (01:31→21:59)
[2022-11-20 03:05] VITALS: BP 100/65; PULSE 105; RESP 16; TEMP 36.6; O2SAT 97
[2022-11-20 05:48] VITALS: BMI 28.5
[2022-11-20] MEDS: Levothyroxine 50 MCG Tablet PO (05:54)
[2022-11-20] MEDS: Heparin Injection (Vial) 5,000 UNIT/ML VIAL 5000 UNIT SC ×2 (05:54→21:58)
--- NOTE | 2022-11-20 07:54 | PN.HOSP_ITS ---
Reason for Visit Reason for Visit: Diagnoses Non-ST elevation (NSTEMI) myocardial infarction (11/19/22) Syncope and collapse (11/19/22) Presence of aortocoronary bypass graft (11/19/22) Subjective Subjective Feels well today. Discussed with the patient and his daughter, who witnessed the event, patient was going downstairs felt unwell sat himself down and then was unresponsive for 10 minutes. Patient was still sitting upright as the patient's daughter was unable to lay him flat due to the position that he was then on stairs. But when she was able to lie him down he eventually came to. There is no visualized tonic-clonic activity nor any incontinence though the patient does have a chronic suprapubic catheter and has had decreased urine output for period of time due to him being on dialysis. Objective Data Objective Data Vital Signs: Vital Signs Temp Pulse Resp BP Pulse Ox O2 Del Method 36.6 C 105 H 16 100/65 97 Room Air 11/20/22 03:05 11/20/22 03:05 11/20/22 03:05 11/20/22 03:05 11/20/22 03:05 11/20/22 03:05 Oxygen Delivery Method Room Air Weight: 95.5 kg Body Mass Index (BMI) 28.5 Lab / Micro Data Result Diagrams: 11/20/22 05:55 11/20/22 07:54 Labs: Laboratory Results - last 24 hr 11/19/22 11:55: WBC 13.1 H, RBC 4.03 L, Hgb 12.7 L, Hct 38.6 L, MCV 95.8 H, MCH 31.5, MCHC 32.9, RDW Std Deviation 52.3 H, RDW Coeff of Will 14.8 H, Plt Count 175, MPV 10.1, Immature Gran % (Auto) 1.200 H, Neut % (Auto) 83.7 H, Lymph % (Auto) 8.5 L, [place] % (Auto) 5.3, Eos % (Auto) 1.0, Baso % (Auto) 0.3, Absolute Neuts (auto) 11.0 H, Absolute Lymphs (auto) 1.11, Nucleated RBC % 0 11/19/22 11:55: Sodium 135 L, Potassium 3.6, Chloride 91 L, Carbon Dioxide 35.0 H, Anion Gap 9, BUN 37 H, Creatinine 5.58 H, Estim Creat Clear Calc 12.75, Est GFR (MDRD) Af Amer 13 L, Est GFR (MDRD) Non-Af 11 L, BUN/Creatinine Ratio 6.6 L, Glucose 238 H, Calcium 11.2 H, Troponin I High Sens 149 H* 11/19/22 14:15: Troponin I High Sens 164 H* 11/19/22 19:40: Magnesium 2.5, Troponin I High Sens 166 H* 11/19/22 19:40: B-Natriuretic Peptide > 5000.0 H Radiography Diagnostic Testing: Radiology Impression Chest X-Ray 11/19/22 12:30 IMPRESSION: No acute pulmonary process Electronically Signed: Jeremy Paris MD at 12:44 EDT , Physical Exam Const alert and no apparent distress HEENT head/scalp atraumatic and moist oral mucous membranes Resp normal respiratory effort and no retractions Cardio regular rate, regular rhythm, S1 normal heart sound and S2 normal heart sound Cardio Narrative: Heart is visualized pulsating in his chest says he has had a prior sternotomy. GI normal to inspection, nondistended, normoactive bowel sounds, soft to palpation and non-tender Assessment & Plan Assessment/Plan (1) Syncope: PLAN: Was hypotensive upon arrival with positive orthostatic vitals Suspect vasovagal. No sudden loss of consciousness to suggest arrhythmia- induced. No tonic-clonic activity to suggest seizure.Do not think that he had PE, low likelihood so we will not get D-dimer as given medical comorbidities with suspected would be elevated but if any further changes or although suspicion is ruled out can consider CTA but no hypoxia or shortness of breath and he is not tachycardic or tachypneic and no unilateral leg swelling Check echo, carotid duplex. Low suspicion for seizure, there will dc EEG at this time. Cardiology consulted A.m. cortisol is 29.9. (2) NSTEMI (non-ST elevated myocardial infarction): PLAN: Suspect type II v chronically elevated troponins (no prior troponins in our system) Troponins peaked at 166 Cardiology consult Given no present or previous chest pain do not feel he needs a heparin drip at this time unless significant increase in troponin or further chest pain especially as he is already on aspirin and Plavix and reports history of easy/significant bleeding on blood thinner though if needed can start and monitor -Continue aspirin, statin, Plavix, holding beta-alexis due to blood pressure but continue when able (3) ESRD (end stage renal disease): PLAN: -On HD Tuesday, Tuesday, Tuesday with left upper arm fistula -Missed dialysis today however does not appear overloaded -Nephrology consult -Hold Lasix given BP and patient is not making urine -Continue phosphate binder PLAN: Plan Chronic conditions: * Type 2 diabetes mellitus -Glucose checks and sliding scale insulin * Neurogenic bladder, iatrogenic with suprapubic catheter -Supportive care * hypothyroidism-cont synthroid-chest tsh * Atrial fibrillation-Presently in A-fib--Pt reports he doesn't take Coumadin or DOAC due to bleeding especially with his bladder. Continue metoprolol w hold parameters. * Coronary artery disease status post CABG x5 and PCI's--Continue aspirin, statin, Plavix, holding beta-alexis due to blood pressure but continue when able * Remote history of CVA-No focal complaints--Continue aspirin, statin, Plavix, holding beta-alexis due to blood pressure but continue when able DVT ppx: Heparin subcu Charges/Coding Visit Charges Inpatient E&M: 46772 Subs Hosp L2
[2022-11-20 08:29] LABS: Absolute Lymphocyte Count 1.64 X10^3/uL (0.83-4.51); Basophil# 0.08 X10^3/uL; Basophil% 0.7 % (0-1); Eosinophil# 0.21 X10^3/uL; Eosinophils% 1.8 % (0-5); Hematocrit 38.1 % (40-54); Hemoglobin 12.5 g/dL (13.0-16.5); Lymphocyte # 1.64 X10^3/ul (0.83-4.51); Lymphocyte % 13.7 % (19-41); Mean Corp Hgb Conc 32.8 g/dL (32-36); Mean Corpuscular Hgb 31.3 pg (27.0-32.0); Mean Corpuscular Volume 95.5 fL (80-94); Mean Platelet Vol. 9.9 fl (6.2-12.0); Monocyte# 0.83 X10^3/uL; NRBC Flagged by Analyzer 0 % (0-5); Neutrophil # 9.02 X10^3/uL (2.7-7.7); Neutrophil % 75.5 % (47-70); Platelet Count 177 K/mm3 (150-450); RBC Distribution Width CV 14.9 % (11.6-14.6); RBC Distribution Width SD 52.1 fl (35.1-43.9); Red Blood Count 3.99 M/mm3 (4.6-6.2); White Blood Count 11.9 K/mm3 (4.4-11.0)
[2022-11-20 09:05] LABS: ALB/GLOB Ratio 0.8 RATIO (0.9-2.4); AST(SGOT) 26 U/L (15-37); Alanine Aminotransfer ALT/SGPT 25 U/L (16-61); Albumin, Serum 2.5 g/dL (3.2-5.0); Alkaline Phosphatase 113 U/L (45-117); Anion Gap 14 (5-15); BUN 46 mg/dL (7-18); BUN/Creat Ratio 7.3 RATIO (10-20); Calcium,Total 9.9 mg/dL (8.5-10.1); Chloride 90 mmol/L (98-107); Creatinine, Serum 6.34 mg/dL (0.70-1.30); EST Glomerular Filtration Rate 9 mL/min (>60); Est Glom Filt Rate - Afr Amer 11 mL/min (>60); Estimated Creatinine Clearance 11.22 ml/min; Globulin 3.3 g/dL (2.2-4.2); Glucose 142 mg/dL (74-106); Potassium 3.6 mmol/L (3.5-5.1); Protein, Total 5.8 g/dL (6.4-8.2); Sodium Level 135 mmol/L (136-145); Thyroid Stim Hormone (TSH) 5.18 uIU/mL (0.358-3.74)
[2022-11-20 09:42] VITALS: BP 101/65; PULSE 90; RESP 17; TEMP 36.7; O2SAT 98
[2022-11-20] MEDS: Calcium Acetate 667 MG Capsule PO ×2 (09:47→11:25)
[2022-11-20] MEDS: Clopidogrel Bisulfate 75 MG Tablet PO (09:47)
[2022-11-20] MEDS: Aspirin 325 MG Tablet PO (09:48)
--- NOTE | 2022-11-20 10:07 | CPS ---
Per can dc the EEG order
--- NOTE | 2022-11-20 12:25 | CASEMGMT ---
RN CAREY Face to Face with patient for initial transition planning/care coordination assessment. RN CAREY introduced self and role at [facility]. Patient lying in bed, alert and oriented, daughter at bedside. Patient willing to participate in assessment and is able to answer all questions appropriately. Care providers, pharmacy, and demographics verified. Patient wishes to discharge to a SNF at discharge for continue therapy. A list of SNF providers including quality and resource use data and consistent with the patient?s preferred geographical region, medical needs, and insurance network were provided from the [employer] Guide. Patient to review with family and provide preferences. Patient states he has no further needs or concerns at this time. SW updated regarding regquest for SNF. CM to follow for discharge planning needs that may arise. PCP: Demetrius Specialists: Terrence, churn drill operator; Jose A sr. manager corporate communications; Karey urologist Kasie Preferred Pharmacy: [facility] Insurance: [facility], [employer] Prescription Benefit: yes Living Will/HPOA: yes but they are old, patient interested in updating, SW notified LNOK: , daughter Living Arrangements: Patient lives with in a split level home with 7 steps and railing between levels. Patient is normally independent and able to ambulate stairs. Transportation: , daughters DME/HHC: Patient states he has cane, walker, and raised toilet at home. Patient attends HD at [facility] on MWF 1110. No previous SNF or HHC. Disposition Plan: Patient to discharge to SNF pending acceptance. Blanca ACEVEDO, RN, CM
--- NOTE | 2022-11-20 13:38 | CON.PCM.RE_ITS ---
Assessment & Plan Assessment/Plan (1) ESRD (end stage renal disease): PLAN: On hemodialysis Tuesday, Tuesday, Tuesday schedule. Missed her dialysis Tuesday. We will schedule dialysis today. Etiology of syncope unclear. Blood pressure was on the lower side. Will review blood pressure values on dialysis. Appears euvolemic. May need dry weight adjustment. HPI Consult Data Date of Consult: 11/20/22 HPI Narrative Reason for Consultation: ESRD. HPI Narrative: BJ RUIZ, is a 72 M who presents to the hospital with presyncope/syncope. He was getting ready to go to dialysis yesterday, apparently had syncope that lasted few minutes. Blood pressure was found to be low. He has known history of ESRD, on dialysis Tuesday, Tuesday, Tuesday schedule. Last dialysis was Tuesday. He also has history of suprapubic catheter placement which requires occasional exchange. Last catheter exchange was on . Apparently had some weakness on Tuesday. Could not go to dialysis on Tuesday due to this episode. Appetite has been fair. He says he has been getting weaker and was trying to get physical therapy as outpatient. No edema. No breathing difficulties. Appetite is fair. No new medications. In the past he did have urine infections in the setting of suprapubic catheter but does not think he has 1 right now. [facility] Medical History (Updated 11/20/22 @ 08:[address] Sam James, ) Atherosclerosis of coronary artery bypass graft without angina pectoris Atherosclerotic heart disease of [place] coronary artery without angina pectoris Bilateral carotid artery stenosis CAD (coronary artery disease) Chronic kidney disease, stage IV (severe) CVA (cerebral vascular accident) ESRD (end stage renal disease) Essential hypertension Hypothyroidism Longstanding persistent atrial fibrillation NSTEMI (non-ST elevated myocardial infarction) Obesity Pure hypercholesterolemia Thyroid nodule Type 2 diabetes mellitus with diabetic nephropathy UTI (urinary tract infection) due to urinary indwelling catheter Home Medications cholecalciferol (vitamin D3) 1,250 mcg (50,000 unit) capsule 50,000 unit PO QWEEK vitamin 04/06/18 [History Last Taken Unknown] clopidogrel 75 mg tablet 75 mg PO DAILY blood thinner 04/06/18 [History Last Taken Unknown] fenofibrate nanocrystallized 160 mg tablet 160 mg PO DAILY k 04/06/18 [History Last Taken Unknown] furosemide 40 mg tablet 40 mg PO DAILY k 04/06/18 [History Last Taken Unknown] levothyroxine 50 mcg tablet 50 mcg PO DAILY thyroid 04/06/18 [History Last Taken Unknown] calcium acetate(phosphat bind) 667 mg capsule 667 mg PO TID k 05/05/18 [History Last Taken Unknown] diphenhydramine 25 mg-acetaminophen 500 mg tablet (Tylenol PM Extra Strength) 2 tab PO QHS PRN Pain 05/05/18 [History Last Taken Unknown] aspirin 325 mg tablet 325 mg PO DAILY 02/04/21 [History Last Taken Unknown] atorvastatin 40 mg tablet 20 mg PO Q OTHER DAY cholesterol 07/21/21 [History Last Taken Unknown] isosorbide mononitrate 30 mg tablet,extended release 24 hr 30 mg PO BID #180 tabs 10/12/22 [Rx Last Taken Unknown] Lactobacillus acidophilus 10 billion cell capsule (Probiotic) 10,000 mmu cells PO DAILY 11/19/22 [History Last Taken Unknown] metoprolol succinate 50 mg tablet,extended release 24 hr 50 mg PO DAILY 11/19/22 [History Last Taken Unknown] Allergy/AdvReac Type Severity Reaction Status Date / Time ibuprofen Allergy swellin Verified 11/19/22 11:35 and itching povidone-iodine Allergy Itching Verified 11/19/22 11:35 [From Betadine] soap [From Betadine] Allergy Itching Verified 11/19/22 11:35 vancomycin Allergy rash/ Verified 11/19/22 11:35 throat swelling adhesive tape AdvReac Rash Verified 11/19/22 11:35 Family History Father CAD (coronary artery disease) CAD, Coronary Stents Mother CAD (coronary artery disease) CAD, CABG Diabetes Surgical History (Updated 11/19/22 @ 20:05 by REGGIE Kendrick) H/O coronary artery bypass surgery (06/11/96) history Laparoscopic Peritoneal Dialysis Catheter (~12/29/17) History of appendectomy History of heart artery stent (~03/2002) History of left heart catheterization (12/25/19) History of nasal septoplasty History of sternectomy (~07/10/96) Presence of coronary angioplasty implant and graft (~03/2002) Social History Smoking Status: Never smoker alcohol intake: never substance use type: does not use caffeine: Yes (3 cups daily) ROS ROS Narrative Negative except above Physical Exam Narrative Alert awake oriented x 3 no obvious distress no pallor no icterus no JVD s1s2 no murmurs lungs clear abdomen soft no organomegaly no edema no cyanosis valentin + Lab / Micro Data Result Diagrams: 11/20/22 05:55 11/20/22 07:54 Labs: Laboratory Results - last 24 hr 11/19/22 14:15: Troponin I High Sens 164 H* 11/19/22 19:40: Magnesium 2.5, Troponin I High Sens 166 H* 11/19/22 19:40: B-Natriuretic Peptide > 5000.0 H 11/20/22 05:55: WBC 11.9 H, RBC 3.99 L, Hgb 12.5 L, Hct 38.1 L, MCV 95.5 H, MCH 31.3, MCHC 32.8, RDW Std Deviation 52.1 H, RDW Coeff of Will 14.9 H, Plt Count 177, MPV 9.9, Immature Gran % (Auto) 1.300 H, Neut % (Auto) 75.5 H, Lymph % (Auto) 13.7 L, [place] % (Auto) 7.0, Eos % (Auto) 1.8, Baso % (Auto) 0.7, Absolute Neuts (auto) 9.0 H, Absolute Lymphs (auto) 1.64, Nucleated RBC % 0 11/20/22 07:54: Sodium 135 L, Potassium 3.6, Chloride 90 L, Carbon Dioxide 31.0, Anion Gap 14, BUN 46 H, Creatinine 6.34 H, Estim Creat Clear Calc 11.22, Est GFR (MDRD) Af Amer 11 L, Est GFR (MDRD) Non-Af 9 L, BUN/Creatinine Ratio 7.3 L, Glucose 142 H, Calcium 9.9, Total Bilirubin 0.60, AST 26, ALT 25, Alkaline Phosphatase 113, Total Protein 5.8 L, Albumin 2.5 L, Globulin 3.3, Albumin/Globulin Ratio 0.8 L, TSH 5.18 H 11/20/22 08:30: Cortisol 29.90 H Radiology Impression Echocardiogram 11/19/22 18:23 Interpretation Summary The estimated ejection fraction is 60 %. Unable to assess diastolic dysfunction. The left atrium is moderately enlarged. The right atrium is mildly enlarged. Mild (1+) mitral valve insufficiency. Moderate (2+) tricuspid valve insufficiency. Ordering Physician: Jackie Butcher Referring Physician: Becky Romo D.O. Performed By: Kamala Malagon RDCS
--- NOTE | 2022-11-20 14:07 | CASEMGMT ---
STEPHEN PATINO returned to [facility]'s room to review preferences with patient for SNF at discharge. Patient states that he is leaning towards [facility] but would like to review with and follow-up on Tuesday. STEPHEN PATINO updated SW.
--- NOTE | 2022-11-20 15:08 | PCM.CONS.C ---
Assessment & Plan Assessment/Plan (1) Syncope: PLAN: May have been orthostatic secondary to patient's medications. His Toprol has been held. Continue telemetry monitoring. (2) Longstanding persistent atrial fibrillation: PLAN: Patient not on anticoagulation apparently due to easy bleeding. He also appears to be a fall risk at this time. Rate is controlled. Toprol is being held. Will monitor. (3) History of heart artery stent: (4) H/O coronary artery bypass surgery: (5) Atherosclerosis of coronary artery bypass graft without angina pectoris: QUALIFIERS: [place] vs. transplanted heart: [place] heart Qualified Code(s): I25.810 - Atherosclerosis of coronary artery bypass graft(s) without angina pectoris (6) Elevated troponin: PLAN: Patient is an ESRD patient on hemodialysis. This troponin is likely his baseline. No change in therapy required for this at this time. PLAN: Plan If patient remained stable overnight with unremarkable findings on telemetry then he could potentially be discharged from a cardiac standpoint tomorrow. HPI Consult Data Date of Consult: 11/20/22 HPI Narrative Reason for Consultation: Syncope HPI Narrative: JB RUIZ, is a 72 M who presents after syncopal episode. Patient was apparently coming downstairs to go to dialysis and felt that he had to sit down. This was witnessed by his daughter and then he apparently passed out. He denies any dizziness prior to that. This is his first syncopal episode. He is unsure what made him decide that he needed to sit down. He does have history of coronary artery disease status post CABG with patent 3 out of 4 bypass grafts at the time of last coronary angiography. He has history of stents to the RCA. At the time of last angiography in 2019 he was found to have disease in the RCA that was felt to require rotablation. It appears that the patient was treated medically with a plan for rotablation if required. Patient's blood pressure was low on presentation this time and his Toprol has been held. Patient has not had any significant cardiac symptoms after presentation. His troponin is borderline elevated but stable. [facility] Medical History (Updated 11/20/22 @ 15:[address] Gael Velasco MD) Atherosclerosis of coronary artery bypass graft without angina pectoris Atherosclerotic heart disease of [place] coronary artery without angina pectoris Bilateral carotid artery stenosis CAD (coronary artery disease) Chronic kidney disease, stage IV (severe) CVA (cerebral vascular accident) ESRD (end stage renal disease) Essential hypertension Hypothyroidism Longstanding persistent atrial fibrillation NSTEMI (non-ST elevated myocardial infarction) Obesity Pure hypercholesterolemia Thyroid nodule Type 2 diabetes mellitus with diabetic nephropathy UTI (urinary tract infection) due to urinary indwelling catheter Home Medications cholecalciferol (vitamin D3) 1,250 mcg (50,000 unit) capsule 50,000 unit PO QWEEK vitamin 04/06/18 [History Last Taken Unknown] clopidogrel 75 mg tablet 75 mg PO DAILY blood thinner 04/06/18 [History Last Taken Unknown] fenofibrate nanocrystallized 160 mg tablet 160 mg PO DAILY k 04/06/18 [History Last Taken Unknown] furosemide 40 mg tablet 40 mg PO DAILY k 04/06/18 [History Last Taken Unknown] levothyroxine 50 mcg tablet 50 mcg PO DAILY thyroid 04/06/18 [History Last Taken Unknown] calcium acetate(phosphat bind) 667 mg capsule 667 mg PO TID k 05/05/18 [History Last Taken Unknown] diphenhydramine 25 mg-acetaminophen 500 mg tablet (Tylenol PM Extra Strength) 2 tab PO QHS PRN Pain 05/05/18 [History Last Taken Unknown] aspirin 325 mg tablet 325 mg PO DAILY 02/04/21 [History Last Taken Unknown] atorvastatin 40 mg tablet 20 mg PO Q OTHER DAY cholesterol 07/21/21 [History Last Taken Unknown] isosorbide mononitrate 30 mg tablet,extended release 24 hr 30 mg PO BID #180 tabs 10/12/22 [Rx Last Taken Unknown] Lactobacillus acidophilus 10 billion cell capsule (Probiotic) 10,000 mmu cells PO DAILY 11/19/22 [History Last Taken Unknown] metoprolol succinate 50 mg tablet,extended release 24 hr 50 mg PO DAILY 11/19/22 [History Last Taken Unknown] Allergy/AdvReac Type Severity Reaction Status Date / Time ibuprofen Allergy swellin Verified 11/19/22 11:35 and itching povidone-iodine Allergy Itching Verified 11/19/22 11:35 [From Betadine] soap [From Betadine] Allergy Itching Verified 11/19/22 11:35 vancomycin Allergy rash/ Verified 11/19/22 11:35 throat swelling adhesive tape AdvReac Rash Verified 11/19/22 11:35 Family History Father CAD (coronary artery disease) CAD, Coronary Stents Mother CAD (coronary artery disease) CAD, CABG Diabetes Surgical History (Updated 11/19/22 @ 20:05 by REGGIE Kendrick) H/O coronary artery bypass surgery (06/11/96) history Laparoscopic Peritoneal Dialysis Catheter (~12/29/17) History of appendectomy History of heart artery stent (~03/2002) History of left heart catheterization (12/25/19) History of nasal septoplasty History of sternectomy (~07/10/96) Presence of coronary angioplasty implant and graft (~03/2002) Social History Smoking Status: Never smoker alcohol intake: never substance use type: does not use caffeine: Yes (3 cups daily) Physical Exam Const alert and oriented x3 HEENT normocephalic Eyes no scleral icterus Resp normal respiratory effort Risk Stratification Risk Stratification Applicable: No Charges/Coding Visit Charges Inpatient E&M: 61711 Init Hosp L2 Objective Data Vital Signs: Vital Signs Temp Pulse Resp BP Pulse Ox O2 Del Method 98.0 F 90 17 101/65 98 Room Air 11/20/22 09:42 11/20/22 09:42 11/20/22 09:42 11/20/22 09:42 11/20/22 09:42 11/20/22 09:50 Oxygen Delivery Method Room Air Weight: 210 lb 8.663 oz Body Mass Index (BMI) 28.5 Lab / Micro Data Result Diagrams: 11/20/22 05:55 11/20/22 07:54 Labs: Laboratory Results - last 24 hr 11/19/22 19:40: Magnesium 2.5, Troponin I High Sens 166 H* 11/19/22 19:40: B-Natriuretic Peptide > 5000.0 H 11/20/22 05:55: WBC 11.9 H, RBC 3.99 L, Hgb 12.5 L, Hct 38.1 L, MCV 95.5 H, MCH 31.3, MCHC 32.8, RDW Std Deviation 52.1 H, RDW Coeff of Will 14.9 H, Plt Count 177, MPV 9.9, Immature Gran % (Auto) 1.300 H, Neut % (Auto) 75.5 H, Lymph % (Auto) 13.7 L, [place] % (Auto) 7.0, Eos % (Auto) 1.8, Baso % (Auto) 0.7, Absolute Neuts (auto) 9.0 H, Absolute Lymphs (auto) 1.64, Nucleated RBC % 0 11/20/22 07:54: Sodium 135 L, Potassium 3.6, Chloride 90 L, Carbon Dioxide 31.0, Anion Gap 14, BUN 46 H, Creatinine 6.34 H, Estim Creat Clear Calc 11.22, Est GFR (MDRD) Af Amer 11 L, Est GFR (MDRD) Non-Af 9 L, BUN/Creatinine Ratio 7.3 L, Glucose 142 H, Calcium 9.9, Total Bilirubin 0.60, AST 26, ALT 25, Alkaline Phosphatase 113, Total Protein 5.8 L, Albumin 2.5 L, Globulin 3.3, Albumin/Globulin Ratio 0.8 L, TSH 5.18 H 11/20/22 08:30: Cortisol 29.90 H Cardiology Labs/Tests 11/19/22 19:40: Magnesium 2.5 11/19/22 19:40: B-Natriuretic Peptide > 5000.0 H 11/20/22 05:55: WBC 11.9 H, RBC 3.99 L, Hgb 12.5 L, Hct 38.1 L, MCV 95.5 H, MCH 31.3, MCHC 32.8, Plt Count 177, MPV 9.9, Immature Gran % (Auto) 1.300 H, Neut % (Auto) 75.5 H, Lymph % (Auto) 13.7 L, [place] % (Auto) 7.0, Eos % (Auto) 1.8, Baso % (Auto) 0.7, Absolute Neuts (auto) 9.0 H, Nucleated RBC % 0 11/20/22 07:54: Sodium 135 L, Potassium 3.6, Chloride 90 L, Carbon Dioxide 31.0, Anion Gap 14, BUN 46 H, Creatinine 6.34 H, Est GFR (MDRD) Af Amer 11 L, Est GFR (MDRD) Non-Af 9 L, BUN/Creatinine Ratio 7.3 L, Glucose 142 H, Calcium 9.9, Total Bilirubin 0.60 Rhythm: EKG: ECHO: Stress Test: Cardiac Cath: PCI: CT Surgery: Holter monitor: EPS: PPM: CXR: Chest CT Scan: Radiography Diagnostic Testing: Radiology Impression Echocardiogram 11/19/22 18:23 Interpretation Summary The estimated ejection fraction is 60 %. Unable to assess diastolic dysfunction. The left atrium is moderately enlarged. The right atrium is mildly enlarged. Mild (1+) mitral valve insufficiency. Moderate (2+) tricuspid valve insufficiency. Ordering Physician: Jackie Butcher Referring Physician: Becky Romo D.O. Performed By: Kamala Malagon RDCS
[2022-11-20 16:00] VITALS: BP 102/78; BP 95/69; BP 96/69; PULSE 91; PULSE 92; PULSE 96; RESP 15; TEMP 36.5; O2SAT 95
[2022-11-20 16:11] VITALS: BP 106/52; PULSE 98; RESP 16; TEMP 36.7
[2022-11-20 20:50] VITALS: BP 96/43; PULSE 80; RESP 18; TEMP 36.7; O2SAT 98
--- NOTE | 2022-11-20 20:54 | DIALYSIS ---
Hemodialysis complete. 4 hour run. 3k bath. Net fluid removed = 2000 ml. Patient tolerated HD tx well Right upper arm AVF: site benign, thrill and bruit present. Needle site pressure held 15 min each. Hemostasis achieved. Report given to primary RN, Anne Stanley
[2022-11-20 21:55] VITALS: BP 92/62; PULSE 95; RESP 18; TEMP 36.3; O2SAT 98
[2022-11-20] MEDS: Atorvastatin Calcium 20 MG Tablet PO (21:58)
[2022-11-20] MEDS: Loperamide 2 MG Capsule PO (21:59)
[2022-11-20 23:15] LABS: Bedside Glucose 195 mg/dL (74-106)
[2022-11-21 04:05] VITALS: BP 95/62; PULSE 92; RESP 18; TEMP 36.5; O2SAT 95
[2022-11-21] MEDS: Levothyroxine 50 MCG Tablet PO (05:24)
[2022-11-21] MEDS: Heparin Injection (Vial) 5,000 UNIT/ML VIAL 5000 UNIT SC (05:25)
[2022-11-21 06:00] VITALS: BMI 28.3
[2022-11-21 06:55] LABS: Bedside Glucose 188 mg/dL (74-106)
[2022-11-21 08:27] VITALS: BP 106/68; PULSE 98; RESP 16; TEMP 36.4; O2SAT 100
[2022-11-21] MEDS: Calcium Acetate 667 MG Capsule PO ×2 (08:29→11:33)
[2022-11-21] MEDS: Fenofibrate 145 MG Tablet PO (08:29)
[2022-11-21] MEDS: Aspirin 325 MG Tablet PO (08:29)
[2022-11-21] MEDS: Clopidogrel Bisulfate 75 MG Tablet PO (08:30)
[2022-11-21] MEDS: Acetaminophen 325 MG Tablet 650 MG PO ×2 (08:30→21:03)
--- NOTE | 2022-11-21 08:37 | PN.HOSP_ITS ---
Reason for Visit Reason for Visit: Diagnoses Non-ST elevation (NSTEMI) myocardial infarction (11/19/22) Atherosclerosis of coronary artery bypass graft(s) without angina pectoris (11/19/22) Longstanding persistent atrial fibrillation (11/19/22) End stage renal disease (11/19/22) Syncope and collapse (11/19/22) Other specified abnormalities of plasma proteins (11/19/22) Presence of aortocoronary bypass graft (11/19/22) Presence of coronary angioplasty implant and graft (11/19/22) Subjective Subjective Denies any complaints. Objective Data Objective Data Vital Signs: Vital Signs Temp Pulse Resp BP Pulse Ox O2 Del Method FiO2 36.4 C L 98 16 106/68 100 Room Air 97 11/21/22 08:27 11/21/22 08:27 11/21/22 08:27 11/21/22 08:27 11/21/22 08:27 11/21/22 08:27 11/20/22 16:11 Oxygen Delivery Method Room Air Weight: 94.8 kg Body Mass Index (BMI) 28.3 Intake & Output: Intake and Output for Last 24 Hours 11/19/22 11/20/22 11/21/22 23:59 23:59 23:59 Intake Total 840 / 840 Output Total 1999 Balance -1160 / -1160 Lab / Micro Data Result Diagrams: 11/20/22 05:55 11/20/22 07:54 Labs: Laboratory Results - last 24 hr 11/20/22 05:55: WBC 11.9 H, RBC 3.99 L, Hgb 12.5 L, Hct 38.1 L, MCV 95.5 H, MCH 31.3, MCHC 32.8, RDW Std Deviation 52.1 H, RDW Coeff of Will 14.9 H, Plt Count 177, MPV 9.9, Immature Gran % (Auto) 1.300 H, Neut % (Auto) 75.5 H, Lymph % (Auto) 13.7 L, [place] % (Auto) 7.0, Eos % (Auto) 1.8, Baso % (Auto) 0.7, Absolute Neuts (auto) 9.0 H, Absolute Lymphs (auto) 1.64, Nucleated RBC % 0 11/20/22 07:54: Sodium 135 L, Potassium 3.6, Chloride 90 L, Carbon Dioxide 31.0, Anion Gap 14, BUN 46 H, Creatinine 6.34 H, Estim Creat Clear Calc 11.22, Est GFR (MDRD) Af Amer 11 L, Est GFR (MDRD) Non-Af 9 L, BUN/Creatinine Ratio 7.3 L, Glucose 142 H, Calcium 9.9, Total Bilirubin 0.60, AST 26, ALT 25, Alkaline Phosphatase 113, Total Protein 5.8 L, Albumin 2.5 L, Globulin 3.3, Albumin/Globulin Ratio 0.8 L, TSH 5.18 H 11/20/22 08:30: Cortisol 29.90 H 11/20/22 22:07: POC Glucose 195 H 11/21/22 06:28: POC Glucose 188 H Radiography Diagnostic Testing: Radiology Impression Echocardiogram 11/19/22 18:23 Interpretation Summary The estimated ejection fraction is 60 %. Unable to assess diastolic dysfunction. The left atrium is moderately enlarged. The right atrium is mildly enlarged. Mild (1+) mitral valve insufficiency. Moderate (2+) tricuspid valve insufficiency. Ordering Physician: Jackie Butcher Referring Physician: Becky Romo D.O. Performed By: Kamala Malagon JOAO Physical Exam Const alert and no apparent distress HEENT head/scalp atraumatic and moist oral mucous membranes Resp normal respiratory effort, no retractions, no use of accessory muscles and clear to auscultation bilaterally Cardio regular rate, regular rhythm, S1 normal heart sound and S2 normal heart sound GI normal to inspection, nondistended, normoactive bowel sounds and soft to palpation Assessment & Plan Assessment/Plan (1) Syncope: PLAN: Was hypotensive upon arrival with positive orthostatic vitals Suspect vasovagal. No sudden loss of consciousness to suggest arrhythmia- induced. No tonic-clonic activity to suggest seizure.Do not think that he had PE, low likelihood so we will not get D-dimer as given medical comorbidities with suspected would be elevated but if any further changes or although suspicion is ruled out can consider CTA but no hypoxia or shortness of breath and he is not tachycardic or tachypneic and no unilateral leg swelling Check echo, carotid duplex. Low suspicion for seizure, there will dc EEG at this time. Cardiology consulted: recommend continuing to home metoprolol succinate. A.m. cortisol is 29.9. (2) NSTEMI (non-ST elevated myocardial infarction): PLAN: Suspect type II v chronically elevated troponins (no prior troponins in our system) Troponins peaked at 166 Cardiology consult: no additional work up. Given no present or previous chest pain do not feel he needs a heparin drip at this time unless significant increase in troponin or further chest pain especially as he is already on aspirin and Plavix and reports history of easy/significant bleeding on blood thinner though if needed can start and monitor -Continue aspirin, statin, Plavix, holding beta-alexis due to blood pressure but continue when able Echo shows an EF 60%. (3) ESRD (end stage renal disease): PLAN: -On HD Tuesday, Tuesday, Tuesday with left upper arm fistula -Missed dialysis today however does not appear overloaded -Nephrology consult -Hold Lasix given BP and patient is not making urine -Continue phosphate binder (4) Sinus pause: PLAN: Still with pause several times up to 1.75s Continue to hold metoprolol succinate PLAN: Plan Chronic conditions: * Type 2 diabetes mellitus -Glucose checks and sliding scale insulin * Neurogenic bladder, iatrogenic with suprapubic catheter -Supportive care * hypothyroidism-cont synthroid-chest tsh * Atrial fibrillation-Presently in A-fib--Pt reports he doesn't take Coumadin or DOAC due to bleeding especially with his bladder. Continue metoprolol w hold parameters. * Coronary artery disease status post CABG x5 and PCI's--Continue aspirin, statin, Plavix, holding beta-alexis due to blood pressure but continue when able * Remote history of CVA-No focal complaints--Continue aspirin, statin, Plavix, holding beta-alexis due to blood pressure but continue when able DVT ppx: Heparin subcu Disposition: plan for SNF upon discharge. Charges/Coding Visit Charges Inpatient E&M: 68918 Subs Hosp L2
--- NOTE | 2022-11-21 13:15 | PCM.PN.CARD ---
Subjective Subjective No further cardiac symptoms Objective Data Vital Signs: Vital Signs Temp Pulse Resp BP Pulse Ox O2 Del Method FiO2 97.6 F L 98 16 106/68 100 Room Air 97 11/21/22 08:27 11/21/22 08:27 11/21/22 08:27 11/21/22 08:27 11/21/22 08:27 11/21/22 08:27 11/20/22 16:11 Oxygen Delivery Method Room Air Weight: 208 lb 15.971 oz Body Mass Index (BMI) 28.3 Intake & Output: Intake and Output for Last 24 Hours 11/19/22 11/20/22 11/21/22 23:59 23:59 23:59 Intake Total 840 / 840 360 / 360 Output Total 1999 Balance -1160 / -1160 360 / 360 Lab / Micro Data Result Diagrams: 11/20/22 05:55 11/20/22 07:54 Labs: Laboratory Results - last 24 hr 11/20/22 22:07: POC Glucose 195 H 11/21/22 06:28: POC Glucose 188 H Cardiology Labs/Tests Rhythm: EKG: ECHO: Stress Test: Cardiac Cath: PCI: CT Surgery: Holter monitor: EPS: PPM: CXR: Chest CT Scan: Physical Exam Const alert and no apparent distress HEENT normocephalic Eyes no scleral icterus Resp normal respiratory effort Extremity no pedal edema Assessment & Plan Assessment/Plan (1) Syncope: PLAN: May have been orthostatic secondary to patient's medications. Patient continues to have some dizziness when he gets up from a lying position. Will monitor this. If required we can add midodrine but at this point the symptoms are mild can be likely managed with appropriate hydration. Okay to discontinue Toprol. Consider 30-day event monitoring upon discharge. (2) Longstanding persistent atrial fibrillation: PLAN: Patient not on anticoagulation apparently due to easy bleeding. He also appears to be a fall risk at this time. Rate is controlled. (3) History of heart artery stent: (4) H/O coronary artery bypass surgery: (5) Atherosclerosis of coronary artery bypass graft without angina pectoris: QUALIFIERS: [place] vs. transplanted heart: [place] heart Qualified Code(s): I25.810 - Atherosclerosis of coronary artery bypass graft(s) without angina pectoris (6) Elevated troponin: PLAN: Patient is an ESRD patient on hemodialysis. This troponin is likely his baseline. No change in therapy required for this at this time. PLAN: Plan We will sign off at this time. If we can be of any further assistance please let us know. Thank you for letting us participate in the care of this patient.
[2022-11-21 14:54] VITALS: BP 91/62; BP 91/69; BP 93/79; PULSE 88; PULSE 89; PULSE 92
[2022-11-21] MEDS: Loperamide 2 MG Capsule PO (14:54)
[2022-11-21 15:16] VITALS: BP 91/62; PULSE 89; RESP 15; TEMP 36.3; O2SAT 96
[2022-11-21 17:20] LABS: Bedside Glucose 155 mg/dL (74-106)
[2022-11-21] MEDS: Calcium Acetate 667 MG Capsule 2001 MG PO (17:35)
[2022-11-21 21:02] VITALS: BP 94/79; PULSE 94; RESP 18; TEMP 36.7; O2SAT 95
[2022-11-21] MEDS: MELATONIN 3 MG TABLET PO (21:03)
[2022-11-21 22:46] LABS: Bedside Glucose 207 mg/dL (74-106)
[2022-11-22 03:00] VITALS: BP 107/74; PULSE 93; RESP 18; TEMP 36.6; O2SAT 95
[2022-11-22] MEDS: Heparin Injection (Vial) 5,000 UNIT/ML VIAL 5000 UNIT SC (05:04)
[2022-11-22] MEDS: Levothyroxine 50 MCG Tablet PO (05:04)
[2022-11-22 05:39] VITALS: BMI 28.5
[2022-11-22 07:00] LABS: Bedside Glucose 171 mg/dL (74-106)
[2022-11-22 09:24] VITALS: BP 107/86; PULSE 97; RESP 17; TEMP 36.5; O2SAT 100
[2022-11-22] MEDS: Clopidogrel Bisulfate 75 MG Tablet PO (09:28)
[2022-11-22] MEDS: Calcium Acetate 667 MG Capsule 2001 MG PO ×3 (09:28→17:58)
[2022-11-22] MEDS: Fenofibrate 145 MG Tablet PO (09:28)
[2022-11-22] MEDS: Aspirin 325 MG Tablet PO (09:29)
--- NOTE | 2022-11-22 11:45 | PN.HOSP_ITS ---
Reason for Visit Reason for Visit: Diagnoses Non-ST elevation (NSTEMI) myocardial infarction (11/19/22) Atherosclerosis of coronary artery bypass graft(s) without angina pectoris (11/19/22) Other specified heart block (11/19/22) Longstanding persistent atrial fibrillation (11/19/22) End stage renal disease (11/19/22) Syncope and collapse (11/19/22) Other specified abnormalities of plasma proteins (11/19/22) Presence of aortocoronary bypass graft (11/19/22) Presence of coronary angioplasty implant and graft (11/19/22) Subjective Subjective Patient is a 72-year-old gentleman with multiple comorbidities including end- stage renal disease on hemodialysis persistent A-fib who presented with syncopal episode admitted to a monitored bed for subsequent management Objective Data Objective Data Vital Signs: Vital Signs Temp Pulse Resp BP Pulse Ox O2 Del Method FiO2 97.7 F L 97 17 107/86 H 100 Room Air 97 11/22/22 09:24 11/22/22 09:24 11/22/22 09:24 11/22/22 09:24 11/22/22 09:24 11/22/22 09:24 11/20/22 16:11 Oxygen Delivery Method Room Air Weight: 95.5 kg Body Mass Index (BMI) 28.5 Intake & Output: Intake and Output for Last 24 Hours 11/20/22 11/21/22 11/22/22 23:59 23:59 23:59 Intake Total 840 / 840 660 / 780 120 / 120 Output Total 1999 / 1999 Balance -1160 / -1160 660 / 780 120 / 120 Lab / Micro Data Result Diagrams: 11/20/22 05:55 11/20/22 07:54 Labs: Laboratory Results - last 24 hr 11/21/22 16:44: POC Glucose 155 H 11/21/22 21:06: POC Glucose 207 H 11/22/22 06:40: POC Glucose 171 H Physical Exam Narrative GENERAL: cooperative HEENT: Atraumatic; normocephalic EYES; Anicteric, Normal Conjunctiva NECK; supple, normal thyroid, RESPIRATORY: Diminished to auscultation CARDIOVASCULAR: Irregular S1-S2 GI: soft, normoactive bowel sounds, : No Renal angle tenderness; EXTREMITIES: No edema, no clubbing, MUSCULOSKELETAL: no muscle wasting NEURO: Awake; no lateralizing signs. SKIN: No Rash PSYCH; Flat affect Assessment & Plan Assessment/Plan (1) ESRD (end stage renal disease): PLAN: Plan Patient is a 72-year-old gentleman with multiple comorbidities including end- stage renal disease on hemodialysis persistent A-fib who presented with syncopal episode admitted to a monitored bed for subsequent management Syncopal episode ? Suspected to be secondary to orthostatic hypotension. Patient is on beta- blockers held as a result of above in addition to patient having experienced sinus pauses on telemetry monitoring. Patient was seen in consultation by cardiology and plan for patient to be discharged with a 30-day event monitor 2. End-stage renal disease ? On hemodialysis on Wednesdays and Fridays consult placed to patient's nephrology for dialysis orders 3. Coronary artery disease ? With previous history of CABG as well as subsequent stent placement 4. Elevated troponin ? Suspected to be secondary to demand ischemia following patient orthostasis monitoring 5. Dyslipidemia -Patient is on statin therapy, continued at home dose 6. Hypothyroidism - Patient is on levothyroxine home dose continued 7. Paroxysmal A-fib ? Patient not on systemic anticoagulation due to previous bleeding from the bladder. Patient is on beta-blockers held as a result of sinus pauses 8. Essential hypertension ? Patient patient is on beta-blockers held in view of his orthostasis and sinus pauses 9. Previous CVA ? No residual effect 10. Diabetes mellitus type 2 ? Currently managed with diet in addition to Accu-Cheks before meals and at bedtime with sliding scale coverage 11. Neurogenic bladder ? Patient has not suprapubic catheter 12. Physical deconditioning - Requested for PT OT eval and social human services assistants to assist with discharge planning 13. DVT prophylaxis ? SC heparin Time spent in the patient's overall evaluation,decision-making process, review of diagnostic data, adjustment of management, discussion with other providers, nursing nursing and ancillary staff involved in patient's care documentation, 40, Minutes Charges/Coding Visit Charges Inpatient E&M: 03614 Subs Hosp L2
[2022-11-22 11:50] LABS: Bedside Glucose 257 mg/dL (74-106)
--- NOTE | 2022-11-22 12:06 | CASEMGMT ---
Social Work SW met with pt and to discuss discharge plans. Pt confirms that he cannot return home at this time and will need short term SNF stay for rehabilitation prior to returning home. Pt preferred provider is [facility]. Pt receives dialysis at [facility] and states she is not able to handle pt for tranport and this will need to be provided by the facility. [facility]erral [facility] to [facility]. SW requested pt and review list and come up with second choice in the event [facility] cannot accept. SW will await determination of acceptance. Plan: [facility], pending acceptance GUY Mustafa
--- NOTE | 2022-11-22 14:18 | PCM.PN.REN ---
Subjective Subjective Seen on dialysis, tolerating treatment well. Denies any complaints today. Reports has good appetite. Objective Data Objective Data Vital Signs: Vital Signs Temp Pulse Resp BP Pulse Ox O2 Del Method FiO2 97.7 F L 97 17 107/86 H 100 Room Air 97 11/22/22 09:24 11/22/22 09:24 11/22/22 09:24 11/22/22 09:24 11/22/22 09:24 11/22/22 09:24 11/20/22 16:11 Oxygen Delivery Method Room Air Weight: 95.5 kg Body Mass Index (BMI) 28.5 Intake & Output: Intake and Output for Last 24 Hours 11/20/22 11/21/22 11/22/22 23:59 23:59 23:59 Intake Total 840 / 840 660 / 780 120 / 120 Output Total 1999 / 1999 Balance -1160 / -1160 660 / 780 120 / 120 Lab / Micro Data Result Diagrams: 11/20/22 05:55 11/20/22 07:54 Labs: Laboratory Results - last 24 hr 11/21/22 16:44: POC Glucose 155 H 11/21/22 21:06: POC Glucose 207 H 11/22/22 06:40: POC Glucose 171 H 11/22/22 11:29: POC Glucose 257 H Physical Exam Narrative Alert awake oriented x 3 s1s2 no murmurs lungs clear abdomen soft no edema Left arm AV fistula accessed for dialysis. Assessment & Plan Assessment/Plan (1) ESRD (end stage renal disease): PLAN: - On hemodialysis Tuesday. Patient to dialyze today over 4 hours and attempt around 2-3 L UF as patient/blood pressure tolerates. Outpatient EDW 93 kg. Tolerated around 2.5 L UF with last dialysis on Tuesday. Patient typically has large fluid gains between dialysis and tolerates around 4 L fluid removal with each HD session in outpatient HD unit. Blood pressures had been low pre-, during and postdialysis and patient had been taken off most of his antihypertensives except for metoprolol. -Syncopal episode and orthostatic hypotension. Patient is off all blood pressure medications now including beta-blockers. Seen by cardiology and to be discharged with 30-day event monitor -History of atrial fibrillation not on anticoagulation due to bleeding. Off beta-blockers. Followed by an cardiology -Anemia of chronic disease; hemoglobin at goal, does not need MANISH with HD today. - Disposition; discharge plans to ECF for therapy. Transportation to be arranged to and from dialysis.
[2022-11-22] MEDS: Acetaminophen 325 MG Tablet 650 MG PO (16:33)
[2022-11-22 18:00] VITALS: BP 107/66; PULSE 99; RESP 17; TEMP 36.6; O2SAT 97
[2022-11-22 18:20] LABS: Bedside Glucose 108 mg/dL (74-106)
[2022-11-22 21:38] VITALS: BP 115/69; PULSE 100; RESP 18; TEMP 36.7; O2SAT 97
[2022-11-22] MEDS: MELATONIN 3 MG TABLET PO (21:48)
[2022-11-22] MEDS: Atorvastatin Calcium 20 MG Tablet PO (21:48)
[2022-11-22] MEDS: Loperamide 2 MG Capsule PO (21:48)
[2022-11-22 22:16] LABS: Bedside Glucose 221 mg/dL (74-106)
[2022-11-23] MEDS: Acetaminophen 325 MG Tablet 650 MG PO (00:04)
[2022-11-23] MEDS: 0.9% Saline Lock 10 ML Syringe IV (00:05)
[2022-11-23 03:40] VITALS: BP 118/70; PULSE 98; RESP 18; TEMP 36.7; O2SAT 97
[2022-11-23] MEDS: Levothyroxine 50 MCG Tablet PO (05:32)
[2022-11-23 05:47] VITALS: BMI 28.5
[2022-11-23 06:27] LABS: Absolute Lymphocyte Count 1.46 X10^3/uL (0.83-4.51); Absolute Neutrophil Count 11.6 X10^3/uL (2.0-7.7); Basophil# 0.11 X10^3/uL; Basophil% 0.7 % (0-1); Eosinophil# 0.22 X10^3/uL; Eosinophils% 1.5 % (0-5); Hematocrit 38.7 % (40-54); Hemoglobin 12.4 g/dL (13.0-16.5); Lymphocyte # 1.46 X10^3/ul (0.83-4.51); Lymphocyte % 9.9 % (19-41); Mean Corpuscular Hgb 31.2 pg (27.0-32.0); Mean Corpuscular Volume 97.5 fL (80-94); Mean Platelet Vol. 10.2 fl (6.2-12.0); Monocyte# 1.23 X10^3/uL; Monocyte% 8.3 % (0-10); NRBC Flagged by Analyzer 0 % (0-5); Neutrophil % 78.5 % (47-70); Platelet Count 181 K/mm3 (150-450); RBC Distribution Width CV 15.5 % (11.6-14.6); RBC Distribution Width SD 55.5 fl (35.1-43.9); Red Blood Count 3.97 M/mm3 (4.6-6.2); White Blood Count 14.8 K/mm3 (4.4-11.0)
[2022-11-23 06:49] LABS: Anion Gap 8 (5-15); BUN 24 mg/dL (7-18); BUN/Creat Ratio 5.9 RATIO (10-20); Calcium,Total 9.1 mg/dL (8.5-10.1); Chloride 96 mmol/L (98-107); Creatinine, Serum 4.05 mg/dL (0.70-1.30); EST Glomerular Filtration Rate 15 mL/min (>60); Est Glom Filt Rate - Afr Amer 19 mL/min (>60); Estimated Creatinine Clearance 17.56 ml/min; Glucose 156 mg/dL (74-106); Phosphorus 2.8 mg/dL (2.5-4.9); Potassium 4.3 mmol/L (3.5-5.1); Sodium Level 134 mmol/L (136-145)
[2022-11-23 07:10] LABS: Bedside Glucose 166 mg/dL (74-106)
[2022-11-23] MEDS: Fenofibrate 145 MG Tablet PO (07:40)
[2022-11-23] MEDS: Aspirin 325 MG Tablet PO (07:40)
[2022-11-23] MEDS: Calcium Acetate 667 MG Capsule 2001 MG PO ×2 (07:40→11:30)
--- NOTE | 2022-11-23 07:46 | PN.HOSP_ITS ---
Reason for Visit Reason for Visit: Diagnoses Non-ST elevation (NSTEMI) myocardial infarction (11/19/22) Atherosclerosis of coronary artery bypass graft(s) without angina pectoris (11/19/22) Other specified heart block (11/19/22) Longstanding persistent atrial fibrillation (11/19/22) End stage renal disease (11/19/22) Syncope and collapse (11/19/22) Other specified abnormalities of plasma proteins (11/19/22) Presence of aortocoronary bypass graft (11/19/22) Presence of coronary angioplasty implant and graft (11/19/22) Subjective Subjective Patient seen plan is for patient to be assessed for possible discharge. Objective Data Objective Data Vital Signs: Vital Signs Temp Pulse Resp BP Pulse Ox O2 Del Method FiO2 98.1 F 98 18 118/70 97 Room Air 97 11/23/22 03:40 11/23/22 03:40 11/23/22 03:40 11/23/22 03:40 11/23/22 03:40 11/23/22 03:40 11/20/22 16:11 Oxygen Delivery Method Room Air Weight: 95.6 kg Body Mass Index (BMI) 28.5 Intake & Output: Intake and Output for Last 24 Hours 11/21/22 11/22/22 11/23/22 23:59 23:59 23:59 Intake Total 660 / 780 1010 / 1010 Output Total 3000 / 3000 Balance 660 / 780 -1989 / Lab / Micro Data Result Diagrams: 11/23/22 05:55 11/23/22 05:55 Labs: Laboratory Results - last 24 hr 11/22/22 11:29: POC Glucose 257 H 11/22/22 17:57: POC Glucose 108 H 11/22/22 21:43: POC Glucose 221 H 11/23/22 05:55: WBC 14.8 H, RBC 3.97 L, Hgb 12.4 L, Hct 38.7 L, MCV 97.5 H, MCH 31.2, MCHC 32.0, RDW Std Deviation 55.5 H, RDW Coeff of Will 15.5 H, Plt Count 181, MPV 10.2, Immature Gran % (Auto) 1.100 H, Neut % (Auto) 78.5 H, Lymph % (Auto) 9.9 L, [place] % (Auto) 8.3, Eos % (Auto) 1.5, Baso % (Auto) 0.7, Absolute Neuts (auto) 11.6 H, Absolute Lymphs (auto) 1.46, Nucleated RBC % 0 11/23/22 05:55: Sodium 134 L, Potassium 4.3, Chloride 96 L, Carbon Dioxide 30.0, Anion Gap 8, BUN 24 H, Creatinine 4.05 H, Estim Creat Clear Calc 17.56, Est GFR (MDRD) Af Amer 19 L, Est GFR (MDRD) Non-Af 15 L, BUN/Creatinine Ratio 5.9 L, Glucose 156 H, Calcium 9.1, Phosphorus 2.8, Magnesium 2.0 11/23/22 06:23: POC Glucose 166 H Radiography Diagnostic Testing: Radiology Impression Carotid Duplex 11/19/22 19:28 Interpretation Summary Mild (<50%) stenosis right extracranial internal carotid. Mild (<50%) stenosis left extracranial internal carotid. Patent and antegrade vertebrals bilaterally. Ordering Physician: Jackie Butcher Referring Physician: Becky Romo D.O. Performed By: Blanca Lepe RVT Physical Exam Narrative GENERAL: cooperative HEENT: Atraumatic; normocephalic EYES; Anicteric, Normal Conjunctiva NECK; supple, normal thyroid, RESPIRATORY: Diminished to auscultation CARDIOVASCULAR: Irregular S1-S2 GI: soft, normoactive bowel sounds, : No Renal angle tenderness; EXTREMITIES: No edema, no clubbing, MUSCULOSKELETAL: no muscle wasting NEURO: Awake; no lateralizing signs. SKIN: No Rash PSYCH; Flat affect Assessment & Plan Assessment/Plan (1) ESRD (end stage renal disease): PLAN: Plan Patient is a 72-year-old gentleman with multiple comorbidities including end- stage renal disease on hemodialysis persistent A-fib who presented with syncopal episode admitted to a monitored bed for subsequent management Syncopal episode ? Suspected to be secondary to orthostatic hypotension. Patient is on beta- blockers held as a result of above in addition to patient having experienced sinus pauses on telemetry monitoring. Patient was seen in consultation by felecia theodore and plan for patient to be discharged with a 30-day event monitor 2. End-stage renal disease ? On hemodialysis on Wednesdays and Fridays consult placed to patient's nephrology for dialysis orders 3. Coronary artery disease ? With previous history of CABG as well as subsequent stent placement 4. Elevated troponin ? Suspected to be secondary to demand ischemia following patient orthostasis monitoring 5. Dyslipidemia -Patient is on statin therapy, continued at home dose 6. Hypothyroidism - Patient is on levothyroxine home dose continued 7. Paroxysmal A-fib ? Patient not on systemic anticoagulation due to previous bleeding from the bladder. Patient is on beta-blockers held as a result of sinus pauses 8. Essential hypertension ? Patient patient is on beta-blockers held in view of his orthostasis and sinus pauses 9. Previous CVA ? No residual effect 10. Diabetes mellitus type 2 ? Currently managed with diet in addition to Accu-Cheks before meals and at be dtime with sliding scale coverage 11. Neurogenic bladder ? Patient has not suprapubic catheter 12. Physical deconditioning - Requested for PT OT eval and geriatric social work professor to assist with discharge planning 13. DVT prophylaxis ? SC heparin Time spent in the patient's overall evaluation,decision-making process, review of diagnostic data, adjustment of management, discussion with other providers, nursing nursing and ancillary staff involved in patient's care documentation, 40, Minutes Charges/Coding Visit Charges Inpatient E&M: 45630 Subs Hosp L2
[2022-11-23 09:02] VITALS: BP 106/73; PULSE 97; RESP 17; TEMP 36.5; O2SAT 100
[2022-11-23] MEDS: Clopidogrel Bisulfate 75 MG Tablet PO (09:03)
--- NOTE | 2022-11-23 10:16 | CASEMGMT ---
Patient is ready for discharge to [place]. Patient also wanted to talk with ROSY. This ROSY and ROSY Longo met with patient. ROSY introduced selves. Patient and his completed the Healthcare Power of Dough Braker and Healthcare Living Will forms. Patient did not sign documents. This ROSY and ROSY Longo witnessed patient signing documents. Copies were made and given to patient along with originals. SW also placed copies in patient's chart. Patient asked about discharge today. ROSY let patient know he will be discharged per physician, but his discharge orders are not completed. ROSY told patient SW can set up transport, but it would be wheelchair van and that is not covered by insurance. Patient said his family may be able to transport him. Alisia Charles [employer] PATTI
--- NOTE | 2022-11-23 10:34 | TREXTCAR_ITS ---
Diet Diet Order/Speech Therapy: 11/19/22 19:29 Diet: Cardiac - Heart Healthy Food consistency:: Regular Liquid Consistency:: Regular/Thin Routine Orders/Code Status Code Status: Full Code Therapies Physical Therapy: Eval and Treat Occupational Therapy: Eval and Treat Problem/Diagnosis (1) ESRD (end stage renal disease): Status: Chronic Code(s): N18.6 - End stage renal disease Plan Patient is a 72-year-old gentleman with multiple comorbidities including end- stage renal disease on hemodialysis persistent A-fib who presented with syncopal episode admitted to a monitored bed for subsequent management 1. Syncopal episode ? Suspected to be secondary to orthostatic hypotension. Patient is on beta- blockers held as a result of above in addition to patient having experienced sinus pauses on telemetry monitoring. Patient was seen in consultation by cardiology and plan for patient to be discharged with a 30-day event monitor -11/23/2022; an order was written for patient to be discharged to ECF with a 30- day event monitor 2. End-stage renal disease ? On hemodialysis on Wednesdays and Fridays consult placed to patient's nephrology for dialysis orders 3. Coronary artery disease ? With previous history of CABG as well as subsequent stent placement 4. Elevated troponin ? Suspected to be secondary to demand ischemia following patient orthostasis monitoring 5. Dyslipidemia -Patient is on statin therapy, continued at home dose 6. Hypothyroidism - Patient is on levothyroxine home dose continued 7. Paroxysmal A-fib ? Patient not on systemic anticoagulation due to previous bleeding from the bladder. Patient is on beta-blockers held as a result of sinus pauses 8. Essential hypertension ? Patient patient is on beta-blockers held in view of his orthostasis and sinus pauses 9. Previous CVA ? No residual effect 10. Diabetes mellitus type 2 ? Currently managed with diet in addition to Accu-Cheks before meals and at bedtime with sliding scale coverage 11. Neurogenic bladder ? Patient has not suprapubic catheter 12. Physical deconditioning - Requested for PT OT eval and social services director to assist with discharge planning 13. DVT prophylaxis ? SC heparin Time spent in the patient's overall evaluation,decision-making process, review of diagnostic data, adjustment of management, discussion with other providers, nursing nursing and ancillary staff involved in patient's care documentation, 4 0, Minutes Allergies/Procedures Done in Hospital Allergies ibuprofen Allergy (Verified 11/19/22 11:35) swellin and itching povidone-iodine [From Betadine] Allergy (Verified 11/19/22 11:35) Itching soap [From Betadine] Allergy (Verified 11/19/22 11:35) Itching vancomycin Allergy (Verified 11/19/22 11:35) rash/ throat swelling adhesive tape Adverse Reaction (Verified 11/19/22 11:35) Rash Type of Care/Length of Stay Estimated LOS: Convalescent Care Less Than 30 days Type of Care Needed: Skilled Rehab Potential: Good Prognosis: Good Additional Orders/Day of Discharge Day of Discharge: 11/23/22 Dietary and Speech Recommendations Dietitian Recommendations/Changes: Recommend CCD/Cardiac/Renal- General diet to manage medical conditions. Discharge Plan Admission Admit Date/Time: 11/19/22 18:11 Attending Provider: Mati Torres Primary Care Provider: Becky Romo Consulting Providers: Jackie Butcher ; Gael Velasco ; Joey Naranjo ; Sam James Discharge Orders/Prescriptions Prescriptions: Continued diphenhydramine-acetaminophen [Tylenol PM Extra Strength] 25-500 mg tablet 2 tab PO QHS PRN (Reason: Pain) clopidogrel 75 MG tablet 75 mg PO DAILY Rx Instructions: on hold from surgery until 07/04/18 levothyroxine 50 MCG tablet 50 mcg PO DAILY cholecalciferol (vitamin D3) 50,000 UNIT capsule 50,000 unit PO QWEEK fenofibrate nanocrystallized 160 MG tablet 160 mg PO DAILY calcium acetate(phosphat bind) 667 mg capsule 667 mg PO TID Label Comments: 667 mg PO with each meal Rx Instructions: 667 mg PO with each meal atorvastatin 40 mg tablet 20 mg PO Q OTHER DAY Probiotic 10 billion cell Capsule 10,000 mmu cells PO DAILY aspirin 325 mg tablet 325 mg PO DAILY Discontinued furosemide 40 MG tablet 40 mg PO DAILY metoprolol succinate 50 mg tablet extended release 24 hr 50 mg PO DAILY Rx Instructions: take once daily, take bid on non dialysis days. isosorbide mononitrate 30 mg tablet extended release 24 hr 30 mg PO BID Qty: 180 4RF Other Ambulatory Orders: 30 Day Event Recorder Preventi (Urgent) Timeframe: 1 Day Facility: [facility] - Location: Cardiovascular Services Ordered By: Dr. Mati Torres Referrals / Follow Up: Becky Romo DO [Primary Care Provider] - In 1 Week Disposition Disposition (needs filled in before D/C Order can be placed): [facility]
--- NOTE | 2022-11-23 10:37 | DS.PCM_ITS ---
Providers Date of Admission: 11/19/22 Date of Discharge: 11/23/22 Primary Care Physician: Dr. Becky Romo, DO Consultations 11/19/22 19:28 Consult: Cardiology Routine Consulting Provider: Gael Velasco Reason for Consult: Nstemi, syncope, hx CAD w/ cabg and PCI EMERGENT Consult: No MD Notified: Yes Date Notified: 11/19/22 Time Notified: 18:21 Method of Notification: Text Consult: Nephrology Routine Consulting Provider: Joey Naranjo Reason for Consult: ESRD on HD m/w/f, missed HD today, does not appear overloaded EMERGENT Consult: No MD Notified: Yes Date Notified: 11/19/22 Time Notified: 18:22 Method of Notification: Answering Service Reason For Visit: SYNCOPE Diagnosis Discharge Diagnosis (1) ESRD (end stage renal disease): Status: Chronic Code(s): N18.6 - End stage renal disease Plan Patient is a 72-year-old gentleman with multiple comorbidities including end- stage renal disease on hemodialysis persistent A-fib who presented with syncopal episode admitted to a monitored bed for subsequent management 1. Syncopal episode ? Suspected to be secondary to orthostatic hypotension. Patient is on beta- blockers held as a result of above in addition to patient having experienced sinus pauses on telemetry monitoring. Patient was seen in consultation by cardiology and plan for patient to be discharged with a 30-day event monitor ? 11/23/2022; an order was written for patient to be discharged with a 30-day event monitor 2. End-stage renal disease ? On hemodialysis on Wednesdays and Fridays consult placed to patient's nephrology for dialysis orders 3. Coronary artery disease ? With previous history of CABG as well as subsequent stent placement 4. Elevated troponin ? Suspected to be secondary to demand ischemia following patient orthostasis monitoring 5. Dyslipidemia -Patient is on statin therapy, continued at home dose 6. Hypothyroidism - Patient is on levothyroxine home dose continued 7. Paroxysmal A-fib ? Patient not on systemic anticoagulation due to previous bleeding from the bladder. Patient is on beta-blockers held as a result of sinus pauses 8. Essential hypertension ? Patient patient is on beta-blockers held in view of his orthostasis and sinus pauses 9. Previous CVA ? No residual effect 10. Diabetes mellitus type 2 ? Currently managed with diet in addition to Accu-Cheks before meals and at bedtime with sliding scale coverage 11. Neurogenic bladder ? Patient has not suprapubic catheter 12. Physical deconditioning - Requested for PT OT eval and social service liaison to assist with discharge planning 13. DVT prophylaxis ? SC heparin Time spent in the patient's overall evaluation,decision-making process, review of diagnostic data, adjustment of management, discussion with other providers, nursing nursing and ancillary staff involved in patient's care documentation, 40, Minutes Medications at Discharge Home Medications cholecalciferol (vitamin D3) 1,250 mcg (50,000 unit) capsule 50,000 unit PO QWEEK vitamin 04/06/18 clopidogrel 75 mg tablet 75 mg PO DAILY blood thinner 04/06/18 fenofibrate nanocrystallized 160 mg tablet 160 mg PO DAILY k 04/06/18 levothyroxine 50 mcg tablet 50 mcg PO DAILY thyroid 04/06/18 calcium acetate(phosphat bind) 667 mg capsule 667 mg PO TID k 05/05/18 diphenhydramine 25 mg-acetaminophen 500 mg tablet (Tylenol PM Extra Strength) 2 tab PO QHS PRN Pain 05/05/18 aspirin 325 mg tablet 325 mg PO DAILY 02/04/21 atorvastatin 40 mg tablet 20 mg PO Q OTHER DAY cholesterol 07/21/21 Lactobacillus acidophilus 10 billion cell capsule (Probiotic) 10,000 mmu cells P O DAILY 11/19/22 Hospital Course Summary of Care Provided Minutes Spent on Discharge: 40 Physical Exam Narrative GENERAL: cooperative HEENT: Atraumatic; normocephalic EYES; Anicteric, Normal Conjunctiva NECK; supple, normal thyroid, RESPIRATORY: Diminished to auscultation CARDIOVASCULAR: Irregular S1-S2 GI: soft, normoactive bowel sounds, : No Renal angle tenderness; EXTREMITIES: No edema, no clubbing, MUSCULOSKELETAL: no muscle wasting NEURO: Awake; no lateralizing signs. SKIN: No Rash PSYCH; Flat affect Weight / BMI Weight Weight: 95.6 kg Body Mass Index (BMI) 28.5 ABG / Lab / Microbiology Data Result Diagrams: 11/23/22 05:55 11/23/22 05:55 Laboratory: Laboratory Results - last 24 hr 11/22/22 11:29: POC Glucose 257 H 11/22/22 17:57: POC Glucose 108 H 11/22/22 21:43: POC Glucose 221 H 11/23/22 05:55: WBC 14.8 H, RBC 3.97 L, Hgb 12.4 L, Hct 38.7 L, MCV 97.5 H, MCH 31.2, MCHC 32.0, RDW Std Deviation 55.5 H, RDW Coeff of Will 15.5 H, Plt Count 181, MPV 10.2, Immature Gran % (Auto) 1.100 H, Neut % (Auto) 78.5 H, Lymph % (Auto) 9.9 L, [place] % (Auto) 8.3, Eos % (Auto) 1.5, Baso % (Auto) 0.7, Absolute Neuts (auto) 11.6 H, Absolute Lymphs (auto) 1.46, Nucleated RBC % 0 11/23/22 05:55: Sodium 134 L, Potassium 4.3, Chloride 96 L, Carbon Dioxide 30.0, Anion Gap 8, BUN 24 H, Creatinine 4.05 H, Estim Creat Clear Calc 17.56, Est GFR (MDRD) Af Amer 19 L, Est GFR (MDRD) Non-Af 15 L, BUN/Creatinine Ratio 5.9 L, Glucose 156 H, Calcium 9.1, Phosphorus 2.8, Magnesium 2.0 11/23/22 06:23: POC Glucose 166 H Radiography Diagnostic Testing: Radiology Impression Carotid Duplex 11/19/22 19:28 Interpretation Summary Mild (<50%) stenosis right extracranial internal carotid. Mild (<50%) stenosis left extracranial internal carotid. Patent and antegrade vertebrals bilaterally. Ordering Physician: Jackie Butcher Referring Physician: Becky Romo D.O. Performed By: Blanca Lepe RVT D/C Instructions Discharge Diet: Renal Diet Discharge Activity: Return to Normal Activity Call your doctor if you observe: Fever of 101 or Higher, Shortness of breath, Fainting spells and Chest pain Meaningful Use Info Meaningful Use Diagnoses (Choose all that apply): None applicable Discharge Plan Admission Admit Date/Time: 11/19/22 18:11 Attending Provider: Mati Torres Primary Care Provider: Becky Romo Consulting Providers: Jackie Butcher ; Gael Velasco ; Joey Naranjo ; Sam James Discharge Orders/Prescriptions Prescriptions: Continued diphenhydramine-acetaminophen [Tylenol PM Extra Strength] 25-500 mg tablet 2 tab PO QHS PRN (Reason: Pain) clopidogrel 75 MG tablet 75 mg PO DAILY Rx Instructions: on hold from surgery until 07/04/18 levothyroxine 50 MCG tablet 50 mcg PO DAILY cholecalciferol (vitamin D3) 50,000 UNIT capsule 50,000 unit PO QWEEK fenofibrate nanocrystallized 160 MG tablet 160 mg PO DAILY calcium acetate(phosphat bind) 667 mg capsule 667 mg PO TID Label Comments: 667 mg PO with each meal Rx Instructions: 667 mg PO with each meal atorvastatin 40 mg tablet 20 mg PO Q OTHER DAY Probiotic 10 billion cell Capsule 10,000 mmu cells PO DAILY aspirin 325 mg tablet 325 mg PO DAILY Discontinued furosemide 40 MG tablet 40 mg PO DAILY metoprolol succinate 50 mg tablet extended release 24 hr 50 mg PO DAILY Rx Instructions: take once daily, take bid on non dialysis days. isosorbide mononitrate 30 mg tablet extended release 24 hr 30 mg PO BID Qty: 180 4RF Other Ambulatory Orders: 30 Day Event Recorder Preventi (Urgent) Timeframe: 1 Day Facility: [facility] - Location: Cardiovascular Services Ordered By: Dr. Mati Torres Referrals / Follow Up: Becky Romo DO [Primary Care Provider] - In 1 Week Disposition Disposition (needs filled in before D/C Order can be placed): [facility] Charges/Coding Visit Charges Inpatient E&M: 77765 Disch Hosp >30min
--- NOTE | 2022-11-23 11:06 | PHA.DC.MR ---
Pharmacy Service has performed discharge medication reconciliation for this patient. The patient's discharge medication list was reviewed for discrepancies and discrepancies were resolved. Home Medications cholecalciferol (vitamin D3) 1,250 mcg (50,000 unit) capsule 50,000 unit PO QWEEK vitamin 04/06/18 clopidogrel 75 mg tablet 75 mg PO DAILY blood thinner 04/06/18 fenofibrate nanocrystallized 160 mg tablet 160 mg PO DAILY k 04/06/18 levothyroxine 50 mcg tablet 50 mcg PO DAILY thyroid 04/06/18 calcium acetate(phosphat bind) 667 mg capsule 667 mg PO TID k 05/05/18 diphenhydramine 25 mg-acetaminophen 500 mg tablet (Tylenol PM Extra Strength) 2 tab PO QHS PRN Pain 05/05/18 aspirin 325 mg tablet 325 mg PO DAILY 02/04/21 atorvastatin 40 mg tablet 20 mg PO Q OTHER DAY cholesterol 07/21/21 Lactobacillus acidophilus 10 billion cell capsule (Probiotic) 10,000 mmu cells PO DAILY 11/19/22
[2022-11-23 11:51] LABS: Bedside Glucose 213 mg/dL (74-106)
--- NOTE | 2022-11-23 12:28 | CASEMGMT ---
Addendum entered by Alisia Charles 11/23/22 12:37: d/c to [place] under skilled level of care on a convalescent stay. Patient's transported patient via private vehicle. Alisia ARMSTRONG Original Note: SW sent discharge orders, med list, and COVID test to [place] via [facility]. SW spoke with patient and his . Patient's would like to transport patient. SW will notify [place]. Alisia ARMSTRONG
[2022-11-23 13:03] VITALS: BP 94/60; PULSE 92; RESP 17; TEMP 36.7; O2SAT 100
--- NOTE | 2022-11-23 13:20 | CASEMGMT ---
Updates sent to [facility] via [facility] Reminder. Alisia Charles SPEECH AND HEARING DIRECTOR DIRECTOR [facility]
--- NOTE | 2022-11-23 13:21 | NURSING ---
Report called to STEPHEN Hernandez at [facility] on Transitional care unit.
== END 2022-11-23 13:26 | DRG 312 ==
LOC: ED 12:36 → PCU 18:30
PROVIDERS: Physician Assistant; Admitting Provider Internal Medicine; Emergency Provider Emergency Medicine; PCP Internal Medicine; Visit Provider Internal Medicine
DX: I95.1 Orthostatic hypotension (principal); N18.6 End stage renal disease; I12.0 Hypertensive chronic kidney disease with stage 5 chronic kidney disease or end stage renal disease; I24.8 Other forms of acute ischemic heart disease; I48.11 Longstanding persistent atrial fibrillation; D63.8 Anemia in other chronic diseases classified elsewhere; E11.22 Type 2 diabetes mellitus with diabetic chronic kidney disease; Z99.2 Dependence on renal dialysis; I48.0 Paroxysmal atrial fibrillation; E03.9 Hypothyroidism, unspecified; E78.00 Pure hypercholesterolemia, unspecified; I25.10 Atherosclerotic heart disease of native coronary artery without angina pectoris; I25.2 Old myocardial infarction; I45.5 Other specified heart block; N31.9 Neuromuscular dysfunction of bladder, unspecified; Z20.822 Contact with and (suspected) exposure to COVID-19; Z79.82 Long term (current) use of aspirin; Z79.890 Hormone replacement therapy; Z79.899 Other long term (current) drug therapy; Z79.02 Long term (current) use of antithrombotics/antiplatelets; Z86.73 Personal history of transient ischemic attack (TIA), and cerebral infarction without residual deficits; Z95.5 Presence of coronary angioplasty implant and graft; Z95.1 Presence of aortocoronary bypass graft
CPT/HCPCS: 36415; 71045; 80048; 80053; 82533; 82962; 83735; 83880; 84100; 84443; 84484; 85025; 87426; 90937; 93005; 93306; 93880; 94668; 97110; 97116; 97162; 97802; 99285; 99406; J7030; A4216; G0257

== ENCOUNTER 2023-01-27 09:00 | Outpatient (RCR) | payer MEDICARE, OTHER, SELFPAY ==
[2023-01-25 09:21] VITALS: BP 91/60; PULSE 86; RESP 18; TEMP 35.9; BMI 28.5
--- NOTE | 2023-01-25 16:12 | PCM.WC.HP ---
History of Present Illness Date of Service: 01/25/23 Chief Complaint: Multiple ulcerations of the lower extremities bilaterally History of Wound: This is a 72-year-old diabetic male who presents with multiple ulcerations in his lower extremities. Patient has no history of smoking. He suffers from multiple pre-existing medical problems, which are listed below. Patient has dry eschars in both lower extremities which have been present for approximately 2 to 3 months. According to the patient, they occurred spontaneously. There has been no history of trauma. He has recently been seen by Dr. Kandis Larose, tap builder. Dr. Bowles has referred to the wound center for definitive management. The patient lives at home with his . He sleeps in a recliner. He experiences chronic swelling and edema in both lower extremities. He is of relatively normal body weight, with a BMI of 28.5. He does not ambulate liberally, due to unsteadiness and balance disturbance. He uses a walker or a wheelchair for mobility. The patient requires hemodialysis, which she undergoes on Mondays, Wednesdays, and Fridays. He has a hemodialysis access fistula in the left upper arm, which was created by Dr. Milton Tirado, vascular surgeon. The patient has undergone recent laboratory testing, on December 22, 2022, with results as follows: White blood count 6.9, hemoglobin 12.8, hematocrit 40.0, platelets 174,000, potassium 4.1, sodium 132, chloride 94, CO2 31.0, BUN 44, creatinine 5.50, glucose 150, calcium 9.5. [facility] Medical History Atherosclerosis of coronary artery bypass graft without angina pectoris Atherosclerotic heart disease of [place] coronary artery without angina pectoris Balance disorder Bilateral carotid artery stenosis Bilateral leg edema CAD (coronary artery disease) Chronic kidney disease, stage IV (severe) CVA (cerebral vascular accident) ESRD (end stage renal disease) Essential hypertension History of cerebrovascular accident History of WA (myocardial infarction) Hyperlipidemia Hypothyroidism Hypothyroidism Localized swelling of both lower legs Longstanding persistent atrial fibrillation NSTEMI (non-ST elevated myocardial infarction) Obesity Pure hypercholesterolemia Thyroid nodule Type 2 diabetes mellitus with diabetic nephropathy Ulcers of both lower legs UTI (urinary tract infection) due to urinary indwelling catheter Home Medications clopidogrel 75 mg tablet 75 mg PO DAILY blood thinner 04/06/18 [History Last Taken Unknown] fenofibrate nanocrystallized 160 mg tablet 160 mg PO DAILY k 04/06/18 [History Last Taken Unknown] levothyroxine 50 mcg tablet 75 mcg PO DAILY thyroid 04/06/18 [History Last Taken Unknown] calcium acetate(phosphat bind) 667 mg capsule 667 mg PO TID k 05/05/18 [History Last Taken Unknown] aspirin 325 mg tablet 325 mg PO DAILY 02/04/21 [History Last Taken Unknown] atorvastatin 40 mg tablet 20 mg PO Q OTHER DAY cholesterol 07/21/21 [History Last Taken Unknown] Lactobacillus rhamnosus GG 15 billion cell sprinkle capsule (Culturelle) 1 cap PO DAILY 01/25/23 [History Last Taken Unknown] acetaminophen 500 mg tablet 1,000 mg PO TID 01/25/23 [History Last Taken Unknown] loperamide 2 mg tablet 2 mg PO DAILY PRN Diarrhea 01/25/23 [History Last Taken Unknown] melatonin 3 mg tablet 6 mg PO QHS 01/25/23 [History Last Taken Unknown] midodrine 10 mg tablet 10 mg PO DAILY 01/25/23 [History Last Taken Unknown] Allergy/AdvReac Type Severity Reaction Status Date / Time ibuprofen Allergy swellin Verified 01/25/23 10:13 and itching povidone-iodine Allergy Itching Verified 01/25/23 10:13 [From Betadine] vancomycin Allergy rash/ Verified 01/25/23 10:13 throat swelling adhesive tape AdvReac Rash Verified 01/25/23 10:13 Family History Father CAD (coronary artery disease) CAD, Coronary Stents Mother CAD (coronary artery disease) CAD, CABG Diabetes Surgical History H/O coronary artery bypass surgery (06/11/96) history Laparoscopic Peritoneal Dialysis Catheter (~12/29/17) History of appendectomy History of heart artery stent (~03/2002) History of left heart catheterization (12/25/19) History of nasal septoplasty History of sternectomy (~07/10/96) Hx of arteriovenostomy for renal dialysis Presence of coronary angioplasty implant and graft (~03/2002) Social History Smoking Status: Never smoker alcohol intake: never substance use type: does not use caffeine: Yes (3 cups daily) Vital Signs Vital Signs Vital Signs: 01/25/23 09:21 Temperature 96.7 F L Temperature Source Temporal Pulse Rate 86 Respiratory Rate 18 Blood Pressure 91/60 Blood Pressure Mean 70 Blood Pressure Source Monitor Blood Pressure Position Sitting Blood Pressure Location Right Arm Oxygen Delivery Method Room Air Weight Weight: 210 lb Body Mass Index (BMI) 28.5 Physical Exam Const alert, oriented x3, no apparent distress, average body habitus and well nourished General Appearance: cooperative, comfortable and well developed Orientation / Consciousness: awake, oriented to person, oriented to place and oriented to time HEENT normocephalic and head/scalp atraumatic Head and Scalp: normal to inspection, normocephalic and atraumatic External Ear: external ears normal Eyes PERRL and EOMs intact bilaterally General Eye: normal appearance of both eyes Resp normal respiratory effort, normal air movement, no retractions and no use of accessory muscles Effort and Inspection: able to speak in complete sentences Extremity no calf tenderness General Extremity: Negative for clubbing or cyanosis Skin Wound Narrative: Multiple dry eschars are noted in the lower extremities bilaterally. A relatively large, dry eschar is noted on the right posterior calf. 1 such eschar is noted on the right lateral foot. There is 1 located on the right medial heel and the right third toe dorsally. A dry eschar is noted on the left medial heel, the metatarsophalangeal joint of the left great toe, and on the dorsum of the left foot. The dimensions of each eschar are documented elsewhere. All are dry. There is no sign of infection or cellulitis. There is no odor. Lower extremity pulses are not palpable. Neuro oriented x3, CN's II-XII intact bilaterally, moves all extremities and no focal motor deficits Sensorium / Orientation: awake, alert, oriented to person, oriented to place and oriented to time Psych Appearance: grossly normal and appropriate Attitude: calm Activity / Motor Behavior: appropriate eye contact Speech: normal speech Mood & Affect: euthymic mood Thought Process: normal thought process Thought Content: normal thought content Attention / Concentration: attention grossly intact Debridement Note Debridement Note Wound debrided: Right posterior calf Laterality: Right Type of Debridement: Excisional debridement Anesthesia Used: 5% Lidocaine Gel Depth: Down to and including healthy tissue and in the subcutaneous layer Percentage of wound debrided: 100 Instrument Used: 5mm curette Tissue Removed: Nonviable tissue and eschar Severity: Fat Layer Exposed Amount of bleeding with debridement: Mild Bleeding Controlled with: Compression and gauze Patient tolerated procedure: Patient tolerated procedure well Post-Debridement Measurements and Additional Note: Post-Debridement Measurements/Treatment ANA - Nurse 1 - General Ulcer Assessment Start: 01/25/23 09:14 Freq: Status: Active Protocol: ÓSCAR Activity Type Activity Date Activity User E-sign Co-sign Detail Recorded Client Recorded Date Recorded By Document 01/25/23 09:21 MW [id number] 01/25/23 09:53 MW 01/25/23 09:21 - Today's Visit Information Type of service Initial Visit Arrival Mode Wheelchair Transfer Assistance Manual Accompanied by Patient Identification Verified (Name & Yes ) Patient Requires Transmission-Based Yes Precautions Safety Precautions Fall Prevention Height and Weight Height 6 ft Weight 210 lb Weight in Pounds 210.0 lbs Body Mass Index (BMI) 28.5 BMI Classification Overweight BSA - John 2.18 Vital Signs Temperature (97.8 F-99.1 F) 96.7 F L Temperature Source Temporal Pulse Rate (60-100) 86 Pulse Location Monitor Respiratory Rate (12-18) 18 Respiratory rate source Observation Oxygen Delivery Method Room Air Blood Pressure (90/60-120/80) 91/60 Blood Pressure Mean 70 Source Monitor Position Sitting Blood Pressure Location Right Arm History Since Last Visit- (Skip if this is Patient's initial visit) Left Footwear Regular Shoe Right Footwear Regular Shoe Pain Scale: 0-10 Numeric Is Patient Pain Free? Yes Lower Extremity Assessment/ Foot Assessment/ Toe Nail Assessment Right -Posterior Tibial Palpable No -Posterior Tibial Doppler Inaudible -Dorsalis Pedis Palpable No -Dorsalis Pedis Doppler Inaudible -Extremity Color Dusky -Hair Growth on Legs No -Hair Growth on Toes No -Temperature of Extremity Warm -Capillary Refill Less than 3 Seconds -Dependent Rubor No -Blanched when Elevated No -Lipodermatosclerosis No -Other Deformity No -Prior Foot Ulcer No -Charcot Joint No -Prior Amputation No -Thick No -Discolored No -Deformed No -Improper Length & Hygeine No Left -Posterior Tibial Palpable No -Posterior Tibial Doppler Inaudible -Dorsalis Pedis Palpable No -Dorsalis Pedis Doppler Inaudible -Extremity Color Dusky -Hair Growth on Legs No -Hair Growth on Toes No -Temperature of Extremity Warm -Capillary Refill Less than 3 Seconds -Dependent Rubor No -Blanched when Elevated No -Lipodermatosclerosis No -Other Deformity No -Prior Foot Ulcer No -Charcot Joint No -Prior Amputation No -Thick No -Discolored No -Deformed No -Improper Length & Hygeine No Neuropathy Assessment Feet - Top Side and Bottom <Entered> (a) Communication Assessment Preferred language Ukrainian Information Technology Advisor Required No Able to Read Yes Able to Write Yes Communication Tools None Caregiver Communication Skills No Impairment Impairment Right Hearing Abillity Normal Left Hearing Abillity Normal Visual Assistive Devices Glasses Teaching Assessment Preferences Verbal,Written, Audio/Visual, Demonstration Barriers to Learning None Readiness To Learn Excellent Willingness to Engage in Self Management High Activies Readiness to Engage in Self Management High Activities Anxiety Level Calm Cooperation Cooperative Perception Coherent Interest in Health Problem Asks Questions Does Patient Smoke tobacco or other Yes substances Smoking Status Never smoker Is Patient Diabetic No Functional Assessment Recent Decline in Ability to Perform Ambulation, Bathing Assistive Device With Patient Yes List Device(s) with Patient wheelchair Culture/Advent/Benefits Manager Cultural/Advent Needs that may affect No Treatment Plan Would you allow our hospital clinical physician assistant to No meet you for the purpose of spiritual/ emotional support? Benefits Manager to contact place of taoism No (a) 1 - + WC - Nurse 1 - General Ulcer Measurement Start: 01/25/23 09:14 Freq: Status: Active Protocol: Activity Type Activity Date Activity User E-sign Co-sign Detail Recorded Client Recorded Date Recorded By Document 01/25/23 09:21 [id number] 01/25/23 09:53 MW 01/25/23 09:21 Wound Center Nurse 1 #8 Left dorsal foot -Combined with other wound No -Current Size (cm) - Length 1.0 -Current Size (cm) - Width 1.5 -Current Size (cm) - Depth 0.1 -Total Square Cm 1.50 -Date of Last Picture (Recall this 01/25/23 field) -Photo Taken Yes -Epithelialization None Present -Tunneling No -Undermining/Tunneling No -Circular Undermining No -Exudate Amt None Present -Wound Margin Flat & Intact -Granulation Amt None Present (0 %) -Granulation Quality N/A -Slough/Fibrin Yes -Necrosis Amt Large (67-100%) -Necrotic Tissue Type Adherent Slough -Structure Exposed N/A -Texture (Mary Grace-wound Skin Appearance) Assessed, Localized Edema -Moisture (Mary Grace-wound Skin Appearance) Assessed,Dry/ Scaly -Color (Mary Grace-wound Skin Appearance) No Abnormality, Assessed -Temperature (Mary Grace-wound Skin No Abnormality Appearance) (Pt Warm) -Tenderness on Palpation (Mary Grace-wound No Skin Appearance) -Ulcer Cleansing Rinsed/ Irrigated with Saline -Foul Odor after Cleansing No -Anesthetic Used 4% Lidocaine Solution #7 left lateral plantar -Combined with other wound No -Current Size (cm) - Length 1.0 -Current Size (cm) - Width 1.0 -Current Size (cm) - Depth 0.1 -Total Square Cm 1.00 -Date of Last Picture (Recall this 01/25/23 field) -Photo Taken Yes -Epithelialization None Present -Tunneling No -Undermining/Tunneling No -Circular Undermining No -Exudate Amt None Present -Wound Margin Flat & Intact -Granulation Amt None Present (0 %) -Granulation Quality N/A -Slough/Fibrin Yes -Necrosis Amt Large (67-100%) -Necrotic Tissue Type Adherent Slough -Structure Exposed N/A -Texture (Mary Grace-wound Skin Appearance) Assessed, Localized Edema -Moisture (Mary Grace-wound Skin Appearance) Assessed,Dry/ Scaly -Color (Mary Grace-wound Skin Appearance) No Abnormality, Assessed -Temperature (Mary Grace-wound Skin No Abnormality Appearance) (Pt Warm) -Tenderness on Palpation (Mary Grace-wound No Skin Appearance) -Ulcer Cleansing Rinsed/ Irrigated with Saline -Foul Odor after Cleansing No -Anesthetic Used 4% Lidocaine Solution #6 left plantar -Combined with other wound No -Current Size (cm) - Length 0.5 -Current Size (cm) - Width 0.5 -Current Size (cm) - Depth 0.1 -Total Square Cm 0.25 -Date of Last Picture (Recall this 01/25/23 field) -Photo Taken Yes -Epithelialization None Present -Tunneling No -Undermining/Tunneling No -Circular Undermining No -Exudate Amt None Present -Wound Margin Flat & Intact -Granulation Amt None Present (0 %) -Granulation Quality N/A -Slough/Fibrin Yes -Necrosis Amt Large (67-100%) -Necrotic Tissue Type Adherent Slough -Structure Exposed N/A -Texture (Mary Grace-wound Skin Appearance) Assessed, Localized Edema -Moisture (Mary Grace-wound Skin Appearance) Assessed,Dry/ Scaly -Color (Mary Grace-wound Skin Appearance) No Abnormality, Assessed -Temperature (Mary Grace-wound Skin No Abnormality Appearance) (Pt Warm) -Tenderness on Palpation (Mary Grace-wound No Skin Appearance) -Ulcer Cleansing Rinsed/ Irrigated with Saline -Foul Odor after Cleansing No -Anesthetic Used 4% Lidocaine Solution #5 left heel -Combined with other wound No -Current Size (cm) - Length 0.3 -Current Size (cm) - Width 0.3 -Current Size (cm) - Depth 0.1 -Total Square Cm 0.09 -Date of Last Picture (Recall this 01/25/23 field) -Photo Taken Yes -Epithelialization None Present -Tunneling No -Undermining/Tunneling No -Circular Undermining No -Exudate Amt None Present -Wound Margin Flat & Intact -Granulation Amt None Present (0 %) -Granulation Quality N/A -Slough/Fibrin Yes -Necrosis Amt Large (67-100%) -Structure Exposed N/A -Texture (Mary Grace-wound Skin Appearance) Assessed, Scarring -Moisture (Mary Grace-wound Skin Appearance) Assessed,Dry/ Scaly -Color (Mary Grace-wound Skin Appearance) No Abnormality, Assessed -Temperature (Mary Grace-wound Skin No Abnormality Appearance) (Pt Warm) -Tenderness on Palpation (Mary Grace-wound No Skin Appearance) -Ulcer Cleansing Rinsed/ Irrigated with Saline -Foul Odor after Cleansing No -Anesthetic Used 4% Lidocaine Solution #4 right 3rd toe -Combined with other wound No -Current Size (cm) - Length 0.5 -Current Size (cm) - Width 0.5 -Current Size (cm) - Depth 0.1 -Total Square Cm 0.25 -Date of Last Picture (Recall this 01/25/23 field) -Photo Taken Yes -Epithelialization Small 1-33% -Tunneling No -Undermining/Tunneling No -Circular Undermining No -Exudate Amt None Present -Wound Margin Flat & Intact -Granulation Amt None Present (0 %) -Granulation Quality N/A -Slough/Fibrin Yes -Necrosis Amt Large (67-100%) -Necrotic Tissue Type Adherent Slough -Structure Exposed N/A -Texture (Mary Grace-wound Skin Appearance) Assessed, Localized Edema -Moisture (Mary Grace-wound Skin Appearance) Assessed,Dry/ Scaly -Color (Mary Grace-wound Skin Appearance) No Abnormality, Assessed -Temperature (Mary Grace-wound Skin No Abnormality Appearance) (Pt Warm) -Tenderness on Palpation (Mary Grace-wound No Skin Appearance) -Ulcer Cleansing Rinsed/ Irrigated with Saline -Foul Odor after Cleansing No -Anesthetic Used 4% Lidocaine Solution #3 right lateral heel -Combined with other wound No -Current Size (cm) - Length 1.0 -Current Size (cm) - Width 1.4 -Current Size (cm) - Depth 0.1 -Total Square Cm 1.40 -Date of Last Picture (Recall this 01/25/23 field) -Photo Taken Yes -Epithelialization None Present -Tunneling No -Undermining/Tunneling No -Circular Undermining No -Exudate Amt None Present -Wound Margin Flat & Intact -Granulation Amt None Present (0 %) -Granulation Quality N/A -Necrosis Amt Large (67-100%) -Necrotic Tissue Type Adherent Slough -Structure Exposed N/A -Texture (Mary Grace-wound Skin Appearance) Assessed, Scarring -Moisture (Mary Grace-wound Skin Appearance) Assessed,Dry/ Scaly -Color (Mary Grace-wound Skin Appearance) Assessed -Temperature (Mary Grace-wound Skin No Abnormality Appearance) (Pt Warm) -Tenderness on Palpation (Mary Grace-wound No Skin Appearance) -Ulcer Cleansing Rinsed/ Irrigated with Saline -Foul Odor after Cleansing No -Anesthetic Used 4% Lidocaine Solution #2 right lateral foot -Combined with other wound No -Current Size (cm) - Length 2.5 -Current Size (cm) - Width 4.0 -Current Size (cm) - Depth 0.1 -Total Square Cm 10.00 -Date of Last Picture (Recall this 01/25/23 field) -Photo Taken Yes -Epithelialization None Present -Tunneling No -Undermining/Tunneling No -Circular Undermining No -Exudate Amt None Present -Wound Margin Flat & Intact -Granulation Amt None Present (0 %) -Granulation Quality N/A -Slough/Fibrin Yes -Necrosis Amt Large (67-100%) -Necrotic Tissue Type Adherent Slough -Structure Exposed N/A -Texture (Mary Grace-wound Skin Appearance) Assessed, Localized Edema -Moisture (Mary Grace-wound Skin Appearance) Assessed,Dry/ Scaly -Color (Mary Grace-wound Skin Appearance) No Abnormality, Assessed -Temperature (Mary Grace-wound Skin No Abnormality Appearance) (Pt Warm) -Tenderness on Palpation (Mary Grace-wound No Skin Appearance) -Ulcer Cleansing Rinsed/ Irrigated with Saline -Foul Odor after Cleansing No -Anesthetic Used 4% Lidocaine Solution #1 right calf -Combined with other wound No -Current Size (cm) - Length 2.3 -Current Size (cm) - Width 2.5 -Current Size (cm) - Depth 0.1 -Total Square Cm 5.75 -Date of Last Picture (Recall this 01/25/23 field) -Photo Taken Yes -Epithelialization None Present -Tunneling No -Undermining/Tunneling No -Circular Undermining No -Exudate Amt None Present -Wound Margin Flat & Intact -Granulation Amt None Present (0 %) -Granulation Quality N/A -Slough/Fibrin Yes -Necrosis Amt Large (67-100%) -Necrotic Tissue Type Adherent Slough -Structure Exposed N/A -Texture (Mary Grace-wound Skin Appearance) Assessed, Localized Edema -Moisture (Mary Grace-wound Skin Appearance) No Abnormality, Assessed -Color (Mary Grace-wound Skin Appearance) Assessed,Rubor -Temperature (Mary Grace-wound Skin No Abnormality Appearance) (Pt Warm) -Tenderness on Palpation (Mary Grace-wound Yes Skin Appearance) -Ulcer Cleansing Rinsed/ Irrigated with Saline -Foul Odor after Cleansing No -Anesthetic Used 4% Lidocaine Solution Lower Limb Edema Present Yes Right Calf (cm) 33.5 Right Ankle (cm) 23.5 Left Calf (cm) 32.0 Left Ankle (cm) 22.5 WC - Nurse 3 - General Ulcer D/C NN Start: 01/25/23 09:14 Freq: Status: Active Protocol: Activity Type Activity Date Activity User E-sign Co-sign Detail Recorded Client Recorded Date Recorded By Document 01/25/23 11:02 MW [id number] 01/25/23 11:04 MW 01/25/23 11:02 Wound Care Center Nurse 3 Treatment Response Procedure Tolerated Well Pain Scale: 0-10 Numeric Is Patient Pain Free? Yes Teaching: Wound Center Skin Care -Person Taught Patient,Family -Teaching Method Discussion -Response to teaching Verbalize understanding Offload: Mattress, Cushion, Reposition -Person Taught Patient,Family -Teaching Method Discussion -Response to teaching Verbalize understanding WC - Visit Discharge Discharge Condition Stable Ambulatory Status Wheelchair Transportation Private Auto Accompanied by Medication Reconcilliation completed & No provided to patient/care provider Clinical Summary of Care Provided Yes Notes: All areas left open to air. Patient and instructed to keep areas clean and dry. Voiced understanding. Assessment/Plan Assessment/Plan (1) Ulcers of both lower legs: CODE(S): L97.919 - Non-pressure chronic ulcer of unspecified part of right lower leg with unspecified severity; L97.929 - Non-pressure chronic ulcer of unspecified part of left lower leg with unspecified severity (2) Bilateral leg edema: CODE(S): R60.0 - Localized edema (3) Localized swelling of both lower legs: CODE(S): R22.43 - Localized swelling, mass and lump, lower limb, bilateral (4) ESRD (end stage renal disease): CODE(S): N18.6 - End stage renal disease (5) Chronic kidney disease, stage IV (severe): CODE(S): N18.4 - Chronic kidney disease, stage 4 (severe) (6) Longstanding persistent atrial fibrillation: CODE(S): I48.11 - Longstanding persistent atrial fibrillation (7) Hyperlipidemia: CODE(S): E78.5 - Hyperlipidemia, unspecified (8) Atherosclerotic heart disease of [place] coronary artery without angina pectoris: CODE(S): I25.10 - Atherosclerotic heart disease of [place] coronary artery without angina pectoris (9) H/O coronary artery bypass surgery: CODE(S): Z95.1 - Presence of aortocoronary bypass graft (10) Essential hypertension: CODE(S): I10 - Essential (primary) hypertension (11) History of [place] (myocardial infarction): CODE(S): I25.2 - Old myocardial infarction (12) History of heart artery stent: CODE(S): Z95.5 - Presence of coronary angioplasty implant and graft (13) Type 2 diabetes mellitus with diabetic nephropathy: CODE(S): E11.21 - Type 2 diabetes mellitus with diabetic nephropathy QUALIFIERS: Diabetes mellitus long term care phlebotomist insulin use: with assisted use Qualified Code(s): E11.21 - Type 2 diabetes mellitus with diabetic nephropathy; Z79.4 - tank terminal gauger (current) use of insulin (14) Bilateral carotid artery stenosis: CODE(S): I65.23 - Occlusion and stenosis of bilateral carotid arteries (15) History of cerebrovascular accident: CODE(S): Z86.73 - Personal history of transient ischemic attack (TIA), and cerebral infarction without residual deficits (16) Hypothyroidism: CODE(S): E03.9 - Hypothyroidism, unspecified (17) Hx of arteriovenostomy for renal dialysis: CODE(S): Z99.2 - Dependence on renal dialysis (18) Balance disorder: CODE(S): R26.89 - Other abnormalities of gait and mobility PLAN: Plan This is a 72-year-old male with multiple pre-existing medical problems, including end-stage renal disease, for which he undergoes hemodialysis. His other existing medical problems are listed herein. Patient presents with multiple dry, escharous ulcerations in the lower extremities bilaterally. Because of the dry nature of the ulcerations, and the apparent lack of infection or cellulitis, the ulcerations are to be left undisturbed, either open to air or covered with dry gauze. He is to seek medical attention should signs of infection occur. Offloading has been recommended for the ulcerations on the right posterior calf and on his heels, and at the sites of bony prominences. Leg elevation has been advised to help minimize the swelling and edema in his lower extremities. He is to avoid prolonged idle sitting. Activity has been encouraged, though enhancement of his activity to a significant degree is unlikely. Nutritional optimization has been recommended. Glycemic control and optimization has also been advised. A noninvasive lower extremity arterial study will be obtained, to assess the arterial/circulatory status of the patient's lower extremities. 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 In this regard, a multidisciplinary approach may be required. Total time: 60 minutes
--- NOTE | 2023-01-27 09:11 | ART_ITS ---
Reason For Study: PVD Procedure A bilateral lower extremity continuous wave Doppler with analog waveform analysis,segmental pressures,and ankle brachial indexes without exercise. Left Segmental Pressures Left posterior tibial artery = >254mmHg. Left dorsalis pedis artery = >254mmHg. Left digit = 93 mmHg. The left posterior tibial artery waveforms are triphasic. The left dorsalis pedis waveforms are triphasic. Right Segmental Pressures Right brachial= 110mmHg. Right thigh = 160mmHg. Right calf = >254mmHg. Right posterior tibial artery = >254mmHg. Right dorsalis pedis artery = 65mmHg. Right digit = 79 mmHg. The right posterior tibial artery waveforms are biphasic. The right dorsalis pedis waveforms are biphasic. Indices The right ankle brachial index by the posterior tibial artery is N/C. The right ankle brachial index by the dorsalis pedis is 0.59. The right digital-brachial index is 0.72. The left ankle brachial index by the posterior tibial artery is N/C. The left ankle brachial index by the dorsalis pedis is N/C. The left digital-brachial index is 0.85. VL/Lower Ext Art Exam w/o Exercis Interpretation Summary Biphasic Doppler waveforms are noted at ankle level on the right. Triphasic Dop pler waveforms are noted at ankle level on the left. Pulse-volume recordings appear diminished at digital level bilaterally. The resting right ankle-brachial index is moderately diminished. T he resting left ankle-brachial index could not be determined due to the non-compressibility of the vasculature. Digital-brachial indices are normal bilaterally. There is evidence of arterial calcification at ankle level bilaterally, with a moderately diminished resting ankle-brachial index on the right. Arterial flow appears relatively nor mal at digital level bilaterally. Ordering Physician: Clay Valderrama Referring Physician: Clay Valderrama MD Performed By: Blas Cerrato RVT
== END 2023-02-02 23:59 | disposition home or self-care (01) ==
LOC: WC 09:00
PROVIDERS: PCP Internal Medicine; Referring Provider Surgery; Visit Provider Surgery
DX: E11.622 Type 2 diabetes mellitus with other skin ulcer (principal); E11.621 Type 2 diabetes mellitus with foot ulcer; L97.212 Non-pressure chronic ulcer of right calf with fat layer exposed; L97.922 Non-pressure chronic ulcer of unspecified part of left lower leg with fat layer exposed; L97.419 Non-pressure chronic ulcer of right heel and midfoot with unspecified severity; L97.429 Non-pressure chronic ulcer of left heel and midfoot with unspecified severity; L97.519 Non-pressure chronic ulcer of other part of right foot with unspecified severity; L97.529 Non-pressure chronic ulcer of other part of left foot with unspecified severity; Z99.2 Dependence on renal dialysis; E11.22 Type 2 diabetes mellitus with diabetic chronic kidney disease; N18.6 End stage renal disease; I12.0 Hypertensive chronic kidney disease with stage 5 chronic kidney disease or end stage renal disease; I48.11 Longstanding persistent atrial fibrillation; Z79.4 Long term (current) use of insulin; E78.00 Pure hypercholesterolemia, unspecified; R26.89 Other abnormalities of gait and mobility; E03.9 Hypothyroidism, unspecified; R60.0 Localized edema; I25.10 Atherosclerotic heart disease of native coronary artery without angina pectoris; Z79.82 Long term (current) use of aspirin; Z79.02 Long term (current) use of antithrombotics/antiplatelets; Z79.890 Hormone replacement therapy; Z79.899 Other long term (current) drug therapy; I25.2 Old myocardial infarction; Z86.73 Personal history of transient ischemic attack (TIA), and cerebral infarction without residual deficits; Z95.1 Presence of aortocoronary bypass graft; Z95.5 Presence of coronary angioplasty implant and graft
CPT/HCPCS: 11042; 93923; 99213; G0463

== ENCOUNTER → 2023-02-18 | Outpatient (CLI) | payer MEDICARE, OTHER, SELFPAY | END | disposition home or self-care (01) | LOC: RAD 11:44 | PROVIDERS: PCP Internal Medicine; Referring Provider Internal Medicine; Visit Provider Internal Medicine | DX: Z00.00 Encounter for general adult medical examination without abnormal findings (principal) ==

== ENCOUNTER 2023-02-22 10:45 | Outpatient (RCR) | payer MEDICARE, OTHER, SELFPAY ==
[2023-02-05 00:10] VITALS: BP 91/60; PULSE 86; RESP 18; TEMP 35.9; BMI 28.5
[2023-02-08 10:33] VITALS: BP 98/49; PULSE 89; RESP 20; TEMP 36.6; BMI 28.5
--- NOTE | 2023-02-08 13:49 | HP.PCM_ITS ---
History of Present Illness Date of Service: 02/08/23 Chief Complaint: Multiple ulcerations of the lower extremities bilaterally History of Wound: This is a 72-year-old diabetic male who presented with multiple ulcerations in his lower extremities. The patient has no history of smoking. He suffers from multiple pre-existing medical problems, which are listed below. The patient has dry, escharous ulcerations in both lower extremities which have been present for approximately 2 to 3 months. According to the patient, they occurred spontaneously. There has been no history of trauma. He has recently been seen by Dr. Kandis Larose, multimedia coordinator. Dr. Bowles has referred to the wound center for definitive management. The patient lives at home with his . He sleeps in a recliner. He experiences chronic swelling and edema in both lower extremities. He is of relatively normal body weight, with a BMI of 28.5. He does not ambulate liberally, due to unsteadiness and balance disturbance. He uses a walker or a wheelchair for mobility. The patient requires hemodialysis, which he undergoes on Mondays, Wednesdays, and Fridays. He has a hemodialysis access fistula in the left upper arm, which was created by Dr. Milton Tirado, vascular surgeon. The patient has undergone recent laboratory testing, on December 22, 2022, with results as follows: White blood count 6.9, hemoglobin 12.8, hematocrit 40.0, platelets 174,000, potassium 4.1, sodium 132, chloride 94, CO2 31.0, BUN 44, creatinine 5.50, glucose 150, calcium 9.5. [facility] Medical History (Updated 02/08/23 @ 13:[address] Clay Valderrama MD) Atherosclerosis of coronary artery bypass graft without angina pectoris Atherosclerotic heart disease of [place] coronary artery without angina pectoris Balance disorder Bilateral carotid artery stenosis Bilateral leg edema CAD (coronary artery disease) Calciphylaxis Chronic kidney disease, stage IV (severe) CVA (cerebral vascular accident) ESRD (end stage renal disease) Essential hypertension History of cerebrovascular accident History of PA (myocardial infarction) Hyperlipidemia Hypothyroidism Hypothyroidism Localized swelling of both lower legs Longstanding persistent atrial fibrillation NSTEMI (non-ST elevated myocardial infarction) Obesity Pure hypercholesterolemia Thyroid nodule Type 2 diabetes mellitus with diabetic nephropathy Ulcers of both lower legs UTI (urinary tract infection) due to urinary indwelling catheter Home Medications clopidogrel 75 mg tablet 75 mg PO DAILY blood thinner 04/06/18 [History Last Taken Unknown] fenofibrate nanocrystallized 160 mg tablet 160 mg PO DAILY k 04/06/18 [History Last Taken Unknown] levothyroxine 50 mcg tablet 75 mcg PO DAILY thyroid 04/06/18 [History Last Taken Unknown] calcium acetate(phosphat bind) 667 mg capsule 667 mg PO TID k 05/05/18 [History Last Taken Unknown] aspirin 325 mg tablet 325 mg PO DAILY 02/04/21 [History Last Taken Unknown] atorvastatin 40 mg tablet 20 mg PO Q OTHER DAY cholesterol 07/21/21 [History Last Taken Unknown] Lactobacillus rhamnosus GG 15 billion cell sprinkle capsule (Culturelle) 1 cap PO DAILY 01/25/23 [History Last Taken Unknown] acetaminophen 500 mg tablet 1,000 mg PO TID 01/25/23 [History Last Taken Unknown] loperamide 2 mg tablet 2 mg PO DAILY PRN Diarrhea 01/25/23 [History Last Taken Unknown] melatonin 3 mg tablet 6 mg PO QHS 01/25/23 [History Last Taken Unknown] midodrine 10 mg tablet 10 mg PO DAILY 01/25/23 [History Last Taken Unknown] Allergy/AdvReac Type Severity Reaction Status Date / Time ibuprofen Allergy swellin Verified 01/25/23 10:13 and itching povidone-iodine Allergy Itching Verified 01/25/23 10:13 [From Betadine] vancomycin Allergy rash/ Verified 01/25/23 10:13 throat swelling adhesive tape AdvReac Rash Verified 01/25/23 10:13 Family History Father CAD (coronary artery disease) CAD, Coronary Stents Mother CAD (coronary artery disease) CAD, CABG Diabetes Surgical History H/O coronary artery bypass surgery (06/11/96) history Laparoscopic Peritoneal Dialysis Catheter (~12/29/17) History of appendectomy History of heart artery stent (~03/2002) History of left heart catheterization (12/25/19) History of nasal septoplasty History of sternectomy (~07/10/96) Hx of arteriovenostomy for renal dialysis Presence of coronary angioplasty implant and graft (~03/2002) Social History Smoking Status: Never smoker alcohol intake: never substance use type: does not use caffeine: Yes (3 cups daily) Vital Signs Vital Signs Vital Signs: 02/08/23 10:33 Temperature 97.8 F Temperature Source Temporal Pulse Rate 89 Respiratory Rate 20 H Blood Pressure 98/49 L Blood Pressure Mean 65 Blood Pressure Source Monitor Weight Weight: 210 lb Body Mass Index (BMI) 28.5 Physical Exam Const alert, oriented x3, no apparent distress, average body habitus and well nourished Constitutional Narrative: A large, functional hemodialysis fistula/graft is noted in the patient's left upper arm. General Appearance: cooperative, comfortable, well kempt and well developed Orientation / Consciousness: awake, oriented to person, oriented to place and o riented to time HEENT normocephalic and head/scalp atraumatic Head and Scalp: normal to inspection, normocephalic and atraumatic External Ear: external ears normal Eyes PERRL and EOMs intact bilaterally General Eye: normal appearance of both eyes Resp normal respiratory effort, normal air movement, no retractions and no use of accessory muscles Effort and Inspection: able to speak in complete sentences Extremity no calf tenderness General Extremity: Negative for clubbing or cyanosis Skin Wound Narrative: Multiple dry eschars are noted in the lower extremities bilaterally. A relatively large, dry eschar is noted on the right posterior calf. One such eschar is noted on the right lateral foot. There is one located on the right medial heel and the right third toe dorsally. Eschar is noted on the left lateral foot, the ball of the left foot, and the dorsum of the left foot. The dimensions of each eschar are documented elsewhere. All are dry and without drainage. There is no fluctuance. There is no sign of infection or cellulitis. There is no odor. Neuro oriented x3, CN's II-XII intact bilaterally, moves all extremities and no focal motor deficits Sensorium / Orientation: awake, alert, oriented to person, oriented to place and oriented to time Psych Appearance: grossly normal and appropriate Attitude: calm Activity / Motor Behavior: appropriate eye contact Speech: normal speech Mood & Affect: euthymic mood Thought Process: normal thought process Thought Content: normal thought content Attention / Concentration: attention grossly intact Debridement Note Debridement Note Wound debrided: Right posterior calf Tissue Removed: Nonviable tissue and eschar No debridement was completed: No debridement was completed today Post-Debridement Measurements and Additional Note: Post-Debridement Measurements/Treatment - Nurse 1 - General Ulcer Assessment Start: 02/08/23 10:33 Freq: Status: Active Protocol: ÓSCAR Activity Type Activity Date Activity User E-sign Co-sign Detail Recorded Client Recorded Date Recorded By Document 02/08/23 10:33 DL [id number] 02/08/23 10:46 DL 02/08/23 10:33 - Today's Visit Information Type of service Follow-up Visit (Physician/CITY LIBRARY DIRECTOR ) Arrival Mode Ambulatory, Wheelchair Transfer Assistance None Patient Identification Verified (Name & Yes ) Patient Requires Transmission-Based No Precautions Height and Weight Body Mass Index (BMI) 28.5 BMI Classification Overweight Vital Signs Temperature (97.8 F-99.1 F) 97.8 F Temperature Source Temporal Pulse Rate (60-100) 89 Pulse Location Monitor Respiratory Rate (12-18) 20 H Respiratory rate source Observation Blood Pressure (90/60-120/80) 98/49 L Blood Pressure Mean 65 Source Monitor History Since Last Visit- (Skip if this is Patient's initial visit) Have you changed medications since your No last visit? Any new allergies or adverse reactions No Had a fall/change in ADL's that may No increase risk of falls Signs or symptoms of abuse and/or No neglect since last visit Have you been in the hospital since your No last visit? Has dressing in place as prescribed Yes Has compression in place as prescribed N/A Has offloadiing in place as prescribed N/A Experienced any changes in pain level or No management Pain Scale: 0-10 Numeric Is Patient Pain Free? Yes - Nurse 1 - General Ulcer Measurement Start: 02/08/23 10:33 Freq: Status: Active Protocol: Activity Type Activity Date Activity User E-sign Co-sign Detail Recorded Client Recorded Date Recorded By Document 02/08/23 10:33 DL [id number] 02/08/23 10:46 DL 02/08/23 10:33 Wound Center Nurse 1 #5 left heel -Current Size (cm) - Length 0 -Current Size (cm) - Width 0 -Current Size (cm) - Depth 0 -Total Square Cm 0 -Photo Taken Yes -Exudate Amt None Present -Wound Margin Flat & Intact -Granulation Amt Large (67-100%) -Granulation Quality Pale,[place] -Necrosis Amt None Present (0 %) -Structure Exposed N/A -Texture (Mary Grace-wound Skin Appearance) Scarring -Moisture (Mary Grace-wound Skin Appearance) Dry/Scaly -Color (Mary Grace-wound Skin Appearance) No Abnormality -Temperature (Mary Grace-wound Skin No Abnormality Appearance) (Pt Warm) -Tenderness on Palpation (Mary Grace-wound No Skin Appearance) -Foul Odor after Cleansing No #8 Left dorsal foot -Current Size (cm) - Length 0.1 -Current Size (cm) - Width 0.1 -Current Size (cm) - Depth 0.1 -Total Square Cm 0.01 -Exudate Amt None Present -Wound Margin Thickened -Granulation Amt None Present (0 %) -Necrosis Amt Large (67-100%) -Necrotic Tissue Type Eschar -Structure Exposed N/A -Texture (Mary Grace-wound Skin Appearance) Scarring -Moisture (Mary Grace-wound Skin Appearance) No Abnormality -Color (Mary Grace-wound Skin Appearance) Hemosiderin Staining -Temperature (Mary Grace-wound Skin No Abnormality Appearance) (Pt Warm) -Ulcer Cleansing Not Cleansed -Foul Odor after Cleansing No #7 left lateral plantar -Current Size (cm) - Length 0.1 -Current Size (cm) - Width 0.1 -Current Size (cm) - Depth 0.1 -Total Square Cm 0.01 -Exudate Amt None Present -Wound Margin Thickened -Granulation Amt None Present (0 %) -Necrosis Amt Large (67-100%) -Necrotic Tissue Type Eschar -Structure Exposed N/A -Texture (Mary Grace-wound Skin Appearance) Scarring -Moisture (Mary Grace-wound Skin Appearance) No Abnormality -Color (Mary Grace-wound Skin Appearance) No Abnormality, Hemosiderin Staining -Temperature (Mary Grace-wound Skin No Abnormality Appearance) (Pt Warm) -Tenderness on Palpation (Mary Grace-wound No Skin Appearance) -Foul Odor after Cleansing No #6 left plantar -Current Size (cm) - Length 0.1 -Current Size (cm) - Width 0.1 -Current Size (cm) - Depth 0.1 -Total Square Cm 0.01 -Exudate Amt None Present -Wound Margin Thickened -Granulation Amt None Present (0 %) -Necrosis Amt Small (1-33%) -Necrotic Tissue Type Adherent Slough -Structure Exposed N/A -Texture (Mary Grace-wound Skin Appearance) Scarring -Moisture (Mary Grace-wound Skin Appearance) No Abnormality -Color (Mary Grace-wound Skin Appearance) No Abnormality -Temperature (Mary Grace-wound Skin No Abnormality Appearance) (Pt Warm) -Tenderness on Palpation (Mary Grace-wound No Skin Appearance) -Ulcer Cleansing Not Cleansed #4 right 3rd toe -Current Size (cm) - Length 0.1 -Current Size (cm) - Width 0.1 -Current Size (cm) - Depth 0.1 -Total Square Cm 0.01 -Exudate Amt None Present -Wound Margin Thickened -Granulation Amt None Present (0 %) -Necrosis Amt Small (1-33%) -Necrotic Tissue Type Eschar -Structure Exposed N/A -Texture (Mary Grace-wound Skin Appearance) Scarring -Moisture (Mary Grace-wound Skin Appearance) No Abnormality -Color (Mary Grace-wound Skin Appearance) Hemosiderin Staining -Temperature (Mary Grace-wound Skin No Abnormality Appearance) (Pt Warm) -Tenderness on Palpation (Mary Grace-wound No Skin Appearance) -Foul Odor after Cleansing No #3 right lateral heel -Current Size (cm) - Length 0.1 -Current Size (cm) - Width 0.1 -Current Size (cm) - Depth 0.1 -Total Square Cm 0.01 -Exudate Amt None Present -Wound Margin Thickened -Granulation Amt None Present (0 %) -Necrosis Amt Large (67-100%) -Necrotic Tissue Type Eschar -Structure Exposed N/A -Texture (Mary Grace-wound Skin Appearance) Scarring -Moisture (Mary Grace-wound Skin Appearance) No Abnormality -Color (Mary Grace-wound Skin Appearance) No Abnormality -Temperature (Mary Grace-wound Skin No Abnormality Appearance) (Pt Warm) -Tenderness on Palpation (Mary Grace-wound No Skin Appearance) -Foul Odor after Cleansing No #2 right lateral foot -Current Size (cm) - Length 0.1 -Current Size (cm) - Width 0.1 -Current Size (cm) - Depth 0.1 -Total Square Cm 0.01 -Exudate Amt None Present -Wound Margin Thickened -Granulation Amt None Present (0 %) -Necrosis Amt Large (67-100%) -Necrotic Tissue Type Eschar -Structure Exposed N/A -Texture (Mary Grace-wound Skin Appearance) Scarring -Moisture (Mary Grace-wound Skin Appearance) Dry/Scaly -Color (Mary Grace-wound Skin Appearance) Hemosiderin Staining -Temperature (Mary Grace-wound Skin No Abnormality Appearance) (Pt Warm) -Tenderness on Palpation (Mary Grace-wound No Skin Appearance) -Foul Odor after Cleansing No #1 right calf -Current Size (cm) - Length 0.1 -Current Size (cm) - Width 0.1 -Current Size (cm) - Depth 0.1 -Total Square Cm 0.01 -Exudate Amt None Present -Wound Margin Thickened -Granulation Amt None Present (0 %) -Necrosis Amt Large (67-100%) -Necrotic Tissue Type Eschar -Structure Exposed N/A -Texture (Mary Grace-wound Skin Appearance) Scarring -Moisture (Mary Grace-wound Skin Appearance) No Abnormality -Color (Mary Grace-wound Skin Appearance) Hemosiderin Staining -Temperature (Mary Grace-wound Skin No Abnormality Appearance) (Pt Warm) -Tenderness on Palpation (Mary Grace-wound No Skin Appearance) -Foul Odor after Cleansing No Right Calf (cm) 32.8 Right Ankle (cm) 24.5 Left Calf (cm) 31 Left Ankle (cm) 22.5 WC - Nurse 3 - General Ulcer D/C NN Start: 02/08/23 10:33 Freq: Status: Active Protocol: Activity Type Activity Date Activity User E-sign Co-sign Detail Recorded Client Recorded Date Recorded By Document 02/08/23 11:38 DL [id number] 02/08/23 11:41 DL 02/08/23 11:38 Wound Care Center Nurse 3 #5 left heel -Ulcer Cleansing Not Cleansed #8 Left dorsal foot -Ulcer Cleansing Not Cleansed #7 left lateral plantar -Ulcer Cleansing Not Cleansed #6 left plantar -Ulcer Cleansing Not Cleansed #4 right 3rd toe -Ulcer Cleansing Not Cleansed #3 right lateral heel -Foul Odor after Cleansing No #2 right lateral foot -Ulcer Cleansing Not Cleansed #1 right calf -Ulcer Cleansing Not Cleansed Treatment Response Procedure Tolerated Well Pain Scale: 0-10 Numeric Is Patient Pain Free? Yes WC - Visit Discharge Discharge Condition Stable Ambulatory Status Ambulatory, Wheelchair Transportation Private Auto Notes: No dressing to all wounds. Keep clean and dry only. Assessment/Plan Assessment/Plan (1) Calciphylaxis: CODE(S): E83.59 - Other disorders of calcium metabolism (2) Ulcers of both lower legs: CODE(S): L97.919 - Non-pressure chronic ulcer of unspecified part of right lower leg with unspecified severity; L97.929 - Non-pressure chronic ulcer of unspecified part of left lower leg with unspecified severity (3) Bilateral leg edema: CODE(S): R60.0 - Localized edema (4) Localized swelling of both lower legs: CODE(S): R22.43 - Localized swelling, mass and lump, lower limb, bilateral (5) ESRD (end stage renal disease): CODE(S): N18.6 - End stage renal disease (6) Chronic kidney disease, stage IV (severe): CODE(S): N18.4 - Chronic kidney disease, stage 4 (severe) (7) Longstanding persistent atrial fibrillation: CODE(S): I48.11 - Longstanding persistent atrial fibrillation (8) Hyperlipidemia: CODE(S): E78.5 - Hyperlipidemia, unspecified (9) Atherosclerotic heart disease of [place] coronary artery without angina pectoris: CODE(S): I25.10 - Atherosclerotic heart disease of [place] coronary artery without angina pectoris (10) H/O coronary artery bypass surgery: CODE(S): Z95.1 - Presence of aortocoronary bypass graft (11) Essential hypertension: CODE(S): I10 - Essential (primary) hypertension (12) History of PA (myocardial infarction): CODE(S): I25.2 - Old myocardial infarction (13) History of heart artery stent: CODE(S): Z95.5 - Presence of coronary angioplasty implant and graft (14) Type 2 diabetes mellitus with diabetic nephropathy: CODE(S): E11.21 - Type 2 diabetes mellitus with diabetic nephropathy QUALIFIERS: Diabetes mellitus longterm insulin use: with ocean transportation intermediary use Qualified Code(s): E11.21 - Type 2 diabetes mellitus with diabetic nephropathy; Z79.4 - terminal carman (current) use of insulin (15) Bilateral carotid artery stenosis: CODE(S): I65.23 - Occlusion and stenosis of bilateral carotid arteries (16) History of cerebrovascular accident: CODE(S): Z86.73 - Personal history of transient ischemic attack (TIA), and cerebral infarction without residual deficits (17) Hypothyroidism: CODE(S): E03.9 - Hypothyroidism, unspecified (18) Hx of arteriovenostomy for renal dialysis: CODE(S): Z99.2 - Dependence on renal dialysis (19) Balance disorder: CODE(S): R26.89 - Other abnormalities of gait and mobility PLAN: Plan This is a 72-year-old diabetic male with multiple pre-existing medical problems, including end-stage renal disease, for which he undergoes hemodialysis. His other existing medical problems are listed herein. The patient presented with multiple dry, escharous ulcerations in the lower extremities bilaterally. Because of the dry nature of the ulcerations, and the apparent lack of infection or cellulitis, the ulcerations are to be left undisturbed, either open to air or covered with dry gauze. He is to seek medical attention should signs of infection occur. Offloading has been recommended for the ulcerations on the right posterior calf and on his heels, and at the sites of bony prominences. Leg elevation has been advised to help minimize the swelling and edema in his lower extremities. He is to avoid prolonged idle sitting. Activity has been encouraged, though enhancement of his activity to a significant degree is unlikely. Nutritional optimization has been recommended. Glycemic control and optimization has also been advised. A noninvasive lower extremity arterial study has been obtained, which appears to show relatively normal arterial perfusion at digital level bilaterally. Given the patient's history of end- stage renal disease, and his presentation with multiple ulcerations of the skin, calciphylaxis is suspected as a likely etiology of the patient's ulcerations. In this regard, a multidisciplinary approach will be helpful. We will solicit the input of the patient's senior ui designer, Dr. Sandie Naranjo, to assist in optimization of the patient from a medical standpoint. At this juncture, the appearance of the ulcerations does not warrant more aggressive care, though serial monitoring for the presence of infection will be ongoing. Calciphylaxis is rare, but can be devastating and difficult to manage in end-stage renal disease. It is characterized by skin lesion and is associated with substantial morbidity and mortality. We will consider biopsy in the future if necessary. Will defer laboratory work-up to Dr. Naranjo, as laboratory studies are obtained at frequent intervals and monitoring the patient's renal and metabolic status. The patient is to return in 2 weeks. He is to contact our facility should any significant change occur to suggest impending infection at the site of any of the ulcerations. Total time: 29 minutes
[2023-02-22 10:58] VITALS: BP 79/49; PULSE 54; RESP 18; TEMP 36.2; BMI 28.5
--- NOTE | 2023-02-22 11:37 | WC ---
just monitoring. No dressings ordered
--- NOTE | 2023-02-22 12:04 | HP.PCM_ITS ---
History of Present Illness Date of Service: 02/22/23 Chief Complaint: Multiple ulcerations of the lower extremities bilaterally History of Wound: This is a 72-year-old diabetic male who presented with multiple ulcerations in his lower extremities. The patient has no history of smoking. He suffers from multiple pre-existing medical problems, which are listed below. The patient has dry, escharous ulcerations in both lower extremities which have been present for approximately 2 to 3 months. According to the patient, they occurred spontaneously. There has been no history of trauma. He has recently been seen by Dr. Kandis Larose, countersinker balance screw hole. Dr. Bowles has referred to the wound center for definitive management. The patient lives at home with his . He sleeps in a recliner. He experiences chronic swelling and edema in both lower extremities. He is of relatively normal body weight, with a BMI of 28.5. He does not ambulate liberally, due to unsteadiness and balance disturbance. He uses a walker or a wheelchair for mobility. The patient requires hemodialysis, which he undergoes on Mondays, Wednesdays, and Fridays. He has a hemodialysis access fistula in the left upper arm, which was created by Dr. Milton Tirado, vascular surgeon. The patient has undergone recent laboratory testing, on December 22, 2022, with results as follows: White blood count 6.9, hemoglobin 12.8, hematocrit 40.0, platelets 174,000, potassium 4.1, sodium 132, chloride 94, CO2 31.0, BUN 44, creatinine 5.50, glucose 150, calcium 9.5. FORMERLY [facility], [facility] Medical History Atherosclerosis of coronary artery bypass graft without angina pectoris Atherosclerotic heart disease of [place] coronary artery without angina pectoris Balance disorder Bilateral carotid artery stenosis Bilateral leg edema CAD (coronary artery disease) Calciphylaxis Chronic kidney disease, stage IV (severe) CVA (cerebral vascular accident) ESRD (end stage renal disease) Essential hypertension History of cerebrovascular accident History of DE (myocardial infarction) Hyperlipidemia Hypothyroidism Hypothyroidism Localized swelling of both lower legs Longstanding persistent atrial fibrillation NSTEMI (non-ST elevated myocardial infarction) Obesity Pure hypercholesterolemia Thyroid nodule Type 2 diabetes mellitus with diabetic nephropathy Ulcers of both lower legs UTI (urinary tract infection) due to urinary indwelling catheter Home Medications clopidogrel 75 mg tablet 75 mg PO DAILY blood thinner 04/06/18 [History Last Taken Unknown] fenofibrate nanocrystallized 160 mg tablet 160 mg PO DAILY k 04/06/18 [History Last Taken Unknown] levothyroxine 50 mcg tablet 75 mcg PO DAILY thyroid 04/06/18 [History Last Taken Unknown] calcium acetate(phosphat bind) 667 mg capsule 667 mg PO TID k 05/05/18 [History Last Taken Unknown] aspirin 325 mg tablet 325 mg PO DAILY 02/04/21 [History Last Taken Unknown] atorvastatin 40 mg tablet 20 mg PO Q OTHER DAY cholesterol 07/21/21 [History Last Taken Unknown] Lactobacillus rhamnosus GG 15 billion cell sprinkle capsule (Culturelle) 1 cap PO DAILY 01/25/23 [History Last Taken Unknown] acetaminophen 500 mg tablet 1,000 mg PO TID 01/25/23 [History Last Taken Unknown] loperamide 2 mg tablet 2 mg PO DAILY PRN Diarrhea 01/25/23 [History Last Taken Unknown] melatonin 3 mg tablet 6 mg PO QHS 01/25/23 [History Last Taken Unknown] midodrine 10 mg tablet 10 mg PO DAILY 01/25/23 [History Last Taken Unknown] Allergy/AdvReac Type Severity Reaction Status Date / Time ibuprofen Allergy swellin Verified 01/25/23 10:13 and itching povidone-iodine Allergy Itching Verified 01/25/23 10:13 [From Betadine] vancomycin Allergy rash/ Verified 01/25/23 10:13 throat swelling adhesive tape AdvReac Rash Verified 01/25/23 10:13 Family History Father CAD (coronary artery disease) CAD, Coronary Stents Mother CAD (coronary artery disease) CAD, CABG Diabetes Surgical History H/O coronary artery bypass surgery (06/11/96) history Laparoscopic Peritoneal Dialysis Catheter (~12/29/17) History of appendectomy History of heart artery stent (~03/2002) History of left heart catheterization (12/25/19) History of nasal septoplasty History of sternectomy (~07/10/96) Hx of arteriovenostomy for renal dialysis Presence of coronary angioplasty implant and graft (~03/2002) Social History Smoking Status: Never smoker alcohol intake: never substance use type: does not use caffeine: Yes (3 cups daily) Vital Signs Vital Signs Vital Signs: 02/22/23 10:58 Temperature 97.1 F L Temperature Source Temporal Pulse Rate 54 L Respiratory Rate 18 Blood Pressure 79/49 L Blood Pressure Mean 59 Blood Pressure Source Monitor Oxygen Flow Rate (L/min) 2 Weight Weight: 210 lb Body Mass Index (BMI) 28.5 Physical Exam Const alert, oriented x3, no apparent distress, average body habitus and well nourished Constitutional Narrative: A large, functional hemodialysis fistula/graft is noted in the patient's left upper arm. General Appearance: cooperative, comfortable, well kempt and well developed Orientation / Consciousness: awake, oriented to person, oriented to place and oriented to time HEENT normocephalic and head/scalp atraumatic Head and Scalp: normal to inspection, normocephalic and atraumatic External Ear: external ears normal Eyes PERRL and EOMs intact bilaterally General Eye: normal appearance of both eyes Resp normal respiratory effort, normal air movement, no retractions and no use of accessory muscles Effort and Inspection: able to speak in complete sentences Extremity no calf tenderness General Extremity: Negative for clubbing or cyanosis Skin Wound Narrative: Multiple dry eschars are noted in the lower extremities bilaterally. A relatively large, dry eschar is noted on the right posterior calf. One such eschar is noted on the right lateral foot. There is one located on the right medial heel and the right third toe dorsally. Eschar is noted on the left lateral foot, the ball of the left foot, and the dorsum of the left foot. The dimensions of each eschar are documented elsewhere. All are dry and without drainage. There is no fluctuance. There is no sign of infection or cellulitis. There is no odor. Neuro oriented x3, CN's II-XII intact bilaterally, moves all extremities and no focal motor deficits Sensorium / Orientation: awake, alert, oriented to person, oriented to place and oriented to time Psych Appearance: grossly normal and appropriate Attitude: calm Activity / Motor Behavior: appropriate eye contact Speech: normal speech Mood & Affect: euthymic mood Thought Process: normal thought process Thought Content: normal thought content Attention / Concentration: attention grossly intact Debridement Note Debridement Note No debridement was completed: No debridement was completed today Post-Debridement Measurements and Additional Note: Post-Debridement Measurements/Treatment - Nurse 1 - General Ulcer Assessment Start: 02/08/23 10:33 Freq: Status: Active Protocol: ÓSCAR Activity Type Activity Date Activity User E-sign Co-sign Detail Recorded Client Recorded Date Recorded By Document 02/08/23 10:33 DL [id number] 02/08/23 10:46 DL Document 02/22/23 10:58 DL [id number] 02/22/23 11:08 DL Edit Result 02/22/23 10:58 DL (1) [id number] 02/22/23 11:12 DL (1) Blood Pressure (90/60-120/80) 76/47 L => 79/49 L Blood Pressure Mean 56 => 59 02/08/23 02/22/23 10:33 10:58 - Today's Visit Information Type of service Follow-up Visit Follow-up Visit (Physician/[facility]CTOR OF [facility] (Physician/DOCTOR OF [facility] ) ) Arrival Mode Ambulatory, Wheelchair Wheelchair Transfer Assistance None Manual Transfer Assist (Other) x1 Patient Identification Verified (Name & Yes Yes ) Patient Requires Transmission-Based No No Precautions Height and Weight Body Mass Index (BMI) 28.5 28.5 BMI Classification Overweight Overweight Vital Signs Temperature (97.8 F-99.1 F) 97.8 F 97.1 F L Temperature Source Temporal Temporal Pulse Rate (60-100) 89 54 L Pulse Location Monitor Monitor Respiratory Rate (12-18) 20 H 18 Respiratory rate source Observation Observation O2 L/MIN 2 Blood Pressure (90/60-120/80) 98/49 L 79/49 L Blood Pressure Mean 65 59 Source Monitor Monitor History Since Last Visit- (Skip if this is Patient's initial visit) Have you changed medications since your No No last visit? Any new allergies or adverse reactions No No Had a fall/change in ADL's that may No No increase risk of falls Signs or symptoms of abuse and/or No No neglect since last visit Have you been in the hospital since your No No last visit? Has dressing in place as prescribed Yes Yes Has compression in place as prescribed N/A Yes Has offloadiing in place as prescribed N/A N/A Experienced any changes in pain level or No Yes management Pain Scale: 0-10 Numeric Is Patient Pain Free? Yes Yes WC - Nurse 1 - General Ulcer Measurement Start: 02/08/23 10:33 Freq: Status: Active Protocol: Activity Type Activity Date Activity User E-sign Co-sign Detail Recorded Client Recorded Date Recorded By Document 02/08/23 10:33 DL [id number] 02/08/23 10:46 DL Document 02/22/23 10:58 DL [id number] 02/22/23 11:08 DL 02/08/23 02/22/23 10:33 10:58 Wound Center Nurse 1 #5 left heel -Current Size (cm) - Length 0 -Current Size (cm) - Width 0 -Current Size (cm) - Depth 0 -Total Square Cm 0 -Photo Taken Yes -Exudate Amt None Present -Wound Margin Flat & Intact -Granulation Amt Large (67-100%) -Granulation Quality Pale,Callaghan -Necrosis Amt None Present (0 %) -Structure Exposed N/A -Texture (Mary Grace-wound Skin Appearance) Scarring -Moisture (Mary Grace-wound Skin Appearance) Dry/Scaly -Color (Mary Grace-wound Skin Appearance) No Abnormality -Temperature (Mary Grace-wound Skin No Abnormality Appearance) (Pt Warm) -Tenderness on Palpation (Mary Grace-wound No Skin Appearance) -Foul Odor after Cleansing No #8 Left dorsal foot -Current Size (cm) - Length 0.1 1 -Current Size (cm) - Width 0.1 1.1 -Current Size (cm) - Depth 0.1 0.1 -Total Square Cm 0.01 1.1 -Photo Taken No -Exudate Amt None Present None Present -Wound Margin Thickened Thickened -Granulation Amt None Present (0 None Present (0 %) %) -Necrosis Amt Large (67-100%) Large (67-100%) -Necrotic Tissue Type Eschar Eschar -Structure Exposed N/A N/A -Texture (Mary Grace-wound Skin Appearance) Scarring Scarring -Moisture (Mary Grace-wound Skin Appearance) No Abnormality Dry/Scaly -Color (Mary Grace-wound Skin Appearance) Hemosiderin Hemosiderin Staining Staining -Temperature (Mary Grace-wound Skin No Abnormality No Abnormality Appearance) (Pt Warm) (Pt Warm) -Tenderness on Palpation (Mary Grace-wound No Skin Appearance) -Ulcer Cleansing Not Cleansed Rinsed/ Irrigated with Saline -Foul Odor after Cleansing No No -Anesthetic Used 5% Lidocaine Gel #7 left lateral plantar -Current Size (cm) - Length 0.1 1.3 -Current Size (cm) - Width 0.1 1.1 -Current Size (cm) - Depth 0.1 0.1 -Total Square Cm 0.01 1.43 -Exudate Amt None Present None Present -Wound Margin Thickened Thickened -Granulation Amt None Present (0 None Present (0 %) %) -Necrosis Amt Large (67-100%) Large (67-100%) -Necrotic Tissue Type Eschar Eschar -Structure Exposed N/A N/A -Texture (Mary Grace-wound Skin Appearance) Scarring Scarring -Moisture (Mary Grace-wound Skin Appearance) No Abnormality Dry/Scaly -Color (Mary Grace-wound Skin Appearance) No Abnormality, Hemosiderin Hemosiderin Staining Staining -Temperature (Mary Grace-wound Skin No Abnormality No Abnormality Appearance) (Pt Warm) (Pt Warm) -Tenderness on Palpation (Mary Grace-wound No No Skin Appearance) -Ulcer Cleansing Rinsed/ Irrigated with Saline -Foul Odor after Cleansing No No -Anesthetic Used 5% Lidocaine Gel #6 left plantar -Current Size (cm) - Length 0.1 0.5 -Current Size (cm) - Width 0.1 0.6 -Current Size (cm) - Depth 0.1 0.1 -Total Square Cm 0.01 0.30 -Exudate Amt None Present None Present -Wound Margin Thickened Thickened -Granulation Amt None Present (0 None Present (0 %) %) -Necrosis Amt Small (1-33%) Large (67-100%) -Necrotic Tissue Type Adherent Slough Eschar -Structure Exposed N/A N/A -Texture (Mary Grace-wound Skin Appearance) Scarring Scarring -Moisture (Mary Grace-wound Skin Appearance) No Abnormality Dry/Scaly -Color (Mary Grace-wound Skin Appearance) No Abnormality Hemosiderin Staining -Temperature (Mary Grace-wound Skin No Abnormality No Abnormality Appearance) (Pt Warm) (Pt Warm) -Tenderness on Palpation (Mary Grace-wound No No Skin Appearance) -Ulcer Cleansing Not Cleansed Rinsed/ Irrigated with Saline -Foul Odor after Cleansing No -Anesthetic Used 5% Lidocaine Gel #4 right 3rd toe -Current Size (cm) - Length 0.1 0.3 -Current Size (cm) - Width 0.1 0.3 -Current Size (cm) - Depth 0.1 0.1 -Total Square Cm 0.01 0.09 -Exudate Amt None Present None Present -Wound Margin Thickened Thickened -Granulation Amt None Present (0 None Present (0 %) %) -Necrosis Amt Small (1-33%) Small (1-33%) -Necrotic Tissue Type Eschar Eschar -Structure Exposed N/A N/A -Texture (Mary Grace-wound Skin Appearance) Scarring Scarring -Moisture (Mary Grace-wound Skin Appearance) No Abnormality Dry/Scaly -Color (Mary Grace-wound Skin Appearance) Hemosiderin Hemosiderin Staining Staining -Temperature (Mary Grace-wound Skin No Abnormality Appearance) (Pt Warm) -Tenderness on Palpation (Mary Grace-wound No Skin Appearance) -Ulcer Cleansing Rinsed/ Irrigated with Saline -Foul Odor after Cleansing No No -Anesthetic Used 5% Lidocaine Gel #3 right lateral heel -Current Size (cm) - Length 0.1 1 -Current Size (cm) - Width 0.1 1.4 -Current Size (cm) - Depth 0.1 0.1 -Total Square Cm 0.01 1.4 -Exudate Amt None Present None Present -Wound Margin Thickened Thickened -Granulation Amt None Present (0 None Present (0 %) %) -Necrosis Amt Large (67-100%) Large (67-100%) -Necrotic Tissue Type Eschar Eschar -Structure Exposed N/A N/A -Texture (Mary Grace-wound Skin Appearance) Scarring Scarring -Moisture (Mary Grace-wound Skin Appearance) No Abnormality Dry/Scaly -Color (Mary Grace-wound Skin Appearance) No Abnormality Hemosiderin Staining -Temperature (Mary Grace-wound Skin No Abnormality Appearance) (Pt Warm) -Tenderness on Palpation (Mary Grace-wound No No Skin Appearance) -Ulcer Cleansing Rinsed/ Irrigated with Saline -Foul Odor after Cleansing No No -Anesthetic Used 5% Lidocaine Gel #2 right lateral foot -Current Size (cm) - Length 0.1 4 -Current Size (cm) - Width 0.1 3 -Current Size (cm) - Depth 0.1 0.1 -Total Square Cm 0.01 12 -Exudate Amt None Present None Present -Wound Margin Thickened Thickened -Granulation Amt None Present (0 None Present (0 %) %) -Necrosis Amt Large (67-100%) Large (67-100%) -Necrotic Tissue Type Eschar Eschar -Structure Exposed N/A N/A -Texture (Mary Grace-wound Skin Appearance) Scarring Scarring -Moisture (Mary Grace-wound Skin Appearance) Dry/Scaly Dry/Scaly -Color (Mary Grace-wound Skin Appearance) Hemosiderin Hemosiderin Staining Staining -Temperature (Mary Grace-wound Skin No Abnormality No Abnormality Appearance) (Pt Warm) (Pt Warm) -Tenderness on Palpation (Mary Grace-wound No Skin Appearance) -Ulcer Cleansing Rinsed/ Irrigated with Saline -Foul Odor after Cleansing No No -Anesthetic Used 5% Lidocaine Gel #1 right calf -Current Size (cm) - Length 0.1 1.7 -Current Size (cm) - Width 0.1 3 -Current Size (cm) - Depth 0.1 0.1 -Total Square Cm 0.01 5.1 -Exudate Amt None Present None Present -Wound Margin Thickened Thickened -Granulation Amt None Present (0 None Present (0 %) %) -Necrosis Amt Large (67-100%) Large (67-100%) -Necrotic Tissue Type Eschar Eschar -Structure Exposed N/A N/A -Texture (Mary Grace-wound Skin Appearance) Scarring Scarring -Moisture (Mary Grace-wound Skin Appearance) No Abnormality Dry/Scaly -Color (Mary Grace-wound Skin Appearance) Hemosiderin Hemosiderin Staining Staining -Temperature (Mary Grace-wound Skin No Abnormality No Abnormality Appearance) (Pt Warm) (Pt Warm) -Tenderness on Palpation (Mary Grace-wound No Skin Appearance) -Ulcer Cleansing Rinsed/ Irrigated with Saline -Foul Odor after Cleansing No No -Anesthetic Used 5% Lidocaine Gel Right Calf (cm) 32.8 Right Ankle (cm) 24.5 Left Calf (cm) 31 Left Ankle (cm) 22.5 WC - Nurse 3 - General Ulcer D/C NN Start: 02/08/23 10:33 Freq: Status: Active Protocol: Activity Type Activity Date Activity User E-sign Co-sign Detail Recorded Client Recorded Date Recorded By Document 02/08/23 11:38 DL [id number] 02/08/23 11:41 DL Document 02/22/23 11:37 AK [id number] 02/22/23 11:39 AK 02/08/23 02/22/23 11:38 11:37 Wound Care Center Nurse 3 #5 left heel -Ulcer Cleansing Not Cleansed #8 Left dorsal foot -Ulcer Cleansing Not Cleansed #7 left lateral plantar -Ulcer Cleansing Not Cleansed #6 left plantar -Ulcer Cleansing Not Cleansed #4 right 3rd toe -Ulcer Cleansing Not Cleansed #3 right lateral heel -Foul Odor after Cleansing No #2 right lateral foot -Ulcer Cleansing Not Cleansed #1 right calf -Ulcer Cleansing Not Cleansed Treatment Response Procedure Tolerated Well Pain Scale: 0-10 Numeric Is Patient Pain Free? Yes Yes WC - Visit Discharge Discharge Condition Stable Stable Ambulatory Status Ambulatory, Wheelchair Transportation Private Auto Notes: No dressing to all wounds. Keep clean and dry only. 02/22/23 11:37 Wound Center by Alfred Coleman. No dressings ordered Initialized on 02/22/23 11:37 - END OF NOTE Assessment/Plan Assessment/Plan (1) Calciphylaxis: CODE(S): E83.59 - Other disorders of calcium metabolism (2) Ulcers of both lower legs: CODE(S): L97.919 - Non-pressure chronic ulcer of unspecified part of right lower leg with unspecified severity; L97.929 - Non-pressure chronic ulcer of unspecified part of left lower leg with unspecified severity (3) Bilateral leg edema: CODE(S): R60.0 - Localized edema (4) Localized swelling of both lower legs: CODE(S): R22.43 - Localized swelling, mass and lump, lower limb, bilateral (5) ESRD (end stage renal disease): CODE(S): N18.6 - End stage renal disease (6) Chronic kidney disease, stage IV (severe): CODE(S): N18.4 - Chronic kidney disease, stage 4 (severe) (7) Longstanding persistent atrial fibrillation: CODE(S): I48.11 - Longstanding persistent atrial fibrillation (8) Hyperlipidemia: CODE(S): E78.5 - Hyperlipidemia, unspecified (9) Atherosclerotic heart disease of [place] coronary artery without angina pectoris: CODE(S): I25.10 - Atherosclerotic heart disease of [place] coronary artery without angina pectoris (10) H/O coronary artery bypass surgery: CODE(S): Z95.1 - Presence of aortocoronary bypass graft (11) Essential hypertension: CODE(S): I10 - Essential (primary) hypertension (12) History of DE (myocardial infarction): CODE(S): I25.2 - Old myocardial infarction (13) History of heart artery stent: CODE(S): Z95.5 - Presence of coronary angioplasty implant and graft (14) Type 2 diabetes mellitus with diabetic nephropathy: CODE(S): E11.21 - Type 2 diabetes mellitus with diabetic nephropathy QUALIFIERS: Diabetes mellitus manager intermediate insulin use: with manager intermediate use Qualified Code(s): E11.21 - Type 2 diabetes mellitus with diabetic nephropathy; Z79.4 - half-way (current) use of insulin (15) Bilateral carotid artery stenosis: CODE(S): I65.23 - Occlusion and stenosis of bilateral carotid arteries (16) History of cerebrovascular accident: CODE(S): Z86.73 - Personal history of transient ischemic attack (TIA), and cerebral infarction without residual deficits (17) Hypothyroidism: CODE(S): E03.9 - Hypothyroidism, unspecified (18) Hx of arteriovenostomy for renal dialysis: CODE(S): Z99.2 - Dependence on renal dialysis (19) Balance disorder: CODE(S): R26.89 - Other abnormalities of gait and mobility PLAN: Plan This is a 72-year-old diabetic male with multiple pre-existing medical problems, including end-stage renal disease, for which he undergoes hemodialysis. His other existing medical problems are listed herein. The patient presented with multiple dry, escharous ulcerations in the lower extremities bilaterally. Because of the dry nature of the ulcerations, and the apparent lack of infection or cellulitis, the ulcerations are to be left undisturbed, either open to air or covered with dry gauze. It is anticipated that the dry eschar at each site may slough spontaneously, as some have done so already. He is to seek medical attention should signs of infection occur. Offloading has been recommended for the ulcerations on the right posterior calf and on his heels, and at the sites of bony prominences. Leg elevation has been advised to help minimize the swelling and edema in his lower extremities. He is to avoid prolonged idle sitting. Activity has been encouraged, though enhancement of his activity to a significant degree is unlikely. Nutritional optimization has been recommended. Glycemic control and optimization has also been advised. A noninvasive lower extremity arterial study has been obtained, which appears to show relatively normal arterial perfusion at digital level bilaterally. Given the patient's history of end-stage renal disease, and his presentation with multiple ulcerations of the skin, calciphylaxis is suspected as a likely etiology of the patient's ulcerations. In this regard, a multidisciplinary approach will be helpful. We will solicit the input of the patient's well services operator, Dr. Sandie Naranjo, to assist in optimization of the patient from a medical standpoint. Records from the patient's prior appointments have been forwarded to Dr. Naranjo. At this juncture, the appearance of the ulcerations does not warrant more aggressive care, though serial monitoring for the presence of infection will be ongoing. Calciphylaxis is rare, but can be devastating and difficult to manage in end-stage renal disease. It is characterized by skin lesion and is associated with substantial morbidity and mortality. We will consider biopsy in the future if necessary. Will defer laboratory work-up to Dr. Naranjo, as laboratory studies are obtained at frequent intervals in monitoring the patient's renal and metabolic status at the dialysis center. The patient is to return in 3 weeks. He is to contact our facility should any significant change occur to suggest impending infection at the site of any of the ulcerations. Total time: 26 minutes
== END 2023-03-04 23:59 | disposition home or self-care (01) ==
LOC: WC 10:45
PROVIDERS: PCP Internal Medicine; Referring Provider Surgery; Visit Provider Surgery
DX: E11.622 Type 2 diabetes mellitus with other skin ulcer (principal); L97.219 Non-pressure chronic ulcer of right calf with unspecified severity; L97.419 Non-pressure chronic ulcer of right heel and midfoot with unspecified severity; L97.429 Non-pressure chronic ulcer of left heel and midfoot with unspecified severity; Z99.2 Dependence on renal dialysis; E11.22 Type 2 diabetes mellitus with diabetic chronic kidney disease; I12.0 Hypertensive chronic kidney disease with stage 5 chronic kidney disease or end stage renal disease; N18.6 End stage renal disease; I48.11 Longstanding persistent atrial fibrillation; Z79.4 Long term (current) use of insulin; E83.59 Other disorders of calcium metabolism; R26.89 Other abnormalities of gait and mobility; E78.00 Pure hypercholesterolemia, unspecified; E03.9 Hypothyroidism, unspecified; I25.10 Atherosclerotic heart disease of native coronary artery without angina pectoris; R60.0 Localized edema; Z79.02 Long term (current) use of antithrombotics/antiplatelets; Z79.82 Long term (current) use of aspirin; Z79.890 Hormone replacement therapy; Z79.899 Other long term (current) drug therapy; Z95.1 Presence of aortocoronary bypass graft; Z95.5 Presence of coronary angioplasty implant and graft
CPT/HCPCS: 99213; G0463

== ENCOUNTER 2023-02-25 06:24 | Emergency (ER) | payer MEDICARE, OTHER, SELFPAY ==
[2023-02-25 06:25] VITALS: BP 88/67; PULSE 83; RESP 18; TEMP 36.4; BMI 32.3
--- NOTE | 2023-02-25 06:34 | RAD_ITS ---
INDICATION: fall EXAMINATION/TECHNIQUE: X-RAY - XR Pelvis 1 or 2 Views COMPARISON: None. FINDINGS: PELVIC BONES: No displaced fracture, destructive or sclerotic lesions. Note that overlapping bowel shadows may however obscure fine detail. Sacroiliac joints demonstrate mild degenerative arthrosis. No widening of the pubic symphysis. HIPS: Mild degenerative arthrosis of the hip joint. Osteopenia. No displaced fracture seen in this frontal view. SOFT TISSUES: No soft tissue swelling or gas. RAD/Pelvis 1 or 2 Views IMPRESSION: Mild degenerative arthrosis and osteopenia. Electronically Signed: Jayjay Cardoza MD at 7:29 EDT ,
--- NOTE | 2023-02-25 06:34 | CT_ITS ---
INDICATION: trauma/fall EXAMINATION: CT BRAIN - CT Head or Brain W/O Contrast Injection TECHNIQUE: Multiple axial images were obtained of the head without intravenous contrast. A radiation dose optimization technique was used for this scan. IV Contrast dosage and agent: None. RADIATION DOSAGE (If Supplied By Facility): CTDIvol = ( 44.99 ) mGy, DLP = ( 829.85 ) mGycm COMPARISON: FINDINGS: BRAIN PARENCHYMA: No intra- or extra-axial hemorrhage. No evidence of acute infarct. No intracranial mass or mass effect. There is preservation of the ramírez/white matter interface. Posterior fossa structures are unremarkable. CSF SPACES: Appropriate for age. No hydrocephalus. Basal cisterns are patent. CALVARIUM, SKULL BASE, PARANASAL SINUSES AND MASTOID AIR CELLS: Clear. No discrete lytic or blastic abnormalities. ORBITS: Both globes, extraocular muscles, optic nerves and retrobulbar fat appear unremarkable. ASPECTS Score for Acute Strokes: 10 CT/Brain/Head without Contrast IMPRESSION: Negative Brain CT without contrast. Electronically Signed: Jayjay Cardoza MD at 7:27 EDT ,
--- NOTE | 2023-02-25 06:34 | RAD_ITS ---
INDICATION: fall EXAMINATION/TECHNIQUE: X-RAY - XR Chest 2 Views COMPARISON: CR ChestJun 16 2022 FINDINGS: LINES/DEVICES: None. LUNGS: No consolidation, edema or effusion. No pneumothorax. MEDIASTINUM AND CARDIOVASCULAR STRUCTURES: Cardiac silhouette not enlarged. Central airways and mediastinal contour are unremarkable. BONES AND SOFT TISSUES: Unremarkable. RAD/Chest PA and Lateral IMPRESSION: No radiographic evidence of acute cardiopulmonary disease. Electronically Signed: Jayjay Cardoza MD at 7:31 EDT ,
--- NOTE | 2023-02-25 06:34 | CT_ITS ---
We are attempting to reach an attending provider to discuss findings. An addendum with communication details will be sent when the communication is complete. INDICATION: fall/injury EXAMINATION: CT CERVICAL SPINE - CT Spine Cervical W/O Contrast Injection TECHNIQUE: Helically acquired images were obtained of the cervical spine. 2D reformatted images were reviewed. A radiation dose optimization technique was used for this scan. IV Contrast dosage and agent: None. RADIATION DOSAGE (If Supplied By Facility): CTDIvol = ( 23.99 ) mGy, DLP = ( 564.69 ) mGycm COMPARISON: FINDINGS: VERTEBRAE: There is chip fracture at the anterior-inferior corner of C3 . Normal alignment. Normal craniocervical junction and cervicothoracic junction. DISCS and SPINAL CANAL: Multilevel degenerative disc disease. Calcifications of the anterior longitudinal ligament at C4-5, C5-6 and C6-7. No critical stenosis. NECK SOFT TISSUES: There is prevertebral soft tissue swelling suggesting hematoma at C2-C4. There is no cervical adenopathy. LUNG APICES: Clear. CT/Spine Cervical without Contras IMPRESSION: There is chip fracture at the anterior-inferior corner of C3 . Electronically Signed: Jayjay Cardoza MD at 7:26 EDT ,
[2023-02-25] MEDS: Lidocaine 1% (20 ml mdv) 20 ML Vial INFILT (06:40)
--- NOTE | 2023-02-25 06:47 | ED.VIS.FALL ---
HPI <Dr. Ruiz Peres MD - Last Filed: 02/25/23 15:26> HPI - Fall History of Present Illness Chief Complaint: Fall Informant: patient and EMS Occured/Mechanism Occurred: Today (JPTA) Fall down steps #: 7 Usually ambulates: Walker Pain/Injury Location: head, BUE Quality of Pain: - (sore) Current Severity: Mild Maximum Severity: Mild Associated Symptoms Associated Symptoms: Negative for Loss of consciousness or Amnesia Narrative Narrative: Patient got up to use the bathroom in the middle of the night, he is in a split-level and he was coming back up the steps he got to the top and lost his balance grabbed onto the railing, but he was already tumbling back, and he fell down to the landing below around 7 steps. Carpeted steps. Hit his head on the wooden landing. No prodromal symptoms prior to the fall or recent illness. On clopidogrel. Not anticoagulated. Sustained multiple skin tears to his scalp and upper extremities, did not injure anything else. Has not tried to stand up yet. Other than soreness at the skin injuries, he denies any other pain including headache. No changes in his vision or neurologic symptoms. He is a dialysis patient, fistula in his left upper arm, he was due for dialysis this morning and he states he already called them and told them he will do it tomorrow. Tetanus Immunization: 5-10 years [facility] <Dr. Ruiz Peres MD - Last Filed: 02/25/23 15:26> [facility] Medical History Atherosclerosis of coronary artery bypass graft without angina pectoris Atherosclerotic heart disease of [place] coronary artery without angina pectoris Balance disorder Bilateral carotid artery stenosis Bilateral leg edema CAD (coronary artery disease) Calciphylaxis Chronic kidney disease, stage IV (severe) CVA (cerebral vascular accident) ESRD (end stage renal disease) Essential hypertension History of cerebrovascular accident History of [place] (myocardial infarction) Hyperlipidemia Hypothyroidism Hypothyroidism Localized swelling of both lower legs Longstanding persistent atrial fibrillation NSTEMI (non-ST elevated myocardial infarction) Obesity Pure hypercholesterolemia Thyroid nodule Type 2 diabetes mellitus with diabetic nephropathy Ulcers of both lower legs UTI (urinary tract infection) due to urinary indwelling catheter Home Medications clopidogrel 75 mg tablet 75 mg PO DAILY blood thinner 04/06/18 [History Last Taken Unknown] fenofibrate nanocrystallized 160 mg tablet 160 mg PO DAILY k 04/06/18 [History Last Taken Unknown] levothyroxine 50 mcg tablet 75 mcg PO DAILY thyroid 04/06/18 [History Last Taken Unknown] calcium acetate(phosphat bind) 667 mg capsule 667 mg PO TID k 05/05/18 [History Last Taken Unknown] aspirin 325 mg tablet 325 mg PO DAILY 02/04/21 [History Last Taken Unknown] atorvastatin 40 mg tablet 20 mg PO Q OTHER DAY cholesterol 07/21/21 [History Last Taken Unknown] Lactobacillus rhamnosus GG 15 billion cell sprinkle capsule (Culturelle) 1 cap PO DAILY 01/25/23 [History Last Taken Unknown] acetaminophen 500 mg tablet 1,000 mg PO TID 01/25/23 [History Last Taken Unknown] loperamide 2 mg tablet 2 mg PO DAILY PRN Diarrhea 01/25/23 [History Last Taken Unknown] melatonin 3 mg tablet 6 mg PO QHS 01/25/23 [History Last Taken Unknown] midodrine 10 mg tablet 10 mg PO TID 02/24/23 [History Last Taken Unknown] Allergy/AdvReac Type Severity Reaction Status Date / Time ibuprofen Allergy swellin Verified 02/25/23 06:31 and itching povidone-iodine Allergy Itching Verified 02/25/23 06:31 [From Betadine] vancomycin Allergy rash/ Verified 02/25/23 06:31 throat swelling adhesive tape AdvReac Rash Verified 02/25/23 06:31 Family History Father CAD (coronary artery disease) CAD, Coronary Stents Mother CAD (coronary artery disease) CAD, CABG Diabetes Surgical History H/O coronary artery bypass surgery (06/11/96) history Laparoscopic Peritoneal Dialysis Catheter (~12/29/17) History of appendectomy History of heart artery stent (~03/2002) History of left heart catheterization (12/25/19) History of nasal septoplasty History of sternectomy (~07/10/96) Hx of arteriovenostomy for renal dialysis Presence of coronary angioplasty implant and graft (~03/2002) Social History Smoking Status: Never smoker alcohol intake: never substance use type: does not use caffeine: Yes (3 cups daily) ROS <Dr. Ruiz Peres MD - Last Filed: 02/25/23 15:26> ROS ED Constitutional Constitutional ED: Denies chills or fever(s) Eyes Eyes: Denies change in vision or diplopia ENT ENT ED: Denies ear pain, epistaxis, facial pain or rhinorrhea Cardiovascular Cardiovascular: Denies chest pain or palpitations Respiratory/Chest Respiratory/Chest: Denies cough or dyspnea Gastrointestinal Gastrointestinal: Denies abdominal pain, diarrhea, melena, nausea or vomiting Genitourinary Genitourinary ED: Denies dysuria or hematuria Musculoskeletal Musculoskeletal: Denies back pain, extremity pain or neck pain Integumentary Reports Abrasions and laceration; Denies abscess or rash Neurologic Neurologic: Denies confusion, headache(s), paresthesias or weakness EXAM <Dr. Ruiz Peres MD - Last Filed: 02/25/23 15:26> Physical Exam Const Vital Signs: 02/25/23 06:25 02/25/23 06:32 02/25/23 07:40 Temperature 97.5 F L Temperature Source Temporal Pulse Rate 83 72 Respiratory Rate 18 18 Respiratory Effort Normal Blood Pressure 88/67 L 94/55 L Blood Pressure Mean 74 68 Pulse Ox 91 Oxygen Delivery Method Ambu-Bag Nasal Cannula Oxygen Flow Rate (L/min) 3 Positive well nourished and well developed General Appearance ED: well developed and NAD HEENT Reports TM's clear and nasal mucous membranes and turbinates normal HEENT Narrative: 3 cm curved laceration within a skin tear on the top of his scalp, there is another small abrasion without active bleeding to the right of this without a repairable laceration there. No areas of crepitance or depression or suspicion for skull fracture clinically. The laceration is full-thickness but the skin edges do not distract far and the [place] is not visible. 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 Visual Acuity: other Other Details: no entrapment or pain with extraocular movements Neck Neck Narrative: C-collar maintained along with inline C-spine stabilization General: tenderness Chest Wall inspection of chest normal and palpation of chest normal Chest Narrative: Patient had sternal resection. No signs of trauma. No tenderness throughout chest or rib cage including with lateral compression of the ribs. Chest: symmetrical chest wall rise; Negative for crepitus or tenderness Resp normal respiratory effort and clear to auscultation bilaterally Percussion: other equal BS bilat Cardio no murmurs Rate: regular rate Rhythm: regular rhythm GI normal to inspection, nondistended, normoactive bowel sounds, soft to palpation and non-tender GI Narrative: Pelvis stable and without tenderness on AP compression. Back/Spine normal ROM Back/Spine Narrative: Very mild tenderness lower C-spine, no step-off or obvious signs of trauma. No other spinal tenderness. Able to sit patient up after exam without any pain or difficulty. Cervical Spine: cervical spine tenderness Thoracic Spine / Upper Back: Negative for thoracic spinal tenderness Lumbar Spine / Lower Back: Negative for lumbar spinal tenderness Extremity full ROM Extremity Narrative: Multiple areas of ecchymosis, purpura, skin tears to both upper extremities, all very superficial wounds with no bony tenderness and full range of motion present. AV fistula left upper arm good palpable pulse and distal pulse. General Extremety ED: Negative for tenderness Neuro oriented x3, CN's II-XII intact bilaterally, moves all extremities, no focal motor deficits and no sensory deficits noted Gene Coma Scale: document GCS findings Spontaneous Obeys Commands Oriented 15 Sensorium / Orientation: awake and alert Psych mental status grossly normal and thought process normal Skin Skin Narrative: Chronic appearing wounds on both feet larger 1 on the right foot peroneal only. Multiple abrasions and skin tears both upper extremities without laceration to repair. Abrasion and laceration to scalp see above. No other apparent skin injuries. Lesions: no lesions Rashes: no rashes <Tom Read MD - Last Filed: 02/25/23 15:11> Physical Exam Const Vital Signs: 02/25/23 06:25 02/25/23 06:32 02/25/23 07:40 Temperature 97.5 F L Temperature Source Temporal Pulse Rate 83 72 Respiratory Rate 18 18 Respiratory Effort Normal Blood Pressure 88/67 L 94/55 L Blood Pressure Mean 74 68 Pulse Ox 91 Oxygen Delivery Method Ambu-Bag Nasal Cannula Oxygen Flow Rate (L/min) 3 Neuro Newell Coma Scale: document GCS findings 15 MDM <Dr. Ruiz Peres MD - Last Filed: 02/25/23 15:26> [facility] MDM Narrative Medical decision making narrative: Scalp laceration was repaired see the procedure note. There were multiple skin tears that do not require any repair. These will be cleansed and dressed by nursing. He was sent for CT of the head and cervical spine, and I sent him for a two-view chest x-ray and pelvis x-ray just to screen for other injuries due to falling down multiple steps and his low blood pressure, although he runs low to begin with, and at 88/67 we sat him up and he had no lightheadedness or systemic symptoms. He states before dialysis he usually runs around 102/56 and afterwards he is in the 90s most of the time. I obtained labs since he was planning on missing dialysis since he goes early in the morning, similar timeframe that he is here in the emergency department. Chest x-ray 2 view on my interpretation shows cardiomegaly and chronic changes but no acute displaced rib fractures or pneumothorax. Pelvis x-ray 1 view on my interpretation shows multiple vascular calcifications but no acute pelvic or hip fractures. I reviewed the imaging of the head and cervical spine CTs, as well as the radiology report, and I agree with them. Basically negative for anything acutely traumatic. Labs are reviewed, his potassium is not high, so if he can arrange dialysis tomorrow I think that is reasonable. After reviewing the imaging the patient c-collar was removed and his C-spine was cleared clinically, and he is moving it well without any neurologic symptoms or abnormalities. Patient will be ambulated, and discharged home offered analgesics, supportive care recommended close outpatient follow-up for staple removal, we discussed reasons to return I am okay if he continues his clopidogrel. Lab Data Attestation: I reviewed the patient's lab results. Labs: Laboratory Results - last 24 hr 02/25/23 02/25/23 06:40 06:40 WBC 9.5 RBC 4.15 L Hgb 13.1 Hct 40.7 MCV 98.1 H MCH 31.6 MCHC 32.2 RDW Std Deviation 62.8 H RDW Coeff of Will 17.8 H Plt Count 175 MPV 10.4 Immature Gran % (Auto) 0.700 Neut % (Auto) 76.1 H Lymph % (Auto) 13.[address] [place] % (Auto) 8.1 Eos % (Auto) 1.3 Baso % (Auto) 0.7 Absolute Neuts (auto) 7.2 Absolute Lymphs (auto) 1.24 Nucleated RBC % 0.2 Sodium 136 Potassium 3.8 Chloride 92 L Carbon Dioxide 32.0 Anion Gap 12 BUN 32 H Creatinine 4.59 H Estim Creat Clear Calc 15.50 Est GFR (MDRD) Af Amer 16 L Est GFR (MDRD) Non-Af 13 L BUN/Creatinine Ratio 7.0 L Glucose 174 H Calcium 9.7 Radiography Diagnostic Testing: Clinical Impression(s) from Imaging Studies Brain CT 02/25/23 06:34 IMPRESSION: Negative Brain CT without contrast. Electronically Signed: Jayjay Cardoza MD at 7:27 EDT , Cervical Spine CT 02/25/23 06:34 IMPRESSION: There is chip fracture at the anterior-inferior corner of C3 . Electronically Signed: Jayjay Cardoza MD at 7:26 EDT Reading Location ID and State: [facility] / [place] Tel , Service support , ADDENDUM: 02/25/23 0740 IMPRESSION: There is chip fracture at the anterior-inferior corner of C3 . N.B. : The above Results were Read Back by Jayjay Cardoza MD to Tom Linares MD, and understanding confirmed on 02/25/2023 07:33:20 (ET). Electronically Signed: Jayjay Cardoza MD at 7:26 EDT Reading Location ID and State: [facility] / [place] Tel , Service support , Chest X-Ray 02/25/23 06:34 IMPRESSION: No radiographic evidence of acute cardiopulmonary disease. Electronically Signed: Jayjay Cardoza MD at 7:31 EDT Reading Location ID and State: [facility] / [place] Tel , Service support , Pelvis X-Ray 02/25/23 06:34 IMPRESSION: Mild degenerative arthrosis and osteopenia. Electronically Signed: Jayjay Cardoza MD at 7:29 EDT Reading Location ID and State: [facility] / [place] Tel , Service support , My interpretation of the CT agrees with that of the radiologist. <Tom Read MD - Last Filed: 02/25/23 15:11> [facility] MDM Narrative Medical decision making narrative: Scalp laceration was repaired see the procedure note. There were multiple skin tears that do not require any repair. These will be cleansed and dressed by nursing. He was sent for CT of the head and cervical spine, and I sent him for a two-view chest x-ray and pelvis x-ray just to screen for other injuries due to falling down multiple steps and his low blood pressure, although he runs low to begin with, and at 88/67 we sat him up and he had no lightheadedness or systemic symptoms. He states before dialysis he usually runs around 102/56 and afterwards he is in the 90s most of the time. I obtained labs since he was planning on missing dialysis since he goes early in the morning, similar timeframe that he is here in the emergency department. Chest x-ray 2 view on my interpretation shows cardiomegaly and chronic changes but no acute displaced rib fractures or pneumothorax. Pelvis x-ray 1 view on my interpretation shows multiple vascular calcifications but no acute pelvic or hip fractures. Labs are reviewed, his potassium is not high, so if he can arrange dialysis tomorrow I think that is reasonable. Dr. Read: Patient endorsed to me by Dr. Ruiz Peres to review and check the CT reports on this patient with a fall down 7 stairs without loss of consciousness. He is on Plavix and aspirin. I reviewed the radiology reports on the CT of the brain which shows no acute fracture or hemorrhage. Additionally, I reviewed the radiology reports on the chest x-ray and pelvis which shows no evidence of acute fracture. I did receive a call from the radiologist after reviewing the CT of the C-spine. There is an anterior inferior chip fracture off of C3. While this might be more of a stable fracture, there is prevertebral soft tissue swelling from C2-C4 consistent with hematoma. As the patient is on mild blood thinners, currently his airway is not compromised. However, I am concerned about a hematoma that is expanding. I discussed the patient with the transfer line at [facility] and with Dr. Poppy Dodge with emergency medicine who has accepted him for transfer for trauma care. I discussed the need for transfer with the patient and his son. Disposition is transferred in stable condition. Lab Data Labs: Laboratory Results - last 24 hr 02/25/23 02/25/23 06:40 06:40 WBC 9.5 RBC 4.15 L Hgb 13.1 Hct 40.7 MCV 98.1 H MCH 31.6 MCHC 32.2 RDW Std Deviation 62.8 H RDW Coeff of Wlil 17.8 H Plt Count 175 MPV 10.4 Immature Gran % (Auto) 0.700 Neut % (Auto) 76.1 H Lymph % (Auto) 13.[address] [place] % (Auto) 8.1 Eos % (Auto) 1.3 Baso % (Auto) 0.7 Absolute Neuts (auto) 7.2 Absolute Lymphs (auto) 1.24 Nucleated RBC % 0.2 Sodium 136 Potassium 3.8 Chloride 92 L Carbon Dioxide 32.0 Anion Gap 12 BUN 32 H Creatinine 4.59 H Estim Creat Clear Calc 15.50 Est GFR (MDRD) Af Amer 16 L Est GFR (MDRD) Non-Af 13 L BUN/Creatinine Ratio 7.0 L Glucose 174 H Calcium 9.7 Radiography Diagnostic Testing: Clinical Impression(s) from Imaging Studies Brain CT 02/25/23 06:34 IMPRESSION: Negative Brain CT without contrast. Electronically Signed: Jayjay Cardoza MD at 7:27 EDT Reading Location ID and State: [facility] / [place] Tel , Service support , Cervical Spine CT 02/25/23 06:34 IMPRESSION: There is chip fracture at the anterior-inferior corner of C3 . Electronically Signed: Jayjay Cardoza MD at 7:26 EDT , ADDENDUM: 02/25/23 0740 IMPRESSION: There is chip fracture at the anterior-inferior corner of C3 . N.B. : The above Results were Read Back by Jayjay Cardoza MD to Tom Linares MD, and understanding confirmed on 02/25/2023 07:33:20 (ET). Electronically Signed: Jayjay Cardoza MD at 7:26 EDT , Chest X-Ray 02/25/23 06:34 IMPRESSION: No radiographic evidence of acute cardiopulmonary disease. Electronically Signed: Jayjay Cardoza MD at 7:31 EDT , Pelvis X-Ray 02/25/23 06:34 IMPRESSION: Mild degenerative arthrosis and osteopenia. Electronically Signed: Jayjay Cardoza MD at 7:29 EDT , Procedures <Dr. Ruiz Peres MD - Last Filed: 02/25/23 15:26> Lacerations scalp: Length: 3 cm Depth: Sub Q Shape: curved Prep: Sterile Conditions and Chlorhexadine Laceration repair: Irrigated, Lidocaine (2cc, plain 1%) and Local Number of Sutures/[place] Pos: 4 (skin moses) Discharge Plan Triage Chief Complaint: Fall ED Provider: Ruiz Peres Dx/Rx/DC Orders Clinical Impression: Closed head injury without loss of consciousness, Laceration of scalp, Multiple skin tears, Acute cervical myofascial strain, Fall down steps, ESRD (end stage renal disease), Cervical vertebral fracture Prescriptions: No Action clopidogrel 75 MG tablet 75 mg PO DAILY Rx Instructions: on hold from surgery until 07/04/18 levothyroxine 50 MCG tablet 75 mcg PO DAILY fenofibrate nanocrystallized 160 MG tablet 160 mg PO DAILY calcium acetate(phosphat bind) 667 mg capsule 667 mg PO TID Label Comments: 667 mg PO with each meal Rx Instructions: 667 mg PO with each meal atorvastatin 40 mg tablet 20 mg PO Q OTHER DAY loperamide 2 mg Tablet 2 mg PO DAILY PRN (Reason: Diarrhea) melatonin 3 mg Tablet 6 mg PO QHS acetaminophen 500 mg Tablet 1,000 mg PO TID Culturelle 15 billion cell Capsule, Sprinkle 1 cap PO DAILY midodrine 10 mg tablet 10 mg PO TID Rx Instructions: do not give last dose of day after 6PM or within 4 hrs of bedtime aspirin 325 mg tablet 325 mg PO DAILY Primary Care Provider: Becky Romo Referrals: Becky Romo DO [Primary Care Provider] - 5 Days for suture removal Disposition Disposition: Acute Care Hospital Discharge Location: [facility] Discharge Date/Time: 02/25/23 09:00
[2023-02-25 06:57] LABS: Absolute Lymphocyte Count 1.24 X10^3/uL (0.83-4.51); Absolute Neutrophil Count 7.2 X10^3/uL (2.0-7.7); Basophil# 0.07 X10^3/uL; Basophil% 0.7 % (0-1); Eosinophil# 0.12 X10^3/uL; Eosinophils% 1.3 % (0-5); Hematocrit 40.7 % (40-54); Hemoglobin 13.1 g/dL (13.0-16.5); Lymphocyte # 1.24 X10^3/ul (0.83-4.51); Lymphocyte % 13.1 % (19-41); Mean Corp Hgb Conc 32.2 g/dL (32-36); Mean Corpuscular Hgb 31.6 pg (27.0-32.0); Mean Corpuscular Volume 98.1 fL (80-94); Mean Platelet Vol. 10.4 fl (6.2-12.0); Monocyte# 0.77 X10^3/uL; Monocyte% 8.1 % (0-10); NRBC Flagged by Analyzer 0.2 % (0-5); Neutrophil # 7.21 X10^3/uL (2.7-7.7); Neutrophil % 76.1 % (47-70); Platelet Count 175 K/mm3 (150-450); RBC Distribution Width CV 17.8 % (11.6-14.6); RBC Distribution Width SD 62.8 fl (35.1-43.9); Red Blood Count 4.15 M/mm3 (4.6-6.2); White Blood Count 9.5 K/mm3 (4.4-11.0)
[2023-02-25 07:11] LABS: Anion Gap 12 (5-15); BUN 32 mg/dL (7-18); Calcium,Total 9.7 mg/dL (8.5-10.1); Chloride 92 mmol/L (98-107); Creatinine, Serum 4.59 mg/dL (0.70-1.30); EST Glomerular Filtration Rate 13 mL/min (>60); Est Glom Filt Rate - Afr Amer 16 mL/min (>60); Glucose 174 mg/dL (74-106); Potassium 3.8 mmol/L (3.5-5.1); Sodium Level 136 mmol/L (136-145)
[2023-02-25 07:40] VITALS: BP 94/55; PULSE 72; RESP 18; O2SAT 91
--- NOTE | 2023-02-25 07:41 | NURSING ---
MADE CALL TO [facility] UMANZOR. TALKED TO DR VARGHESE TALKING TO THEM
--- NOTE | 2023-02-25 07:46 | NURSING ---
[facility]AT[facility] ER TO ER NURSE TO NURSE [phone]
--- NOTE | 2023-02-25 08:00 | ED.RN ---
PT REPORT CALLED TO [facility] ED RN MARIS AT THIS TIME.
--- NOTE | 2023-02-25 08:13 | NURSING ---
0750 CALLED [facility], ETA IS 30 TO 45 MIN
== END 2023-02-25 09:00 | disposition short-term general hospital (02) ==
PROVIDERS: Emergency Provider Emergency Medicine; PCP Internal Medicine; Visit Provider Emergency Medicine
DX: S12.200A Unspecified displaced fracture of third cervical vertebra, initial encounter for closed fracture (principal); I95.9 Hypotension, unspecified; S41.112A Laceration without foreign body of left upper arm, initial encounter; S41.111A Laceration without foreign body of right upper arm, initial encounter; Z99.2 Dependence on renal dialysis; E11.22 Type 2 diabetes mellitus with diabetic chronic kidney disease; N18.6 End stage renal disease; I12.0 Hypertensive chronic kidney disease with stage 5 chronic kidney disease or end stage renal disease; S01.01XA Laceration without foreign body of scalp, initial encounter; E78.00 Pure hypercholesterolemia, unspecified; I25.10 Atherosclerotic heart disease of native coronary artery without angina pectoris; W10.9XXA Fall (on) (from) unspecified stairs and steps, initial encounter; Y92.009 Unspecified place in unspecified non-institutional (private) residence as the place of occurrence of the external cause; Z79.02 Long term (current) use of antithrombotics/antiplatelets; Z79.82 Long term (current) use of aspirin; Z79.899 Other long term (current) drug therapy; Z86.73 Personal history of transient ischemic attack (TIA), and cerebral infarction without residual deficits; S16.1XXA Strain of muscle, fascia and tendon at neck level, initial encounter
CPT/HCPCS: 12002; 70450; 71046; 72125; 72170; 80048; 85025; 99285; A4216